=== PATIENT | male | born 1990 | race Caucasian/White ===

== ENCOUNTER 2021-04-12 13:52 | Inpatient (IN) ==
[2021-04-12] MEDS ORDERED: ONDANSETRON INJ 2 MG/ML 2 ML VIAL IV STA (14:20)
[2021-04-12] MEDS ORDERED: NovoLIN-R INSULIN PER UNIT CHARGE IV STA (14:20)
[2021-04-12] MEDS ORDERED: SODIUM CHLORIDE 0.9% 1000ML 1,000 ML IV ONE ×2 (14:20→15:03)
--- NOTE | 2021-04-12 14:27 | Emergency Department Note ---
History of Present Illness General Chief complaint: Hyperglycemia Stated complaint: DIABETIC Time Seen by Provider: 04/12/21 14:10 Source: patient and RN notes reviewed Mode of arrival: EMS Limitations: no limitations History of Present Illness This patient is a new onset type I diabetic 2 months ago comes in after feeling ill for several weeks. He has lost about 60 pounds in these 2 months. He was discharged from [place] less than a week ago with similar type symptoms. Apparently have had a hard time adjusting his medication he is on insulin and also oral meds. He is not on any blood thinners. He has been having a lot of vomiting. Denies blood or dark vomit although the paramedics were concerned he could have coffee grounds. He some intermittent chest pain that lasts seconds has been going on for weeks. His blood sugar was high when checked by paramedics. He has had no cough or shortness of breath or fever. He is not had the Covid vaccine but was Covid tested negative during his hospitalization. No focal numbness or weakness. Home Medications Medication Instructions Recorded Confirmed Type escitalopram oxalate [Lexapro] 5 mg PO DAILY 04/12/21 04/12/21 History insulin aspart U-100 [Novolog 0 unit SUBCUT UD 04/12/21 04/12/21 History Flexpen U-100 Insulin] naproxen 500 mg PO BIDM PRN 04/12/21 04/12/21 History omeprazole 20 mg PO QAM 04/12/21 04/12/21 History ondansetron [Zofran ODT] 4 mg PO Q6H PRN 04/12/21 04/12/21 History pantoprazole 40 mg PO BID 04/12/21 04/12/21 History sucralfate [Carafate] 1 g PO ACHS 04/12/21 04/12/21 History Allergies Allergy/AdvReac Type Severity Reaction Status Date / Time No Known Allergies Allergy Unverified 04/12/21 15:11 Past Med/Surg History Medical History (Updated 04/12/21 @ 20:03 by Mikey Samson MD) Depression GERD (gastroesophageal reflux disease) Tobacco use disorder Type 1 diabetes Surgical History H/O inguinal hernia repair Family History (Updated 04/12/21 @ 16:39 by Myah Adkins PA-C) Other Diabetes Social History (Updated 04/12/21 @ 16:40 by Myah Adkins PA-C) Smoking Status: Never smoker Hx Alcohol Use: No Hx Substance Use: No Preferred Language: Norwegian Communication Ability: Effective [employer] Inspector Required: No Beliefs That Will Affect Care: None Current Living Situation: Family Feels Safe at Home: Yes Safety Concerns: Feels Safe At This Time Assistive Devices: None Immunizations: Past medical historydiabetes. Denies any other medical problems Social history-History of tobacco and marijuana use Review of Systems A total of 10 systems reviewed and were otherwise negative Physical Exam Vital Signs Vital Signs - 24 hr 04/12/21 14:00 04/12/21 14:49 Temperature 36.5 C Temperature Source Oral Pulse Rate 141 H Respiratory Rate 22 Respiratory Effort / Characteristics Non-Labored Respiratory Depth Normal Blood Pressure 124/85 Blood Pressure Mean 98 Blood Pressure Position Right Lateral Pulse Oximetry 100 Oxygen Delivery Method Room Air Room Air Sepsis Recent Fever Within 48 Hours No Sepsis New/Unexplained Change in Mental Status No Sepsis Action Taken by Nursing No Action Required General: Well developed well nourished slender young male who appears uncomfortable but in no acute distress, breathing comfortably on room air. Normal speech HEENT: Normal cephalic atraumatic. Pupils are equal round and reactive to lig ht. Extraocular movements are intact. Oropharynx is pink with moist mucous membranes. No swelling of the mouth lips or tongue. Neck: Supple with a midline trachea. No meningeal signs or stiffness, no JVD or bruits. No Stridor. Chest: Clear to auscultation bilaterally. No wheezes or rhonchi. No increased work of breathing. Heart: Tachycardic with sinus tachycardia seen on the monitor but regular rate and rhythm without murmurs or gallops. Abdomen: Soft nontender, nondistended without rebound guarding or rigidity. Extremities: No cyanosis clubbing or edema. No calf tenderness or assymetry Spine/Back. Non tender to palpation. No CVA tenderness Skin: Good turgor without rashes. Neurologic exam: Cranial nerves two through 12 are intact. Motor and sensation are intact and symmetrical throughout. Course Administered Medications Insulin Human Regular 250 (units/ Sodium Chloride) 250 mls @ 6.8 mls/hr IV .Q24H [facility]; Protocol Stop: 05/12/21 15:44 Last Titration: 04/12/21 19:51 Dose: 0 units/hr, 0 mls/hr Documented by: [id number] Cosigned by: [id number] Titration: 04/12/21 18:42 Dose: 6.8 units/hr, 6.8 mls/hr Documented by: [id number] Cosigned by: [id number] Titration: 04/12/21 17:45 Dose: 6.8 units/hr, 6.8 mls/hr Documented by: [id number] Cosigned by: [id number] Titration: 04/12/21 16:51 Dose: 6.8 units/hr, 6.8 mls/hr Documented by: [id number] Cosigned by: [id number] Admin: 04/12/21 16:13 Dose: 5.7 units/hr, 5.7 mls/hr Documented by: [id number] Cosigned by: [id number] Potassium Chloride/Sodium Chloride (1/2 Nss + 20meq Kcl 1000ml) 20 meq in 1,000 mls @ 250 mls/hr IV .Q4H [facility] Stop: 05/12/21 17:29 Last Admin: 04/12/21 17:33 Dose: 250 mls/hr Documented by: [id number] Insulin Aspart (Insulin Aspart 100 Units/Ml 3 Ml Pen) 0 units SC ACHS [facility] Stop: 05/12/21 16:34 Last Admin: 04/12/21 17:22 Dose: Not Given Documented by: [id number] Cosigned by: [id number] Miscellaneous (Pending 1/2nss+20meq Kcl Ivf) 1 ea N/A Q2H [facility] Stop: 05/12/21 16:34 Last Admin: 04/12/21 18:20 Dose: Not Given Documented by: [id number] Admin: 04/12/21 17:21 Dose: Not Given Documented by: [id number] Miscellaneous (Pending D5 1/2ns+20meq Kcl Ivf) 1 ea N/A Q2H [facility] Stop: 05/12/21 16:34 Last Admin: 04/12/21 18:20 Dose: Not Given Documented by: [id number] Admin: 04/12/21 17:23 Dose: Not Given Documented by: [id number] Nicotine (Nicotine 21 Mg/24 Hr Tdsy) 21 mg TD QAM [facility] Stop: 05/12/21 16:34 Last Admin: 04/12/21 17:24 Dose: Not Given Documented by: [id number] Discontinued Medications Sodium Chloride (Nss 1000ml) 1,000 mls @ 999 mls/hr IV .Q1H1M ONE Stop: 04/12/21 15:20 Last Infusion: 04/12/21 15:45 Dose: 0 mls/hr Documented by: [id number] Admin: 04/12/21 14:44 Dose: 999 mls/hr Documented by: [id number] Sodium Chloride (Nss 1000ml) 1,000 mls @ 999 mls/hr IV .Q1H1M ONE Stop: 04/12/21 16:03 Last Infusion: 04/12/21 16:17 Dose: 0 mls/hr Documented by: [id number] Admin: 04/12/21 15:08 Dose: 999 mls/hr Documented by: [id number] Sodium Chloride (Nss 1000ml) 1,000 mls @ 200 mls/hr IV .Q5H [facility] Stop: 05/12/21 15:59 Last Admin: 04/12/21 16:58 Dose: Not Given Documented by: [id number] Thiamine HCl 100 mg/ Syringe 10 mls @ 2 mls/min IV NOW STA Stop: 04/12/21 16:20 Last Admin: 04/12/21 17:03 Dose: 2 mls/min Documented by: [id number] Folic Acid 1 mg/ Syringe 10 mls @ 5 mls/min IV NOW STA Stop: 04/12/21 16:17 Last Admin: 04/12/21 17:03 Dose: 5 mls/min Documented by: [id number] Insulin Aspart (Insulin Aspart 100 Units/Ml 3 Ml Pen) 0 units SC ACHS [facility] Stop: 05/12/21 16:29 Last Admin: 04/12/21 16:58 Dose: Not Given Documented by: [id number] Insulin Human Regular (Novolin-R Insulin Per Unit Charge) 10 units IV NOW STA Stop: 04/12/21 14:21 Last Admin: 04/12/21 14:44 Dose: 10 units Documented by: [id number] Cosigned by: [id number] Miscellaneous (Stat Iv Infusion Titration Per Protocol) 1 ea N/A NOW STA Stop: 04/12/21 15:46 Last Admin: 04/12/21 16:48 Dose: Not Given Documented by: [id number] Miscellaneous (Dka Goal Range 150-250 Mg/Dl) 1 ea N/A ONE ONE Stop: 04/12/21 16:36 Last Admin: 04/12/21 16:55 Dose: 1 ea Documented by: [id number] Miscellaneous Information (Nursing To Pharmacy Communication) 1 ea N/A TODAY [facility] Stop: 05/12/21 17:14 Last Admin: 04/12/21 17:24 Dose: 1 ea Documented by: [id number] Ondansetron HCl (Ondansetron Inj 2 Mg/Ml 2 Ml Vial) 4 mg IV NOW STA Stop: 04/12/21 14:21 Last Admin: 04/12/21 14:44 Dose: 4 mg Documented by: [id number] Critical Care Time Critical Care Time: Yes Total Critical Care Time: 32 Due to the patient's DKA with tachycardia and dehydration and electrolyte and metabolic abnormalities and need for multiple IV medications as well as IV fluid boluses and frequent reassessment and evaluation, I have personally spent greater than 32 minutes of critical care time in the direct management of this patient. This includes bedside care, interpretation of diagnostic studies, and testing, discussion with consultants, patient, and family members, and other required patient management activities. This 32 minutes is in excess of all separately billable procedures. Medical Decision Making Differential Diagnosis DKA, dehydration, GI bleed, acute coronary syndrome, arrhythmia, electrolyte or metabolic abnormality, infection, sepsis, pulmonary disease Medical Records Attestation: I reviewed the patient's medical records. Home Medications Current Medication List: was personally reviewed by me Laboratory Data Attestation: I reviewed the patient's lab results. Result diagrams: 04/12/21 14:17 04/12/21 16:51 Lab Results 04/12/21 04/12/21 04/12/21 Range/Units 14:17 14:17 14:17 WBC 25.35 H (4.8-10.8) K/uL RBC 5.50 (4.7-6.1) M/uL Hgb 18.1 H (14.0-18.0) g/dL POC Hgb (14.0-18.0) g/dl Hct 48.6 (42-52) % POC Hct (42-52) % MCV 88.4 (80-100) fL MCH 32.9 (25-34) pg MCHC 37.2 H (32-36) g/dL RDW Std Deviation 38.8 (36.4-46.3) fL RDW Coeff of Bennett 12.3 (11.5-14.5) % Plt Count 487 H (130-400) K/uL MPV 8.9 (7.4-10.4) fL Immature Gran % (Auto) 0.5 % Neut % (Auto) 85.3 % Lymph % (Auto) 13.5 % Schuyler % (Auto) 0.7 % Eos % (Auto) 0.0 % Baso % (Auto) 0.0 % Neut # (Auto) 21.62 H (1.4-6.5) K/uL Lymph # (Auto) 3.41 H (1.2-3.4) K/uL Schuyler # (Auto) 0.18 (0.11-0.59) K/uL Eos # (Auto) 0.00 (0-0.5) K/uL Baso # (Auto) 0.01 (0-0.2) K/uL Immature Gran # (Auto) 0.13 H (0.00-0.02) K/uL RBC Morphology Unremarkable PT Cancelled INR Cancelled APTT Cancelled PTT Ratio Cancelled VBG pH (7.36-7.41) VBG pCO2 (38-50) mmHg VBG pO2 mmHg VBG HCO3 mmol/L VBG O2 Saturation % VBG Base Excess mEq/L Barometric Pressure mm/Hg POC Sodium (135-144) mmol/L Sodium 127 L (136-145) mmol/L POC Potassium (3.3-5.0) mmol/L Potassium (3.5-5.1) mmol/L POC Chloride (101-112) mmol/L Chloride 86 L (98-107) mmol/L Carbon Dioxide 8 L* (21-32) mmol/L POC Total CO2 (24-31) mmol/L Anion Gap 33.0 H (3-11) POC Anion Gap (16-25) mmol/L POC BUN (7-18) mg/dl BUN 32 H (7-18) mg/dl Creatinine 1.72 H (0.6-1.4) mg/dl POC Creatinine (0.6-1.3) mg/dl Est Cr Clr Drug Dosing 51.8 ml/min Est GFR ( Amer) 61.3 ml/min Est GFR (Non-Af Amer) 52.9 ml/min BUN/Creatinine Ratio 18.7 (10-20) Glucose 716 H* (70-99) mg/dl POC Glucose (other) (70-99) mg/dl Calcium 9.3 (8.5-10.1) mg/dl POC Ioniz Calcium Franca (1.12-1.32) mmol/l Phosphorus (2.5-4.9) mg/dl Magnesium (1.8-2.4) mg/dl Total Bilirubin 0.7 (0.2-1) mg/dl AST (15-37) U/L ALT 21 (12-78) U/L Alkaline Phosphatase 126 H (45-117) U/L Troponin I < 0.015 (0-0.045) ng/ml Total Protein 8.1 (6.4-8.2) gm/dl Albumin 4.2 (3.4-5.0) gm/dl Globulin 3.9 (2.5-4.0) gm/dl Albumin/Globulin Ratio 1.1 (0.9-2) Lipase 70 L (73-393) U/L Beta-Hydroxybutyric Acd (0.2-2.81) mg/dl Blood Type Antibody Screen 04/12/21 04/12/21 04/12/21 Range/Units 14:30 14:40 14:40 WBC (4.8-10.8) K/uL RBC (4.7-6.1) M/uL Hgb (14.0-18.0) g/dL POC Hgb 17.3 (14.0-18.0) g/dl Hct (42-52) % POC Hct 51 (42-52) % MCV (80-100) fL MCH (25-34) pg MCHC (32-36) g/dL RDW Std Deviation (36.4-46.3) fL RDW Coeff of Bennett (11.5-14.5) % Plt Count (130-400) K/uL MPV (7.4-10.4) fL Immature Gran % (Auto) % Neut % (Auto) % Lymph % (Auto) % Schuyler % (Auto) % Eos % (Auto) % Baso % (Auto) % Neut # (Auto) (1.4-6.5) K/uL Lymph # (Auto) (1.2-3.4) K/uL Schuyler # (Auto) (0.11-0.59) K/uL Eos # (Auto) (0-0.5) K/uL Baso # (Auto) (0-0.2) K/uL Immature Gran # (Auto) (0.00-0.02) K/uL RBC Morphology PT INR APTT PTT Ratio VBG pH 7.15 L (7.36-7.41) VBG pCO2 24 L (38-50) mmHg VBG pO2 41 mmHg VBG HCO3 8 mmol/L VBG O2 Saturation 74.4 % VBG Base Excess -18.6 mEq/L Barometric Pressure 731.4 mm/Hg POC Sodium 126 L (135-144) mmol/L Sodium (136-145) mmol/L POC Potassium 5.7 H (3.3-5.0) mmol/L Potassium (3.5-5.1) mmol/L POC Chloride 94 L (101-112) mmol/L Chloride (98-107) mmol/L Carbon Dioxide (21-32) mmol/L POC Total CO2 8 L* (24-31) mmol/L Anion Gap (3-11) POC Anion Gap 31.0 H (16-25) mmol/L POC BUN 48 H (7-18) mg/dl BUN (7-18) mg/dl Creatinine (0.6-1.4) mg/dl POC Creatinine 1.2 (0.6-1.3) mg/dl Est Cr Clr Drug Dosing ml/min Est GFR ( Amer) ml/min Est GFR (Non-Af Amer) ml/min BUN/Creatinine Ratio (10-20) Glucose (70-99) mg/dl POC Glucose (other) 678 H* (70-99) mg/dl Calcium (8.5-10.1) mg/dl POC Ioniz Calcium Franca 1.11 L (1.12-1.32) mmol/l Phosphorus (2.5-4.9) mg/dl Magnesium (1.8-2.4) mg/dl Total Bilirubin (0.2-1) mg/dl AST (15-37) U/L ALT (12-78) U/L Alkaline Phosphatase (45-117) U/L Troponin I (0-0.045) ng/ml Total Protein (6.4-8.2) gm/dl Albumin (3.4-5.0) gm/dl Globulin (2.5-4.0) gm/dl Albumin/Globulin Ratio (0.9-2) Lipase (73-393) U/L Beta-Hydroxybutyric Acd (0.2-2.81) mg/dl Blood Type O Positive Antibody Screen NEGATIVE 04/12/21 04/12/21 Range/Units 14:40 14:40 WBC (4.8-10.8) K/uL RBC (4.7-6.1) M/uL Hgb (14.0-18.0) g/dL POC Hgb (14.0-18.0) g/dl Hct (42-52) % POC Hct (42-52) % MCV (80-100) fL MCH (25-34) pg MCHC (32-36) g/dL RDW Std Deviation (36.4-46.3) fL RDW Coeff of Bennett (11.5-14.5) % Plt Count (130-400) K/uL MPV (7.4-10.4) fL Immature Gran % (Auto) % Neut % (Auto) % Lymph % (Auto) % Schuyler % (Auto) % Eos % (Auto) % Baso % (Auto) % Neut # (Auto) (1.4-6.5) K/uL Lymph # (Auto) (1.2-3.4) K/uL Schuyler # (Auto) (0.11-0.59) K/uL Eos # (Auto) (0-0.5) K/uL Baso # (Auto) (0-0.2) K/uL Immature Gran # (Auto) (0.00-0.02) K/uL RBC Morphology PT 10.2 INR 1.0 APTT 28.5 PTT Ratio 1.1 VBG pH (7.36-7.41) VBG pCO2 (38-50) mmHg VBG pO2 mmHg VBG HCO3 mmol/L VBG O2 Saturation % VBG Base Excess mEq/L Barometric Pressure mm/Hg POC Sodium (135-144) mmol/L Sodium (136-145) mmol/L POC Potassium (3.3-5.0) mmol/L Potassium 3.0 L (3.5-5.1) mmol/L POC Chloride (101-112) mmol/L Chloride (98-107) mmol/L Carbon Dioxide (21-32) mmol/L POC Total CO2 (24-31) mmol/L Anion Gap (3-11) POC Anion Gap (16-25) mmol/L POC BUN (7-18) mg/dl BUN (7-18) mg/dl Creatinine (0.6-1.4) mg/dl POC Creatinine (0.6-1.3) mg/dl Est Cr Clr Drug Dosing ml/min Est GFR ( Amer) ml/min Est GFR (Non-Af Amer) ml/min BUN/Creatinine Ratio (10-20) Glucose (70-99) mg/dl POC Glucose (other) (70-99) mg/dl Calcium (8.5-10.1) mg/dl POC Ioniz Calcium Franca (1.12-1.32) mmol/l Phosphorus 2.8 (2.5-4.9) mg/dl Magnesium 1.9 (1.8-2.4) mg/dl Total Bilirubin (0.2-1) mg/dl AST 3 L (15-37) U/L ALT (12-78) U/L Alkaline Phosphatase (45-117) U/L Troponin I (0-0.045) ng/ml Total Protein (6.4-8.2) gm/dl Albumin (3.4-5.0) gm/dl Globulin (2.5-4.0) gm/dl Albumin/Globulin Ratio (0.9-2) Lipase (73-393) U/L Beta-Hydroxybutyric Acd 106.83 H (0.2-2.81) mg/dl Blood Type Antibody Screen Imaging Data Attestation: I personally reviewed and interpreted this imaging study as follows: My Impression: Chest x-rayno acute infiltrate, failure, pneumothorax seen Radiologist's Impression: Chest X-Ray 04/12/21 14:17 XR chest 1V portable CLINICAL HISTORY: Chest Pain COMPARISON STUDY: No previous studies for comparison. FINDINGS: Lung volumes are normal. Lungs are clear. There is no pneumothorax or pleural effusion. Cardiac size is normal. Mediastinal contours are normal. There is no evidence for pulmonary edema. Left hilar prominence is likely due to normal vessels. IMPRESSION: No acute cardiopulmonary findings. ACT 112: Negative or not required by law. Electronically signed by: Watson Davis M.D. 04/12/2021 3:08 PM ECG Data Attestation: I personally reviewed and interpreted this ECG as follows: Indication: + chest pain and + weakness Rate (beats per minute): 142 Rhythm: + sinus tachycardia and + other (Poor baseline.) ECG Intervals/blocks: + Normal QRS, + Short MO and + Normal QT ECG ST segments: + Nonspecific ST abnormalities ECG Findings: no PACs and no PVCs Comparison ECG Date: no prior available MDM Narrative This patient has relatively new onset type 1 diabetes it sounds like there has been a hard time adjusting his medications he has been ill and losing weight. He was hospital is in [place]. He comes here instead. IV access was established and hydrated with 1 L IV normal saline bolus. On route his blood sugar was high, so given 10 units of regular insulin IV as well. Multiple blood testing was obtained as well as chest x-ray and EKG. I also did get old records from [place]. Because there was concern for his acute illness I did d o i-STAT labs. His blood sugar was in the high 600s and his CO2 was low confirming DKA. He did also receive additional IV fluid bolus 1 L as well as an hourly rate. We also started him on IV insulin as per our DKA protocol. Chest x-ray was clear and he has no hypoxemia. EKG shoulds sinus tachycardic but no definite ischemia. His blood work is consistent with DKA his potassium is mildly elevated and his sodium is mildly low as well. His kidney functions are elevated I do think he is dry. His white count is elevated but I think is likely more stress reaction. he said no fever here or by history and no definite focal infection. It sounds the like he has had a hard time taking his medic ations and adjusting to that as he is a relatively new onset diabetic and I think that is likely the nidus for this. He is not anemic. I do think he needs to be admitted for further hydration treatment of his blood sugar and reevaluation. His blood sugar is trending downward with the insulin treatment. I did consult the [facility] hospitalist to see him in the ER for these measures. Continuous cardiac monitoring: Order was placed in EMR for continuous cardiac monitoring given the patient's chief complaint. Upon my interpretation, he noted to be in sinus tachycardia with a rate of 140. Impression & Plan DKA (diabetic ketoacidoses), Dehydration, Acute kidney injury, Elevated WBC count, COVID-19 ruled out by laboratory testing Discharge Plan Visit Data Chief Complaint: Hyperglycemia Stated Complaint: DIABETIC ED Provider: Mikey Samson Discharge Problem: DKA (diabetic ketoacidoses), Dehydration, Acute kidney injury, Elevated WBC count, COVID-19 ruled out by laboratory testing Patient Disposition: Admitted As Inpatient Discharge Instructions Interventions: ED Discharge Assessment Last Done: 04/12/21 16:19 Discharge Problem: DKA (diabetic ketoacidoses) Qualifiers: Diabetes mellitus type: type 1 Diabetes mellitus complication detail: without coma Qualified Code(s): E10.10 - Type 1 diabetes mellitus with ketoacidosis without coma Elevated WBC count Qualifiers: Leukocytosis type: unspecified Qualified Code(s): D72.829 - Elevated white blood cell count, unspecified
[2021-04-12 14:44] LABS: iSTAT Creatinine 1.2 mg/dl (0.6-1.3); iSTAT Hemoglobin 17.3 g/dl (14.0-18.0); iSTAT Ionized Calcium 1.11 mmol/l (1.12-1.32); iSTAT Potassium 5.7 mmol/L (3.3-5.0)
[2021-04-12 14:47] LABS: Hematocrit (blood only) 48.6 % (42-52); Hemoglobin 18.1 g/dL (14.0-18.0); Mean Corpuscular Hemoglobin 32.9 pg (25-34); Mean Corpuscular Hgb Conc 37.2 g/dL (32-36); Mean Corpuscular Volume 88.4 fL (80-100); Mean Platelet Volume 8.9 fL (7.4-10.4); Platelet Count 487 K/uL (130-400); RDW Coefficient of Variation 12.3 % (11.5-14.5); RDW Standard Deviation 38.8 fL (36.4-46.3); White Blood Count 25.35 K/uL (4.8-10.8)
[2021-04-12 14:48] LABS: Basophils # (auto) 0.01 K/uL (0-0.2); Immature Granulocytes # (auto) 0.13 K/uL (0.00-0.02); Immature Granulocytes % (auto) 0.5 %; Lymphocytes # (auto) 3.41 K/uL (1.2-3.4); Lymphocytes % (auto) 13.5 %; Monocytes # (auto) 0.18 K/uL (0.11-0.59); Monocytes % (auto) 0.7 %; Neutrophils # (auto) 21.62 K/uL (1.4-6.5); Neutrophils % (auto) 85.3 %; RBC Morphology Unremarkable
[2021-04-12 14:55] LABS: Base Excess VBG -18.6 mEq/L; Oxygen Saturation VBG 74.4 %; pH VBG 7.15 (7.36-7.41)
--- NOTE | 2021-04-12 15:09 | XRay Report ---
XR chest 1V portable CLINICAL HISTORY: Chest Pain COMPARISON STUDY: No previous studies for comparison. FINDINGS: Lung volumes are normal. Lungs are clear. There is no pneumothorax or pleural effusion. Car diac size is normal. Mediastinal contours are normal. There is no evidence for pulmonary edema. Left hilar prominence is likely due to normal vessels. IMPRESSION: No acute cardiopulmonary findings. ACT 112: Negative or not required by law. Electronically signed by: Watson Davis M.D. 04/12/2021 3:08 PM
[2021-04-12 15:12] LABS: Partial Thromboplastin Ratio 1.1; Partial Thromboplastin Time 28.5 Seconds (21.0-31.0); Prothrombin Time 10.2 Seconds (9.0-12.0)
[2021-04-12 15:33] LABS: Alanine Aminotransferase 21 U/L (12-78); Albumin Globulin Ratio 1.1 (0.9-2); Albumin Level 4.2 gm/dl (3.4-5.0); Alkaline Phosphatase 126 U/L (45-117); BUN Creatinine Ratio 18.7 (10-20); Bilirubin,Total 0.7 mg/dl (0.2-1); Blood Urea Nitrogen 32 mg/dl (7-18); Calcium 9.3 mg/dl (8.5-10.1); Carbon Dioxide 8 mmol/L (21-32); Chloride 86 mmol/L (98-107); Creatinine Clr Calc Pharmacy 51.8 ml/min; Est GFR (African American) 61.3 ml/min; Est GFR (Non-African American) 52.9 ml/min; Globulin 3.9 gm/dl (2.5-4.0); Glucose 716 mg/dl (70-99); Lipase 70 U/L (73-393); Sodium 127 mmol/L (136-145); Total Protein 8.1 gm/dl (6.4-8.2); Troponin I < 0.015 ng/ml (0-0.045)
--- NOTE | 2021-04-12 15:33 | Electrocardiogram Report ---
Test Reason : Blood Pressure : / mmHG Vent. Rate : 142 BPM Atrial Rate : 142 BPM P-R Int : 100 ms QRS Dur : 086 ms QT Int : 286 ms P-R-T Axes : 070 087 -34 degrees QTc Int : 439 ms Sinus tachycardia Diffuse Nonspecific ST abnormality Abnormal ECG No previous ECGs available Confirmed by Carlos Chacon ([id number]) on 04/12/2021 3:33:05 PM Referred By: ER Confirmed By:Carlos Chacon
[2021-04-12] MEDS ORDERED: DEXTROSE 50% 50 ML SYRINGE IV PRN (15:45)
[2021-04-12] MEDS ORDERED: STAT IV Infusion **Titration per Protocol STA (15:45)
[2021-04-12] MEDS ORDERED: CARBOHYDRATES FOR HYPOGLYCEMIA PO PRN (15:45)
[2021-04-12] MEDS ORDERED: GLUCOSE 10 TABS/TUBE PO PRN (15:45)
[2021-04-12] MEDS ORDERED: GLUCOSE 40% GEL 15 GM TUBE PO PRN (15:45)
[2021-04-12] MEDS ORDERED: ED DKA INSULIN DRIP ONE (15:45)
[2021-04-12] MEDS ORDERED: INSULIN REGULAR 250 UNITS in SODIUM CHLORIDE 0.9% 247.5 ML IV SCH ×2 (15:45→16:35)
[2021-04-12] MEDS ORDERED: GLUCAGON FOR INJ 1 MG VIAL SQ PRN (15:45)
--- NOTE | 2021-04-12 15:49 | History & Physical Report ---
Date of Service April 12, 2021 Assessment & Plan (1) DKA (diabetic ketoacidoses): This is a 30yo M with PMH of DM I, depression, tobacco use disorder and other medical problems listed below who presents with nausea and vomiting x 2 weeks and was found to be in DKA. Recently admitted to [facility] 04/02-04/04 for treatment of DKA in setting of insulin noncompliance Non-compliant at home since discharge home from [facility] with insulin pump last week, unable to provide details on regimen Initial BSG 716, VBG pH 7.15, HCO3 8, anion gap 33, B hydroxybutyric acid 106 Started on IV fluids, insulin drip Glycemic pharmacy consult, childbirth educator consulted BMP Q4H until anion gap resolves Keeping NPO for now (2) Depression: Continue SSRI (3) GERD (gastroesophageal reflux disease): Giving PPI as IV for now. Continue Carafate when able to tolerate (4) Tobacco use disorder: Nicotine patch ordered (5) Marijuana use: (6) Methamphetamine use: Tox screen pending DVT Ppx: malik olivera Code status: FULL PCP: Ainsley Jin PA-C Dispo: Admitted to PCU. Discharge planning ordered for possible services Patient seen in collaboration with Dr. Mcgarry. Please see addendum. History of Present Illness Chief Complaint: nausea, vomiting, hyperglycemia Primary Care Provider: NO PCP This is a 30yo M with PMH of DM I, depression, tobacco use disorder and other medical problems listed below who presents with nausea and vomiting x 2 weeks. Recently admitted to [facility] 04/02-04/04 for treatment of DKA after not using insulin for one week. Has met with childbirth educator and was discharged home with insulin pump. States he has not been using pump because it is painful. Last used last evening. Endorses lightheadedness, nausea, vomiting but hematemesis, abdominal pain and heartburn. Denies having a bowel movement since he was in hospital last week. No fever, chills, visual changes or diarrhea. Smoking marijuana daily as well as 1 pack of cigarettes daily. Also endorses using meth and alcohol but did not specify when or how much. Lives with cousin. A&O to person and place but not to situation. Allergies Allergy/AdvReac Type Severity Reaction Status Date / Time No Known Allergies Allergy Unverified 04/12/21 15:11 Home Medications Medication Instructions Recorded Confirmed Type escitalopram oxalate [Lexapro] 5 mg PO DAILY 04/12/21 04/12/21 History insulin aspart U-100 [Novolog 0 unit SUBCUT UD 04/12/21 04/12/21 History Flexpen U-100 Insulin] naproxen 500 mg PO BIDM PRN 04/12/21 04/12/21 History omeprazole 20 mg PO QAM 04/12/21 04/12/21 History ondansetron [Zofran ODT] 4 mg PO Q6H PRN 04/12/21 04/12/21 History pantoprazole 40 mg PO BID 04/12/21 04/12/21 History sucralfate [Carafate] 1 g PO ACHS 04/12/21 04/12/21 History Past Med/Surg History Medical History (Updated 04/12/21 @ 16:39 by Myah Adkins PA-C) Depression GERD (gastroesophageal reflux disease) Tobacco use disorder Type 1 diabetes Surgical History H/O inguinal hernia repair Family History (Updated 04/12/21 @ 16:39 by Myah Adkins PA-C) Other Diabetes Social History (Updated 04/12/21 @ 16:40 by Myah Adkins PA-C) Smoking Status: Never smoker Hx Alcohol Use: No Hx Substance Use: No Preferred Language: [place] Communication Ability: Effective Hotel Service Supervisor Required: No Beliefs That Will Affect Care: None Current Living Situation: Family Feels Safe at Home: Yes Safety Concerns: Feels Safe At This Time Assistive Devices: None Review of Systems Review of Systems: Unobtainable due to cognitive status Physical Exam Physical Exam: General Appearance: vitals as above, lying in bed, acutely ill, thin Head: normocephalic, atraumatic Eyes: normal inspection, PERRL, conjunctivae normal, anicteric sclerae ENT: external ear and nose normal, oropharynx with poor dentition, dry mucous membranes Neck: normal visual inspection, trachea midline, no thyromegaly Respiratory: normal respiratory effort, lungs clear to auscultation, no wheeze, rales, rhonchi. No accessory muscle use Cardiovascular: tachycardic rate, regular rhythm, no murmur, normal peripheral pulses, no BLE edema. Vessels: no JVD Chest: normal inspection of chest Abdomen/GI: normal bowel sounds, soft, nontender, no hepatosplenomegaly Extremities/Musculoskeletal: no cyanosis or clubbing, extremities motor strength 5/5 Neurologic: PERRL, EOMI, accommodation nl, no face palsy, no dysarthria, CN's II-XI intact bilaterally and moves all extremities Psychiatric: A+Ox3, euthymic affect Skin: no rashes, normal color, warm/dry Results & Data Results & Data ([facility]) Vital Signs (Past 12 Hours) Vital Signs Temp Pulse Resp BP Pulse Ox 04/12/21 14:00 36.5 C 141 H 22 124/85 100 Laboratory Results Short CBC 04/12/21 Range/Units 14:17 WBC 25.35 H (4.8-10.8) K/uL Hgb 18.1 H (14.0-18.0) g/dL Hct 48.6 (42-52) % Plt Count 487 H (130-400) K/uL BMP 04/12/21 04/12/21 14:17 14:40 Sodium 127 L Potassium 3.0 L Chloride 86 L Carbon Dioxide 8 L* BUN 32 H Creatinine 1.72 H Glucose 716 H* Calcium 9.3 Cardiac Enzymes 04/12/21 Range/Units 14:17 Troponin I < 0.015 (0-0.045) ng/ml Liver Function 04/12/21 04/12/21 Range/Units 14:17 14:40 Total Bilirubin 0.7 (0.2-1) mg/dl AST 3 L (15-37) U/L ALT 21 (12-78) U/L Alkaline Phosphatase 126 H (45-117) U/L Albumin 4.2 (3.4-5.0) gm/dl Diagnostic Findings Chest X-Ray 04/12/21 14:17 XR chest 1V portable CLINICAL HISTORY: Chest Pain COMPARISON STUDY: No previous studies for comparison. FINDINGS: Lung volumes are normal. Lungs are clear. There is no pneumothorax or pleural effusion. Cardiac size is normal. Mediastinal contours are normal. There is no evidence for pulmonary edema. Left hilar prominence is likely due to normal vessels. IMPRESSION: No acute cardiopulmonary findings. ACT 112: Negative or not required by law. Electronically signed by: Watson Davis M.D. 04/12/2021 3:08 PM ECG Rhythm: sinus tachycardia Code Status & VTE Plan VTE Prophylaxis Plan VTE Prophylaxis will be ordered: Yes Supervising Physician Co-Signing Physician Notes Patient is a 30-year-old male with history of type 1 diabetes mellitus, depression, tobacco use disorder and other medical problems presents with history of nausea, vomiting since 2 weeks duration. Patient is a poor historian secondary to DKA. He admits to being on insulin pump previously but has been not been using it secondary to pain with pump use. He also states having some dizziness, heartburn associated with abdominal discomfort. Please review HPI for complete details of presentation. Patient was recently discharged from [facility] after being treated for DKA. Blood work consistent with anion gap metabolic acidosis secondary to DKA. Hyponatremia secondary to DKA, dehydration could be contributing as well. Also noted FABI, leukocytosis. Chest x-ray within normal limits. Toxicology screen pending. Urinalysis pending. On exam patient is thin, frail, ill-appearing, normocephalic atraumatic, poor oral dentition, EOMI, lungs-normal breath sounds, clear to auscultation, S1-S2, tachycardia, no murmur, no pedal edema, abdomen soft, generalized tenderness, no guarding or rigidity, moves all extremities, alert, awake, confused. Patient is admitted for management of DKA, FABI. Leukocytosis likely secondary to DKA. Currently no obvious source of infection noted. Blood cultures obtained. Will check urinalysis. Also check toxicology screen. Started on IV insulin. Continue IV fluids, electrolyte replacement as per DKA protocol. We will keep him n.p.o. for now. Monitor mental status. Consulted consumer educator. Check KUB, start bowel regiment to prevent constipation. Agree with starting thiamine, folic acid given possible alcohol abuse. I personally reviewed the record. Patient is interviewed and examined at bedside. Patient's care is coordinated with Myah Adkins PA-C. Please refer to the documentation above for details of patient's presentation and for discussion of other issues.
[2021-04-12] MEDS ORDERED: SODIUM CHLORIDE 0.9% 1000ML 1,000 ML IV SCH (16:00)
[2021-04-12] MEDS ORDERED: THIAMINE HCL 100 MG in SYRINGE 9 ML IV STA (16:16)
[2021-04-12] MEDS ORDERED: FOLIC ACID 1 MG in SYRINGE 9.8 ML IV STA (16:16)
[2021-04-12 16:18] LABS: Magnesium 1.9 mg/dl (1.8-2.4); Phosphorus 2.8 mg/dl (2.5-4.9)
[2021-04-12] MEDS ORDERED: INSULIN ASPART 100 UNITS/ML 3 ML PEN SC SCH (16:30)
[2021-04-12 16:31] LABS: Beta-Hydroxybutyrate 106.83 mg/dl (0.2-2.81)
[2021-04-12] MEDS ORDERED: ACETAMINOPHEN 325 MG TAB PO PRN (16:35)
[2021-04-12] MEDS ORDERED: POLYETHYLENE (MIRALAX) 17 GM PACK PO PRN (16:35)
[2021-04-12] MEDS ORDERED: DKA GOAL RANGE 150-250 mg/dl ONE (16:35)
[2021-04-12] MEDS ORDERED: ONDANSETRON INJ 2 MG/ML 2 ML VIAL IV PRN (16:35)
[2021-04-12] MEDS ORDERED: PHARMACY GLYCEMIC MGMT CONSULT SCH (16:47)
[2021-04-12] MEDS ORDERED: NORMOSOL-R 1,000 ML IV SCH (17:00)
[2021-04-12] MEDS ORDERED: FAMOTIDINE 20 MG in SYRINGE 3 ML IV SCH (17:15)
[2021-04-12] MEDS ORDERED: Nursing to Pharmacy Communication SCH ×2 (17:15→22:00)
[2021-04-12] MEDS: PENDING 1/2NSS+20mEq KCL IVF SCH ×2 (17:21→18:20)
[2021-04-12] MEDS: INSULIN ASPART 100 UNITS/ML 3 ML PEN SC SCH ×2 (17:22→22:16)
[2021-04-12] MEDS: PENDING D5 1/2NS+20mEq KCL IVF SCH ×2 (17:23→18:20)
[2021-04-12] MEDS: NICOTINE 21 MG/24 HR TDSY TD SCH (17:24)
[2021-04-12] MEDS: SODIUM CHLOR 0.45% + 20MEQ KCL 20 MEQ/1,000 ML BAG IV SCH (17:33)
[2021-04-12 17:36] LABS: BUN Creatinine Ratio 20.6 (10-20); Calcium 8.6 mg/dl (8.5-10.1); Creatinine Clr Calc Pharmacy 64.1 ml/min; Est GFR (African American) 79.4 ml/min; Est GFR (Non-African American) 68.5 ml/min; Magnesium 2.1 mg/dl (1.8-2.4); Potassium 3.1 mmol/L (3.5-5.1)
--- NOTE | 2021-04-12 17:59 | XRay Report ---
KUB HISTORY: Generalized abdominal pain. Constipation. COMPARISON: None. FINDINGS: The bowel gas pattern is unremarkable. There are no dilated loops of small bowel to suggest an obstruction. No renal calculi. No ureteral calculi. No pneumoperitoneum or pneumatosis. Small to moderate amount of well-formed stool seen within the colon. IMPRESSION: 1. No evidence for bowel obstruction. 2. Small to moderate amount of well-formed stool within the colon. ACT 112: Negative or not required by law. Electronically signed by: Anshul Stewart M.D. 04/12/2021 5:58 PM
[2021-04-12 18:54] LABS: Beta-Hydroxybutyrate 98.88 mg/dl (0.2-2.81)
[2021-04-12 20:52] LABS: BUN Creatinine Ratio 22.5 (10-20); Calcium 8.7 mg/dl (8.5-10.1); Creatinine Clr Calc Pharmacy 73.7 ml/min; Est GFR (African American) 93.9 ml/min; Magnesium 1.8 mg/dl (1.8-2.4); Potassium 3.3 mmol/L (3.5-5.1)
[2021-04-12 21:56] LABS: Amphetamines+Metham, Urine Neg (Neg); Barbiturates, Urine Neg (Neg); Benzodiazepine, Urine Neg (Neg); Cocaine, Urine Neg (Neg); MDMA (Ecstacy), Urine Neg (Neg); Methadone, Urine Neg (Neg); Opiate, Urine Neg (Neg); Phencyclidine, Urine Neg (Neg)
[2021-04-12 22:00] LABS: Appearance Urine Clear (Clear); Bacteria Urine Automated Negative (Negative); Bilirubin Urine Negative (Negative); Blood Urine Trace (Negative); Color Urine Yellow; Glucose Urine UA 3+ (Negative); Ketones Urine 4+ (Negative); Leukocyte Esterase Urine Negative (Negative); Nitrite Urine Negative (Negative); Protein Urine 1+ (Negative); RBC Urine Automated 0-4 /hpf (0-4); Specific Gravity Urine 1.028 (1.000-1.030); Urobilinogen Urine Negative (Negative)
[2021-04-12] MEDS ORDERED: D5W AND 1/2NSS + 20MEQ KCL 20 MEQ/1,000 ML BAG IV SCH (22:00)
[2021-04-12] MEDS ORDERED: POTASSIUM CHLORIDE CRTAB 20 MEQ TABCR PO STA (22:14)
[2021-04-12] MEDS ORDERED: POTASSIUM CHLORIDE 20 MEQ in LACTATED RINGER'S 1,000 ML IV ONE (22:30)
[2021-04-12] MEDS ORDERED: MAGNESIUM SULFATE / D5W 1 GM/100 ML BAG IV ONE (22:30)
[2021-04-12] MEDS: SUCRALFATE 1 GM TAB PO SCH (22:32)
[2021-04-12] MEDS: DOCUSATE SODIUM 100 MG CAP PO SCH (22:32)
[2021-04-12] MEDS: PANTOprazole 40 MG in SYRINGE 0 ML IV SCH (22:32)
[2021-04-13] MEDS ORDERED: POTASSIUM CHLORIDE 40 MEQ in D5W AND LACTATED RINGERS 1,000 ML IV SCH (00:30)
[2021-04-13 01:01] LABS: BUN Creatinine Ratio 24.8 (10-20); Calcium 8.3 mg/dl (8.5-10.1); Creatinine Clr Calc Pharmacy 85.7 ml/min; Est GFR (African American) 112.7 ml/min; Est GFR (Non-African American) 97.3 ml/min; Magnesium 2.1 mg/dl (1.8-2.4); Potassium 3.8 mmol/L (3.5-5.1)
[2021-04-13 01:10] LABS: Phosphorus 0.9 mg/dl (2.5-4.9)
[2021-04-13] MEDS ORDERED: POTASSIUM PHOS 3 MMOL/1 ML INFUSION IV STA (01:20)
[2021-04-13] MEDS: PENDING 1/2NSS+20mEq KCL IVF SCH (01:30)
[2021-04-13] MEDS: PENDING D5 1/2NS+20mEq KCL IVF SCH (01:31)
[2021-04-13] MEDS: SODIUM CHLOR 0.45% + 20MEQ KCL 20 MEQ/1,000 ML BAG IV SCH (01:31)
[2021-04-13] MEDS ORDERED: POTASSIUM PHOSPHATE 30 MMOL in SODIUM CHLORIDE 0.9% 500 ML IV ONE (01:45)
[2021-04-13] MEDS ORDERED: POTASSIUM CHLORIDE 40 MEQ in D5W AND LACTATED RINGERS 1,000 ML IV ONE (01:45)
[2021-04-13 07:06] LABS: BUN Creatinine Ratio 29.5 (10-20); Calcium 8.5 mg/dl (8.5-10.1); Est GFR (African American) 140.9 ml/min; Est GFR (Non-African American) 121.6 ml/min; Potassium 3.6 mmol/L (3.5-5.1)
[2021-04-13 07:22] LABS: Hematocrit (blood only) 33.7 % (42-52); Hemoglobin 12.9 g/dL (14.0-18.0); Mean Corpuscular Hemoglobin 32.3 pg (25-34); Mean Corpuscular Hgb Conc 38.3 g/dL (32-36); Mean Corpuscular Volume 84.3 fL (80-100); Mean Platelet Volume 8.5 fL (7.4-10.4); Platelet Count 254 K/uL (130-400); RDW Standard Deviation 36.8 fL (36.4-46.3); White Blood Count 13.76 K/uL (4.8-10.8)
[2021-04-13] MEDS ORDERED: Nursing to Pharmacy Communication ONE (07:45)
[2021-04-13] MEDS: SUCRALFATE 1 GM TAB PO SCH ×4 (07:53→20:44)
[2021-04-13 07:57] LABS: Estimated Average Glucose 232 mg/dl; Hemoglobin A1C 9.7 % (4.5-5.6)
[2021-04-13] MEDS ORDERED: INSULIN GLARGINE SOLOSTAR 100 UNITS/ML 3 ML PEN SC SCH (08:00)
--- NOTE | 2021-04-13 08:24 | Electrocardiogram Report ---
Test Reason : Blood Pressure : / mmHG Vent. Rate : 113 BPM Atrial Rate : 113 BPM P-R Int : 112 ms QRS Dur : 080 ms QT Int : 298 ms P-R-T Axes : 065 082 000 degrees QTc Int : 408 ms Sinus tachycardia Diffuse Nonspecific T wave abnormality Abnormal ECG When compared with ECG of 12-APR-2021 14:00, ST no longer depressed in Inferior leads ST no longer depressed in Anterolateral leads Confirmed by Carlos Chacon ([id number]) on 04/13/2021 8:24:33 AM Referred By: REFERRED SELF Confirmed By:Carlos Chacon
--- NOTE | 2021-04-13 08:28 | Pharmacy Report ---
Pharmacy Glycemic Short Note 2 - Date of Service April 13, 2021 - Glycemic Short BSG Results (Last 24 hours): 04/12/21 04/12/21 04/12/21 14:17 14:30 15:59 Glucose 716 H* POC Glucose 486 H* POC Glucose (other) 678 H* 04/12/21 04/12/21 04/12/21 16:40 16:51 17:43 Glucose 442 H* POC Glucose 447 H* 360 H* POC Glucose (other) 04/12/21 04/12/21 04/12/21 18:40 19:47 20:24 Glucose 247 H POC Glucose 326 H* 240 H POC Glucose (other) 04/12/21 04/12/21 04/12/21 20:51 21:46 22:45 Glucose POC Glucose 272 H 230 H 209 H POC Glucose (other) 04/12/21 04/13/21 04/13/21 23:45 00:21 00:48 Glucose 170 H POC Glucose 201 H 150 H POC Glucose (other) 04/13/21 04/13/21 04/13/21 01:44 02:45 03:44 Glucose POC Glucose 180 H 205 H 166 H POC Glucose (other) 04/13/21 04/13/21 04/13/21 04:46 05:44 06:00 Glucose 146 H POC Glucose 153 H 141 H POC Glucose (other) 04/13/21 04/13/21 06:46 07:46 Glucose POC Glucose 147 H 134 H POC Glucose (other) OUTPATIENT ANTIDIABETIC REGIMEN: * Omnipod insulin pump (NovoLog insulin) * Patient doesn't know settings * A1c = 9.7% on 04/12/21 ASSESSMENT: * 30yo T1DM male with suboptimal degree of outpatient control secondary to non- compliance/adherence. * Pt with recent admission at outside facility for DKA secondary to insulin non-compliance. * Pt admitted 04/12/21 with SEVERE DKA and initiated on DKA protocol on admission with IVF + insulin infusion. * Average IV insulin infusion rate this AM (after BSG stabilization) is ~ 1.8 units/hr * Would ideally like to stress outpatient pump settings and convert to SQ basal bolus for transition from IV to SQ- however patient does not know his settings. Last SQ insulin Rx (02/07/21) was for Lantus 10 units daily + NovoLog 3 units SQ TIDM. Will use this information; as well as IV isnulin infusion data, plus weight based insulin dosing guidelines for determining dosing to transition off of insulin infusion. * BSGs in goal range this morning. Labs WNL. Pt meets criteria for transition to SQ basal bolus insulin regimen. * Criteria: 1. Serum glucose below 200 mg/dL (DKA) or 250 to 300 mg/dL ([facility]) 2. Serum anion gap <12 meq/L 3. Serum bicarbonate =15 meq/L 4. Venous pH >7.30 * Pt ordered a clear liquid diet only; this should NOT affect basal needs for a type 1 diabetic. Pt will just receive reduced CHO coverage for reduced PO/CHO intake * Current IVF: D5LR + 40kcl@100ml/hr --> this will dc today at 1200. If Pt does not tolerate PO will need to resume fluids for CHO source to prevent ketosis PLAN FOR INPATIENT GLYCEMIC CONTROL: * Hold outpatient insulin pump- will transition back to pump at time of DC * Basal insulin * Lantus 14 units (0.25 units/kg) SQ x 1 dose; further dosing TBD based on BSG trends * Transition off of IV insulin infusion per protocol; infusion should wean off as Lantus kicks in * Nursing: may d/c IV insulin infusion when BOTH of the following criteria are met at AFTER Lantus given. * BSG below 180mg/dl x 2 checks 1 hr apart * Rate 1 unit/hr or BELOW * Bolus insulin * NovoLog per scale ACHS or Q6hrs while NPO * Goal Range: Low 110 mg/dL - High 140 mg/dL * Correction Factor: 40 mg/dL/unit * Nutritional / Prandial insulin per carb ratio of 1 unit per 15 grams CHO consumed PLAN FOR DISCHARGE: * A1c = 9.7% on 04/12/21 * Goal A1c = below 7% based on age/co-morbidities. * Unsure of pump settings but the issue with glycemic control appears to be compliance rather than pump settings. Pt may benefit from DM educator consult.
[2021-04-13] MEDS: INSULIN ASPART 100 UNITS/ML 3 ML PEN SC SCH ×4 (09:00→20:45)
[2021-04-13] MEDS: THIAMINE HCL 100 MG TAB PO SCH (09:24)
[2021-04-13] MEDS: ESCITALOPRAM OXALATE 10 MG TAB PO SCH (09:24)
[2021-04-13] MEDS: FOLIC ACID 1 MG TAB PO SCH (09:24)
[2021-04-13] MEDS: DOCUSATE SODIUM 100 MG CAP PO SCH ×2 (09:24→20:44)
[2021-04-13] MEDS: NICOTINE 21 MG/24 HR TDSY TD SCH (09:25)
[2021-04-13] MEDS: PANTOprazole 40 MG in SYRINGE 0 ML IV SCH (10:51)
[2021-04-13] MEDS: DC IV INSULIN INFUSION 1 EA DEVI SCH ×3 (13:57→16:10)
--- NOTE | 2021-04-13 17:45 | Hospitalist Progress Note ---
Date of Service April 13, 2021 Assessment & Plan (1) DKA (diabetic ketoacidoses): Patient is a 30 yr male with H/O DM I, depression, tobacco use disorder and other medical problems listed below who presents with nausea and vomiting x 2 weeks and was found to be in DKA. Diabetic ketoacidosis Uncontrolled type 1 diabetes mellitus Metabolic acidosis secondary to above HbA1c 9.7 Medication Noncompliance Previously on insulin pump IV insulin transition to subcutaneous Received aggressive IV fluids visual educator consulted Appreciate glycemic pharmacy Tolerating diet Monitor BGs Electrolyte abnormalities Secondary to above Monitor closely Leukocytosis No obvious source of infection KUB:No evidence for bowel obstruction. Small to moderate amount of well-formed stool within the colon. CXR:No acute cardiopulmonary findings. UA not suggestive of UTI Afebrile No indication for antibiotics currently Acute metabolic encephalopathy-POA Confusion resolved Monitor Constipation Continue bowel regimen Encouraged to ambulate (2) Depression: Continue SSRI (3) GERD (gastroesophageal reflux disease): Continue PPI, Carafate (4) Tobacco use disorder: Counselled to quit Refuses nicotine patch (5) Marijuana use: (6) Methamphetamine use: Tox screen Negative DVT Px: SCDs Code status: FULL CODE Admission and Anticipated Discharge Date Admission Date: April 12, 2021 Subjective Patient is seen and examined at bedside States feeling weak and tired Confusion resolved Denies chest pain, shortness of breath, dizziness, nausea, abdominal pain Tolerating diet Admits to missing his insulin prior to admission Review of Systems Review of Systems: All systems reviewed & are unremarkable except as noted in HPI & below Physical Exam Physical Exam: Physical Exam: Vitals signs as noted above General Appearance:Thin, Frail, no apparent distress, Chronic ill appearing Head: normocephalic, Atraumatic, +Poor oral dentition Eyes: normal inspection, EOMI Neck: supple, Trachea midline Respiratory/Chest: Normal breath sounds, CTA, No accessory muscle use Cardiovascular: S1, S2, No murmur, +Tachycardia Abdomen/GI:Soft, Non tender, Bowel sounds present Extremities/Musculoskeletal:normal inspection, no edema Neurologic/Psych:AAOX3, grossly no focal neurological deficits Skin: normal color, warm Results & Data Results & Data ([facility]) Vital Signs (Past 12 Hours) Vital Signs Temp Pulse Pulse Resp BP Pulse Ox 04/13/21 16:18 37.0 C 120 H 18 137/84 99 04/13/21 16:10 105 H 06/04/21 12:13 36.7 C 112 H 16 125/74 97 04/13/21 10:38 120 H 04/13/21 07:11 37.0 C 118 H 18 126/85 97 Laboratory Results Short CBC 04/13/21 Range/Units 06:00 WBC 13.76 H D (4.8-10.8) K/uL Hgb 12.9 L D (14.0-18.0) g/dL Hct 33.7 L (42-52) % Plt Count 254 (130-400) K/uL BMP 04/12/21 04/12/21 04/13/21 16:51 20:24 00:21 Sodium 134 L D 135 L 135 L Potassium 3.1 L 3.3 L 3.8 D Chloride 98 104 106 Carbon Dioxide 11 L 15 L 21 BUN 29 H 27 H 26 H Creatinine 1.39 D 1.21 1.04 Glucose 442 H* 247 H 170 H Calcium 8.6 8.7 8.3 L 04/13/21 06:00 Sodium 140 Potassium 3.6 Chloride 111 H Carbon Dioxide 21 BUN 24 H Creatinine 0.80 Glucose 146 H Calcium 8.5 Urine 04/12/21 Range/Units 14:25 Urine Color Yellow Urine Appearance Clear (Clear) Urine pH 5.0 (4.5-7.5) Ur Specific Farrell 1.028 (1.000-1.030) Urine Protein 1+ H (Negative) Urine Glucose (UA) 3+ H (Negative) (1) DKA (diabetic ketoacidoses) Diabetes mellitus complication detail: without coma Diabetes mellitus type: type 1 Qualified Code(s): E10.10 - Type 1 diabetes mellitus with ketoacidosis without coma
[2021-04-13] MEDS: PANTOprazole 40 MG TAB PO SCH (20:44)
[2021-04-14] MEDS: INSULIN ASPART 100 UNITS/ML 3 ML PEN SC SCH ×6 (00:09→20:50)
[2021-04-14] MEDS ORDERED: MELATONIN 3 MG TAB PO PRN (00:16)
[2021-04-14 06:32] LABS: Hemoglobin 13.2 g/dL (14.0-18.0); Mean Corpuscular Hemoglobin 32.6 pg (25-34); Mean Corpuscular Hgb Conc 37.7 g/dL (32-36); Mean Corpuscular Volume 86.4 fL (80-100); Mean Platelet Volume 8.4 fL (7.4-10.4); Platelet Count 186 K/uL (130-400); Red Blood Count 4.05 M/uL (4.7-6.1); White Blood Count 8.61 K/uL (4.8-10.8)
[2021-04-14 07:27] LABS: BUN Creatinine Ratio 12.7 (10-20); Blood Urea Nitrogen 7 mg/dl (7-18); Calcium 8.5 mg/dl (8.5-10.1); Carbon Dioxide 27 mmol/L (21-32); Chloride 101 mmol/L (98-107); Creatinine Clr Calc Pharmacy 139.5 ml/min; Est GFR (African American) > 150.0 ml/min; Est GFR (Non-African American) 137.8 ml/min; Glucose 254 mg/dl (70-99); Potassium 2.8 mmol/L (3.5-5.1); Sodium 136 mmol/L (136-145)
[2021-04-14] MEDS ORDERED: INSULIN GLARGINE SOLOSTAR 100 UNITS/ML 3 ML PEN SC SCH (08:00)
[2021-04-14] MEDS: SUCRALFATE 1 GM TAB PO SCH ×4 (08:10→20:49)
[2021-04-14] MEDS: FOLIC ACID 1 MG TAB PO SCH (08:11)
[2021-04-14] MEDS: PANTOprazole 40 MG TAB PO SCH ×2 (08:11→20:48)
[2021-04-14] MEDS: ESCITALOPRAM OXALATE 10 MG TAB PO SCH (08:11)
[2021-04-14] MEDS: THIAMINE HCL 100 MG TAB PO SCH (08:12)
[2021-04-14] MEDS: DOCUSATE SODIUM 100 MG CAP PO SCH ×2 (08:13→20:50)
[2021-04-14] MEDS ORDERED: POTASSIUM CHLORIDE CRTAB 20 MEQ TABCR PO ONE ×2 (09:09→11:11)
[2021-04-14] MEDS ORDERED: POTASSIUM CHLORIDE / WTR 10 MEQ/100 ML PLCT IV ONE (09:30)
[2021-04-14] MEDS ORDERED: POTASSIUM CHLORIDE 40 MEQ in SODIUM CHLORIDE 0.9% 1000ML 1,000 ML IV ONE (09:30)
--- NOTE | 2021-04-14 12:10 | Pharmacy Report ---
Pharmacy Glycemic Short Note 2 - Date of Service April 14, 2021 - Glycemic Short BSG Results (Last 24 hours): 04/13/21 04/13/21 04/13/21 11:44 12:47 13:46 Glucose POC Glucose 214 H 203 H 150 H 04/13/21 04/13/21 04/13/21 16:52 18:45 20:11 Glucose POC Glucose 138 H 225 H 291 H 04/14/21 04/14/21 04/14/21 00:03 04:00 06:08 Glucose 254 H POC Glucose 215 H 226 H 04/14/21 04/14/21 07:35 11:44 Glucose POC Glucose 249 H 219 H OUTPATIENT ANTIDIABETIC REGIMEN: * Omnipod insulin pump (NovoLog insulin) * Patient doesn't know settings * A1c = 9.7% on 04/12/21 ASSESSMENT: 04/14 * Blood sugars above goal since insulin drip discontinued yesterday, 219- 291mg/dl, using 14 units basal and CF/CR * Increase basal and tighten CF/CR 04/13 * 30yo T1DM male with suboptimal degree of outpatient control secondary to non- compliance/adherence. * Pt with recent admission at outside facility for DKA secondary to insulin non-compliance. * Pt admitted 04/12/21 with SEVERE DKA and initiated on DKA protocol on admission with IVF + insulin infusion. * Average IV insulin infusion rate this AM (after BSG stabilization) is ~ 1.8 units/hr * Would ideally like to stress outpatient pump settings and convert to SQ basal bolus for transition from IV to SQ- however patient does not know his settings. Last SQ insulin Rx (02/07/21) was for Lantus 10 units daily + NovoLog 3 units SQ TIDM. Will use this information; as well as IV isnulin infusion data, plus weight based insulin dosing guidelines for determining dosing to transition off of insulin infusion. * BSGs in goal range this morning. Labs WNL. Pt meets criteria for transition to SQ basal bolus insulin regimen. * Criteria: 1. Serum glucose below 200 mg/dL (DKA) or 250 to 300 mg/dL ([facility]) 2. Serum anion gap <12 meq/L 3. Serum bicarbonate =15 meq/L 4. Venous pH >7.30 * Pt ordered a clear liquid diet only; this should NOT affect basal needs for a type 1 diabetic. Pt will just receive reduced CHO coverage for reduced PO/CHO intake * Current IVF: D5LR + 40kcl@100ml/hr --> this will dc today at 1200. If Pt does not tolerate PO will need to resume fluids for CHO source to prevent ketosis PLAN FOR INPATIENT GLYCEMIC CONTROL: * Hold outpatient insulin pump- will transition back to pump at time of DC * Basal insulin - increase * Lantus 20 units SQ daily * Bolus insulin -tighten CF/CR * NovoLog per scale ACHS or Q6hrs while NPO * Goal Range: Low 110 mg/dL - High 140 mg/dL * Correction Factor: 30 mg/dL/unit * Nutritional / Prandial insulin per carb ratio of 1 unit per 10 grams CHO consumed PLAN FOR DISCHARGE: * A1c = 9.7% on 04/12/21 * Goal A1c = below 7% based on age/co-morbidities. * Unsure of pump settings but the issue with glycemic control appears to be c ompliance rather than pump settings. Pt may benefit from DM educator consult.
--- NOTE | 2021-04-14 17:24 | Hospitalist Progress Note ---
Date of Service April 14, 2021 Assessment & Plan (1) DKA (diabetic ketoacidoses): Patient is a 30 yr male with H/O DM I, depression, tobacco use disorder and other medical problems listed below who presents with nausea and vomiting x 2 weeks and was found to be in DKA. Diabetic ketoacidosis Uncontrolled type 1 diabetes mellitus Metabolic acidosis secondary to above HbA1c 9.7 Medication Noncompliance Previously on insulin pump IV insulin transition to subcutaneous Received aggressive IV fluids ict educator consulted Appreciate glycemic pharmacy Tolerating diet Monitor BGs DKA resolved Needs follow up with Endocrinology as outpatient Electrolyte abnormalities Hypokalemia Hypophosphatemia Replace and monitor electrolytes as needed Leukocytosis No obvious source of infection KUB:No evidence for bowel obstruction. Small to moderate amount of well-formed stool within the colon. CXR:No acute cardiopulmonary findings. UA not suggestive of UTI Afebrile No indication for antibiotics currently Resolved Acute metabolic encephalopathy-POA Confusion resolved Monitor Constipation Continue bowel regimen Encouraged to ambulate (2) Depression: Continue SSRI (3) GERD (gastroesophageal reflux disease): Continue PPI, Carafate (4) Tobacco use disorder: Counselled to quit Refuses nicotine patch (5) Marijuana use: (6) Methamphetamine use: Tox screen Negative DVT Px: SCDs Code status: FULL CODE Admission and Anticipated Discharge Date Admission Date: April 12, 2021 Subjective Patient is seen and examined at bedside States feeling well Negative for discharge Refusing medications as per RN Offers no complaints Denies chest pain, shortness of breath, dizziness, nausea, abdominal pain Review of Systems Review of Systems: All systems reviewed & are unremarkable except as noted in HPI & below Physical Exam Physical Exam: Physical Exam: Vitals signs as noted above General Appearance:Thin, Frail, no apparent distress, Chronic ill appearing Head: normocephalic, Atraumatic, +Poor oral dentition Eyes: normal inspection, EOMI Neck: supple, Trachea midline Respiratory/Chest: Normal breath sounds, CTA, No accessory muscle use Cardiovascular: S1, S2, No murmur Abdomen/GI:Soft, Non tender, Bowel sounds present Extremities/Musculoskeletal:normal inspection, no edema Neurologic/Psych:AAOX3, grossly no focal neurological deficits Skin: normal color, warm Results & Data Results & Data ([facility]) Vital Signs (Past 12 Hours) Vital Signs Temp Pulse Pulse Resp BP Pulse Ox 04/14/21 15:12 37.0 C 100 H 16 126/88 99 04/14/21 11:10 36.9 C 112 H 16 119/84 98 04/14/21 07:25 90 04/14/21 07:11 36.7 C 99 H 16 118/77 96 Laboratory Results Short CBC 04/14/21 Range/Units 06:08 WBC 8.61 (4.8-10.8) K/uL Hgb 13.2 L (14.0-18.0) g/dL Hct 35.0 L (42-52) % Plt Count 186 (130-400) K/uL BMP 04/14/21 06:08 Sodium 136 Potassium 2.8 L D Chloride 101 Carbon Dioxide 27 BUN 7 D Creatinine 0.59 L Glucose 254 H Calcium 8.5 (1) DKA (diabetic ketoacidoses) Diabetes mellitus complication detail: without coma Diabetes mellitus type: type 1 Qualified Code(s): E10.10 - Type 1 diabetes mellitus with ketoacidosis without coma
[2021-04-15] MEDS: INSULIN ASPART 100 UNITS/ML 3 ML PEN SC SCH ×6 (00:19→20:57)
[2021-04-15] MEDS: SUCRALFATE 1 GM TAB PO SCH ×4 (08:17→21:04)
[2021-04-15] MEDS: DOCUSATE SODIUM 100 MG CAP PO SCH ×2 (08:18→21:01)
[2021-04-15] MEDS: ESCITALOPRAM OXALATE 10 MG TAB PO SCH (08:19)
[2021-04-15] MEDS: PANTOprazole 40 MG TAB PO SCH ×2 (08:19→21:04)
[2021-04-15] MEDS: FOLIC ACID 1 MG TAB PO SCH (08:19)
[2021-04-15] MEDS: THIAMINE HCL 100 MG TAB PO SCH (08:19)
[2021-04-15] MEDS: INSULIN GLARGINE SOLOSTAR 100 UNITS/ML 3 ML PEN SC SCH (08:23)
[2021-04-15 09:17] LABS: Hematocrit (blood only) 35.8 % (42-52); Hemoglobin 13.3 g/dL (14.0-18.0); Mean Corpuscular Hemoglobin 32.4 pg (25-34); Mean Corpuscular Hgb Conc 37.2 g/dL (32-36); Mean Corpuscular Volume 87.3 fL (80-100); Mean Platelet Volume 8.5 fL (7.4-10.4); Platelet Count 181 K/uL (130-400); RDW Standard Deviation 38.4 fL (36.4-46.3); White Blood Count 5.39 K/uL (4.8-10.8)
[2021-04-15 09:36] LABS: BUN Creatinine Ratio 23.7 (10-20); Blood Urea Nitrogen 11 mg/dl (7-18); Calcium 8.7 mg/dl (8.5-10.1); Carbon Dioxide 31 mmol/L (21-32); Chloride 97 mmol/L (98-107); Creatinine Clr Calc Pharmacy 176.2 ml/min; Est GFR (African American) > 150.0 ml/min; Est GFR (Non-African American) > 150.0 ml/min; Glucose 291 mg/dl (70-99); Magnesium 1.8 mg/dl (1.8-2.4); Potassium 2.8 mmol/L (3.5-5.1); Sodium 136 mmol/L (136-145)
[2021-04-15 09:39] LABS: Phosphorus 3.6 mg/dl (2.5-4.9)
[2021-04-15] MEDS ORDERED: POTASSIUM CHLORIDE 40 MEQ in SODIUM CHLORIDE 0.9% 500 ML IV ONE (10:30)
[2021-04-15] MEDS ORDERED: POTASSIUM CHLORIDE 40 MEQ in SODIUM CHLORIDE 0.9% 1000ML 500 ML IV ONE (10:30)
[2021-04-15] MEDS: POTASSIUM CHLORIDE CRTAB 20 MEQ TABCR PO ONE ×2 (10:51→15:00)
--- NOTE | 2021-04-15 11:54 | Pharmacy Report ---
Pharmacy Glycemic Short Note 2 - Date of Service April 15, 2021 - Glycemic Short BSG Results (Last 24 hours): 04/14/21 04/14/21 04/14/21 11:44 16:46 20:07 Glucose POC Glucose 219 H 243 H 309 H* 04/15/21 04/15/21 04/15/21 00:08 04:12 08:00 Glucose POC Glucose 266 H 245 H 234 H 04/15/21 04/15/21 09:03 11:13 Glucose 291 H POC Glucose 198 H OUTPATIENT ANTIDIABETIC REGIMEN: * Omnipod insulin pump (NovoLog insulin) * Patient doesn't know settings * A1c = 9.7% on 04/12/21 ASSESSMENT: 04/15 * Blood sugars remain elevated at all times, despite increase in basal and tighten CF/CR yesterday, will continue to increase/tighten * Pt rejects education attempts. Pt does report he has supplies with him regarding insulin pump for discharge, resistant to overnight monitoring of blood sugar, refusing many medications but reluctantly cooperative with insulin administration. 04/14 * Blood sugars above goal since insulin drip discontinued yesterday, 219- 291mg/dl, using 14 units basal and CF/CR * Increase basal and tighten CF/CR 04/13 * 30yo T1DM male with suboptimal degree of outpatient control secondary to non- compliance/adherence. * Pt with recent admission at outside facility for DKA secondary to insulin non-compliance. * Pt admitted 04/12/21 with SEVERE DKA and initiated on DKA protocol on admission with IVF + insulin infusion. * Average IV insulin infusion rate this AM (after BSG stabilization) is ~ 1.8 units/hr * Would ideally like to stress outpatient pump settings and convert to SQ basal bolus for transition from IV to SQ- however patient does not know his settings. Last SQ insulin Rx (02/07/21) was for Lantus 10 units daily + NovoLog 3 units SQ TIDM. Will use this information; as well as IV isnulin infusion data, plus weight based insulin dosing guidelines for determining dosing to transition off of insulin infusion. * BSGs in goal range this morning. Labs WNL. Pt meets criteria for transition to SQ basal bolus insulin regimen. * Criteria: 1. Serum glucose below 200 mg/dL (DKA) or 250 to 300 mg/dL (HHS) 2. Serum anion gap <12 meq/L 3. Serum bicarbonate =15 meq/L 4. Venous pH >7.30 * Pt ordered a clear liquid diet only; this should NOT affect basal needs for a type 1 diabetic. Pt will just receive reduced CHO coverage for reduced PO/CHO intake * Current IVF: D5LR + 40kcl@100ml/hr --> this will dc today at 1200. If Pt does not tolerate PO will need to resume fluids for CHO source to prevent ketosis PLAN FOR INPATIENT GLYCEMIC CONTROL: * Hold outpatient insulin pump- will transition back to pump at time of DC * Basal insulin - increase * Lantus 35 units SQ daily * Bolus insulin -tighten CF/CR * NovoLog per scale ACHS or Q6hrs while NPO * Goal Range: Low 110 mg/dL - High 140 mg/dL * Correction Factor: 20 mg/dL/unit * Nutritional / Prandial insulin per carb ratio of 1 unit per 7 grams CHO consumed PLAN FOR DISCHARGE: * A1c = 9.7% on 04/12/21 * Goal A1c = below 7% based on age/co-morbidities. * Unsure of pump settings but the issue with glycemic control appears to be compliance rather than pump settings. Pt may benefit from DM educator consult.
--- NOTE | 2021-04-15 15:24 | Hospitalist Progress Note ---
Date of Service April 15, 2021 Assessment & Plan (1) DKA (diabetic ketoacidoses): Patient is a 30 yr male with H/O DM I, depression, tobacco use disorder and other medical problems listed below who presents with nausea and vomiting x 2 weeks and was found to be in DKA. Diabetic ketoacidosis Uncontrolled type 1 diabetes mellitus Metabolic acidosis secondary to above HbA1c 9.7 Medication Noncompliance Previously on insulin pump IV insulin transition to subcutaneous Received aggressive IV fluids agricultural extension educator consulted Appreciate glycemic pharmacy Tolerating diet Monitor BGs DKA resolved Needs follow up with Endocrinology as outpatient Continue current management Electrolyte abnormalities Hypokalemia Hypophosphatemia Replace and monitor electrolytes as needed Patient has been refusion potassium supplements Leukocytosis No obvious source of infection KUB:No evidence for bowel obstruction. Small to moderate amount of well-formed stool within the colon. CXR:No acute cardiopulmonary findings. UA not suggestive of UTI Afebrile No indication for antibiotics currently Resolved Acute metabolic encephalopathy-POA Confusion resolved Monitor Constipation Continue bowel regimen Encouraged to ambulate (2) Depression: Continue SSRI (3) GERD (gastroesophageal reflux disease): Continue PPI, Carafate (4) Tobacco use disorder: Counselled to quit Refuses nicotine patch (5) Marijuana use: (6) Methamphetamine use: Tox screen Negative DVT Px: SCDs Code status: FULL CODE Admission and Anticipated Discharge Date Admission Date: April 12, 2021 Subjective Patient is seen and examined at bedside States having generalized soreness Refuses Potassium replacement on many occasions Denies chest pain, shortness of breath, dizziness, nausea, abdominal pain Offers no other complaints Review of Systems Review of Systems: All systems reviewed & are unremarkable except as noted in HPI & below Physical Exam Physical Exam: Physical Exam: Vitals signs as noted above General Appearance:Thin, Frail, no apparent distress, Chronic ill appearing Head: normocephalic, Atraumatic, +Poor oral dentition Eyes: normal inspection, EOMI Neck: supple, Trachea midline Respiratory/Chest: Normal breath sounds, CTA, No accessory muscle use Cardiovascular: S1, S2, No murmur Abdomen/GI:Soft, Non tender, Bowel sounds present Extremities/Musculoskeletal:normal inspection, no edema Neurologic/Psych:AAOX3, grossly no focal neurological deficits Skin: normal color, warm Results & Data Results & Data ([facility]) Vital Signs (Past 12 Hours) Vital Signs Temp Pulse Resp BP Pulse Ox 04/15/21 11:14 36.7 C 105 H 16 129/89 99 04/15/21 07:34 36.8 C 95 H 16 127/88 97 04/15/21 03:26 37.1 C 101 H 17 130/90 97 Laboratory Results Short CBC 04/15/21 Range/Units 09:03 WBC 5.39 (4.8-10.8) K/uL Hgb 13.3 L (14.0-18.0) g/dL Hct 35.8 L (42-52) % Plt Count 181 (130-400) K/uL BMP 04/15/21 09:03 Sodium 136 Potassium 2.8 L Chloride 97 L Carbon Dioxide 31 BUN 11 D Creatinine 0.46 L Glucose 291 H Calcium 8.7 (1) DKA (diabetic ketoacidoses) Diabetes mellitus complication detail: without coma Diabetes mellitus type: type 1 Qualified Code(s): E10.10 - Type 1 diabetes mellitus with ketoacidosis without coma
[2021-04-15] MEDS ORDERED: POTASSIUM CHLORIDE 20 MEQ/15 ML UDC PO ONE (15:45)
[2021-04-15] MEDS: PREGABALIN 25 MG CAP PO SCH ×2 (16:20→21:01)
[2021-04-15 16:47] LABS: BUN Creatinine Ratio 23.4 (10-20); Blood Urea Nitrogen 13 mg/dl (7-18); Calcium 8.8 mg/dl (8.5-10.1); Carbon Dioxide 33 mmol/L (21-32); Chloride 100 mmol/L (98-107); Creatinine Clr Calc Pharmacy 142.2 ml/min; Est GFR (African American) > 150.0 ml/min; Est GFR (Non-African American) 139.7 ml/min; Glucose 203 mg/dl (70-99); Sodium 139 mmol/L (136-145)
[2021-04-15 16:48] LABS: Potassium 3.4 mmol/L (3.5-5.1)
[2021-04-15] MEDS ORDERED: POTASSIUM CHLORIDE CRTAB 20 MEQ TABCR PO ONE (17:00)
[2021-04-16] MEDS: PANTOprazole 40 MG TAB PO SCH (07:56)
[2021-04-16] MEDS: INSULIN ASPART 100 UNITS/ML 3 ML PEN SC SCH ×3 (08:03→14:11)
[2021-04-16] MEDS: SUCRALFATE 1 GM TAB PO SCH ×2 (08:05→13:23)
[2021-04-16] MEDS: INSULIN GLARGINE SOLOSTAR 100 UNITS/ML 3 ML PEN SC SCH (08:06)
[2021-04-16] MEDS ORDERED: INSULIN GLARGINE SOLOSTAR 100 UNITS/ML 3 ML PEN SC SCH (09:00)
[2021-04-16] MEDS ORDERED: POTASSIUM CHLORIDE CRTAB 20 MEQ TABCR PO ONE (09:40)
[2021-04-16 11:19] LABS: BUN Creatinine Ratio 21.7 (10-20); Blood Urea Nitrogen 12 mg/dl (7-18); Calcium 9.1 mg/dl (8.5-10.1); Carbon Dioxide 33 mmol/L (21-32); Chloride 98 mmol/L (98-107); Creatinine Clr Calc Pharmacy 142.2 ml/min; Est GFR (African American) > 150.0 ml/min; Est GFR (Non-African American) 139.7 ml/min; Glucose 227 mg/dl (70-99); Magnesium 2.1 mg/dl (1.8-2.4); Potassium 3.3 mmol/L (3.5-5.1); Sodium 136 mmol/L (136-145)
[2021-04-16 11:26] LABS: Phosphorus 4.3 mg/dl (2.5-4.9)
[2021-04-16] MEDS: PREGABALIN 25 MG CAP PO SCH ×2 (11:51→14:12)
[2021-04-16] MEDS: THIAMINE HCL 100 MG TAB PO SCH (11:51)
[2021-04-16] MEDS: FOLIC ACID 1 MG TAB PO SCH (11:51)
[2021-04-16] MEDS: ESCITALOPRAM OXALATE 10 MG TAB PO SCH (11:51)
[2021-04-16] MEDS: DOCUSATE SODIUM 100 MG CAP PO SCH (11:51)
[2021-04-16] MEDS ORDERED: POTASSIUM CHLORIDE 20 MEQ/15 ML UDC PO ONE (12:15)
--- NOTE | 2021-04-16 12:39 | Hospitalist Progress Note ---
Date of Service April 16, 2021 Assessment & Plan (1) DKA (diabetic ketoacidoses): Patient is a 30 yr male with H/O DM I, depression, tobacco use disorder and other medical problems listed below who presents with nausea and vomiting x 2 weeks and was found to be in DKA. Diabetic ketoacidosis Uncontrolled type 1 diabetes mellitus Metabolic acidosis secondary to above HbA1c 9.7 Medication Noncompliance Previously on insulin pump Continue Insulin therapy Received aggressive IV fluids car seat coverer consulted Appreciate glycemic pharmacy Monitor BGs DKA resolved Needs follow up with Endocrinology as outpatient Patient plans not use Insulin Pump upon discharge Electrolyte abnormalities Hypokalemia Hypophosphatemia Replace and monitor electrolytes as needed Patient has been refusing potassium supplements on and off Leukocytosis No obvious source of infection KUB:No evidence for bowel obstruction. Small to moderate amount of well-formed stool within the colon. CXR:No acute cardiopulmonary findings. UA not suggestive of UTI Afebrile No indication for antibiotics currently Resolved Acute metabolic encephalopathy-POA Confusion resolved Monitor Constipation Continue bowel regimen Encouraged to ambulate (2) Depression: Continue SSRI (3) GERD (gastroesophageal reflux disease): Continue PPI, Carafate (4) Tobacco use disorder: Counselled to quit Refuses nicotine patch (5) Marijuana use: (6) Methamphetamine use: Tox screen Negative DVT Px: SCDs Code status: FULL CODE Admission and Anticipated Discharge Date Admission Date: April 12, 2021 Subjective Patient is seen and examined at bedside No new complaints Eager to get discharged States having some back pain which her attributes to the bed Denies chest pain, shortness of breath, dizziness, nausea, abdominal pain Offers no other complaints Review of Systems Review of Systems: All systems reviewed & are unremarkable except as noted in HPI & below Physical Exam Physical Exam: Physical Exam: Vitals signs as noted above General Appearance:Thin, Frail, no apparent distress, Chronic ill appearing Head: normocephalic, Atraumatic, +Poor oral dentition Eyes: normal inspection, EOMI Neck: supple, Trachea midline Respiratory/Chest: Normal breath sounds, CTA, No accessory muscle use Cardiovascular: S1, S2, No murmur Abdomen/GI:Soft, Non tender, Bowel sounds present Extremities/Musculoskeletal:normal inspection, no edema Neurologic/Psych:AAOX3, grossly no focal neurological deficits Skin: normal color, warm Results & Data Results & Data ([facility]) Vital Signs (Past 12 Hours) Vital Signs Temp Pulse Resp BP BP Pulse Ox 04/16/21 12:02 36.7 C 99 H 97 04/16/21 08:22 36.9 C 95 H 19 137/88 97 04/16/21 03:44 36.9 C 80 18 137/91 97 Laboratory Results [facility] 04/15/21 04/16/21 16:10 10:48 Sodium 139 136 Potassium 3.4 L D 3.3 L Chloride 100 98 Carbon Dioxide 33 H 33 H BUN 13 12 Creatinine 0.57 L 0.57 L Glucose 203 H 227 H Calcium 8.8 9.1 (1) DKA (diabetic ketoacidoses) Diabetes mellitus complication detail: without coma Diabetes mellitus type: type 1 Qualified Code(s): E10.10 - Type 1 diabetes mellitus with ketoacidosis without coma
--- NOTE | 2021-04-16 13:12 | Pharmacy Report ---
Pharmacy Glycemic Short Note 2 - Date of Service April 16, 2021 - Glycemic Short BSG Results (Last 24 hours): 04/15/21 04/15/21 04/15/21 16:10 16:36 20:14 Glucose 203 H POC Glucose 251 H 163 H 04/16/21 04/16/21 04/16/21 07:48 10:48 11:19 Glucose 227 H POC Glucose 231 H 205 H OUTPATIENT ANTIDIABETIC REGIMEN: * Omnipod insulin pump (NovoLog insulin) * Patient doesn't know settings * A1c = 9.7% on 04/12/21 ASSESSMENT: 04/16/21: * Patient rec'd 87 units of insulin yesterday, with BSGs still uncontrolled (234, 291, 198, 251, 163, 231 past 24 hours). * Pharmacy was under the impression that patient would be resuming insulin pump on discharge, but this is not the case. Patient reports pain/discomfort associated with pump and prefers to use SQ Lantus/Novolog as an outpatient. * Patient has reported that he was using Lantus 15 units daily, with Novolog for correction, prior to admission. This is not consistent with what he has required during admission. Increased insulin resistance d/t DKA is likely contributing to increase in insulin requirements, though it is difficult to say to what degree. 04/15 * Blood sugars remain elevated at all times, despite increase in basal and tighten CF/CR yesterday, will continue to increase/tighten * Pt rejects education attempts. Pt does report he has supplies with him regarding insulin pump for discharge, resistant to overnight monitoring of blood sugar, refusing many medications but reluctantly cooperative with insulin administration. 04/14 * Blood sugars above goal since insulin drip discontinued yesterday, 219- 291mg/dl, using 14 units basal and CF/CR * Increase basal and tighten CF/CR 04/13 * 30yo T1DM male with suboptimal degree of outpatient control secondary to non- compliance/adherence. * Pt with recent admission at outside facility for DKA secondary to insulin non-compliance. * Pt admitted 04/12/21 with SEVERE DKA and initiated on DKA protocol on admission with IVF + insulin infusion. * Average IV insulin infusion rate this AM (after BSG stabilization) is ~ 1.8 units/hr * Would ideally like to stress outpatient pump settings and convert to SQ basal bolus for transition from IV to SQ- however patient does not know his settings. Last SQ insulin Rx (02/07/21) was for Lantus 10 units daily + NovoLog 3 units SQ TIDM. Will use this information; as well as IV isnulin infusion data, plus weight based insulin dosing guidelines for determining dosing to transition off of insulin infusion. * BSGs in goal range this morning. Labs WNL. Pt meets criteria for transition to SQ basal bolus insulin regimen. * Criteria: 1. Serum glucose below 200 mg/dL (DKA) or 250 to 300 mg/dL (HHS) 2. Serum anion gap <12 meq/L 3. Serum bicarbonate =15 meq/L 4. Venous pH >7.30 * Pt ordered a clear liquid diet only; this should NOT affect basal needs for a type 1 diabetic. Pt will just receive reduced CHO coverage for reduced PO/CHO intake * Current IVF: D5LR + 40kcl@100ml/hr --> this will dc today at 1200. If Pt does not tolerate PO will need to resume fluids for CHO source to prevent ketosis PLAN FOR INPATIENT GLYCEMIC CONTROL: * Hold outpatient insulin pump * Basal insulin - increase * Lantus 40 units SQ daily * Bolus insulin -tighten CF/CR * NovoLog per scale ACHS or Q6hrs while NPO * Goal Range: Low 110 mg/dL - High 140 mg/dL * Correction Factor: 20 mg/dL/unit * Nutritional / Prandial insulin per carb ratio of 1 unit per 6 grams CHO consumed PLAN FOR DISCHARGE: * A1c = 9.7% on 04/12/21 * Goal A1c = below 7% based on age/co-morbidities. * Consider increasing previous Lantus dose d/t increased requirements during admission. Lantus 20-25 units daily? This will require close f/u with outpt providers and adjustment as insulin sensitivity improves. Pt should work with outpt providers to get his regimen adjusted until his A1c can be optimized. * Continue correctional insulin with Novolog. Pt was reportedly using a correction factor of 50mg/dL/unit previously. Could tighten this to 40mg/dL/unit if needed to gain better control? * Patient also reports the ability to count carbs. Consider starting with a carb ratio of 1 unit/ 10gm CHO to begin with. * Patient will require close f/u after discharge. His outpt use is significantl y different from what he has been requiring as an inpatient, so recommend making conservative changes on discharge, with some "fine-tuning" as an outpatient.
--- NOTE | 2021-04-16 13:47 | Discharge Summary ---
Date of Service April 16, 2021 Admission HPI Per Admitting Provider This is a 30yo M with PMH of DM I, depression, tobacco use disorder and other medical problems listed below who presents with nausea and vomiting x 2 weeks. Recently admitted to [facility] 04/02-04/04 for treatment of DKA after not using insulin for one week. Has met with passenger car conductor and was discharged home with insulin pump. States he has not been using pump because it is painful. Last used last evening. Endorses lightheadedness, nausea, vomiting but hematemesis, abdominal pain and heartburn. Denies having a bowel movement since he was in hospital last week. No fever, chills, visual changes or diarrhea. Smoking john holly daily as well as 1 pack of cigarettes daily. Also endorses using meth and alcohol but did not specify when or how much. Lives with cousin. A&O to person and place but not to situation. Admission Exam Per Admitting Provider Physical Exam Physical Exam: General Appearance: vitals as above, lying in bed, acutely ill, thin Head: normocephalic, atraumatic Eyes: normal inspection, PERRL, conjunctivae normal, anicteric sclerae ENT: external ear and nose normal, oropharynx with poor dentition, dry mucous membranes Neck: normal visual inspection, trachea midline, no thyromegaly Respiratory: normal respiratory effort, lungs clear to auscultation, no wheeze, rales, rhonchi. No accessory muscle use Cardiovascular: tachycardic rate, regular rhythm, no murmur, normal peripheral pulses, no BLE edema. Vessels: no JVD Chest: normal inspection of chest Abdomen/GI: normal bowel sounds, soft, nontender, no hepatosplenomegaly Extremities/Musculoskeletal: no cyanosis or clubbing, extremities motor strength 5/5 Neurologic: PERRL, EOMI, accommodation nl, no face palsy, no dysarthria, CN's II-XI intact bilaterally and moves all extremities Psychiatric: A+Ox3, euthymic affect Skin: no rashes, normal color, warm/dry Principal Diagnosis Diabetic ketoacidosis Uncontrolled type 1 diabetes mellitus Hypokalemia Discharge Data Allergies Allergy/AdvReac Type Severity Reaction Status Date / Time No Known Allergies Allergy Unverified 04/12/21 15:11 Consultations 04/12/21 15:58 ED Decision to Admit Stat Procedures Performed KUB:No evidence for bowel obstruction. Small to moderate amount of well-formed stool within the colon. CXR:No acute cardiopulmonary findings. Diabetes Follow up Diabetes Follow-up Needed for HgbA1c >9% Hospital Course (1) DKA (diabetic ketoacidoses): Patient is a 30 yr male with H/O DM I, depression, tobacco use disorder and other medical problems listed below who presents with nausea and vomiting x 2 weeks and was found to be in DKA. Diabetic ketoacidosis Uncontrolled type 1 diabetes mellitus Metabolic acidosis secondary to above HbA1c 9.7 Medication Noncompliance Previously on insulin pump Continue Insulin therapy Received aggressive IV fluids tile finisher consulted Appreciate glycemic pharmacy Monitor BGs DKA resolved Needs follow up with Endocrinology as outpatient Patient plans not use Insulin Pump upon discharge Electrolyte abnormalities Hypokalemia Hypophosphatemia Replace and monitor electrolytes as needed Patient has been refusing potassium supplements on and off Leukocytosis No obvious source of infection KUB:No evidence for bowel obstruction. Small to moderate amount of well-formed stool within the colon. CXR:No acute cardiopulmonary findings. UA not suggestive of UTI Afebrile No indication for antibiotics currently Resolved Acute metabolic encephalopathy-POA Confusion resolved Monitor Constipation Continue bowel regimen Encouraged to ambulate (2) Depression: Continue SSRI (3) GERD (gastroesophageal reflux disease): Continue PPI, Carafate (4) Tobacco use disorder: Counselled to quit Refuses nicotine patch (5) Marijuana use: (6) Methamphetamine use: Tox screen Negative DVT Px: SCDs Code status: FULL CODE Total Time Total Time Spent Total Time Spent (In Minutes): 41 minutes Total Time Includes: Examination of the Patient, Discharge Planning, Medication Reconciliation, Communication With Other Providers and Other Discharge Plan Discharge Items Patient Disposition: Home - Self-Care Reason For Visit: DKA Discharge Diagnosis: Diabetic ketoacidosis Uncontrolled type 1 diabetes mellitus Hypokalemia Activity: Per Instructions section Exercise/Sports: Wait until after follow-up appointment Non-emergency contact: Primary Care Provider and Specialist Call non-emergency contact if: you have any medication questions, your symptoms worsen, your pain is not controlled, your pain is concerning for you and you have a fever Follow-up/Referrals: Ainsley Jin PA-C [Outside Practitioners] - (Date & Time 04/18/2021 3:00 PM Provider Ainsley Jin PA-C [facility] ) Diet: Carb Count or DM1 Addtl Attending Provider Instructions: Follow-up with your primary care physician Ainsley Jin PA-C on 04/18/2021 3:00 PM Follow-up with your lithographic proofer in 1 week for management of insulin therapy for diabetes mellitus. Increase your Lantus dose from 15 units to 23 units daily for better control of your blood glucose levels For Novolog change: Correction Factor: 40 mg/dL/unit (Previously on Correction factor: 50 mg/dL/unit) Monitor your blood glucose levels regularly as advised. Discussed with your physician for further adjustment of insulin therapy as advised. Seek immediate medical attention if your symptoms reoccur or worsen Please take all medications as instructed on discharge list below. Please call if you have any questions or problems. You can reach a [facility] hospitalist on duty at [facility] 24 hours a day by calling [phone] Pending Studies at Discharge: No Stand-Alone Forms: My [facility] [employer], Smoking Cessation Medications and DC Order Prescriptions: New potassium chloride 20 mEq tablet extended release 20 meq PO DAILY Qty: 14 RF: 0 insulin aspart U-100 [Novolog Flexpen U-100 Insulin] 100 unit/mL (3 mL) insulin pen 1 unit subcut UD Qty: 15 RF: 0 Continued sucralfate [Carafate] 1 gram Tablet 1 g PO ACHS RF: 0 pantoprazole 40 mg Tablet,Delayed Release (Dr/Ec) 40 mg PO BID RF: 0 ondansetron 4 mg Tablet,Disintegrating 4 mg PO Q6H PRN (Reason: Nausea And Vomiting) RF: 0 insulin aspart U-100 [Novolog Flexpen U-100 Insulin] 100 unit/mL (3 mL) Insulin Pen 0 unit SUBCUT UD RF: 0 escitalopram oxalate [Lexapro] 5 mg Tablet 5 mg PO DAILY RF: 0 Changed Lantus Solostar U-100 Insulin 100 unit/mL (3 mL) insulin pen 23 unit SUBCUT DAILY Qty: 3 RF: 0 Discontinued omeprazole 20 mg Capsule,Delayed Release(Dr/Ec) 20 mg PO QAM RF: 0 naproxen 500 mg Tablet 500 mg PO BIDM PRN (Reason: Pain) RF: 0 Discharge Orders: Discharge Order (Routine); Ordered 04/16/21 Ordered By: Bertram Mcgarry Admission Data Admit Date/Time: 04/12/21 15:49 Attending Provider: Bertram Mcgarry Admit Provider: Bertram Mcgarry Primary Care Provider: PCP,NO Other Providers: Bertram Mcgarry Other Interventions: Discharge Summary Assessment (RN) Last Done: 04/16/21 13:59
== END 2021-04-16 14:35 | disposition home or self-care (01) | DRG 637 ==
LOC: ED 13:52 → 2S 15:49 → 2W 04-14 02:56

== ENCOUNTER 2022-07-29 07:39 | Inpatient (IN) ==
[2022-07-29] MEDS ORDERED: SODIUM CHLORIDE 0.9% 1000ML 1,000 ML IV ONE (07:54)
--- NOTE | 2022-07-29 07:55 | Emergency Department Note ---
Impression & Plan DKA (diabetic ketoacidosis), Hematemesis, Acute dehydration ED Provider Note Name: JUJU RICARDO Age: 32 Sex: M Arrives Via: Walk-In Informant: Patient ED Provider: Balbir Fraire MD Chief Complaint: Weakness Impression: As per impressions above Medical Decision Makin-year-old gentleman with history of type 1 diabetes, GERD, depression who arrives for evaluation of worsening weakness, fatigue, vomiting. He is having bloody emesis and bloody stools. On examination patient is cachectic, dehydrated and quite malnourished appearing. On arrival he was given 1 L normal saline with vast improvement in his heart rate. Blood sugar is about 400 with some acidosis by bicarb. Initial pH is okay at this time. He is in early DKA and discussion with pharmacist clinical feel that starting insulin drip is reasonable. He was given Protonix for presumed upper GI bleed likely secondary to recurrent vomiting. Patient's initial hemoglobin is okay. Otherwise labs are right. I do not feel this is consistent with infectious etiology. He has a soft nontender abdomen I think perforation unlikely at this time as well. Discussed at length with hospitalist will evaluate him further. Prior Medical Record and Triage/Nursing Notes reviewed by Me Additional history obtained from chart Differentials:Infection, dehydration, metabolic abnormality, hypo/hyperglycemia, electrolyte disturbance, anemia, hypoxia, cardiac sources, intracerebral event, toxicologic, neurologic, as well as other pathologies. Vital Signs: reviewed and remarkable for tachy Interventions: 1 NSS L IV, insulin drip, Protonix 80 mg IV Labs:Reviewed and remarkable for hyperglycemia, low bicarb EKG:In DKA, sinus tachycardia at 105 bpm and a QTC of 425. There is no ectopy nor ischemia. When compared to an EKG from April 13, 2021 there is no clear evidence of changes. Consults:Sonja Tubbs hospitalist Plan: Disposition:Hospitalization. Condition: Good History of Present Illness:32-year-old gentleman arrives for evaluation of hyperglycemia. Patient notes several weeks of worsening high blood sugars. Associate with nausea, vomiting and black/bloody emesis. He was hospitalized in [place] 1 week ago for DKA. After few days he was discharged. He notes for the last 4 days worsening body aches, tachycardia, weakness, increasing urinary frequency, fatigue and lack of appetite. Admits he did not take his Lantus in the last 24 hours and has not checked his blood sugar as his monitor is out of date. No medications prior to arrival. Any exertion makes worse rest makes better. He notes feeling severely short of breath and weak. No falls, trauma, injuries. Note that he had some blood in his emesis 3 nights ago but has not vomited since then. This morning he had a large black bloody bowel movement. ROS: See above HPI for pertinent positives & negatives. A total of 10 systems reviewed and were otherwise negative. Past Medical History:GERD, type 1 diabetes, depression Past Surgical History:See Below Family History:See Below Social History:smoker Home Medications:See Below Allergies:bees Vitals:Blood Pressure: 107/72, Pulse 146, RR 16, T 37.1C, O2 99% on RA Physical Exam: GENERAL: Patient is unwell/ill appearing and in moderate distress. Dehydrated appearing, dry EYES: No scleral icterus, unremarkable pupils. ENT: Mucous membranes dry, no nasal congestion. NECK: No masses appreciated, nomeningismus, trachea is midline. RESPIRATORY: moderate dyspnea/tachypnea. Clear to auscultation and equal bilaterally. No wheeze, no rhonchi. CARDIOVASCULAR: Tachy.No murmurs, rubs, gallops appreciated. GASTROINTESTINAL: Abdomen soft, non-tender, no peritonitis.Bowel sounds positive.No masses appreciated. BACK: No midline tenderness, no CVA tenderness EXTREMITIES: Normal motion all extremities, no cyanosis, no edema. NEUROLOGIC: Alert and oriented, no acute motor or sensory deficits, no focal weakness, cranial nerves grossly intact. SKIN: No rash, no jaundice, no diaphoresis. PSYCH: Appropriate GCS: 15 ED Course: Times/Reassessments: Proved with initial liter of fluid breathing much more comfortably. Agreeable to hospitalization for further management Critical Care: I have personally spent 35 minutes of critical care time in the direct management of this patient. Acute DKA with GI Bleed. This was a life/limb threatening event. This 35 minutes is in excess of all separately billable procedures. Balbir Fraire MD Past Med/Surg History Medical History (Updated 07/29/22 @ 14:38 by Balbir Fraire MD) Depression Diabetes type 1, uncontrolled DKA (diabetic ketoacidosis) GERD (gastroesophageal reflux disease) Tobacco use disorder Vomiting Surgical History H/O inguinal hernia repair Family History Grandfather (Maternal) Diabetes Social History Smoking Status: Never smoker Tobacco Type: Cigarettes packs per day: 0.5; Hx Alcohol Use: No Hx Substance Use: No Preferred Language: Frisian Communication Ability: Effective Ultrasound Technol Required: No Beliefs That Will Affect Care: None Current Living Situation: Family Feels Safe at Home: Yes Assistive Devices: Cane (only uses it on occasion) Allergies Allergies Allergy/AdvReac Type Severity Reaction Status Date / Time bee venom protein (honey bee) Allergy Severe Difficulty Verified 05/31/22 12:58 Breathing Home Meds Home Medications Medication Instructions Recorded Confirmed blood-glucose meter,continuous 12/21/21 05/31/22 (Dexcom G6 Sack Sorter misc) blood-glucose sensor (Dexcom G6 12/21/21 05/31/22 Sensor device) blood-glucose transmitter (Dexcom 12/21/21 05/31/22 G6 Transmitter device) Previous Rx's Medication Instructions Recorded acetone (urine) test (Ketostix #25 ea 01/17/22 strips) glucagon 3 mg/actuation nasal 3 mg intranasal ONCE #2 ea 01/17/22 spray (Baqsimi) insulin lispro 100 unit/mL See Rx Instructions subcut TID #45 04/25/22 subcutaneous pen (Humalog KwikPen mL (U-100) Insulin) insulin glargine 100 unit/mL (3 24 unit (0.24 mL) subcut DAILY #2 07/03/22 mL) subcutaneous pen (Lantus Boxes Solostar U-100 Insulin) pen needle, diabetic 32 gauge x #400 ea 07/03/22" (BD Akiko 2nd Gen Pen Needle) Results & Data (ED) Vital Signs Vital Signs - 24 hr 07/29/22 07:43 07/29/22 08:04 07/29/22 08:30 Temperature 37.1 C Temperature Source Oral Pulse Rate 146 H 90 Pulse Rate from SpO2 Sensor 92 H Pulse Rhythm Regular Pulse Strength Normal Respiratory Rate 16 13 Respiratory Effort / Characteristics Non-Labored Spontaneous Respiratory Depth Normal Respiratory Pattern Regular Blood Pressure 107/72 119/90 117/91 Blood Pressure Mean 83 99 99 Blood Pressure Position Sitting Pulse Oximetry 99 99 Oxygen Delivery Method Room Air Room Air Sepsis Recent Fever Within 48 Hours No Sepsis New/Unexplained Change in Mental Status No Sepsis Action Taken by Nursing No Action Required 07/29/22 09:00 07/29/22 09:30 Temperature Temperature Source Pulse Rate 94 H 90 Pulse Rate from SpO2 Sensor 95 H 92 H Pulse Rhythm Pulse Strength Respiratory Rate 17 12 Respiratory Effort / Characteristics Respiratory Depth Respiratory Pattern Blood Pressure 113/85 Blood Pressure Mean 94 Blood Pressure Position Pulse Oximetry 98 99 Oxygen Delivery Method Room Air Room Air Sepsis Recent Fever Within 48 Hours Sepsis New/Unexplained Change in Mental Status Sepsis Action Taken by Nursing Laboratory Data Result diagrams: 07/29/22 08:03 07/29/22 12:32 Lab Results 07/29/22 07/29/22 07/29/22 Range/Units 07:59 08:02 08:03 WBC 5.40 (4.8-10.8) K/ul RBC 4.81 (4.63-6.08) M/uL Hgb 15.6 (14.0-18.0) g/dl Hct 42.7 (40.1-51.0) % MCV 88.8 (80.0-100.0) fL MCH 32.4 (25.0-34.0) pg MCHC 36.5 H (32.0-36.0) g/dL RDW Std Deviation 38.0 (36.4-46.3) fL RDW Coeff of Bennett 11.9 (11.5-14.5) % Plt Count 352 (130-400) K/uL MPV 8.7 L (9.4-12.4) fL Immature Gran % (Auto) 0.2 % Neut % (Auto) 54.0 % Lymph % (Auto) 28.1 % Gentry % (Auto) 15.7 % Eos % (Auto) 1.3 % Baso % (Auto) 0.7 % Neut # (Auto) 2.91 (1.4-6.5) K/uL Lymph # (Auto) 1.52 (1.2-3.4) K/uL Gentry # (Auto) 0.85 H (0.24-0.82) K/uL Eos # (Auto) 0.07 (0-0.50) K/uL Baso # (Auto) 0.04 (0-0.2) K/uL Immature Gran # (Auto) 0.01 (0.00-0.02) K/uL VBG pH (7.36-7.41) VBG pCO2 (38-50) mmHg VBG pO2 mmHg VBG HCO3 mmol/L VBG O2 Saturation % VBG Base Excess mEq/L Sodium (136-145) mmol/L Potassium (3.5-5.1) mmol/L Chloride (98-107) mmol/L Carbon Dioxide (21-32) mmol/L Anion Gap (3-11) BUN (6-23) mg/dl Creatinine (0.6-1.4) mg/dl Est Cr Clr Drug Dosing ml/min Est GFR ( Amer) ml/min Est GFR (Non-Af Amer) ml/min BUN/Creatinine Ratio (10-20) Glucose (70-99(Fasting)) mg/dl POC Glucose 394 H* (70-99) mg/dl Estimat Average Glucose mg/dl Hemoglobin A1c (4.5-5.6) % Calcium (8.5-10.1) mg/dl Magnesium (1.7-2.4) mg/dl Total Bilirubin (0.2-1.0) mg/dl Direct Bilirubin (0-0.2) mg/dl AST (13-39) U/L ALT (7-52) U/L Alkaline Phosphatase (34-104) U/L Troponin I High Sens (0-20) pg/ml Total Protein (6.0-8.3) gm/dl Albumin (3.4-5.0) gm/dl Lipase (11-82) U/L SARS-CoV-2, RNA, NAAT NEGATIVE (NEGATIVE) 07/29/22 07/29/22 07/29/22 Range/Units 08:03 08:03 08:03 WBC (4.8-10.8) K/ul RBC (4.63-6.08) M/uL Hgb (14.0-18.0) g/dl Hct (40.1-51.0) % MCV (80.0-100.0) fL MCH (25.0-34.0) pg MCHC (32.0-36.0) g/dL RDW Std Deviation (36.4-46.3) fL RDW Coeff of Bennett (11.5-14.5) % Plt Count (130-400) K/uL MPV (9.4-12.4) fL Immature Gran % (Auto) % Neut % (Auto) % Lymph % (Auto) % Gentry % (Auto) % Eos % (Auto) % Baso % (Auto) % Neut # (Auto) (1.4-6.5) K/uL Lymph # (Auto) (1.2-3.4) K/uL Gentry # (Auto) (0.24-0.82) K/uL Eos # (Auto) (0-0.50) K/uL Baso # (Auto) (0-0.2) K/uL Immature Gran # (Auto) (0.00-0.02) K/uL VBG pH 7.37 (7.36-7.41) VBG pCO2 25 L (38-50) mmHg VBG pO2 33 mmHg VBG HCO3 15 mmol/L VBG O2 Saturation 65.5 % VBG Base Excess -9.0 mEq/L Sodium 129 L (136-145) mmol/L Potassium 3.4 L (3.5-5.1) mmol/L Chloride 90 L (98-107) mmol/L Carbon Dioxide 16 L (21-32) mmol/L Anion Gap 23 H (3-11) BUN 12 (6-23) mg/dl Creatinine 0.94 (0.6-1.4) mg/dl Est Cr Clr Drug Dosing 69.7 ml/min Est GFR ( Amer) 125.6 ml/min Est GFR (Non-Af Amer) 108.4 ml/min BUN/Creatinine Ratio 12.8 (10-20) Glucose 396 H* (70-99(Fasting)) mg/dl POC Glucose (70-99) mg/dl Estimat Average Glucose 292 mg/dl Hemoglobin A1c 11.8 H (4.5-5.6) % Calcium 9.2 (8.5-10.1) mg/dl Magnesium 1.9 (1.7-2.4) mg/dl Total Bilirubin 0.7 (0.2-1.0) mg/dl Direct Bilirubin 0.1 (0-0.2) mg/dl AST 9 L (13-39) U/L ALT 10 (7-52) U/L Alkaline Phosphatase 100 (34-104) U/L Troponin I High Sens < 2.3 (0-20) pg/ml Total Protein 6.9 (6.0-8.3) gm/dl Albumin 4.4 (3.4-5.0) gm/dl Lipase 15 (11-82) U/L SARS-CoV-2, RNA, NAAT (NEGATIVE) Administered Medications Insulin Human Regular 250 (units/ Sodium Chloride) 250 mls @ 3.5 mls/hr IV .Q24H RENETTA; Protocol Stop: 07/29/22 16:30 Last Titration: 07/29/22 14:33 Dose: 4.2 units/hr, 4.2 mls/hr Documented By: PW Co-signed By: SUB Titration: 07/29/22 14:00 Dose: 3.5 units/hr, 3.5 mls/hr Documented By: PW Co-signed By: SUB Titration: 07/29/22 12:45 Dose: 0 units/hr, 0 mls/hr Documented By: PW Co-signed By: WS Titration: 07/29/22 10:56 Dose: 4.3 units/hr, 4.3 mls/hr Documented By: NH Co-signed By: AP Admin: 07/29/22 09:52 Dose: 4.3 units/hr, 4.3 mls/hr Documented By: NH Co-signed By: TW Potassium Chloride/Sodium Chloride (1/2 Nss + 20meq Kcl 1000ml) 20 meq in 1,000 mls @ 125 mls/hr IV .Q8H RENETTA Stop: 08/28/22 09:29 Last Admin: 07/29/22 10:57 Dose: 125 mls/hr Documented By: NH Insulin Aspart (Insulin Aspart Per Unit) 0 units SC ACHS RENETTA Stop: 08/28/22 11:29 Last Admin: 07/29/22 13:54 Dose: Not Given Documented By: PW Lidocaine (Lidocaine 5% 1 Patch) 1 patch TD QAM RENETTA Stop: 08/28/22 11:52 Last Admin: 07/29/22 13:54 Dose: 1 patch Documented By: PW Discontinued Medications Sodium Chloride (Nss 1000ml) 1,000 mls @ 999 mls/hr IV .Q1H1M ONE Stop: 07/29/22 08:54 Last Infusion: 07/29/22 09:32 Dose: 0 mls/hr Documented By: Admin: 07/29/22 08:22 Dose: 999 mls/hr Documented By: THANH Pantoprazole Sodium 80 mg/ (Dextrose) 100 mls @ 400 mls/hr IV ONE STA Stop: 07/29/22 09:29 Last Infusion: 07/29/22 13:04 Dose: 0 mls/hr Documented By: Admin: 07/29/22 09:53 Dose: 400 mls/hr Documented By: THANH Magnesium Sulfate/Dextrose (Magnesium Sulfate / D5w) 1 gm in 100 mls @ 50 mls/hr IV ONE ONE Stop: 07/29/22 12:03 Last Admin: 07/29/22 12:17 Dose: 50 mls/hr Documented By: PRISCILLA Bellamy (Dka Goal Range 150-250 Mg/Dl) 1 each N/A ONE ONE Stop: 07/29/22 09:17 Last Admin: 07/29/22 09:53 Dose: 1 each Documented By: THANH Bellamy (Stat Iv Infusion Titration Per Protocol) 1 each N/A NOW STA Stop: 07/29/22 09:17 Last Admin: 07/29/22 09:53 Dose: 1 each Documented By: THANH Potassium Chloride (Potassium Chloride Crtab 20 Meq Tabcr) 20 meq PO NOW STA Stop: 07/29/22 11:54 Last Admin: 07/29/22 13:52 Dose: 20 meq Documented By: PRISCILLA Potassium Chloride (Potassium Chloride Crtab 20 Meq Tabcr) 40 meq PO NOW STA Stop: 07/29/22 13:40 Last Admin: 07/29/22 13:53 Dose: 40 meq Documented By: PRISCILLA Discharge Plan Visit Data Chief Complaint: Hyperglycemia Stated Complaint: DKA ED Provider: Balbir Fraire Discharge Problem: DKA (diabetic ketoacidosis), Hematemesis, Acute dehydration Patient Disposition: Admitted As Inpatient Discharge Instructions Interventions: ED Discharge Assessment Last Done: 07/29/22 11:09 : DKA (diabetic ketoacidosis) Qualifiers: Diabetes mellitus type: type 1 Diabetes mellitus complication detail: without coma Qualified Code(s): E10.10 - Type 1 diabetes mellitus with ketoacidosis without coma Hematemesis Qualifiers: Nausea presence: with nausea Qualified Code(s): K92.0 - Hematemesis
[2022-07-29 08:22] LABS: HCO3 VBG 15 mmol/L; Oxygen Saturation VBG 65.5 %; PCO2 VBG 25 mmHg (38-50); PO2 VBG 33 mmHg; pH VBG 7.37 (7.36-7.41)
[2022-07-29 08:38] LABS: Alanine Aminotransferase 10 U/L (7-52); Albumin Level 4.4 gm/dl (3.4-5.0); Alkaline Phosphatase 100 U/L (34-104); Anion Gap 23 (3-11); Aspartate Aminotransferase 9 U/L (13-39); BUN Creatinine Ratio 12.8 (10-20); Bilirubin Direct 0.1 mg/dl (0-0.2); Bilirubin,Total 0.7 mg/dl (0.2-1.0); Blood Urea Nitrogen 12 mg/dl (6-23); Calcium 9.2 mg/dl (8.5-10.1); Carbon Dioxide 16 mmol/L (21-32); Chloride 90 mmol/L (98-107); Creatinine Clr Calc Pharmacy 69.7 ml/min; Est GFR (African American) 125.6 ml/min; Est GFR (Non-African American) 108.4 ml/min; Glucose 396 mg/dl (70-99(Fasting)); Lipase 15 U/L (11-82); Magnesium 1.9 mg/dl (1.7-2.4); Potassium 3.4 mmol/L (3.5-5.1); Sodium 129 mmol/L (136-145); Total Protein 6.9 gm/dl (6.0-8.3)
[2022-07-29 09:01] LABS: Troponin I High Sensitivity < 2.3 pg/ml (0-20)
[2022-07-29] MEDS ORDERED: PANTOprazole 80 MG in DEXTROSE 5% 100 ML IV STA (09:15)
[2022-07-29] MEDS ORDERED: STAT IV Infusion **Titration per Protocol STA (09:16)
[2022-07-29] MEDS ORDERED: PHARMACY GLYCEMIC MGMT CONSULT PRN (09:16)
[2022-07-29] MEDS ORDERED: DKA GOAL RANGE 150-250 mg/dl ONE (09:16)
[2022-07-29 09:19] LABS: Basophils # (auto) 0.04 K/uL (0-0.2); Basophils % (auto) 0.7 %; Eosinophils # (auto) 0.07 K/uL (0-0.50); Eosinophils % (auto) 1.3 %; Hematocrit (blood only) 42.7 % (40.1-51.0); Hemoglobin 15.6 g/dl (14.0-18.0); Immature Granulocytes # (auto) 0.01 K/uL (0.00-0.02); Immature Granulocytes % (auto) 0.2 %; Lymphocytes # (auto) 1.52 K/uL (1.2-3.4); Lymphocytes % (auto) 28.1 %; Mean Corpuscular Hemoglobin 32.4 pg (25.0-34.0); Mean Corpuscular Hgb Conc 36.5 g/dL (32.0-36.0); Mean Corpuscular Volume 88.8 fL (80.0-100.0); Mean Platelet Volume 8.7 fL (9.4-12.4); Monocytes # (auto) 0.85 K/uL (0.24-0.82); Monocytes % (auto) 15.7 %; Neutrophils # (auto) 2.91 K/uL (1.4-6.5); Platelet Count 352 K/uL (130-400); RDW Coefficient of Variation 11.9 % (11.5-14.5); Red Blood Count 4.81 M/uL (4.63-6.08)
[2022-07-29] MEDS ORDERED: INSULIN REGULAR 250 UNITS in SODIUM CHLORIDE 0.9% 247.5 ML IV SCH (09:30)
--- NOTE | 2022-07-29 09:44 | History & Physical Report ---
Date of Service July 29, 2022 Assessment & Plan (1) Diabetes type 1, uncontrolled: (2) DKA (diabetic ketoacidosis): (3) Depression: (4) Vomiting: Plan Be is a 32 y/o with H/O DM I (uncontrolled), depression, tobacco use disorder and GERD who presents with nausea and vomiting x 2 weeks and was found to be hyperglycemic with glucose of 396. He was started on an Insulin gtt. Significant emotional needs for this patient with little social and emotional support with a lack of coping mechanisms. Insulin gtt, E-lyte replacement, Behavioral Health Liason consult. Diabetes Type 1, uncontrolled/DKA due to non compliance to insulin Metabolic acidosis secondary to above; HCO3 on VBG 15 Peripheral Neuropathy secondary to above: was taking Lyrica, but stopped. glucose 396 in ED; AG 23, CO2 16 Non-compliant with medications (Dexcom monitor and insulin pump) Reports being on 'vacation' from his pump since May; uses Novolog and Lantus pens, but reports not being compliant Glycemic Pharmacy involved; Insulin gtt started, no bolus. Serial BMP, MG+, Phos Q4 Troponin negative When stable; Endocrinology as outpatient; Usually sees Dr. Montgomery Depression: Pt was on SSRI, no longer taking it-He states he weaned himself off his medications. Pt with significant situation depression and long standing chronic depression with lack of support system and resources. Pt currently living with his father who is being evicted. Pt has stated that he has, at times, wishes that he would go to sleep and not wake up. He feels he does not have a full grasp of his chronic diabetes illness States he went to counseling in the past but didn't find a Provider he connected with. Pls review immigration case workerworks manager notes; Yamila Fink has been working with him in the past for social and emotional needs. Pt states he does not have SI; but has thought that he would be 'ok with not waking up'. Will get Psych on board as well with their behavioral health liason. Electrolyte abnormalities: HypoK+: 3.4; replace and recheck Q4 with BMP HypoMg+ 1.9; replaced with 1G; will trend GERD: EGD 11/2021 @ [facility] Pt reports black and blood stools and vomiting; Protonix 80 mg IV given in ED Consult GI; may have some ulceration/tears Hgb stable 15.6 Severe Protein Caloric Malnourishment: BNI 17.3. Unknown amount of weight loss over past few months; unable to eat due to Nausea/vomiting Says he usually can keep Ensure down Receptive to Manager Utilization referral/consult Seborrheic dermatitis: Thick patches on forehead, left shoulder and back Does not follow with Derm States the IV fluids significantly improves it. Tobacco use: Counselled to quit; has not smoked past few days due to feeling ill Declines nicotine patch Marijuana/THC use: tox screen pending Reports using pure THC in wax form; last used last evening to help with sleep and neuropathic symptoms Claims to have medical marijuana card. Disposition: PCP: Ainsley Jin PA-C Code: Full VTE Prophylaxis: Lovenox Admission and Anticipated Discharge Date Admission Date: Patient was seen and examined independently at bedside. Chart reviewed. Case discussed with Tianna BANDA and agree with the documentation above. In summary, this is a 32 year old male with T1DM diagnosed about 1.5 years back, with recent admission to [facility] last week for DKA, presented to the ED again with DKA due to non compliance with his insulin. He stopped taking his lantus about 2 days ago. Runs usually high at home. Has dexcom and used insulin pump in the past with good control but currently on insulin pump holiday. Follows with endocrinology. Labs reviewed. Vitals reviewed. AAOx4, MMM, chest clear, heart sounds normal, mild tachycardia, abdomen benign, no LE edema, multiple skin rash in forehead, ear, scalp upper back etc. BG 396, AG23, CO2 16, K 3.4. WBC normal. Trop negative. No evidence of infection. Agree with admission to PCU on insulin drip, q4hr labs, consult outside barrel lathe operator and CM, consult pharmacy for glycemic management. Electrolytes repleted. Switch to basal bolus insulin once AG closed on 2 consecutive labs. Denies recent drug abuse but uses medical marijuana regularly. Smokes but declines nicoderm patch. Rest as per the note above. History of Present Illness Chief Complaint: increased blood sugars, weakness Primary Care Provider: Ainsley Jin PA-C Wesley Perez is a 32 year old male that presented to [place] today with increased blood sugars, N/V, black/tarry stools, increased weakness and fatigue, decreased appetite, tachycardia and shortness of breath. He has a history of type 1 DM, recent hospitalization for DKA in [facility] last week for similar presentation. His blood sugar on admission was 396; started on an Insulin infusion without bolus and also given a L of IV fluids. Pt also has metabolic acidosis. Pt reporting hematemesis; EGD performed at [facility] in November. Protonix given here. He is an active smoker and smoking cessation was again emphasized. Pt reports using his dexcom and insulin pump as prescribed. Additional PMH includes depression and GERD. Patient will be admitted to hospitalist service for further evaluation and monitoring/management. Please see A/P for further details. Allergies Allergy/AdvReac Type Severity Reaction Status Date / Time bee venom protein (honey bee) Allergy Severe Difficulty Verified 05/31/22 12:58 Breathing Home Medications Medication Instructions Recorded Confirmed Type blood-glucose meter,continuous 12/21/21 05/31/22 History (Dexcom G6 Therapy Technician misc) blood-glucose sensor (Dexcom G6 12/21/21 05/31/22 History Sensor device) blood-glucose transmitter (Dexcom 12/21/21 05/31/22 History G6 Transmitter device) acetone (urine) test (Ketostix #25 ea 01/17/22 Rx strips) glucagon 3 mg/actuation nasal 3 mg intranasal ONCE #2 ea 01/17/22 Rx spray (Baqsimi) insulin lispro 100 unit/mL See Rx Instructions subcut TID #45 04/25/22 Rx subcutaneous pen (Humalog KwikPen mL (U-100) Insulin) insulin glargine 100 unit/mL (3 24 unit (0.24 mL) subcut DAILY #2 07/03/22 07/03/22 Rx mL) subcutaneous pen (Lantus Boxes Solostar U-100 Insulin) pen needle, diabetic 32 gauge x #400 ea 07/03/22 07/03/22 Rx 5/32" (BD Akiko 2nd Gen Pen Needle) Past Med/Surg History Medical History (Updated 07/29/22 @ 09:42 by VERONIKA Morgan) Depression Diabetes type 1, uncontrolled DKA (diabetic ketoacidosis) GERD (gastroesophageal reflux disease) Tobacco use disorder Vomiting Surgical History H/O inguinal hernia repair Family History Grandfather (Maternal) Diabetes Social History Smoking Status: Never smoker Tobacco Type: Cigarettes packs per day: 0.5; Hx Alcohol Use: No Hx Substance Use: No Preferred Language: Welsh Communication Ability: Effective Rubber Flap Cutter Required: No Beliefs That Will Affect Care: None Current Living Situation: Family Feels Safe at Home: Yes Assistive Devices: Cane (only uses it on occasion) Review of Systems Review of Systems: Neuro: (-) Falls, trauma, slurred speech HEENT: (-) ANGUIANO, dizziness, dysphagia, visual or auditory changes CV: (-) CP, palpitations, swelling Resp: (-) SOB GI: (-) appetite changes, N/V/D, bowel changes : (-) urinary changes Skin: (-) rashes Psych: (-) anxiety, depression Physical Exam Physical Exam: Neuro: AAOx4, PERRLA, no aphagia, memory changes, CNII-XII grossly intact HEENT: head normocephalic, dry mucus membranes; cachexia CV: S1/S2, (-) M/G/R, (-) edema, cap refill < 3 seconds Resp: Lungs CTA in all morrison. On RA GI: Abdomen S/NT/ND, Ax4 bowel sounds, (-) CVA tenderness Musculoskeletal: 5/5 B/L UE strength, 5/5 B/L LE strength. No gait disturbance Skin: (+) sebborehic rashs on forehead, shoulder and arms, (-) erythema. Psych: flat mood Results & Data Results & Data ([facility]) Vital Signs (Past 12 Hours) Vital Signs Temp Pulse Resp BP Pulse Ox O2 Del Method 07/29/22 07:43 37.1 C 146 H 16 107/72 99 Room Air Laboratory Results Short CBC 07/29/22 Range/Units 08:03 WBC 5.40 (4.8-10.8) K/ul Hgb 15.6 (14.0-18.0) g/dl Hct 42.7 (40.1-51.0) % Plt Count 352 (130-400) K/uL BMP 07/29/22 08:03 Sodium 129 L Potassium 3.4 L Chloride 90 L Carbon Dioxide 16 L BUN 12 Creatinine 0.94 Glucose 396 H* Calcium 9.2 Liver Function 07/29/22 Range/Units 08:03 Total Bilirubin 0.7 (0.2-1.0) mg/dl Direct Bilirubin 0.1 (0-0.2) mg/dl AST 9 L (13-39) U/L ALT 10 (7-52) U/L Alkaline Phosphatase 100 (34-104) U/L Albumin 4.4 (3.4-5.0) gm/dl ECG Additional Comments: ST on monitor STEVEN 98 ms QRS 82 QTc 425 Code Status & VTE Plan Code Status Full Code in the event of cardiac or respiratory arrest VTE Prophylaxis Plan VTE Prophylaxis will be ordered: Yes
[2022-07-29] MEDS ORDERED: MAGNESIUM SULFATE / D5W 1 GM/100 ML BAG IV ONE (10:04)
[2022-07-29] MEDS: SODIUM CHLOR 0.45% + 20MEQ KCL 20 MEQ/1,000 ML BAG IV SCH ×2 (10:57→18:42)
[2022-07-29] MEDS ORDERED: MAGNESIUM HYDROXIDE SUSP 30 ML UDC PO PRN (11:53)
[2022-07-29] MEDS ORDERED: POLYETHYLENE (MIRALAX) 17 GM PACK PO PRN (11:53)
[2022-07-29] MEDS ORDERED: ONDANSETRON INJ 2 MG/ML 2 ML VIAL IV PRN (11:53)
[2022-07-29] MEDS ORDERED: POTASSIUM CHLORIDE CRTAB 20 MEQ TABCR PO STA ×2 (11:53→13:39)
[2022-07-29] MEDS ORDERED: ACETAMINOPHEN 325 MG TAB PO PRN (11:53)
[2022-07-29] MEDS ORDERED: ALUMINUM/MAGNESIUM SUSP 30 ML UDC PO PRN (11:53)
[2022-07-29 13:06] LABS: Estimated Average Glucose 292 mg/dl; Hemoglobin A1C 11.8 % (4.5-5.6)
--- NOTE | 2022-07-29 13:31 | Electrocardiogram Report ---
Test Reason : Blood Pressure : / mmHG Vent. Rate : 105 BPM Atrial Rate : 105 BPM P-R Int : 098 ms QRS Dur : 082 ms QT Int : 322 ms P-R-T Axes : 073 094 065 degrees QTc Int : 425 ms Poor data quality, interpretation may be adversely affected Sinus tachycardia with short TN Possible Left atrial enlargement Rightward axis Borderline ECG When compared with ECG of 13-APR-2021 05:44, Nonspecific T wave abnormality no longer evident in Inferior leads Nonspecific T wave abnormality no longer evident in Anterolateral leads Confirmed by Luciano Hewitt ([id number]) on 07/29/2022 1:31:17 PM Referred By: REFERRED SELF Confirmed By:Luciano Hewitt
[2022-07-29 13:34] LABS: BUN Creatinine Ratio 15.7 (10-20); Calcium 8.4 mg/dl (8.5-10.1); Creatinine Clr Calc Pharmacy 93.6 ml/min; Est GFR (African American) 146.8 ml/min; Est GFR (Non-African American) 126.6 ml/min; Magnesium 1.7 mg/dl (1.7-2.4); Phosphorus 1.9 mg/dl (2.5-4.9); Potassium 2.9 mmol/L (3.5-5.1)
[2022-07-29] MEDS: LIDOCAINE 5% 1 PATCH TD SCH (13:54)
[2022-07-29] MEDS: INSULIN ASPART PER UNIT SC SCH ×4 (13:54→23:50)
[2022-07-29 14:21] LABS: Estimated Average Glucose 289 mg/dl; Hemoglobin A1C 11.7 % (4.5-5.6)
[2022-07-29] MEDS ORDERED: LANTUS PER UNIT CHARGE SQ ONE (14:30)
--- NOTE | 2022-07-29 14:37 | Pharmacy Report ---
Pharmacy Glycemic Short Note 2 - Date of Service July 29, 2022 - Glycemic Short BSG Results (Last 24 hours): 07/29/22 07/29/22 07/29/22 07:59 08:03 10:53 Glucose 396 H* POC Glucose 394 H* 258 H 07/29/22 07/29/22 07/29/22 12:14 12:32 13:13 Glucose 155 H POC Glucose 168 H 128 H 07/29/22 07/29/22 13:34 14:27 Glucose POC Glucose 156 H 243 H OUTPATIENT ANTIDIABETIC REGIMEN: * Lantus 24 units daily when taking "pump holiday" * Humalog w/ meals when taking "pump holiday" * Tandem Insulin pump: basal 1.1 units/hr x 24 hrs; CF 29, CR 8 * A1c = 11.7% 07/29/22 ASSESSMENT: * Type 1 diabetic admitted for NV x 2 weeks, found to have AG acidosis, DKA. Of note, pt reportedly on "pump holiday". He was recently admitted for DKA. * Initial labs; AG 23, bicarb 16, vpH 7.37 * Fluid resuscitation and IV insulin drip initiated per protocol * AG and bicarb have normalized on last set of labs. Reviewed with Provider. Patient did tolerate lunch today. Will transition to basal/bolus SQ at this time * Will base initial insulin doses upon outpt regimen, basal insulin dose will be increased ~10% due to recent DKA. Will add overnight checks to confirm we are meeting glycemic targets. PLAN FOR INPATIENT GLYCEMIC CONTROL: * Basal insulin * Lantus 26 units SQ x 1 STAT. Reassess needs tomorrow AM. * DC IV insulin drip ~2 hrs after 1st dose Lantus given * Bolus insulin * NovoLog per scale ACHS and at 0000, 0400 tonight. * Goal Range: Low 110 mg/dL - High 140 mg/dL (use goal 110-160mg/dL overnight) * Correction Factor: 25 mg/dL/unit (use 30mg/dL/unit overnight) * Nutritional / Prandial insulin per carb ratio of 1 unit per 8 grams CHO consumed
[2022-07-29] MEDS ORDERED: [UNRECOGNIZED DRUG - REMARK] ONE (16:30)
[2022-07-29 17:02] LABS: BUN Creatinine Ratio 13.9 (10-20); Calcium 8.5 mg/dl (8.5-10.1); Creatinine Clr Calc Pharmacy 82.8 ml/min; Est GFR (African American) 139.7 ml/min; Est GFR (Non-African American) 120.5 ml/min; Phosphorus 2.4 mg/dl (2.5-4.9); Potassium 3.2 mmol/L (3.5-5.1)
[2022-07-29] MEDS: POT PHOSPHATE MONOBASIC W/ SOD TAB PO SCH ×2 (17:20→21:53)
[2022-07-29 17:25] LABS: Appearance Urine Clear (Clear); Bacteria Urine Automated Negative (Negative); Bilirubin Urine Negative (Negative); Blood Urine Negative (Negative); Color Urine Yellow; Glucose Urine UA 3+ (Negative); Ketones Urine 4+ (Negative); Leukocyte Esterase Urine Negative (Negative); Nitrite Urine Negative (Negative); Protein Urine 1+ (Negative); RBC Urine Automated 0-4 /hpf (0-4); Specific Gravity Urine 1.029 (1.000-1.030); Urobilinogen Urine Negative (Negative)
[2022-07-29 17:44] LABS: Amphetamines+Metham, Urine Neg (Neg); Barbiturates, Urine Neg (Neg); Benzodiazepine, Urine Neg (Neg); Cocaine, Urine Neg (Neg); MDMA (Ecstacy), Urine Neg (Neg); Methadone, Urine Neg (Neg); Opiate, Urine Neg (Neg); Phencyclidine, Urine Neg (Neg)
[2022-07-29] MEDS ORDERED: POTASSIUM CHLORIDE CRTAB 20 MEQ TABCR PO SCH (18:45)
[2022-07-29] MEDS ORDERED: POTASSIUM CHLORIDE CRTAB 20 MEQ TABCR PO ONE (18:45)
[2022-07-29] MEDS: PENDING D5 1/2NS+20mEq KCL IVF SCH ×2 (21:15→21:16)
[2022-07-29] MEDS: PENDING D5 1/2NS+40mEq KCL IVF SCH ×2 (21:15→21:16)
[2022-07-30] MEDS: SODIUM CHLOR 0.45% + 20MEQ KCL 20 MEQ/1,000 ML BAG IV SCH (02:43)
[2022-07-30] MEDS: INSULIN ASPART PER UNIT SC SCH ×2 (03:55→09:41)
[2022-07-30 07:15] LABS: Hematocrit (blood only) 35.2 % (40.1-51.0); Hemoglobin 12.8 g/dl (14.0-18.0); Mean Corpuscular Hemoglobin 32.2 pg (25.0-34.0); Mean Corpuscular Hgb Conc 36.4 g/dL (32.0-36.0); Mean Corpuscular Volume 88.7 fL (80.0-100.0); Platelet Count 255 K/uL (130-400); RDW Coefficient of Variation 11.9 % (11.5-14.5); RDW Standard Deviation 38.3 fL (36.4-46.3); Red Blood Count 3.97 M/uL (4.63-6.08); White Blood Count 4.28 K/ul (4.8-10.8)
[2022-07-30 07:57] LABS: Anion Gap 6 (3-11); Blood Urea Nitrogen 13 mg/dl (6-23); Calcium 8.8 mg/dl (8.5-10.1); Carbon Dioxide 25 mmol/L (21-32); Chloride 103 mmol/L (98-107); Creatinine Clr Calc Pharmacy 110.8 ml/min; Est GFR (African American) > 150.0 ml/min; Est GFR (Non-African American) 135.9 ml/min; Glucose 118 mg/dl (70-99(Fasting)); Magnesium 1.9 mg/dl (1.7-2.4); Phosphorus 2.8 mg/dl (2.5-4.9); Potassium 4.3 mmol/L (3.5-5.1); Sodium 134 mmol/L (136-145)
[2022-07-30] MEDS ORDERED: ENOXAPARIN INJ 30 MG/0.3 ML SYR SQ SCH (09:00)
[2022-07-30] MEDS: LIDOCAINE 5% 1 PATCH TD SCH (09:11)
[2022-07-30] MEDS: POT PHOSPHATE MONOBASIC W/ SOD TAB PO SCH (09:41)
--- NOTE | 2022-07-30 12:10 | Communication Note ---
Date of Service: July 30, 2022 Informed by the nursing staff that patient was very agitated and wanted to leave the hospital. He was seen at bedside. He was sitting at the end of the bed. He did not allow any examination. He wanted to take out the IVs and and go home with his dad. He was recommended to stay in the hospital for further monitoring and treatment. He was alert, oriented x3. He understood the risks of foregoing monitoring and further treatment. He was informed that the risks of foregoing treatment which includes severe dehydration which can lead to multiorgan failure and . He denied any suicidal ideation. He was offered to obtain prescription for insulin which he denied. He said he had enough supply of the insulin and did not need any more prescriptions.
--- NOTE | 2022-07-30 16:28 | Discharge Summary ---
Date of Service July 30, 2022 Admission HPI Per Admitting Provider Wesley Perez is a 32 year old male that presented to [place] today with increased blood sugars, N/V, black/tarry stools, increased weakness and fatigue, decreased appetite, tachycardia and shortness of breath. He has a history of type 1 DM, recent hospitalization for DKA in [facility] last week for similar presentation. His blood sugar on admission was 396; started on an Insulin infusion without bolus and also given a L of IV fluids. Pt also has metabolic acidosis. Pt reporting hematemesis; EGD performed at [facility] in November. Protonix given here. He is an active smoker and smoking cessation was again emphasized. Pt reports using his dexcom and insulin pump as prescribed. Additional PMH includes depression and GERD. Patient will be admitted to hospitalist service for further evaluation and monitoring/management. Please see A/P for further details. Admission Exam Per Admitting Provider Neuro: AAOx4, PERRLA, no aphagia, memory changes, CNII-XII grossly intact HEENT: head normocephalic, dry mucus membranes; cachexia CV: S1/S2, (-) M/G/R, (-) edema, cap refill < 3 seconds Resp: Lungs CTA in all morrison. On RA GI: Abdomen S/NT/ND, Ax4 bowel sounds, (-) CVA tenderness Musculoskeletal: 5/5 B/L UE strength, 5/5 B/L LE strength. No gait disturbance Skin: (+) sebborehic rashs on forehead, shoulder and arms, (-) erythema. Psych: flat mood Principal Diagnosis Diabetes ketoacidosis Discharge Exam Did not allow for physical examination on discharge. Discharge Data Allergies Allergy/AdvReac Type Severity Reaction Status Date / Time bee venom protein (honey bee) Allergy Severe Difficulty Verified 05/31/22 12:58 Breathing Consultations 07/29/22 09:39 ED Decision to Admit Stat 07/29/22 11:53 Consult Behavioral Health Liaison Routine Hospital Course (1) DKA (diabetic ketoacidosis): Plan Patient is a 32-year-old male with past medical history of type 1 diabetes, depression, tobacco use disorder presented to the ED with nausea and vomiting for 2 weeks. He was found to be hypoglycemic with mild DKA. He was started on IV insulin therapy and was admitted to telemetry for further care. His glucose was 396 with anion gap of 23 and CO2 of 16. His DKA resolved and patient was transitioned to long-acting insulin. On 07/30, patient was agitated and wanted to leave the hospital AGAINST MEDICAL ADVICE. He was recommended to stay in the hospital for further monitoring and treatment. He was explained regarding the risks of leaving the hospital which can lead to severe dehydration, severe hyperglycemia which could lead to multiorgan failure and . He was alert, oriented x3, understood the risks involved and decided to leave the hospital AGAINST MEDICAL ADVICE. He was asked if he needed any prescription for insulin; he denied and said that he has enough of his left at home. He was also instructed to follow-up with his PCP. Total Time Total Time Spent Total Time Spent (In Minutes): 15 Total Time Includes: Examination of the Patient, Discharge Planning, Medication Reconciliation, Communication With Other Providers and Other Discharge Plan Discharge Items Patient Disposition: Against Medical Advice Reason For Visit: HYPERGLYCEMIA Activity: Resume your previous activity Non-emergency contact: Primary Care Provider Follow-up/Referrals: Ainsley Jin PA-C [Primary Care Provider] - Pending Studies at Discharge: No Stand-Alone Forms: [employer] Smoking Cessation Medications and DC Order Prescriptions: Continued Baqsimi 3 mg/actuation spray,non-aerosol 3 mg intranasal ONCE Qty: 2 5RF (DME) Ketostix Strip See Rx Instructions miscellaneous .MEDSUPPLY Qty: 25 11RF Rx Instructions: Check when blood sguars are high insulin lispro [Humalog KwikPen Insulin] 100 unit/mL insulin pen See Rx Instructions subcut TID Qty: 45 5RF Rx Instructions: subcut three times a day; inject prior to each meal TDD 110 units (DME) Dexcom G6 Sensor Device See Rx Instructions .Route Rx Instructions: change every 10 days (DME) Dexcom G6 [employer] Misc See Rx Instructions .Route Rx Instructions: As directed (DME) Dexcom G6 Transmitter Device See Rx Instructions .Route Rx Instructions: change every 90 days (DME) pen needle, diabetic [BD Akiko 2nd Gen Pen Needle] 32 gauge x 5/32" needle See Rx Instructions miscellaneous .MEDSUPPLY Qty: 400 3RF Rx Instructions: inject up to 4x a day insulin glargine [Lantus Solostar U-100 Insulin] 100 unit/mL (3 mL) insulin pen 24 unit subcut DAILY Qty: 2 3RF insulin glargine [Basaglar KwikPen U-100 Insulin] 100 unit/mL (3 mL) insulin pen 0RF Discharge Orders: Left Against Medical Advice (Routine); Ordered 07/30/22 Ordered By: Alvaro Richards Admission Data Admit Date/Time: 07/29/22 09:56 Attending Provider: Alvaro Richards Admit Provider: John Cade Primary Care Provider: Ainsley Jin Other Providers: John Cade
[2022-08-01 09:05] LABS: Marijuana Quant, GCMS Urine 617 ng/mL (<5)
--- NOTE | 2022-08-07 12:39 | Coding Query ---
To promote full compliance with coding requirements relating to patient care, provider participation is requested in all cases of test desk trouble locator uncertainty. Please assist us with the question(s) below: Coding Question(s): The diagnosis below was documented in the H&P, then subsequently fell off all further documentation. Please indicate if it is still a possible diagnosis or ruled out. Physician's Response(s): SEVERE PROTEIN CALORIC MALNOURISHMENT ( X ) Diagnosed and POA ( ) Diagnosed and not POA ( ) Ruled out ( ) Other (please specify) MTDD
== END 2022-07-30 09:29 | disposition left against medical advice (07) | DRG 637 ==
LOC: ED 07:39 → 2E 09:56 → SUATTDRO 09:56 → 2E 11:09 → 2S 23:12

== ENCOUNTER 2023-01-24 18:21 | Inpatient (IN) ==
[2023-01-24] MEDS ORDERED: SODIUM CHLORIDE 0.9% 1000ML 2,000 ML IV ONE (18:49)
[2023-01-24] MEDS ORDERED: PROMETHAZINE 25 MG/51 ML BAG IV STA (18:50)
--- NOTE | 2023-01-24 18:53 | Emergency Department Note ---
Impression & Plan DKA (diabetic ketoacidosis), Metabolic acidosis ED Provider Note NAME: JUJU RICARDO AGE: 32 SEX: M : 1990 ARRIVES VIA: Ambulance INFORMANT: Patient ED PROVIDER(S): Jase Tafoya DO CHIEF COMPLAINT: DKA HPI: Patient is a 32-year-old male with type I diabetic, marijuana abuse, tobacco abuse who presents to the ER for elevated blood sugars. He notes he has not had his insulin for over a week. He just got out of the hospital 2 days ago as he was admitted for DKA and notes his sugars have been elevated. He has been vomiting since this morning. He did notice some blood in the vomit. Denies any headache or change in vision. Admits to anterior abdominal wall pain which is worse with pushing on it as well as movement of the arms. Does have some right upper shoulder/back pain which is also worse with pushing. Has been unable to keep anything down. Has been taking his blood sugars per he reported today. Denies any dysuria, urgency, or frequency. No cough or congestion. No other exacerbating remitting factors. PAST MEDICAL HISTORY:See Below PAST SURGICAL HISTORY:See Below FAMILY HISTORY:See Below SOCIAL HISTORY:See Below HOME MEDICATIONS:See Below ALLERGIES:See Below VITALS:See Below PHYSICAL EXAMINATION: GENERAL: Sitting up in bed, alert, mild distress EYE EXAM: normal conjunctiva. PERRL and EOM's grossly intact. OROPHARYNX: no exudate, no erythema, lips, buccal mucosa, and tongue normal and mucous membranes are dry LUNGS: Clear to auscultation. Normal chest wall mechanics HEART: Tachycardic, S1 normal and S2 normal ABDOMEN: abdomen soft, non-tender, normo-active bowel sounds, no masses, no rebound or guarding. UPPER EXTREMITIES: upper extremities are grossly normal. LOWER EXTREMITIES: No pitting edema. NEURO EXAM: Normal sensorium, cranial nerves II-XII grossly intact, normal speech, no gross weakness of arms, no gross weakness of legs. MEDICAL DECISION MAKING: Patient is a 32-year-old male type I diabetic poorly controlled who left [place] [facility] AMA within the past 48 hours who presents ER for nausea vomiting. IV was established blood was obtained. Labs show leukocytosis 16,000. No significant anemia. VBG with a pH of 7.18. CO2 significant low at 11 with a gap of 21. LFTs bilirubin was unremarkable. Troponin was slightly elevated 28 but does have reproducible pain I favor this most likely stress/demand. Lipase was normal. UA with a large amount of ketones. No signs of infection. COVID was negative. Patient was given 3 L of IV fluids while in the ER and blood sugars were at about 200. Case was discussed with the hospitalist for further evaluation management and treatment. CT abdomen pelvis did show significant inflammation of the stomach. Triage Nursing notes reviewed. Limited review of prior medical records performed Vital Signs: reviewed and remarkable for Tachy and HTN Differential diagnosis: Differential diagnoses includes but is not limited to gastritis, peptic ulcer disease, GERD, gallbladder disease, pancreatitis, small bowel obstruction, appendicitis, diverticulitis, hernia, urinary tract infection, torsion, 32, perforation, trauma, infectious. ER treatment provided: See below Diagnostics interpreted by me include EKG and cardiac monitoring as listed below: -Cardiac Monitoring: An order was placed for continuous cardiac monitoring. The monitor shows a rate of 121 with sinus rhythm. -ECG: Sinus tachycardia rate of 133 Right axis No PVCs QTc 428 -Laboratory studies:Interpreted by me as stated above in MDM and shown below. Imaging studies: Xrays: As interpreted by me: Portable AP upright 1 view chest shows no pneumonia CTs show: CT abdomen pelvis shows gastritis Consultation(s): Discussed with hospitalist for further evaluation management an d treatment Dr. Matthew Procedures:none Critical Care: I have personally spent 32 minutes of critical care time in the direct management of this patient. This includes bedside care, interpretation of diagnostic studies, and testing, discussion with consultants, patient, and family members, and other required patient management activities. This 32 minutes is in excess of all separately billable procedures. Past Med/Surg History Medical History (Updated 01/24/23 @ 22:06 by Jase Tafoya DO) Depression Diabetes type 1, uncontrolled DKA (diabetic ketoacidosis) GERD (gastroesophageal reflux disease) Hematemesis Tobacco use disorder Vomiting Surgical History H/O inguinal hernia repair Family History Grandfather (Maternal) Diabetes Social History Smoking Status: Current every day smoker Tobacco Type: Cigarettes packs per day: 0.5; Hx Alcohol Use: No Hx Substance Use: Yes Non-Prescribed Medications: Marijuana and Methamphetamines Preferred Language: [place] Communication Ability: Effective Director Group Sales Required: No Beliefs That Will Affect Care: None Current Living Situation: Parent Feels Safe at Home: Yes Assistive Devices: Cane (only uses it on occasion) Allergies Allergies Allergy/AdvReac Type Severity Reaction Status Date / Time bee venom protein (honey bee) Allergy Severe Difficulty Verified 01/24/23 20:12 Breathing Home Meds Home Medications Medication Instructions Recorded Confirmed blood-glucose meter,continuous 12/21/21 09/02/22 (Dexcom G6 [employer]) blood-glucose sensor (Dexcom G6 12/21/21 09/02/22 Sensor device) blood-glucose transmitter (Dexcom 12/21/21 05/31/22 G6 Transmitter device) Previous Rx's Medication Instructions Recorded insulin lispro 100 unit/mL See Rx Instructions subcut TID #45 04/25/22 subcutaneous pen (Humalog KwikPen mL (U-100) Insulin) pen needle, diabetic 32 gauge x #450 ea 08/07/2232" (BD Akiko 2nd Gen Pen Needle) acetone (urine) test (Ketostix #25 ea 08/12/22 strips) insulin aspart U-100 100 unit/mL See Rx Instructions subcut 11/19/22 subcutaneous solution (Novolog .COMPLEX #30 mL U-100 Insulin aspart) Results & Data (ED) Vital Signs Vital Signs - 24 hr 01/24/23 18:35 01/24/23 18:37 01/24/23 18:37 Temperature 36.6 C 36.6 C Temperature Source Oral Oral Pulse Rate 123 H 130 H Pulse Rate [Apical] 130 H Respiratory Rate 22 22 Respiratory Effort / Characteristics Non-Labored Spontaneous Respiratory Depth Normal Respiratory Pattern Regular Blood Pressure 141/95 H Blood Pressure [Right Arm] 141/95 H Blood Pressure Mean 110 Blood Pressure Mean [Right Arm] 110 Blood Pressure Position Lying Pulse Oximetry 100 100 Oxygen Delivery Method Room Air Sepsis Recent Fever Within 48 Hours No Sepsis New/Unexplained Change in Mental Status No Sepsis Action Taken by Nursing Physician Notified 01/24/23 19:24 01/24/23 19:15 01/24/23 19:52 Temperature Temperature Source Pulse Rate 130 H 138 H Pulse Rate [Apical] Respiratory Rate 24 26 H Respiratory Effort / Characteristics Respiratory Depth Respiratory Pattern Blood Pressure 143/97 H 137/87 Blood Pressure [Right Arm] Blood Pressure Mean 112 103 Blood Pressure Mean [Right Arm] Blood Pressure Position Pulse Oximetry 99 99 99 Oxygen Delivery Method Room Air Sepsis Recent Fever Within 48 Hours Sepsis New/Unexplained Change in Mental Status Sepsis Action Taken by Nursing 01/24/23 20:00 01/24/23 21:00 Temperature Temperature Source Pulse Rate 142 H 139 H Pulse Rate [Apical] Respiratory Rate 28 H 26 H Respiratory Effort / Characteristics Respiratory Depth Respiratory Pattern Blood Pressure 123/96 119/83 Blood Pressure [Right Arm] Blood Pressure Mean 105 95 Blood Pressure Mean [Right Arm] Blood Pressure Position Pulse Oximetry 99 100 Oxygen Delivery Method Sepsis Recent Fever Within 48 Hours Sepsis New/Unexplained Change in Mental Status Sepsis Action Taken by Nursing Laboratory Data 01/24/23 18:35 01/24/23 18:35 Lab Results 01/24/23 01/24/23 01/24/23 Range/Units 18:29 18:35 18:35 WBC 16.47 H (4.8-10.8) K/ul RBC 5.37 (4.70-6.10) M/uL Hgb 16.7 (14.0-18.0) g/dl POC Hgb (14.0-18.0) g/dl Hct 46.4 (42.0-52.0) % POC Hct (42-52) % MCV 86.4 (80.0-100.0) fL MCH 31.1 (25.0-34.0) pg MCHC 36.0 (32.0-36.0) g/dL RDW Std Deviation 40.6 (36.4-46.3) fL RDW Coeff of Bennett 12.9 (11.5-14.5) % Plt Count 278 (130-400) K/uL MPV 10.2 (9.4-12.4) fL Immature Gran % (Auto) 0.4 % Neut % (Auto) 83.9 % Lymph % (Auto) 5.9 % Crosby % (Auto) 9.6 % Eos % (Auto) 0.0 % Baso % (Auto) 0.2 % Neut # (Auto) 13.81 H (1.40-6.50) K/uL Lymph # (Auto) 0.97 L (1.2-3.4) K/uL Crosby # (Auto) 1.58 H (0.11-0.59) K/uL Eos # (Auto) 0.00 (0-0.50) K/uL Baso # (Auto) 0.04 (0-0.2) K/uL Immature Gran # (Auto) 0.07 (0.01-0.20) K/uL VBG pH (7.36-7.41) VBG pCO2 (38-50) mmHg VBG pO2 mmHg VBG HCO3 mmol/L VBG O2 Saturation % VBG Base Excess mEq/L POC Sodium (135-144) mmol/L Sodium 137 (136-145) mmol/L POC Potassium (3.3-5.0) mmol/L Potassium 3.8 (3.5-5.1) mmol/L POC Chloride (101-112) mmol/L Chloride 105 (98-107) mmol/L Carbon Dioxide 11 L (21-32) mmol/L POC Total CO2 (24-31) mmol/L Anion Gap 21 H (3-11) POC Anion Gap (16-25) mmol/L POC BUN (7-18) mg/dl BUN 10 (6-23) mg/dl Creatinine 0.94 (0.6-1.4) mg/dl POC Creatinine (0.6-1.3) mg/dl Est Cr Clr Drug Dosing Not Reportable Est GFR ( Amer) 125.6 ml/min Est GFR (Non-Af Amer) 108.4 ml/min BUN/Creatinine Ratio 10.6 (10-20) Glucose 251 H (70-99(Fasting)) mg/dl POC Glucose 200 H (70-99) mg/dl POC Glucose (other) (70-99) mg/dl Calcium 9.2 (8.5-10.1) mg/dl POC Ioniz Calcium Franca (1.12-1.32) mmol/l Total Bilirubin 0.8 (0.2-1.0) mg/dl AST 13 (13-39) U/L ALT 12 (7-52) U/L Alkaline Phosphatase 123 H (34-104) U/L Troponin I High Sens 28.6 H (0-20) pg/ml Total Protein 8.0 (6.0-8.3) gm/dl Albumin 4.4 (3.4-5.0) gm/dl Globulin 3.6 (2.5-4.0) gm/dl Albumin/Globulin Ratio 1.2 (0.9-2) Lipase 6 L (11-82) U/L Urine Color Urine Appearance (Clear) Urine pH (4.5-7.5) Ur Specific Longs (1.000-1.030) Urine Protein (Negative) Urine Glucose (UA) (Negative) Urine Ketones (Negative) Urine Blood (Negative) Urine Nitrite (Negative) Urine Bilirubin (Negative) Urine Urobilinogen (Negative) Ur Leukocyte Esterase (Negative) Urine WBC (Auto) (0-5) /hpf Urine RBC (Auto) (0-4) /hpf U Hyaline Cast (Auto) (0-5) /lpf U Epithel Cells (Auto) (0-5) /lpf Urine Bacteria (Auto) (Negative) SARS-CoV-2, RNA, NAAT (NEGATIVE) 01/24/23 01/24/23 01/24/23 Range/Units 18:52 18:56 19:20 WBC (4.8-10.8) K/ul RBC (4.70-6.10) M/uL Hgb (14.0-18.0) g/dl POC Hgb 15.3 (14.0-18.0) g/dl Hct (42.0-52.0) % POC Hct 45 (42-52) % MCV (80.0-100.0) fL MCH (25.0-34.0) pg MCHC (32.0-36.0) g/dL RDW Std Deviation (36.4-46.3) fL RDW Coeff of Bennett (11.5-14.5) % Plt Count (130-400) K/uL MPV (9.4-12.4) fL Immature Gran % (Auto) % Neut % (Auto) % Lymph % (Auto) % Crosby % (Auto) % Eos % (Auto) % Baso % (Auto) % Neut # (Auto) (1.40-6.50) K/uL Lymph # (Auto) (1.2-3.4) K/uL Crosby # (Auto) (0.11-0.59) K/uL Eos # (Auto) (0-0.50) K/uL Baso # (Auto) (0-0.2) K/uL Immature Gran # (Auto) (0.01-0.20) K/uL VBG pH 7.18 L (7.36-7.41) VBG pCO2 26 L (38-50) mmHg VBG pO2 41 mmHg VBG HCO3 10 mmol/L VBG O2 Saturation 72.9 % VBG Base Excess -17.1 mEq/L POC Sodium 138 (135-144) mmol/L Sodium (136-145) mmol/L POC Potassium 3.6 (3.3-5.0) mmol/L Potassium (3.5-5.1) mmol/L POC Chloride 108 (101-112) mmol/L Chloride (98-107) mmol/L Carbon Dioxide (21-32) mmol/L POC Total CO2 12 L (24-31) mmol/L Anion Gap (3-11) POC Anion Gap 22.0 (16-25) mmol/L POC BUN 9 (7-18) mg/dl BUN (6-23) mg/dl Creatinine (0.6-1.4) mg/dl POC Creatinine 0.6 (0.6-1.3) mg/dl Est Cr Clr Drug Dosing Est GFR ( Amer) ml/min Est GFR (Non-Af Amer) ml/min BUN/Creatinine Ratio (10-20) Glucose (70-99(Fasting)) mg/dl POC Glucose (70-99) mg/dl POC Glucose (other) 251 H (70-99) mg/dl Calcium (8.5-10.1) mg/dl POC Ioniz Calcium Franca 1.16 (1.12-1.32) mmol/l Total Bilirubin (0.2-1.0) mg/dl AST (13-39) U/L ALT (7-52) U/L Alkaline Phosphatase (34-104) U/L Troponin I High Sens (0-20) pg/ml Total Protein (6.0-8.3) gm/dl Albumin (3.4-5.0) gm/dl Globulin (2.5-4.0) gm/dl Albumin/Globulin Ratio (0.9-2) Lipase (11-82) U/L Urine Color Yellow Urine Appearance Clear (Clear) Urine pH 5.5 (4.5-7.5) Ur Specific Longs 1.031 H (1.000-1.030) Urine Protein 2+ H (Negative) Urine Glucose (UA) 3+ H (Negative) Urine Ketones 4+ H (Negative) Urine Blood 2+ H (Negative) Urine Nitrite Negative (Negative) Urine Bilirubin Negative (Negative) Urine Urobilinogen Negative (Negative) Ur Leukocyte Esterase Negative (Negative) Urine WBC (Auto) 1-5 (0-5) /hpf Urine RBC (Auto) 0-4 (0-4) /hpf U Hyaline Cast (Auto) 5-10 H (0-5) /lpf U Epithel Cells (Auto) 10-20 H (0-5) /lpf Urine Bacteria (Auto) Negative (Negative) SARS-CoV-2, RNA, NAAT (NEGATIVE) 01/24/23 Range/Units 19:20 WBC (4.8-10.8) K/ul RBC (4.70-6.10) M/uL Hgb (14.0-18.0) g/dl POC Hgb (14.0-18.0) g/dl Hct (42.0-52.0) % POC Hct (42-52) % MCV (80.0-100.0) fL MCH (25.0-34.0) pg MCHC (32.0-36.0) g/dL RDW Std Deviation (36.4-46.3) fL RDW Coeff of Bennett (11.5-14.5) % Plt Count (130-400) K/uL MPV (9.4-12.4) fL Immature Gran % (Auto) % Neut % (Auto) % Lymph % (Auto) % Crosby % (Auto) % Eos % (Auto) % Baso % (Auto) % Neut # (Auto) (1.40-6.50) K/uL Lymph # (Auto) (1.2-3.4) K/uL Crosby # (Auto) (0.11-0.59) K/uL Eos # (Auto) (0-0.50) K/uL Baso # (Auto) (0-0.2) K/uL Immature Gran # (Auto) (0.01-0.20) K/uL VBG pH (7.36-7.41) VBG pCO2 (38-50) mmHg VBG pO2 mmHg VBG HCO3 mmol/L VBG O2 Saturation % VBG Base Excess mEq/L POC Sodium (135-144) mmol/L Sodium (136-145) mmol/L POC Potassium (3.3-5.0) mmol/L Potassium (3.5-5.1) mmol/L POC Chloride (101-112) mmol/L Chloride (98-107) mmol/L Carbon Dioxide (21-32) mmol/L POC Total CO2 (24-31) mmol/L Anion Gap (3-11) POC Anion Gap (16-25) mmol/L POC BUN (7-18) mg/dl BUN (6-23) mg/dl Creatinine (0.6-1.4) mg/dl POC Creatinine (0.6-1.3) mg/dl Est Cr Clr Drug Dosing Est GFR ( Amer) ml/min Est GFR (Non-Af Amer) ml/min BUN/Creatinine Ratio (10-20) Glucose (70-99(Fasting)) mg/dl POC Glucose (70-99) mg/dl POC Glucose (other) (70-99) mg/dl Calcium (8.5-10.1) mg/dl POC Ioniz Calcium Franca (1.12-1.32) mmol/l Total Bilirubin (0.2-1.0) mg/dl AST (13-39) U/L ALT (7-52) U/L Alkaline Phosphatase (34-104) U/L Troponin I High Sens (0-20) pg/ml Total Protein (6.0-8.3) gm/dl Albumin (3.4-5.0) gm/dl Globulin (2.5-4.0) gm/dl Albumin/Globulin Ratio (0.9-2) Lipase (11-82) U/L Urine Color Urine Appearance (Clear) Urine pH (4.5-7.5) Ur Specific Longs (1.000-1.030) Urine Protein (Negative) Urine Glucose (UA) (Negative) Urine Ketones (Negative) Urine Blood (Negative) Urine Nitrite (Negative) Urine Bilirubin (Negative) Urine Urobilinogen (Negative) Ur Leukocyte Esterase (Negative) Urine WBC (Auto) (0-5) /hpf Urine RBC (Auto) (0-4) /hpf U Hyaline Cast (Auto) (0-5) /lpf U Epithel Cells (Auto) (0-5) /lpf Urine Bacteria (Auto) (Negative) SARS-CoV-2, RNA, NAAT NEGATIVE (NEGATIVE) Administered Medications Discontinued Medications Sodium Chloride (Nss 1000ml) 2,000 mls @ 999 mls/hr IV .Q2H1M ONE Stop: 01/24/23 20:49 Last Infusion: 01/24/23 20:47 Dose: 0 mls/hr Documented By: Admin: 01/24/23 19:29 Dose: 999 mls/hr Documented By: WINIFRED Promethazine HCl (Phenergan) 25 mg in 51 mls @ 204 mls/hr IV NOW STA Stop: 01/24/23 19:04 Last Infusion: 01/24/23 19:44 Dose: 0 mls/hr Documented By: Admin: 01/24/23 19:29 Dose: 204 mls/hr Documented By: WINIFRED Parenteral Electrolytes (Normosol-R) 1,000 mls @ 999 mls/hr IV .Q1H1M ONE Stop: 01/24/23 20:20 Last Admin: 01/24/23 20:47 Dose: 999 mls/hr Documented By: WINIFRED Ioversol (Optiray 350 100ml) 86 ml IV ONCE ONE Stop: 01/24/23 19:43 Last Admin: 01/24/23 19:45 Dose: 86 ml Documented By: JASMEET Ketorolac Tromethamine (Ketorolac Tromethamine 15 Mg/Ml Vial) 15 mg IV NOW ONE Stop: 01/24/23 18:55 Last Admin: 01/24/23 19:29 Dose: 15 mg Documented By: WINIFRED Metoclopramide HCl (Metoclopramide Hcl Inj 5 Mg/Ml 2 Ml Vial) 10 mg IV NOW STA Stop: 01/24/23 19:32 Last Admin: 01/24/23 20:18 Dose: 10 mg Documented By: WINIFRED Imaging Data Radiologist's Impression: Abdomen/Pelvis CT 01/24/23 18:[address] WITH IV CONTRAST CT DOSE: 281.46 mGy.cm HISTORY: diffuse abd pain TECHNIQUE: Multiaxial CT images of the abdomen and pelvis were performed following the use of intravenous contrast. A dose lowering technique was utilized adhering to the principles of ALARA. COMPARISON STUDY: None. FINDINGS: The lung bases are clear. No pneumoperitoneum. No pneumatosis. No acute fractures identified. There is severe circumferential thickening of the distal esophagus with periesophageal fat stranding. This favors a nonspecific esophagitis. Follow-up endoscopy should be performed to exclude the less likely possibility of an underlying esophageal lesion. No extraluminal gas to suggest a perforation. Hepatic steatosis. The spleen, gallbladder, pancreas, adrenal glands, and kidneys are unremarkable. No hydronephrosis. The main portal vein is patent. Normal caliber abdominal aorta. No retroperitoneal or pelvic lymphadenopathy. Mild bladder wall thickening which could be due to underdisten tion. No evidence for a bowel obstruction. Normal appendix. IMPRESSION: 1. Severe circumferential thickening of the distal esophagus with periesophageal fat stranding. This favors a nonspecific esophagitis. Follow-up endoscopy should be performed to exclude the less likely possibility of an underlying esophageal lesion. 2. Hepatic steatosis. 3. Normal appendix. 4. Lateral wall thickening. This may be due to underdistention. Recommend correlation with urinalysis. ACT 112: Negative or not required by law. Electronically signed by: Anshul Stewart M.D. 01/24/2023 8:33 PM Chest X-Ray 01/24/23 18:49 XR chest 1V portable HISTORY: Vomiting. Atypical chest pain. COMPARISON: Chest 04/12/2021. FINDINGS: The lungs are clear. Cardiac silhouette is normal in size. No pleural effusions. No pneumothorax. IMPRESSION: No acute process. ACT 112: Negative or not required by law. Electronically signed by: Anshul Stewart M.D. 01/24/2023 8:04 PM Discharge Plan Visit Data Chief Complaint: Hyperglycemia ED Provider: Jase Tafoya Discharge Problem: DKA (diabetic ketoacidosis), Metabolic acidosis Forms Stand Alone Forms: My PushPage Prescriptions Prescriptions: No Action insulin lispro [Humalog KwikPen Insulin] 100 unit/mL insulin pen See Rx Instructions subcut TID Qty: 45 5RF Rx Instructions: CARB COUNT + CORRECTION FACTOR PER PT ---ubcut three times a day; inject prior to each meal TDD 110 units (DME) Ketostix Strip See Rx Instructions miscellaneous .MEDSUPPLY Qty: 25 11RF Rx Instructions: Check when blood sguars are high insulin aspart U-100 [Novolog U-100 Insulin aspart] 100 unit/mL solution See Rx Instructions subcut .COMPLEX Qty: 30 5RF Rx Instructions: DIRECTED, CARB COUNT + CORRECTION FACTOR PER PT. (DME) Dexcom G6 Sensor Device See Rx Instructions .Route Rx Instructions: change every 10 days (DME) Dexcom G6 [employer] Misc See Rx Instructions .Route Rx Instructions: As directed (DME) Dexcom G6 Transmitter Device See Rx Instructions .Route Rx Instructions: change every 90 days (DME) pen needle, diabetic [BD Akiko 2nd Gen Pen Needle] 32 gauge x 5/32" needle See Rx Instructions miscellaneous .MEDSUPPLY Qty: 450 3RF Rx Instructions: inject up to 5x a day Referrals Referrals: Ainsley Jin PA-C [Outside Practitioners] -
[2023-01-24] MEDS ORDERED: KETOROLAC TROMETHAMINE 15 MG/ML VIAL IV ONE (18:54)
[2023-01-24 19:05] LABS: Basophils # (auto) 0.04 K/uL (0-0.2); Basophils % (auto) 0.2 %; Hematocrit (blood only) 46.4 % (42.0-52.0); Hemoglobin 16.7 g/dl (14.0-18.0); Immature Granulocytes # (auto) 0.07 K/uL (0.01-0.20); Immature Granulocytes % (auto) 0.4 %; Lymphocytes # (auto) 0.97 K/uL (1.2-3.4); Lymphocytes % (auto) 5.9 %; Mean Corpuscular Hemoglobin 31.1 pg (25.0-34.0); Mean Corpuscular Volume 86.4 fL (80.0-100.0); Mean Platelet Volume 10.2 fL (9.4-12.4); Monocytes # (auto) 1.58 K/uL (0.11-0.59); Monocytes % (auto) 9.6 %; Neutrophils # (auto) 13.81 K/uL (1.40-6.50); Neutrophils % (auto) 83.9 %; Platelet Count 278 K/uL (130-400); RDW Coefficient of Variation 12.9 % (11.5-14.5); RDW Standard Deviation 40.6 fL (36.4-46.3); Red Blood Count 5.37 M/uL (4.70-6.10); White Blood Count 16.47 K/ul (4.8-10.8)
[2023-01-24 19:09] LABS: iSTAT Creatinine 0.6 mg/dl (0.6-1.3); iSTAT Hemoglobin 15.3 g/dl (14.0-18.0); iSTAT Ionized Calcium 1.16 mmol/l (1.12-1.32); iSTAT Potassium 3.6 mmol/L (3.3-5.0)
[2023-01-24] MEDS ORDERED: NORMOSOL-R 1,000 ML IV ONE (19:20)
[2023-01-24 19:23] LABS: Base Excess VBG -17.1 mEq/L; HCO3 VBG 10 mmol/L; Oxygen Saturation VBG 72.9 %; PCO2 VBG 26 mmHg (38-50); PO2 VBG 41 mmHg; pH VBG 7.18 (7.36-7.41)
[2023-01-24 19:24] LABS: Alanine Aminotransferase 12 U/L (7-52); Albumin Globulin Ratio 1.2 (0.9-2); Albumin Level 4.4 gm/dl (3.4-5.0); Alkaline Phosphatase 123 U/L (34-104); Anion Gap 21 (3-11); Aspartate Aminotransferase 13 U/L (13-39); BUN Creatinine Ratio 10.6 (10-20); Bilirubin,Total 0.8 mg/dl (0.2-1.0); Blood Urea Nitrogen 10 mg/dl (6-23); Calcium 9.2 mg/dl (8.5-10.1); Carbon Dioxide 11 mmol/L (21-32); Chloride 105 mmol/L (98-107); Est GFR (African American) 125.6 ml/min; Est GFR (Non-African American) 108.4 ml/min; Globulin 3.6 gm/dl (2.5-4.0); Glucose 251 mg/dl (70-99(Fasting)); Lipase 6 U/L (11-82); Potassium 3.8 mmol/L (3.5-5.1); Sodium 137 mmol/L (136-145)
[2023-01-24 19:30] LABS: Troponin I High Sensitivity 28.6 pg/ml (0-20)
[2023-01-24] MEDS ORDERED: METOCLOPRAMIDE HCL INJ 5 MG/ML 2 ML VIAL IV STA (19:31)
[2023-01-24 19:39] LABS: Appearance Urine Clear (Clear); Bacteria Urine Automated Negative (Negative); Bilirubin Urine Negative (Negative); Blood Urine 2+ (Negative); Color Urine Yellow; Glucose Urine UA 3+ (Negative); Ketones Urine 4+ (Negative); Leukocyte Esterase Urine Negative (Negative); Nitrite Urine Negative (Negative); Protein Urine 2+ (Negative); RBC Urine Automated 0-4 /hpf (0-4); Specific Gravity Urine 1.031 (1.000-1.030); Urobilinogen Urine Negative (Negative); pH Urine 5.5 (4.5-7.5)
[2023-01-24] MEDS ORDERED: OPTIRAY 350 100ml IV ONE (19:42)
--- NOTE | 2023-01-24 20:05 | XRay Report ---
XR chest 1V portable HISTORY: Vomiting. Atypical chest pain. COMPARISON: Chest 04/12/2021. FINDINGS: The lungs are clear. Cardiac silhouette is normal in size. No pleural effusions. No pneumot horax. IMPRESSION: No acute process. ACT 112: Negative or not required by law. Electronically signed by: Anshul Stewart M.D. 01/24/2023 8:04 PM
--- NOTE | 2023-01-24 20:35 | CT Scan Report ---
ABDOMEN AND PELVIS CT WITH IV CONTRAST CT DOSE: 281.46 mGy.cm HISTORY: diffuse abd pain TECHNIQUE: Multiaxial CT images of the abdomen and pelvis were performed following the use of intrave nous contrast. A dose lowering technique was utilized adhering to the principles of ALARA. COMPARISON STUDY: None. FINDINGS: The lung bases are clear. No pneumoperitoneum. No pneumatosis. No acute fractures identifie d. There is severe circumferential thickening of the distal esophagus with periesophageal fat strandi ng. This favors a nonspecific esophagitis. Follow-up endoscopy should be performed to exclude the les s likely possibility of an underlying esophageal lesion. No extraluminal gas to suggest a perforation . Hepatic steatosis. The spleen, gallbladder, pancreas, adrenal glands, and kidneys are unremarkable. No hydronephrosis. The main portal vein is patent. Normal caliber abdominal aorta. No retroperitonea l or pelvic lymphadenopathy. Mild bladder wall thickening which could be due to underdistention. No e vidence for a bowel obstruction. Normal appendix. IMPRESSION: 1. Severe circumferential thickening of the distal esophagus with periesophageal fat stranding. This favors a nonspecific esophagitis. Follow-up endoscopy should be performed to exclude the less likely possibility of an underlying esophageal lesion. 2. Hepatic steatosis. 3. Normal appendix. 4. Lateral wall thickening. This may be due to underdistention. Recommend correlation with urinalysis . ACT 112: Negative or not required by law. Electronically signed by: Anshul Stewart M.D. 01/24/2023 8:33 PM
--- NOTE | 2023-01-24 22:19 | History and Physical Report ---
DATE OF ADMISSION: 01/24/2023. CHIEF COMPLAINT: DKA. HISTORY OF PRESENT ILLNESS: A 32-year-old male with a past medical history of significant type 1 diabetes, history of mild persistent asthma, history of GERD, history of FABI, history of psoriasis, history of tobacco abuse, he smokes 1 pack a day, depression, food insecurity. The patient was recently in the [facility] with DKA. He presented to [facility] with nausea, vomiting for 2-3 days, chills, and ill appearing. He was started on insulin drip with volume resuscitation and electrolyte replacement per DKA protocol. The patient seemed to have some improvement. The patient stayed there for 1 day and signed out AMA yesterday. He comes back here feeling still a lot of nausea and vomiting and says there is some blood in the vomitus. He is having chest pain and pain is more while taking deep breath. Has some back pain. Not feeling good. Has cough, bringing some whitish yellow phlegm. Denies any fevers. He feels short of breath. Has some blurred visions, has sore throat, no earache, no runny nose. Did not move his bowels yet. Says he is making urine. He was tachycardic in the ER, blood pressure is okay. Leukocytosis was 16, anion gap 21, CO2 of 11, blood sugars are 251. CT of abdomen and pelvis is showing possible esophagitis. ALLERGIES: BEE VENOM. PAST MEDICAL HISTORY: As mentioned above. PAST SURGICAL HISTORY: EGDs, laparoscopic inguinal hernia repair. MEDICATIONS: The patient states he is on NovoLog and also insulin pump, which he is currently not on. FAMILY HISTORY: Significant for maternal grandfather with diabetes. SOCIAL HISTORY: Smokes 1 pack a day. No alcohol. Drug use, marijuana as per the Epic. REVIEW OF SYSTEMS: As per HPI. Rest of the review of systems is negative. PHYSICAL EXAMINATION: GENERAL: The patient is thin and frail, not in acute distress. VITAL SIGNS: Temperature 36.6, pulse 139, blood pressure 119/83, oxygen 100% on room air. HEENT: Pupils equal, round, and reactive to light. Oral mucosa, poor dentition, dry. NECK: No JVD, no neck masses. CARDIOVASCULAR: S1 and S2 heard. Tachycardia. No murmurs. RESPIRATORY SYSTEM: Normal AP diameter. No accessory muscle use. No wheezing, no crackles. ABDOMEN: Soft, bowel sounds present. Mild tenderness. No guarding, no rigidity. CENTRAL NERVOUS SYSTEM: Cranial nerves II-XII are grossly intact, nonfocal. EXTREMITIES: No edema, no erythema. LABORATORY DATA: WBC 16, hemoglobin 16.7, hematocrit 46.4, platelets 278. Venous blood gas, pH of 7.18, pCO2 of 26. Sodium 137, potassium 3.8, chloride 105, CO2 of 11, BUN 10, creatinine 0.9, serum glucose 251, calcium 9.2, total bilirubin 0.8, AST 13, ALT 12, alkaline phosphatase 123. Troponin I high sensitivity 28.6. Lipase 6. Urinalysis, +2 protein, +3 glucose, +4 ketones, +2 blood. Urine bacteria negative. SARS-CoV-2 rapid test negative. IMAGING DATA: Chest x-ray, no acute process. CT abdomen and pelvis with IV contrast, severe circumferential thickening of the distal esophagus with paraesophageal fat stranding. This favors a nonspecific esophagitis. Followup endoscopy should be performed to exclude less likely possibility of an underlying esophageal lesion. Hepatic steatosis. Bladder wall thickening, this may be due to under distention. Recommend correlation with urinalysis. EKG: Sinus tachycardia with short AR at a rate of 133, possible left atrial enlargement, no significant change was found. ASSESSMENT AND PLAN: This is a 32-year-old male who presents with diabetic ketoacidosis. 1. Diabetic ketoacidosis: The patient was in the [facility] for 24 hours and signed out AMA yesterday. He was admitted there for diabetic ketoacidosis, nausea, vomiting. Still the patient is in diabetic ketoacidosis. As his glucose is not very high, it is 251, we are just directly starting with D5 half normal saline with 20 of KCl at 200 mL per hour and insulin drip protocol. Labs as per protocol. Glycemic pharmacy consulted. Diabetic education consulted. Closely monitor the labs as per protocol. N.p.o. for now. 2. Leukocytosis: Has cough. Will get blood cultures. The patient has tobacco abuse. Empirically started on Rocephin and doxycycline for possible bronchitis. Will follow the response. 3. Blood in the vomitus and also possible esophagitis on CAT scan: Starting on Protonix drip. Will follow the labs and GI consult in a.m. 4. History of asthma, history of tobacco abuse: Currently not on any inhalers. Will place on Xopenex p.r.n. 5. Deep venous thrombosis prophylaxis: Sequential compression devices for now. Addendum. Changed fluids to d51/2ns with 40kcl as potassium dropped to 3.2 in am labs. will hold insulin drip until two k riders given(until.potassium atleast > 3.3) Replacing phosphorus with potassium phosphate. Close monitoring of labs. DISPOSITION: Closely monitor in tele floor. Level 1 full code. Expect to discharge home and follow with family doctor. Job ID: [id number] [facility] HOSPITALRosalie
[2023-01-24] MEDS ORDERED: PANTOPRAZOLE BOLUS/DRIP 1 EACH IV STA (22:29)
[2023-01-24] MEDS ORDERED: STAT IV Infusion **Titration per Protocol STA (22:29)
[2023-01-24] MEDS ORDERED: INSULIN ASPART PER UNIT CHARGE SC SCH (22:29)
[2023-01-24] MEDS ORDERED: DKA GOAL RANGE 150-250 mg/dl ONE (22:29)
[2023-01-24] MEDS ORDERED: NITROGLYCERIN SL 0.4 MG/TAB TAB SL PRN (22:29)
[2023-01-24] MEDS ORDERED: PHARMACY GLYCEMIC MGMT CONSULT PRN (22:29)
[2023-01-24] MEDS ORDERED: ACETAMINOPHEN 325 MG TAB PO PRN (22:29)
[2023-01-24] MEDS ORDERED: PENDING 1/2NSS+20mEq KCL IVF SCH (22:29)
[2023-01-24] MEDS ORDERED: LEVALBUTEROL TARTRATE 15 GM HFA.AER.AD INH PRN (22:29)
[2023-01-24] MEDS ORDERED: PROMETHAZINE HCL 12.5 MG in SODIUM CHLORIDE 0.9% 50 ML IV PRN (22:29)
[2023-01-24] MEDS ORDERED: Patient's HEIGHT &/or WEIGHT Needed STA (22:41)
[2023-01-24] MEDS ORDERED: PANTOprazole 80 MG in DEXTROSE 5% 100 ML IV ONE (22:45)
[2023-01-24] MEDS: PANTOprazole 40 MG in DEXTROSE 5% 100 ML IV SCH ×2 (22:57→23:44)
[2023-01-24] MEDS ORDERED: INSULIN REGULAR 250 UNITS in SODIUM CHLORIDE 0.9% 247.5 ML IV SCH (23:00)
[2023-01-24] MEDS: DOXYCYCLINE HYCLATE 100 MG in DEXTROSE 5% 100 ML IV SCH (23:02)
[2023-01-24] MEDS ORDERED: MoRPHine SULFATE 4 MG/ML 1 ML CARP\\VIAL IV PRN (23:25)
[2023-01-24] MEDS: ONDANSETRON INJ 2 MG/ML 2 ML VIAL IV PRN (23:41)
[2023-01-24] MEDS: D5W AND 1/2NSS + 20MEQ KCL 20 MEQ/1,000 ML BAG IV SCH (23:46)
[2023-01-24] MEDS: cefTRIAXone SODIUM 1,000 MG in DEXTROSE 5% AD-VAN 50 ML IV SCH (23:46)
[2023-01-24 23:58] LABS: BUN Creatinine Ratio 8.9 (10-20); Calcium 7.5 mg/dl (8.5-10.1); Creatinine Clr Calc Pharmacy 105.1 ml/min; Est GFR (African American) 132.4 ml/min; Est GFR (Non-African American) 114.2 ml/min; Magnesium 1.9 mg/dl (1.7-2.4); Phosphorus 1.5 mg/dl (2.5-4.9); Potassium 3.9 mmol/L (3.5-5.1)
[2023-01-25] MEDS ORDERED: METOCLOPRAMIDE HCL INJ 5 MG/ML 2 ML VIAL IV ONE (04:19)
[2023-01-25] MEDS: PANTOprazole 40 MG in DEXTROSE 5% 100 ML IV SCH ×4 (04:34→19:37)
[2023-01-25] MEDS: D5W AND 1/2NSS + 20MEQ KCL 20 MEQ/1,000 ML BAG IV SCH (04:39)
[2023-01-25 04:53] LABS: Base Excess VBG -10.3 mEq/L; HCO3 VBG 15 mmol/L; Oxygen Saturation VBG 95.7 %; PCO2 VBG 30 mmHg (38-50); PO2 VBG 63 mmHg
[2023-01-25 05:14] LABS: Anion Gap 8 (3-11); BUN Creatinine Ratio 8.8 (10-20); Blood Urea Nitrogen 7 mg/dl (6-23); Calcium 7.9 mg/dl (8.5-10.1); Carbon Dioxide 15 mmol/L (21-32); Chloride 115 mmol/L (98-107); Creatinine Clr Calc Pharmacy 118.2 ml/min; Est GFR (African American) 138.9 ml/min; Est GFR (Non-African American) 119.9 ml/min; Glucose 190 mg/dl (70-99(Fasting)); Potassium 3.2 mmol/L (3.5-5.1); Sodium 138 mmol/L (136-145)
[2023-01-25] MEDS ORDERED: POTASSIUM CHLORIDE CRTAB 20 MEQ TABCR PO STA (05:33)
[2023-01-25 05:44] LABS: Magnesium 1.9 mg/dl (1.7-2.4); Phosphorus < 1.0 mg/dl (2.5-4.9)
[2023-01-25] MEDS ORDERED: POTASSIUM PHOS 3 MMOL/1 ML INFUSION IV STA ×3 (05:46→19:46)
[2023-01-25] MEDS: POTASSIUM CHLORIDE / WTR 10 MEQ/100 ML PLCT IV SCH ×2 (06:05→06:56)
[2023-01-25] MEDS: INSULIN ASPART PER UNIT CHARGE SC SCH ×3 (06:25→16:42)
[2023-01-25] MEDS: POTASSIUM CHLORIDE 40 MEQ in D5W AND 1/2NSS 1,000 ML IV SCH ×4 (06:27→19:37)
[2023-01-25] MEDS: ONDANSETRON INJ 2 MG/ML 2 ML VIAL IV PRN ×3 (06:55→16:34)
--- NOTE | 2023-01-25 07:34 | Electrocardiogram Report ---
Test Reason : Blood Pressure : / mmHG Vent. Rate : 133 BPM Atrial Rate : 133 BPM P-R Int : 098 ms QRS Dur : 082 ms QT Int : 288 ms P-R-T Axes : 075 096 044 degrees QTc Int : 428 ms Sinus tachycardia Possible Left atrial enlargement Rightward axis Borderline ECG When compared with ECG of 29-JUL-2022 08:00, No significant change was found Confirmed by Zeus Goss ([id number]) on 01/25/2023 7:34:04 AM Referred By: REFERRED SELF Confirmed By:Herson Goss
[2023-01-25 07:47] LABS: Basophils # (auto) 0.02 K/uL (0-0.2); Basophils % (auto) 0.2 %; Eosinophils # (auto) 0.02 K/uL (0-0.50); Eosinophils % (auto) 0.2 %; Hemoglobin 13.2 g/dl (14.0-18.0); Immature Granulocytes # (auto) 0.05 K/uL (0.01-0.20); Immature Granulocytes % (auto) 0.4 %; Lymphocytes # (auto) 1.07 K/uL (1.2-3.4); Lymphocytes % (auto) 9.4 %; Mean Corpuscular Hemoglobin 31.1 pg (25.0-34.0); Mean Corpuscular Hgb Conc 35.7 g/dL (32.0-36.0); Mean Corpuscular Volume 87.3 fL (80.0-100.0); Monocytes # (auto) 1.17 K/uL (0.11-0.59); Monocytes % (auto) 10.3 %; Neutrophils # (auto) 9.02 K/uL (1.40-6.50); Neutrophils % (auto) 79.5 %; Platelet Count 249 K/uL (130-400); RDW Coefficient of Variation 12.8 % (11.5-14.5); RDW Standard Deviation 40.6 fL (36.4-46.3); Red Blood Count 4.24 M/uL (4.70-6.10); White Blood Count 11.35 K/ul (4.8-10.8)
[2023-01-25 07:59] LABS: Base Excess VBG -12.9 mEq/L; HCO3 VBG 12 mmol/L; PCO2 VBG 26 mmHg (38-50); PO2 VBG 70 mmHg; pH VBG 7.28 (7.36-7.41)
[2023-01-25 07:59] LABS: BUN Creatinine Ratio 8.2 (10-20); Calcium 7.6 mg/dl (8.5-10.1); Creatinine Clr Calc Pharmacy 129.8 ml/min; Est GFR (African American) 144.3 ml/min; Est GFR (Non-African American) 124.5 ml/min; Potassium 3.8 mmol/L (3.5-5.1)
[2023-01-25] MEDS ORDERED: POTASSIUM PHOSPHATE 30 MMOL in SODIUM CHLORIDE 0.9% 500 ML IV ONE (08:00)
--- NOTE | 2023-01-25 08:11 | Hospitalist Progress Note ---
Date of Service January 25, 2023 Assessment & Plan (1) DKA (diabetic ketoacidosis): Plan: This is a 32-year-old male who presents with diabetic ketoacidosis. 1. Diabetic ketoacidosis: The patient was in the [facility] for 24 hours and signed out AMA yesterday. He was admitted there for diabetic ketoacidosis, nausea, vomiting. Still the patient is in diabetic ketoacidosis. As his glucose is not very high, it is 251, we are just directly starting with D5 half normal saline with KCl at 200 mL and insulin drip protocol. Labs as per protocol. Glycemic pharmacy consulted. Diabetic education consulted. Closely monitor the labs as per protocol. N.p.o. for now. Patient receiving IV fluids, electrolyte replacement, insulin drip to be restarted as potassium is now within normal level 2. Leukocytosis: Has cough. blood cultures ordered The patient w/+tobacco abuse. Empirically started on Rocephin and doxycycline for possible bronchitis. Will follow the response. WBC down to 11K now 3. Blood in the vomitus and also possible esophagitis on CAT scan: Started on Protonix drip. will continue. Will follow the labs and GI consult 4. History of asthma, history of tobacco abuse: Currently not on any inhalers.placed on Xopenex p.r.n. DVT prophylaxis: SCDs for now. DISPOSITION: tele floor Code: full code. Admission and Anticipated Discharge Date Admission Date: January 24, 2023 Subjective Pt seen in follow up of DKA, poss. esophagitis Laying in bed, feeling weak, reports abdominal discomfort, chest discomfort Breathing on room air comfortably, saturating 97% Receiving IV fluids, electrolyte replacement, insulin to be restarted Patient also reports some chills Says he was out of insulin, however now he has insulin at home. Patient was at [facility], but left AMA. GI consulted Review of Systems Review of Systems: All systems reviewed & are unremarkable except as noted in Subjective Physical Exam Physical Exam: GENERAL:thin and frail young M, not in acute distress. HEENT: NC/AT. Pupils equal, round, and reactive to light. poor dentition NECK: No JVD, no neck masses. CARDIOVASCULAR: S1 and S2 heard.+ Tachycardia. No murmurs. RESPIRATORY: Normal AP diameter. No accessory muscle use. No wheezing, no crackles. ABDOMEN: Soft, bowel sounds present. Mild tenderness. No guarding, no rigidity. NEURO:Awake alert oriented, able to answer simple questions appropriately. Speech fluent, moves extremities EXTREMITIES: No edema, no erythema. Results & Data Results & Data Vital Signs (Past 12 Hours) Vital Signs Temp Pulse Pulse Resp BP BP Pulse Ox 01/25/23 07:25 36.8 C 127 H 18 134/87 97 01/25/23 04:33 36.7 C 127 H 20 135/83 96 01/24/23 22:55 130 H 01/24/23 22:29 01/24/23 22:29 36.6 C 133 H 20 148/91 H 99 01/24/23 22:29 01/24/23 22:29 36.6 C 133 H 20 148/91 H 99 01/24/23 22:00 134 H 22 135/81 99 01/24/23 21:30 37.4 C 138 H 22 134/78 99 01/24/23 21:00 139 H 26 H 119/83 100 Pulse Ox O2 Del Method O2 Del Method 01/25/23 07:25 Room Air 01/25/23 04:33 Room Air 01/24/23 22:55 01/24/23 22:29 Room Air 01/24/23 22:29 Room Air 01/24/23 22:29 99 Room Air 01/24/23 22:29 Room Air 01/24/23 22:00 01/24/23 21:30 01/24/23 21:00 Laboratory Results 01/25/23 01/25/23 01/25/23 Range/Units 08:14 07:53 07:53 WBC (4.8-10.8) K/ul RBC (4.70-6.10) M/uL Hgb (14.0-18.0) g/dl POC Hgb (14.0-18.0) g/dl Hct (42.0-52.0) % POC Hct (42-52) % MCV (80.0-100.0) fL MCH (25.0-34.0) pg MCHC (32.0-36.0) g/dL RDW Std Deviation (36.4-46.3) fL RDW Coeff of Bennett (11.5-14.5) % Plt Count (130-400) K/uL MPV (9.4-12.4) fL Immature Gran % (Auto) % Neut % (Auto) % Lymph % (Auto) % [place] % (Auto) % Eos % (Auto) % Baso % (Auto) % Neut # (Auto) (1.40-6.50) K/uL Lymph # (Auto) (1.2-3.4) K/uL [place] # (Auto) (0.11-0.59) K/uL Eos # (Auto) (0-0.50) K/uL Baso # (Auto) (0-0.2) K/uL Immature Gran # (Auto) (0.01-0.20) K/uL ABG pH (7.35-7.45) VBG pH 7.28 L (7.36-7.41) VBG pCO2 26 L (38-50) mmHg VBG pO2 70 mmHg VBG HCO3 12 mmol/L VBG O2 Saturation 97.0 % VBG Base Excess -12.9 mEq/L POC Sodium (135-144) mmol/L Sodium (136-145) mmol/L POC Potassium (3.3-5.0) mmol/L Potassium (3.5-5.1) mmol/L POC Chloride (101-112) mmol/L Chloride (98-107) mmol/L Carbon Dioxide (21-32) mmol/L POC Total CO2 (24-31) mmol/L Anion Gap (3-11) POC Anion Gap (16-25) mmol/L POC BUN (7-18) mg/dl BUN (6-23) mg/dl Creatinine (0.6-1.4) mg/dl POC Creatinine (0.6-1.3) mg/dl Est Cr Clr Drug Dosing Est GFR ( Amer) ml/min Est GFR (Non-Af Amer) ml/min BUN/Creatinine Ratio (10-20) Glucose (70-99(Fasting)) mg/dl POC Glucose 216 H (70-99) mg/dl POC Glucose (other) (70-99) mg/dl Calcium (8.5-10.1) mg/dl POC Ioniz Calcium Franca (1.12-1.32) mmol/l Phosphorus (2.5-4.9) mg/dl Magnesium (1.7-2.4) mg/dl Total Bilirubin (0.2-1.0) mg/dl AST (13-39) U/L ALT (7-52) U/L Alkaline Phosphatase (34-104) U/L Troponin I High Sens Pending (0-20) pg/ml Total Protein (6.0-8.3) gm/dl Albumin (3.4-5.0) gm/dl Globulin (2.5-4.0) gm/dl Albumin/Globulin Ratio (0.9-2) Lipase (11-82) U/L Urine Color Urine Appearance (Clear) Urine pH (4.5-7.5) Ur Specific [place] (1.000-1.030) Urine Protein (Negative) Urine Glucose (UA) (Negative) Urine Ketones (Negative) Urine Blood (Negative) Urine Nitrite (Negative) Urine Bilirubin (Negative) Urine Urobilinogen (Negative) Ur Leukocyte Esterase (Negative) Urine WBC (Auto) (0-5) /hpf Urine RBC (Auto) (0-4) /hpf U Hyaline Cast (Auto) (0-5) /lpf U Epithel Cells (Auto) (0-5) /lpf Urine Bacteria (Auto) (Negative) SARS-CoV-2, RNA, NAAT (NEGATIVE) 01/25/23 01/25/23 01/25/23 Range/Units 06:35 06:35 06:04 WBC 11.35 H (4.8-10.8) K/ul RBC 4.24 L (4.70-6.10) M/uL Hgb 13.2 L D (14.0-18.0) g/dl POC Hgb (14.0-18.0) g/dl Hct 37.0 L (42.0-52.0) % POC Hct (42-52) % MCV 87.3 (80.0-100.0) fL MCH 31.1 (25.0-34.0) pg MCHC 35.7 (32.0-36.0) g/dL RDW Std Deviation 40.6 (36.4-46.3) fL RDW Coeff of Bennett 12.8 (11.5-14.5) % Plt Count 249 (130-400) K/uL MPV 10.0 (9.4-12.4) fL Immature Gran % (Auto) 0.4 % Neut % (Auto) 79.5 % Lymph % (Auto) 9.4 % [place] % (Auto) 10.3 % Eos % (Auto) 0.2 % Baso % (Auto) 0.2 % Neut # (Auto) 9.02 H (1.40-6.50) K/uL Lymph # (Auto) 1.07 L (1.2-3.4) K/uL [place] # (Auto) 1.17 H (0.11-0.59) K/uL Eos # (Auto) 0.02 (0-0.50) K/uL Baso # (Auto) 0.02 (0-0.2) K/uL Immature Gran # (Auto) 0.05 (0.01-0.20) K/uL ABG pH (7.35-7.45) VBG pH (7.36-7.41) VBG pCO2 (38-50) mmHg VBG pO2 mmHg VBG HCO3 mmol/L VBG O2 Saturation % VBG Base Excess mEq/L POC Sodium (135-144) mmol/L Sodium 135 L (136-145) mmol/L POC Potassium (3.3-5.0) mmol/L Potassium 3.8 (3.5-5.1) mmol/L POC Chloride (101-112) mmol/L Chloride 111 H (98-107) mmol/L Carbon Dioxide 15 L (21-32) mmol/L POC Total CO2 (24-31) mmol/L Anion Gap 9 (3-11) POC Anion Gap (16-25) mmol/L POC BUN (7-18) mg/dl BUN 6 (6-23) mg/dl Creatinine 0.73 (0.6-1.4) mg/dl POC Creatinine (0.6-1.3) mg/dl Est Cr Clr Drug Dosing 129.8 Est GFR ( Amer) 144.3 ml/min Est GFR (Non-Af Amer) 124.5 ml/min BUN/Creatinine Ratio 8.2 L (10-20) Glucose 213 H (70-99(Fasting)) mg/dl POC Glucose 190 H (70-99) mg/dl POC Glucose (other) (70-99) mg/dl Calcium 7.6 L (8.5-10.1) mg/dl POC Ioniz Calcium Franca (1.12-1.32) mmol/l Phosphorus 1.0 L* (2.5-4.9) mg/dl Magnesium 1.9 (1.7-2.4) mg/dl Total Bilirubin (0.2-1.0) mg/dl AST (13-39) U/L ALT (7-52) U/L Alkaline Phosphatase (34-104) U/L Troponin I High Sens (0-20) pg/ml Total Protein (6.0-8.3) gm/dl Albumin (3.4-5.0) gm/dl Globulin (2.5-4.0) gm/dl Albumin/Globulin Ratio (0.9-2) Lipase (11-82) U/L Urine Color Urine Appearance (Clear) Urine pH (4.5-7.5) Ur Specific [place] (1.000-1.030) Urine Protein (Negative) Urine Glucose (UA) (Negative) Urine Ketones (Negative) Urine Blood (Negative) Urine Nitrite (Negative) Urine Bilirubin (Negative) Urine Urobilinogen (Negative) Ur Leukocyte Esterase (Negative) Urine WBC (Auto) (0-5) /hpf Urine RBC (Auto) (0-4) /hpf U Hyaline Cast (Auto) (0-5) /lpf U Epithel Cells (Auto) (0-5) /lpf Urine Bacteria (Auto) (Negative) SARS-CoV-2, RNA, NAAT (NEGATIVE) 01/25/23 01/25/23 01/25/23 Range/Units 05:07 04:20 04:20 WBC (4.8-10.8) K/ul RBC (4.70-6.10) M/uL Hgb (14.0-18.0) g/dl POC Hgb (14.0-18.0) g/dl Hct (42.0-52.0) % POC Hct (42-52) % MCV (80.0-100.0) fL MCH (25.0-34.0) pg MCHC (32.0-36.0) g/dL RDW Std Deviation (36.4-46.3) fL RDW Coeff of Bennett (11.5-14.5) % Plt Count (130-400) K/uL MPV (9.4-12.4) fL Immature Gran % (Auto) % Neut % (Auto) % Lymph % (Auto) % [place] % (Auto) % Eos % (Auto) % Baso % (Auto) % Neut # (Auto) (1.40-6.50) K/uL Lymph # (Auto) (1.2-3.4) K/uL [place] # (Auto) (0.11-0.59) K/uL Eos # (Auto) (0-0.50) K/uL Baso # (Auto) (0-0.2) K/uL Immature Gran # (Auto) (0.01-0.20) K/uL ABG pH (7.35-7.45) VBG pH 7.30 L (7.36-7.41) VBG pCO2 30 L (38-50) mmHg VBG pO2 63 mmHg VBG HCO3 15 mmol/L VBG O2 Saturation 95.7 % VBG Base Excess -10.3 mEq/L POC Sodium (135-144) mmol/L Sodium (136-145) mmol/L POC Potassium (3.3-5.0) mmol/L Potassium (3.5-5.1) mmol/L POC Chloride (101-112) mmol/L Chloride (98-107) mmol/L Carbon Dioxide (21-32) mmol/L POC Total CO2 (24-31) mmol/L Anion Gap (3-11) POC Anion Gap (16-25) mmol/L POC BUN (7-18) mg/dl BUN (6-23) mg/dl Creatinine (0.6-1.4) mg/dl POC Creatinine (0.6-1.3) mg/dl Est Cr Clr Drug Dosing Est GFR ( Amer) ml/min Est GFR (Non-Af Amer) ml/min BUN/Creatinine Ratio (10-20) Glucose (70-99(Fasting)) mg/dl POC Glucose 172 H (70-99) mg/dl POC Glucose (other) (70-99) mg/dl Calcium (8.5-10.1) mg/dl POC Ioniz Calcium Franca (1.12-1.32) mmol/l Phosphorus (2.5-4.9) mg/dl Magnesium (1.7-2.4) mg/dl Total Bilirubin (0.2-1.0) mg/dl AST (13-39) U/L ALT (7-52) U/L Alkaline Phosphatase (34-104) U/L Troponin I High Sens 36.4 H (0-20) pg/ml Total Protein (6.0-8.3) gm/dl Albumin (3.4-5.0) gm/dl Globulin (2.5-4.0) gm/dl Albumin/Globulin Ratio (0.9-2) Lipase (11-82) U/L Urine Color Urine Appearance (Clear) Urine pH (4.5-7.5) Ur Specific [place] (1.000-1.030) Urine Protein (Negative) Urine Glucose (UA) (Negative) Urine Ketones (Negative) Urine Blood (Negative) Urine Nitrite (Negative) Urine Bilirubin (Negative) Urine Urobilinogen (Negative) Ur Leukocyte Esterase (Negative) Urine WBC (Auto) (0-5) /hpf Urine RBC (Auto) (0-4) /hpf U Hyaline Cast (Auto) (0-5) /lpf U Epithel Cells (Auto) (0-5) /lpf Urine Bacteria (Auto) (Negative) SARS-CoV-2, RNA, NAAT (NEGATIVE) 01/25/23 01/25/23 01/25/23 Range/Units 04:20 03:55 02:59 WBC (4.8-10.8) K/ul RBC (4.70-6.10) M/uL Hgb (14.0-18.0) g/dl POC Hgb (14.0-18.0) g/dl Hct (42.0-52.0) % POC Hct (42-52) % MCV (80.0-100.0) fL MCH (25.0-34.0) pg MCHC (32.0-36.0) g/dL RDW Std Deviation (36.4-46.3) fL RDW Coeff of Bennett (11.5-14.5) % Plt Count (130-400) K/uL MPV (9.4-12.4) fL Immature Gran % (Auto) % Neut % (Auto) % Lymph % (Auto) % [place] % (Auto) % Eos % (Auto) % Baso % (Auto) % Neut # (Auto) (1.40-6.50) K/uL Lymph # (Auto) (1.2-3.4) K/uL [place] # (Auto) (0.11-0.59) K/uL Eos # (Auto) (0-0.50) K/uL Baso # (Auto) (0-0.2) K/uL Immature Gran # (Auto) (0.01-0.20) K/uL ABG pH (7.35-7.45) VBG pH (7.36-7.41) VBG pCO2 (38-50) mmHg VBG pO2 mmHg VBG HCO3 mmol/L VBG O2 Saturation % VBG Base Excess mEq/L POC Sodium (135-144) mmol/L Sodium 138 (136-145) mmol/L POC Potassium (3.3-5.0) mmol/L Potassium 3.2 L (3.5-5.1) mmol/L POC Chloride (101-112) mmol/L Chloride 115 H (98-107) mmol/L Carbon Dioxide 15 L (21-32) mmol/L POC Total CO2 (24-31) mmol/L Anion Gap 8 (3-11) POC Anion Gap (16-25) mmol/L POC BUN (7-18) mg/dl BUN 7 (6-23) mg/dl Creatinine 0.80 (0.6-1.4) mg/dl POC Creatinine (0.6-1.3) mg/dl Est Cr Clr Drug Dosing 118.2 Est GFR ( Amer) 138.9 ml/min Est GFR (Non-Af Amer) 119.9 ml/min BUN/Creatinine Ratio 8.8 L (10-20) Glucose 190 H (70-99(Fasting)) mg/dl POC Glucose 169 H 197 H (70-99) mg/dl POC Glucose (other) (70-99) mg/dl Calcium 7.9 L (8.5-10.1) mg/dl POC Ioniz Calcium Franca (1.12-1.32) mmol/l Phosphorus < 1.0 L* (2.5-4.9) mg/dl Magnesium 1.9 (1.7-2.4) mg/dl Total Bilirubin (0.2-1.0) mg/dl AST (13-39) U/L ALT (7-52) U/L Alkaline Phosphatase (34-104) U/L Troponin I High Sens (0-20) pg/ml Total Protein (6.0-8.3) gm/dl Albumin (3.4-5.0) gm/dl Globulin (2.5-4.0) gm/dl Albumin/Globulin Ratio (0.9-2) Lipase (11-82) U/L Urine Color Urine Appearance (Clear) Urine pH (4.5-7.5) Ur Specific [place] (1.000-1.030) Urine Protein (Negative) Urine Glucose (UA) (Negative) Urine Ketones (Negative) Urine Blood (Negative) Urine Nitrite (Negative) Urine Bilirubin (Negative) Urine Urobilinogen (Negative) Ur Leukocyte Esterase (Negative) Urine WBC (Auto) (0-5) /hpf Urine RBC (Auto) (0-4) /hpf U Hyaline Cast (Auto) (0-5) /lpf U Epithel Cells (Auto) (0-5) /lpf Urine Bacteria (Auto) (Negative) SARS-CoV-2, RNA, NAAT (NEGATIVE) 01/25/23 01/25/23 01/25/23 Range/Units 02:13 01:02 00:50 WBC (4.8-10.8) K/ul RBC (4.70-6.10) M/uL Hgb (14.0-18.0) g/dl POC Hgb (14.0-18.0) g/dl Hct (42.0-52.0) % POC Hct (42-52) % MCV (80.0-100.0) fL MCH (25.0-34.0) pg MCHC (32.0-36.0) g/dL RDW Std Deviation (36.4-46.3) fL RDW Coeff of Bennett (11.5-14.5) % Plt Count (130-400) K/uL MPV (9.4-12.4) fL Immature Gran % (Auto) % Neut % (Auto) % Lymph % (Auto) % [place] % (Auto) % Eos % (Auto) % Baso % (Auto) % Neut # (Auto) (1.40-6.50) K/uL Lymph # (Auto) (1.2-3.4) K/uL [place] # (Auto) (0.11-0.59) K/uL Eos # (Auto) (0-0.50) K/uL Baso # (Auto) (0-0.2) K/uL Immature Gran # (Auto) (0.01-0.20) K/uL ABG pH 7.23 L (7.35-7.45) VBG pH (7.36-7.41) VBG pCO2 (38-50) mmHg VBG pO2 mmHg VBG HCO3 mmol/L VBG O2 Saturation % VBG Base Excess mEq/L POC Sodium (135-144) mmol/L Sodium (136-145) mmol/L POC Potassium (3.3-5.0) mmol/L Potassium (3.5-5.1) mmol/L POC Chloride (101-112) mmol/L Chloride (98-107) mmol/L Carbon Dioxide (21-32) mmol/L POC Total CO2 (24-31) mmol/L Anion Gap (3-11) POC Anion Gap (16-25) mmol/L POC BUN (7-18) mg/dl BUN (6-23) mg/dl Creatinine (0.6-1.4) mg/dl POC Creatinine (0.6-1.3) mg/dl Est Cr Clr Drug Dosing Est GFR ( Amer) ml/min Est GFR (Non-Af Amer) ml/min BUN/Creatinine Ratio (10-20) Glucose (70-99(Fasting)) mg/dl POC Glucose 259 H 241 H (70-99) mg/dl POC Glucose (other) (70-99) mg/dl Calcium (8.5-10.1) mg/dl POC Ioniz Calcium Franca (1.12-1.32) mmol/l Phosphorus (2.5-4.9) mg/dl Magnesium (1.7-2.4) mg/dl Total Bilirubin (0.2-1.0) mg/dl AST (13-39) U/L ALT (7-52) U/L Alkaline Phosphatase (34-104) U/L Troponin I High Sens (0-20) pg/ml Total Protein (6.0-8.3) gm/dl Albumin (3.4-5.0) gm/dl Globulin (2.5-4.0) gm/dl Albumin/Globulin Ratio (0.9-2) Lipase (11-82) U/L Urine Color Urine Appearance (Clear) Urine pH (4.5-7.5) Ur Specific [place] (1.000-1.030) Urine Protein (Negative) Urine Glucose (UA) (Negative) Urine Ketones (Negative) Urine Blood (Negative) Urine Nitrite (Negative) Urine Bilirubin (Negative) Urine Urobilinogen (Negative) Ur Leukocyte Esterase (Negative) Urine WBC (Auto) (0-5) /hpf Urine RBC (Auto) (0-4) /hpf U Hyaline Cast (Auto) (0-5) /lpf U Epithel Cells (Auto) (0-5) /lpf Urine Bacteria (Auto) (Negative) SARS-CoV-2, RNA, NAAT (NEGATIVE) 01/25/23 01/24/23 01/24/23 Range/Units 00:04 22:50 22:37 WBC (4.8-10.8) K/ul RBC (4.70-6.10) M/uL Hgb (14.0-18.0) g/dl POC Hgb (14.0-18.0) g/dl Hct (42.0-52.0) % POC Hct (42-52) % MCV (80.0-100.0) fL MCH (25.0-34.0) pg MCHC (32.0-36.0) g/dL RDW Std Deviation (36.4-46.3) fL RDW Coeff of Bennett (11.5-14.5) % Plt Count (130-400) K/uL MPV (9.4-12.4) fL Immature Gran % (Auto) % Neut % (Auto) % Lymph % (Auto) % [place] % (Auto) % Eos % (Auto) % Baso % (Auto) % Neut # (Auto) (1.40-6.50) K/uL Lymph # (Auto) (1.2-3.4) K/uL [place] # (Auto) (0.11-0.59) K/uL Eos # (Auto) (0-0.50) K/uL Baso # (Auto) (0-0.2) K/uL Immature Gran # (Auto) (0.01-0.20) K/uL ABG pH (7.35-7.45) VBG pH (7.36-7.41) VBG pCO2 (38-50) mmHg VBG pO2 mmHg VBG HCO3 mmol/L VBG O2 Saturation % VBG Base Excess mEq/L POC Sodium (135-144) mmol/L Sodium 137 (136-145) mmol/L POC Potassium (3.3-5.0) mmol/L Potassium 3.9 (3.5-5.1) mmol/L POC Chloride (101-112) mmol/L Chloride 109 H (98-107) mmol/L Carbon Dioxide 7 L* (21-32) mmol/L POC Total CO2 (24-31) mmol/L Anion Gap 21 H (3-11) POC Anion Gap (16-25) mmol/L POC BUN (7-18) mg/dl BUN 8 (6-23) mg/dl Creatinine 0.90 (0.6-1.4) mg/dl POC Creatinine (0.6-1.3) mg/dl Est Cr Clr Drug Dosing 105.1 Est GFR ( Amer) 132.4 ml/min Est GFR (Non-Af Amer) 114.2 ml/min BUN/Creatinine Ratio 8.9 L (10-20) Glucose 247 H (70-99(Fasting)) mg/dl POC Glucose 256 H 223 H (70-99) mg/dl POC Glucose (other) (70-99) mg/dl Calcium 7.5 L (8.5-10.1) mg/dl POC Ioniz Calcium Franca (1.12-1.32) mmol/l Phosphorus 1.5 L* (2.5-4.9) mg/dl Magnesium 1.9 (1.7-2.4) mg/dl Total Bilirubin (0.2-1.0) mg/dl AST (13-39) U/L ALT (7-52) U/L Alkaline Phosphatase (34-104) U/L Troponin I High Sens (0-20) pg/ml Total Protein (6.0-8.3) gm/dl Albumin (3.4-5.0) gm/dl Globulin (2.5-4.0) gm/dl Albumin/Globulin Ratio (0.9-2) Lipase (11-82) U/L Urine Color Urine Appearance (Clear) Urine pH (4.5-7.5) Ur Specific [place] (1.000-1.030) Urine Protein (Negative) Urine Glucose (UA) (Negative) Urine Ketones (Negative) Urine Blood (Negative) Urine Nitrite (Negative) Urine Bilirubin (Negative) Urine Urobilinogen (Negative) Ur Leukocyte Esterase (Negative) Urine WBC (Auto) (0-5) /hpf Urine RBC (Auto) (0-4) /hpf U Hyaline Cast (Auto) (0-5) /lpf U Epithel Cells (Auto) (0-5) /lpf Urine Bacteria (Auto) (Negative) SARS-CoV-2, RNA, NAAT (NEGATIVE) 01/24/23 01/24/23 01/24/23 Range/Units 19:20 19:20 18:56 WBC (4.8-10.8) K/ul RBC (4.70-6.10) M/uL Hgb (14.0-18.0) g/dl POC Hgb 15.3 (14.0-18.0) g/dl Hct (42.0-52.0) % POC Hct 45 (42-52) % MCV (80.0-100.0) fL MCH (25.0-34.0) pg MCHC (32.0-36.0) g/dL RDW Std Deviation (36.4-46.3) fL RDW Coeff of Bennett (11.5-14.5) % Plt Count (130-400) K/uL MPV (9.4-12.4) fL Immature Gran % (Auto) % Neut % (Auto) % Lymph % (Auto) % [place] % (Auto) % Eos % (Auto) % Baso % (Auto) % Neut # (Auto) (1.40-6.50) K/uL Lymph # (Auto) (1.2-3.4) K/uL [place] # (Auto) (0.11-0.59) K/uL Eos # (Auto) (0-0.50) K/uL Baso # (Auto) (0-0.2) K/uL Immature Gran # (Auto) (0.01-0.20) K/uL ABG pH (7.35-7.45) VBG pH (7.36-7.41) VBG pCO2 (38-50) mmHg VBG pO2 mmHg VBG HCO3 mmol/L VBG O2 Saturation % VBG Base Excess mEq/L POC Sodium 138 (135-144) mmol/L Sodium (136-145) mmol/L POC Potassium 3.6 (3.3-5.0) mmol/L Potassium (3.5-5.1) mmol/L POC Chloride 108 (101-112) mmol/L Chloride (98-107) mmol/L Carbon Dioxide (21-32) mmol/L POC Total CO2 12 L (24-31) mmol/L Anion Gap (3-11) POC Anion Gap 22.0 (16-25) mmol/L POC BUN 9 (7-18) mg/dl BUN (6-23) mg/dl Creatinine (0.6-1.4) mg/dl POC Creatinine 0.6 (0.6-1.3) mg/dl Est Cr Clr Drug Dosing Est GFR ( Amer) ml/min Est GFR (Non-Af Amer) ml/min BUN/Creatinine Ratio (10-20) Glucose (70-99(Fasting)) mg/dl POC Glucose (70-99) mg/dl POC Glucose (other) 251 H (70-99) mg/dl Calcium (8.5-10.1) mg/dl POC Ioniz Calcium Franca 1.16 (1.12-1.32) mmol/l Phosphorus (2.5-4.9) mg/dl Magnesium (1.7-2.4) mg/dl Total Bilirubin (0.2-1.0) mg/dl AST (13-39) U/L ALT (7-52) U/L Alkaline Phosphatase (34-104) U/L Troponin I High Sens (0-20) pg/ml Total Protein (6.0-8.3) gm/dl Albumin (3.4-5.0) gm/dl Globulin (2.5-4.0) gm/dl Albumin/Globulin Ratio (0.9-2) Lipase (11-82) U/L Urine Color Yellow Urine Appearance Clear (Clear) Urine pH 5.5 (4.5-7.5) Ur Specific [place] 1.031 H (1.000-1.030) Urine Protein 2+ H (Negative) Urine Glucose (UA) 3+ H (Negative) Urine Ketones 4+ H (Negative) Urine Blood 2+ H (Negative) Urine Nitrite Negative (Negative) Urine Bilirubin Negative (Negative) Urine Urobilinogen Negative (Negative) Ur Leukocyte Esterase Negative (Negative) Urine WBC (Auto) 1-5 (0-5) /hpf Urine RBC (Auto) 0-4 (0-4) /hpf U Hyaline Cast (Auto) 5-10 H (0-5) /lpf U Epithel Cells (Auto) 10-20 H (0-5) /lpf Urine Bacteria (Auto) Negative (Negative) SARS-CoV-2, RNA, NAAT NEGATIVE (NEGATIVE) 01/24/23 01/24/23 01/24/23 Range/Units 18:52 18:35 18:35 WBC 16.47 H (4.8-10.8) K/ul RBC 5.37 (4.70-6.10) M/uL Hgb 16.7 (14.0-18.0) g/dl POC Hgb (14.0-18.0) g/dl Hct 46.4 (42.0-52.0) % POC Hct (42-52) % MCV 86.4 (80.0-100.0) fL MCH 31.1 (25.0-34.0) pg MCHC 36.0 (32.0-36.0) g/dL RDW Std Deviation 40.6 (36.4-46.3) fL RDW Coeff of Bennett 12.9 (11.5-14.5) % Plt Count 278 (130-400) K/uL MPV 10.2 (9.4-12.4) fL Immature Gran % (Auto) 0.4 % Neut % (Auto) 83.9 % Lymph % (Auto) 5.9 % [place] % (Auto) 9.6 % Eos % (Auto) 0.0 % Baso % (Auto) 0.2 % Neut # (Auto) 13.81 H (1.40-6.50) K/uL Lymph # (Auto) 0.97 L (1.2-3.4) K/uL [place] # (Auto) 1.58 H (0.11-0.59) K/uL Eos # (Auto) 0.00 (0-0.50) K/uL Baso # (Auto) 0.04 (0-0.2) K/uL Immature Gran # (Auto) 0.07 (0.01-0.20) K/uL ABG pH (7.35-7.45) VBG pH 7.18 L (7.36-7.41) VBG pCO2 26 L (38-50) mmHg VBG pO2 41 mmHg VBG HCO3 10 mmol/L VBG O2 Saturation 72.9 % VBG Base Excess -17.1 mEq/L POC Sodium (135-144) mmol/L Sodium 137 (136-145) mmol/L POC Potassium (3.3-5.0) mmol/L Potassium 3.8 (3.5-5.1) mmol/L POC Chloride (101-112) mmol/L Chloride 105 (98-107) mmol/L Carbon Dioxide 11 L (21-32) mmol/L POC Total CO2 (24-31) mmol/L Anion Gap 21 H (3-11) POC Anion Gap (16-25) mmol/L POC BUN (7-18) mg/dl BUN 10 (6-23) mg/dl Creatinine 0.94 (0.6-1.4) mg/dl POC Creatinine (0.6-1.3) mg/dl Est Cr Clr Drug Dosing Not Reportable Est GFR ( Amer) 125.6 ml/min Est GFR (Non-Af Amer) 108.4 ml/min BUN/Creatinine Ratio 10.6 (10-20) Glucose 251 H (70-99(Fasting)) mg/dl POC Glucose (70-99) mg/dl POC Glucose (other) (70-99) mg/dl Calcium 9.2 (8.5-10.1) mg/dl POC Ioniz Calcium Franca (1.12-1.32) mmol/l Phosphorus (2.5-4.9) mg/dl Magnesium (1.7-2.4) mg/dl Total Bilirubin 0.8 (0.2-1.0) mg/dl AST 13 (13-39) U/L ALT 12 (7-52) U/L Alkaline Phosphatase 123 H (34-104) U/L Troponin I High Sens 28.6 H (0-20) pg/ml Total Protein 8.0 (6.0-8.3) gm/dl Albumin 4.4 (3.4-5.0) gm/dl Globulin 3.6 (2.5-4.0) gm/dl Albumin/Globulin Ratio 1.2 (0.9-2) Lipase 6 L (11-82) U/L Urine Color Urine Appearance (Clear) Urine pH (4.5-7.5) Ur Specific [place] (1.000-1.030) Urine Protein (Negative) Urine Glucose (UA) (Negative) Urine Ketones (Negative) Urine Blood (Negative) Urine Nitrite (Negative) Urine Bilirubin (Negative) Urine Urobilinogen (Negative) Ur Leukocyte Esterase (Negative) Urine WBC (Auto) (0-5) /hpf Urine RBC (Auto) (0-4) /hpf U Hyaline Cast (Auto) (0-5) /lpf U Epithel Cells (Auto) (0-5) /lpf Urine Bacteria (Auto) (Negative) SARS-CoV-2, RNA, NAAT (NEGATIVE) 01/24/23 Range/Units 18:29 WBC (4.8-10.8) K/ul RBC (4.70-6.10) M/uL Hgb (14.0-18.0) g/dl POC Hgb (14.0-18.0) g/dl Hct (42.0-52.0) % POC Hct (42-52) % MCV (80.0-100.0) fL MCH (25.0-34.0) pg MCHC (32.0-36.0) g/dL RDW Std Deviation (36.4-46.3) fL RDW Coeff of [place] (11.5-14.5) % Plt Count (130-400) K/uL MPV (9.4-12.4) fL Immature Gran % (Auto) % Neut % (Auto) % Lymph % (Auto) % [place] % (Auto) % Eos % (Auto) % Baso % (Auto) % Neut # (Auto) (1.40-6.50) K/uL Lymph # (Auto) (1.2-3.4) K/uL [place] # (Auto) (0.11-0.59) K/uL Eos # (Auto) (0-0.50) K/uL Baso # (Auto) (0-0.2) K/uL Immature Gran # (Auto) (0.01-0.20) K/uL ABG pH (7.35-7.45) VBG pH (7.36-7.41) VBG pCO2 (38-50) mmHg VBG pO2 mmHg VBG HCO3 mmol/L VBG O2 Saturation % VBG Base Excess mEq/L POC Sodium (135-144) mmol/L Sodium (136-145) mmol/L POC Potassium (3.3-5.0) mmol/L Potassium (3.5-5.1) mmol/L POC Chloride (101-112) mmol/L Chloride (98-107) mmol/L Carbon Dioxide (21-32) mmol/L POC Total CO2 (24-31) mmol/L Anion Gap (3-11) POC Anion Gap (16-25) mmol/L POC BUN (7-18) mg/dl BUN (6-23) mg/dl Creatinine (0.6-1.4) mg/dl POC Creatinine (0.6-1.3) mg/dl Est Cr Clr Drug Dosing Est GFR ( Amer) ml/min Est GFR (Non-Af Amer) ml/min BUN/Creatinine Ratio (10-20) Glucose (70-99(Fasting)) mg/dl POC Glucose 200 H (70-99) mg/dl POC Glucose (other) (70-99) mg/dl Calcium (8.5-10.1) mg/dl POC Ioniz Calcium Franca (1.12-1.32) mmol/l Phosphorus (2.5-4.9) mg/dl Magnesium (1.7-2.4) mg/dl Total Bilirubin (0.2-1.0) mg/dl AST (13-39) U/L ALT (7-52) U/L Alkaline Phosphatase (34-104) U/L Troponin I High Sens (0-20) pg/ml Total Protein (6.0-8.3) gm/dl Albumin (3.4-5.0) gm/dl Globulin (2.5-4.0) gm/dl Albumin/Globulin Ratio (0.9-2) Lipase (11-82) U/L Urine Color Urine Appearance (Clear) Urine pH (4.5-7.5) Ur Specific [place] (1.000-1.030) Urine Protein (Negative) Urine Glucose (UA) (Negative) Urine Ketones (Negative) Urine Blood (Negative) Urine Nitrite (Negative) Urine Bilirubin (Negative) Urine Urobilinogen (Negative) Ur Leukocyte Esterase (Negative) Urine WBC (Auto) (0-5) /hpf Urine RBC (Auto) (0-4) /hpf U Hyaline Cast (Auto) (0-5) /lpf U Epithel Cells (Auto) (0-5) /lpf Urine Bacteria (Auto) (Negative) SARS-CoV-2, RNA, NAAT (NEGATIVE) Medications Administered Current Inpatient Medications Acetaminophen (Acetaminophen 325 Mg Tab) 650 mg PO Q4H PRN PRN Reason: Pain or Fever Stop: 02/23/23 22:28 Insulin Human Regular 250 (units/ Sodium Chloride) 250 mls @ 0 mls/hr IV .Q0M [facility]; Protocol Stop: 02/23/23 22:59 Last Titration: 01/25/23 06:13 Dose: 0 units/hr, 0 mls/hr Promethazine HCl 12.5 mg/ (Sodium Chloride) 50.5 mls @ 202 mls/hr IV Q6H PRN PRN Reason: Nausea And Vomiting Stop: 02/23/23 22:28 Last Infusion: 01/24/23 23:09 Dose: Infused Pantoprazole Sodium 40 mg/ (Dextrose) 100 mls @ 20 mls/hr IV Q5H [facility] Stop: 02/23/23 22:59 Last Admin: 01/25/23 04:34 Dose: 8 mg/hr, 20 mls/hr Ceftriaxone Sodium 1,000 mg/ (Dextrose) 50 mls @ 100 mls/hr IV Q24H [facility]; Protocol Stop: 02/01/23 00:00 Last Infusion: 01/25/23 00:16 Dose: Infused Doxycycline Hyclate 100 mg/ (Dextrose) 110 mls @ 50 mls/hr IV Q12H [facility] Stop: 01/31/23 22:59 Last Infusion: 01/25/23 01:10 Dose: Infused Potassium Chloride 40 meq/ (Dextrose/Sodium Chloride) 1,020 mls @ 200 mls/hr IV .Q5H6M [facility] Stop: 02/24/23 05:59 Last Admin: 01/25/23 06:27 Dose: 200 mls/hr Potassium Phosphate 30 mmol/ (Sodium Chloride) 510 mls @ 100 mls/hr IV ONE ONE Stop: 01/25/23 13:05 Insulin Aspart (Insulin Aspart Per Unit) 0 units SC Q6 [facility] Stop: 02/24/23 05:59 Last Admin: 01/25/23 06:25 Dose: Not Given Levalbuterol HCl (Levalbuterol Tartrate 15 Gm Hfa.Aer.Ad) 2 puffs INH QID PRN PRN Reason: Shortness Of Breath Or Wheezin Stop: 02/23/23 22:28 Miscellaneous Information (Pharmacy Glycemic Mgmt Consult) 1 each N/A UD PRN PRN Reason: Consult Stop: 02/23/23 22:28 Morphine Sulfate (Morphine Sulfate 4 Mg/Ml 1 Ml Carp\Vial) 3 mg IV Q4H PRN PRN Reason: Pain Stop: 02/07/23 23:24 Last Admin: 01/24/23 23:41 Dose: 3 mg Nitroglycerin (Nitroglycerin Sl 0.4 Mg/Tab Tab) 0.4 mg SL UD PRN PRN Reason: Chest Pain Stop: 02/23/23 22:28 Ondansetron HCl (Ondansetron Inj 2 Mg/Ml 2 Ml Vial) 4 mg IV Q6H PRN PRN Reason: Nausea And Vomiting Stop: 02/23/23 23:10 Last Admin: 01/25/23 06:55 Dose: 4 mg
[2023-01-25 08:14] LABS: Magnesium 1.9 mg/dl (1.7-2.4)
[2023-01-25] MEDS ORDERED: SODIUM PHOSPHATE 3 MMOL/1 ML INFUSION IV STA (08:17)
[2023-01-25] MEDS: DOXYCYCLINE HYCLATE 100 MG in DEXTROSE 5% 100 ML IV SCH (09:41)
[2023-01-25 10:30] LABS: Base Excess VBG -10.2 mEq/L; HCO3 VBG 14 mmol/L; PCO2 VBG 28 mmHg (38-50); PO2 VBG 53 mmHg; pH VBG 7.32 (7.36-7.41)
[2023-01-25 10:48] LABS: Anion Gap 11 (3-11); Calcium 8.1 mg/dl (8.5-10.1); Carbon Dioxide 14 mmol/L (21-32); Chloride 109 mmol/L (98-107); Magnesium 1.8 mg/dl (1.7-2.4); Potassium 3.5 mmol/L (3.5-5.1); Sodium 134 mmol/L (136-145)
[2023-01-25 10:54] LABS: BUN Creatinine Ratio 6.8 (10-20); Blood Urea Nitrogen 5 mg/dl (6-23); Est GFR (African American) 143.5 ml/min; Est GFR (Non-African American) 123.8 ml/min; Glucose 186 mg/dl (70-99(Fasting))
[2023-01-25 10:58] LABS: Phosphorus < 1.0 mg/dl (2.5-4.9)
[2023-01-25] MEDS ORDERED: SODIUM PHOSPHATE 15 MMOL in SODIUM CHLORIDE 0.9% 250 ML IV ONE (14:00)
[2023-01-25 14:49] LABS: Anion Gap 13 (3-11); BUN Creatinine Ratio 6.1 (10-20); Blood Urea Nitrogen 4 mg/dl (6-23); Calcium 7.6 mg/dl (8.5-10.1); Carbon Dioxide 13 mmol/L (21-32); Chloride 107 mmol/L (98-107); Creatinine Clr Calc Pharmacy 143.5 ml/min; Est GFR (African American) > 150.0 ml/min; Est GFR (Non-African American) 129.7 ml/min; Glucose 228 mg/dl (70-99(Fasting)); Magnesium 1.7 mg/dl (1.7-2.4); Phosphorus 1.7 mg/dl (2.5-4.9); Potassium 3.7 mmol/L (3.5-5.1); Sodium 133 mmol/L (136-145)
--- NOTE | 2023-01-25 15:00 | Gastrointestinal Consultation ---
Date of Consultation January 25, 2023 Assessment & Plan (1) Hematemesis: (2) Abnormal CT scan: Plan hematemesis with abnormal ct scan showing possible esophageal lesion or esophagitis recs: --continue protonix drip --plan for EGD on saturday 01/27 if stable from cardiac standpoint and DKA standpoint --NPO post midnight friday night Thank you for allowing me to participate inthe care of this patient. History of Present Illness Attending Physician: Eddie Narayan MD History of Present Illness 32-year-old male with a past medical history of DM1, GERD, FABI, psoriasis here with DKA, n/v. GI consulted for hematemesis, imaging showing esophagitis vs. other etiology in esophagus less likely a lesion. Hgb noted to be 13.2 this morning, BUN low at 4. currently on ppi drip. He has been having chest pains as well and troponin is elevated. CBC and CMP reviewed. 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) blood-glucose sensor (Dexcom G6 12/21/21 09/02/22 History Sensor device) blood-glucose transmitter (Dexcom 12/21/21 05/31/22 History G6 Transmitter device) insulin lispro 100 unit/mL See Rx Instructions subcut TID #45 04/25/22 01/24/23 Rx subcutaneous pen (Humalog KwikPen mL (U-100) Insulin) pen needle, diabetic 32 gauge x #450 ea 08/07/22 09/02/22 Rx 5/32" (BD Akiko 2nd Gen Pen Needle) acetone (urine) test (Ketostix #25 ea 08/12/22 09/02/22 Rx strips) insulin aspart U-100 100 unit/mL See Rx Instructions subcut 11/19/22 01/24/23 Rx subcutaneous solution (Novolog .COMPLEX #30 mL U-100 Insulin aspart) Patient History Medical History (Updated 01/25/23 @ 15:03 by Grey Elaine MD) Depression Diabetes type 1, uncontrolled DKA (diabetic ketoacidosis) GERD (gastroesophageal reflux disease) Hematemesis Tobacco use disorder Vomiting Surgical History H/O inguinal hernia repair Family History Grandfather (Maternal) Diabetes Social History Smoking Status: Current every day smoker Tobacco Type: Cigarettes packs per day: 0.5; Hx Alcohol Use: No Hx Substance Use: Yes Non-Prescribed Medications: Marijuana and Methamphetamines Preferred Language: Barbadian Communication Ability: Effective Milk Pickup Driver Required: No Beliefs That Will Affect Care: None Current Living Situation: Parent Feels Safe at Home: Yes Assistive Devices: None Review of Systems Constitutional: no fever, no chills and no weight loss Eyes: as per Subjective / HPI Ear, Nose, Mouth, Throat: as per Subjective / HPI Respiratory: no dyspnea and no dyspnea on exertion Cardiovascular: no chest pain and no palpitations Gastrointestinal: as per Subjective / HPI Musculoskeletal: no joint pain and no swelling Integumentary: no rash and no lesions Neurologic: no numbness and no paresthesia Psychiatric: no depression and no anxiety Endocrine: no fatigue Hematologic / Lymphatic: no easy bleeding and no easy bruising Physical Exam Constitutional: WD/WN, vitals as above Eyes: EOM intact bilaterally Neck: normal visual inspection Respiratory: normal respiratory effort, lungs clear to auscultation Cardiovascular: RRR, no murmur, no edema Gastrointestinal (Abdomen): Inspection/Auscultation: abdomen normal to inspection; abdomen not distended Percussion/Palpation: abdomen soft; abdomen nontender and no hepatosplenomegaly Musculoskeletal: Extremities: no cyanosis Gait: normal gait Skin: no rashes, warm and dry Neurologic: moves all extremities Psychiatric: A+Ox3, euthymic affect Results & Data Vital Signs (Past 12 Hours) Vital Signs Temp Pulse Pulse Resp BP Pulse Ox O2 Del Method 01/25/23 12:04 36.9 C 119 H 18 146/88 H 97 Room Air 01/25/23 09:00 126 H 01/25/23 09:00 Room Air 01/25/23 07:25 36.8 C 127 H 18 134/87 97 Room Air 01/25/23 04:33 36.7 C 127 H 20 135/83 96 Room Air PG Care Time/CCT Total # of Minutes Spent Total Time Spent with Patient: Total time spent is greater than 50% in coordination of care (as documented) at patient's floor/unit and/or counseling patient: Coding Level of Care Code 85154 IN/OBS CONSULT LVL 4,60M Diagnoses Hematemesis K92.0 Nausea presence: with nausea Abnormal CT scan R93.89 (1) Hematemesis Nausea presence: with nausea Qualified Code(s): K92.0 - Hematemesis
--- NOTE | 2023-01-25 15:21 | Pharmacy Report ---
Pharmacy Glycemic Short Note 2 - Date of Service January 25, 2023 - Glycemic Short BSG Results (Last 24 hours): 01/24/23 01/24/23 01/24/23 18:29 18:35 18:56 Glucose 251 H POC Glucose 200 H POC Glucose (other) 251 H 01/24/23 01/24/23 01/25/23 22:37 22:50 00:04 Glucose 247 H POC Glucose 223 H 256 H POC Glucose (other) 01/25/23 01/25/23 01/25/23 01:02 02:13 02:59 Glucose POC Glucose 241 H 259 H 197 H POC Glucose (other) 01/25/23 01/25/23 01/25/23 03:55 04:20 05:07 Glucose 190 H POC Glucose 169 H 172 H POC Glucose (other) 01/25/23 01/25/23 01/25/23 06:04 06:35 08:14 Glucose 213 H POC Glucose 190 H 216 H POC Glucose (other) 01/25/23 01/25/23 01/25/23 09:01 10:15 10:16 Glucose 186 H POC Glucose 214 H 160 H POC Glucose (other) 01/25/23 01/25/23 01/25/23 11:05 12:01 12:59 Glucose POC Glucose 133 H 93 130 H POC Glucose (other) 01/25/23 14:18 Glucose 228 H POC Glucose POC Glucose (other) OUTPATIENT ANTIDIABETIC REGIMEN: * Novolog pump Total daily dose around 110 units ASSESSMENT: * 32 y/o M with history of Type 1 diabetes was admitted for DKA last night. He was recently in [facility] for DKA and signed out AMA after 24 hrs. He continues to have nausea/vomiting and dehydrated. * IV fluids started last night with D51/2NS + 40 meq KCL at 200 ml/hr. Insulin drip started per DKA protocol. * He continues to be NPO. KCL and Phos replaced this morning. Insulin drip was temporarily held early this morning due to K level being low. Patient received KCL riders which improved K. While Kphos was being replaced, the IV fluids with 40 meq KCL was held since unable to run the two together and patient was getting Protonix IV via another line. * IV fluids resumed, Kphos completed. Insulin drip resumed again this afternoon since BSGs were trending up again. * Labs have improved but not within normal limits. Will continue Insulin drip tonight while patient continues on IV fluids. * Will re-assess labs tomorrow and plan for transition to SQ insulin. PLAN FOR INPATIENT GLYCEMIC CONTROL: * Insulin drip ongoing * Basal insulin * None today * Bolus insulin: Assess tomorrow once insulin drip can be discontinued
[2023-01-25] MEDS ORDERED: MAGNESIUM SULFATE / D5W 1 GM/100 ML BAG IV ONE (16:15)
[2023-01-25 19:45] LABS: Anion Gap 10 (3-11); Blood Urea Nitrogen 3 mg/dl (6-23); Calcium 7.8 mg/dl (8.5-10.1); Carbon Dioxide 16 mmol/L (21-32); Chloride 107 mmol/L (98-107); Creatinine Clr Calc Pharmacy 157.9 ml/min; Est GFR (African American) > 150.0 ml/min; Est GFR (Non-African American) 134.9 ml/min; Glucose 187 mg/dl (70-99(Fasting)); Magnesium 2.1 mg/dl (1.7-2.4); Phosphorus 1.1 mg/dl (2.5-4.9); Potassium 3.4 mmol/L (3.5-5.1); Sodium 133 mmol/L (136-145)
[2023-01-25] MEDS ORDERED: POTASSIUM PHOSPHATE 30 MMOL in DEXTROSE 5% 500 ML IV ONE (20:00)
[2023-01-26] MEDS: DOXYCYCLINE HYCLATE 100 MG in DEXTROSE 5% 100 ML IV SCH ×2 (00:01→10:35)
[2023-01-26] MEDS: PANTOprazole 40 MG in DEXTROSE 5% 100 ML IV SCH ×4 (00:02→15:42)
[2023-01-26] MEDS: INSULIN ASPART PER UNIT CHARGE SC SCH ×3 (00:36→13:10)
[2023-01-26] MEDS: POTASSIUM CHLORIDE 40 MEQ in D5W AND 1/2NSS 1,000 ML IV SCH ×4 (00:37→15:42)
[2023-01-26] MEDS: cefTRIAXone SODIUM 1,000 MG in DEXTROSE 5% AD-VAN 50 ML IV SCH (00:40)
[2023-01-26] MEDS: ONDANSETRON INJ 2 MG/ML 2 ML VIAL IV PRN (02:02)
[2023-01-26 04:06] LABS: Basophils # (auto) 0.02 K/uL (0-0.2); Basophils % (auto) 0.3 %; Eosinophils # (auto) 0.13 K/uL (0-0.50); Eosinophils % (auto) 1.7 %; Hematocrit (blood only) 38.9 % (42.0-52.0); Hemoglobin 14.1 g/dl (14.0-18.0); Immature Granulocytes # (auto) 0.02 K/uL (0.01-0.20); Immature Granulocytes % (auto) 0.3 %; Lymphocytes # (auto) 1.28 K/uL (1.2-3.4); Lymphocytes % (auto) 16.5 %; Mean Corpuscular Hemoglobin 31.1 pg (25.0-34.0); Mean Corpuscular Hgb Conc 36.2 g/dL (32.0-36.0); Mean Corpuscular Volume 85.7 fL (80.0-100.0); Monocytes # (auto) 0.76 K/uL (0.11-0.59); Monocytes % (auto) 9.8 %; Neutrophils # (auto) 5.53 K/uL (1.40-6.50); Neutrophils % (auto) 71.4 %; Platelet Count 256 K/uL (130-400); RDW Coefficient of Variation 12.4 % (11.5-14.5); Red Blood Count 4.54 M/uL (4.70-6.10); White Blood Count 7.74 K/ul (4.8-10.8)
[2023-01-26 04:43] LABS: Anion Gap 10 (3-11); BUN Creatinine Ratio 5.1 (10-20); Blood Urea Nitrogen 3 mg/dl (6-23); Calcium 7.8 mg/dl (8.5-10.1); Carbon Dioxide 18 mmol/L (21-32); Chloride 107 mmol/L (98-107); Creatinine Clr Calc Pharmacy 160.5 ml/min; Est GFR (African American) > 150.0 ml/min; Est GFR (Non-African American) 135.9 ml/min; Glucose 177 mg/dl (70-99(Fasting)); Magnesium 1.9 mg/dl (1.7-2.4); Sodium 135 mmol/L (136-145)
--- NOTE | 2023-01-26 07:16 | Hospitalist Progress Note ---
Date of Service January 26, 2023 Assessment & Plan (1) DKA (diabetic ketoacidosis): Plan: This is a 32-year-old male who presents with diabetic ketoacidosis. 1. Diabetic ketoacidosis: The patient was in the [facility] for 24 hours and signed out AMA. He was admitted there for diabetic ketoacidosis, nausea, vomiting. Still the patient is in diabetic ketoacidosis. As his glucose not very high on admission, 251, started with D5 half normal saline with KCl at 200 mL and insulin drip protocol. Labs as per protocol. Glycemic pharmacy consulted. Diabetic education consulted. Closely monitor the labs as per protocol. N.p.o. for now. 01/25 - Patient receiving IV fluids, electrolyte replacement, insulin drip to be restarted as potassium is now within normal level 01/26 - Pt is dong much better. IV insulin to be switched to subq. Pt wants to use his pump - discussed and coordinated w/ pharmacy Plan to start PO diet 2. Leukocytosis: Has cough. blood cultures ordered The patient w/+tobacco abuse. Empirically started on Rocephin and doxycycline for possible bronchitis. Will follow the response. WBC now normalized at 7.7 K 3. Blood in the vomitus and also possible esophagitis on CAT scan: Started on Protonix drip. will continue. Will follow the labs and GI consulted possible endoscopy tmrw. 4. History of asthma, history of tobacco abuse: Currently not on any inhalers.placed on Xopenex p.r.n. DVT prophylaxis: SCDs for now. DISPOSITION: tele floor Code: full code. Admission and Anticipated Discharge Date Admission Date: January 24, 2023 Subjective Pt seen in follow up of DKA, poss. esophagitis Laying in bed, reports feeling much better today. Denies any more abdominal discomfort, or chest discomfort Says he vomited overnight though. Currently breathing on room air comfortably, saturating 96% Patient was at [facility], but left AMA. GI consulted, possible EGD tmrw. Review of Systems Review of Systems: All systems reviewed & are unremarkable except as noted in Subjective Physical Exam Physical Exam: GENERAL:thin and frail young M, not in acute distress. HEENT: NC/AT. Pupils equal, round, and reactive to light. poor dentition NECK: No JVD, no neck masses. CARDIOVASCULAR: S1 and S2 heard.+ mild Tachycardia (improved). No murmurs. RESPIRATORY: Normal AP diameter. No accessory muscle use. No wheezing, no crackles. ABDOMEN: Soft, bowel sounds present. Mild tenderness. No guarding, no rigidity. NEURO:Awake alert oriented, able to answer simple questions appropriately. Speech fluent, moves extremities EXTREMITIES: No edema, no erythema. Results & Data Results & Data Vital Signs (Past 12 Hours) Vital Signs Temp Pulse Pulse Resp BP Pulse Ox Pulse Ox 01/25/23 22:12 107 H 01/26/23 03:24 36.7 C 119 H 20 137/88 99 01/25/23 22:29 97 01/25/23 22:57 36.9 C 113 H 22 148/98 H 97 01/25/23 19:49 01/25/23 19:28 36.8 C 105 H 20 133/93 97 O2 Del Method O2 Del Method 01/25/23 22:12 01/26/23 03:24 Room Air 01/25/23 22:29 Room Air 01/25/23 22:57 Room Air 01/25/23 19:49 Room Air 01/25/23 19:28 Room Air Laboratory Results 01/26/23 01/26/23 01/26/23 Range/Units 10:37 07:28 04:18 WBC (4.8-10.8) K/ul RBC (4.70-6.10) M/uL Hgb (14.0-18.0) g/dl Hct (42.0-52.0) % MCV (80.0-100.0) fL MCH (25.0-34.0) pg MCHC (32.0-36.0) g/dL RDW Std Deviation (36.4-46.3) fL RDW Coeff of Bennett (11.5-14.5) % Plt Count (130-400) K/uL MPV (9.4-12.4) fL Immature Gran % (Auto) % Neut % (Auto) % Lymph % (Auto) % Motley % (Auto) % Eos % (Auto) % Baso % (Auto) % Neut # (Auto) (1.40-6.50) K/uL Lymph # (Auto) (1.2-3.4) K/uL Motley # (Auto) (0.11-0.59) K/uL Eos # (Auto) (0-0.50) K/uL Baso # (Auto) (0-0.2) K/uL Immature Gran # (Auto) (0.01-0.20) K/uL Sodium (136-145) mmol/L Potassium (3.5-5.1) mmol/L Chloride (98-107) mmol/L Carbon Dioxide (21-32) mmol/L Anion Gap (3-11) BUN (6-23) mg/dl Creatinine (0.6-1.4) mg/dl Est Cr Clr Drug Dosing ml/min Est GFR ( Amer) ml/min Est GFR (Non-Af Amer) ml/min BUN/Creatinine Ratio (10-20) Glucose (70-99(Fasting)) mg/dl POC Glucose 117 H 161 H 184 H (70-99) mg/dl Calcium (8.5-10.1) mg/dl Phosphorus (2.5-4.9) mg/dl Magnesium (1.7-2.4) mg/dl 01/26/23 01/26/23 01/26/23 Range/Units 01:54 01:54 01:52 WBC 7.74 (4.8-10.8) K/ul RBC 4.54 L (4.70-6.10) M/uL Hgb 14.1 (14.0-18.0) g/dl Hct 38.9 L (42.0-52.0) % MCV 85.7 (80.0-100.0) fL MCH 31.1 (25.0-34.0) pg MCHC 36.2 H (32.0-36.0) g/dL RDW Std Deviation 39.0 (36.4-46.3) fL RDW Coeff of Bennett 12.4 (11.5-14.5) % Plt Count 256 (130-400) K/uL MPV 10.0 (9.4-12.4) fL Immature Gran % (Auto) 0.3 % Neut % (Auto) 71.4 % Lymph % (Auto) 16.5 % Motley % (Auto) 9.8 % Eos % (Auto) 1.7 % Baso % (Auto) 0.3 % Neut # (Auto) 5.53 (1.40-6.50) K/uL Lymph # (Auto) 1.28 (1.2-3.4) K/uL Motley # (Auto) 0.76 H (0.11-0.59) K/uL Eos # (Auto) 0.13 (0-0.50) K/uL Baso # (Auto) 0.02 (0-0.2) K/uL Immature Gran # (Auto) 0.02 (0.01-0.20) K/uL Sodium 135 L (136-145) mmol/L Potassium 4.0 (3.5-5.1) mmol/L Chloride 107 (98-107) mmol/L Carbon Dioxide 18 L (21-32) mmol/L Anion Gap 10 (3-11) BUN 3 L (6-23) mg/dl Creatinine 0.59 L (0.6-1.4) mg/dl Est Cr Clr Drug Dosing 160.5 ml/min Est GFR ( Amer) > 150.0 ml/min Est GFR (Non-Af Amer) 135.9 ml/min BUN/Creatinine Ratio 5.1 L (10-20) Glucose 177 H (70-99(Fasting)) mg/dl POC Glucose 175 H (70-99) mg/dl Calcium 7.8 L (8.5-10.1) mg/dl Phosphorus 2.0 L (2.5-4.9) mg/dl Magnesium 1.9 (1.7-2.4) mg/dl 01/26/23 01/26/23 01/26/23 Range/Units 01:41 01:41 01:00 WBC (4.8-10.8) K/ul RBC (4.70-6.10) M/uL Hgb (14.0-18.0) g/dl Hct (42.0-52.0) % MCV (80.0-100.0) fL MCH (25.0-34.0) pg MCHC (32.0-36.0) g/dL RDW Std Deviation (36.4-46.3) fL RDW Coeff of Bennett (11.5-14.5) % Plt Count (130-400) K/uL MPV (9.4-12.4) fL Immature Gran % (Auto) % Neut % (Auto) % Lymph % (Auto) % Motley % (Auto) % Eos % (Auto) % Baso % (Auto) % Neut # (Auto) (1.40-6.50) K/uL Lymph # (Auto) (1.2-3.4) K/uL Motley # (Auto) (0.11-0.59) K/uL Eos # (Auto) (0-0.50) K/uL Baso # (Auto) (0-0.2) K/uL Immature Gran # (Auto) (0.01-0.20) K/uL Sodium Cancelled (136-145) mmol/L Potassium Cancelled 3.6 (3.5-5.1) mmol/L Chloride Cancelled (98-107) mmol/L Carbon Dioxide Cancelled (21-32) mmol/L Anion Gap Cancelled (3-11) BUN Cancelled (6-23) mg/dl Creatinine Cancelled (0.6-1.4) mg/dl Est Cr Clr Drug Dosing Cancelled ml/min Est GFR ( Amer) Cancelled ml/min Est GFR (Non-Af Amer) Cancelled ml/min BUN/Creatinine Ratio Cancelled (10-20) Glucose Cancelled (70-99(Fasting)) mg/dl POC Glucose 122 H (70-99) mg/dl Calcium Cancelled (8.5-10.1) mg/dl Phosphorus Cancelled (2.5-4.9) mg/dl Magnesium Cancelled (1.7-2.4) mg/dl 01/25/23 01/25/23 01/25/23 Range/Units 23:59 22:59 20:57 WBC (4.8-10.8) K/ul RBC (4.70-6.10) M/uL Hgb (14.0-18.0) g/dl Hct (42.0-52.0) % MCV (80.0-100.0) fL MCH (25.0-34.0) pg MCHC (32.0-36.0) g/dL RDW Std Deviation (36.4-46.3) fL RDW Coeff of Bennett (11.5-14.5) % Plt Count (130-400) K/uL MPV (9.4-12.4) fL Immature Gran % (Auto) % Neut % (Auto) % Lymph % (Auto) % Motley % (Auto) % Eos % (Auto) % Baso % (Auto) % Neut # (Auto) (1.40-6.50) K/uL Lymph # (Auto) (1.2-3.4) K/uL Motley # (Auto) (0.11-0.59) K/uL Eos # (Auto) (0-0.50) K/uL Baso # (Auto) (0-0.2) K/uL Immature Gran # (Auto) (0.01-0.20) K/uL Sodium (136-145) mmol/L Potassium (3.5-5.1) mmol/L Chloride (98-107) mmol/L Carbon Dioxide (21-32) mmol/L Anion Gap (3-11) BUN (6-23) mg/dl Creatinine (0.6-1.4) mg/dl Est Cr Clr Drug Dosing ml/min Est GFR ( Amer) ml/min Est GFR (Non-Af Amer) ml/min BUN/Creatinine Ratio (10-20) Glucose (70-99(Fasting)) mg/dl POC Glucose 137 H 124 H 152 H (70-99) mg/dl Calcium (8.5-10.1) mg/dl Phosphorus (2.5-4.9) mg/dl Magnesium (1.7-2.4) mg/dl 01/25/23 01/25/23 01/25/23 Range/Units 20:02 19:12 19:05 WBC (4.8-10.8) K/ul RBC (4.70-6.10) M/uL Hgb (14.0-18.0) g/dl Hct (42.0-52.0) % MCV (80.0-100.0) fL MCH (25.0-34.0) pg MCHC (32.0-36.0) g/dL RDW Std Deviation (36.4-46.3) fL RDW Coeff of Bennett (11.5-14.5) % Plt Count (130-400) K/uL MPV (9.4-12.4) fL Immature Gran % (Auto) % Neut % (Auto) % Lymph % (Auto) % Motley % (Auto) % Eos % (Auto) % Baso % (Auto) % Neut # (Auto) (1.40-6.50) K/uL Lymph # (Auto) (1.2-3.4) K/uL Motley # (Auto) (0.11-0.59) K/uL Eos # (Auto) (0-0.50) K/uL Baso # (Auto) (0-0.2) K/uL Immature Gran # (Auto) (0.01-0.20) K/uL Sodium 133 L (136-145) mmol/L Potassium 3.4 L (3.5-5.1) mmol/L Chloride 107 (98-107) mmol/L Carbon Dioxide 16 L (21-32) mmol/L Anion Gap 10 (3-11) BUN 3 L (6-23) mg/dl Creatinine 0.60 (0.6-1.4) mg/dl Est Cr Clr Drug Dosing 157.9 ml/min Est GFR ( Amer) > 150.0 ml/min Est GFR (Non-Af Amer) 134.9 ml/min BUN/Creatinine Ratio 5.0 L (10-20) Glucose 187 H (70-99(Fasting)) mg/dl POC Glucose 150 H 151 H (70-99) mg/dl Calcium 7.8 L (8.5-10.1) mg/dl Phosphorus 1.1 L* (2.5-4.9) mg/dl Magnesium 2.1 (1.7-2.4) mg/dl 01/25/23 01/25/23 01/25/23 Range/Units 18:10 17:02 16:21 WBC (4.8-10.8) K/ul RBC (4.70-6.10) M/uL Hgb (14.0-18.0) g/dl Hct (42.0-52.0) % MCV (80.0-100.0) fL MCH (25.0-34.0) pg MCHC (32.0-36.0) g/dL RDW Std Deviation (36.4-46.3) fL RDW Coeff of Bennett (11.5-14.5) % Plt Count (130-400) K/uL MPV (9.4-12.4) fL Immature Gran % (Auto) % Neut % (Auto) % Lymph % (Auto) % Motley % (Auto) % Eos % (Auto) % Baso % (Auto) % Neut # (Auto) (1.40-6.50) K/uL Lymph # (Auto) (1.2-3.4) K/uL Motley # (Auto) (0.11-0.59) K/uL Eos # (Auto) (0-0.50) K/uL Baso # (Auto) (0-0.2) K/uL Immature Gran # (Auto) (0.01-0.20) K/uL Sodium (136-145) mmol/L Potassium (3.5-5.1) mmol/L Chloride (98-107) mmol/L Carbon Dioxide (21-32) mmol/L Anion Gap (3-11) BUN (6-23) mg/dl Creatinine (0.6-1.4) mg/dl Est Cr Clr Drug Dosing ml/min Est GFR ( Amer) ml/min Est GFR (Non-Af Amer) ml/min BUN/Creatinine Ratio (10-20) Glucose (70-99(Fasting)) mg/dl POC Glucose 169 H 201 H 245 H (70-99) mg/dl Calcium (8.5-10.1) mg/dl Phosphorus (2.5-4.9) mg/dl Magnesium (1.7-2.4) mg/dl 01/25/23 01/25/23 01/25/23 Range/Units 14:18 12:59 12:01 WBC (4.8-10.8) K/ul RBC (4.70-6.10) M/uL Hgb (14.0-18.0) g/dl Hct (42.0-52.0) % MCV (80.0-100.0) fL MCH (25.0-34.0) pg MCHC (32.0-36.0) g/dL RDW Std Deviation (36.4-46.3) fL RDW Coeff of Bennett (11.5-14.5) % Plt Count (130-400) K/uL MPV (9.4-12.4) fL Immature Gran % (Auto) % Neut % (Auto) % Lymph % (Auto) % Motley % (Auto) % Eos % (Auto) % Baso % (Auto) % Neut # (Auto) (1.40-6.50) K/uL Lymph # (Auto) (1.2-3.4) K/uL Motley # (Auto) (0.11-0.59) K/uL Eos # (Auto) (0-0.50) K/uL Baso # (Auto) (0-0.2) K/uL Immature Gran # (Auto) (0.01-0.20) K/uL Sodium 133 L (136-145) mmol/L Potassium 3.7 (3.5-5.1) mmol/L Chloride 107 (98-107) mmol/L Carbon Dioxide 13 L (21-32) mmol/L Anion Gap 13 H (3-11) BUN 4 L (6-23) mg/dl Creatinine 0.66 (0.6-1.4) mg/dl Est Cr Clr Drug Dosing 143.5 ml/min Est GFR ( Amer) > 150.0 ml/min Est GFR (Non-Af Amer) 129.7 ml/min BUN/Creatinine Ratio 6.1 L (10-20) Glucose 228 H (70-99(Fasting)) mg/dl POC Glucose 130 H 93 (70-99) mg/dl Calcium 7.6 L (8.5-10.1) mg/dl Phosphorus 1.7 L (2.5-4.9) mg/dl Magnesium 1.7 (1.7-2.4) mg/dl Medications Administered Current Inpatient Medications Acetaminophen (Acetaminophen 325 Mg Tab) 650 mg PO Q4H PRN PRN Reason: Pain or Fever Stop: 02/23/23 22:28 Insulin Human Regular 250 (units/ Sodium Chloride) 250 mls @ 3.6 mls/hr IV .Q24H [facility]; Protocol Stop: 02/23/23 22:59 Last Titration: 01/26/23 04:20 Dose: 3.6 units/hr, 3.6 mls/hr Promethazine HCl 12.5 mg/ (Sodium Chloride) 50.5 mls @ 202 mls/hr IV Q6H PRN PRN Reason: Nausea And Vomiting Stop: 02/23/23 22:28 Last Infusion: 01/24/23 23:09 Dose: Infused Pantoprazole Sodium 40 mg/ (Dextrose) 100 mls @ 20 mls/hr IV Q5H [facility] Stop: 02/23/23 22:59 Last Admin: 01/26/23 06:14 Dose: 8 mg/hr, 20 mls/hr Ceftriaxone Sodium 1,000 mg/ (Dextrose) 50 mls @ 100 mls/hr IV Q24H [facility]; Protocol Stop: 02/01/23 00:00 Last Infusion: 01/26/23 01:11 Dose: Infused Doxycycline Hyclate 100 mg/ (Dextrose) 110 mls @ 50 mls/hr IV Q12H [facility] Stop: 01/31/23 22:59 Last Infusion: 01/26/23 02:26 Dose: Infused Potassium Chloride 40 meq/ (Dextrose/Sodium Chloride) 1,020 mls @ 200 mls/hr IV .Q5H6M [facility] Stop: 02/24/23 05:59 Last Admin: 01/26/23 06:14 Dose: 200 mls/hr Insulin Aspart (Insulin Aspart Per Unit) 0 units SC Q6 [facility] Stop: 02/24/23 05:59 Last Admin: 01/26/23 06:19 Dose: Not Given Levalbuterol HCl (Levalbuterol Tartrate 15 Gm Hfa.Aer.Ad) 2 puffs INH QID PRN PRN Reason: Shortness Of Breath Or Wheezin Stop: 02/23/23 22:28 Miscellaneous Information (Pharmacy Glycemic Mgmt Consult) 1 each N/A UD PRN PRN Reason: Consult Stop: 02/23/23 22:28 Morphine Sulfate (Morphine Sulfate 4 Mg/Ml 1 Ml Carp\Vial) 3 mg IV Q4H PRN PRN Reason: Pain Stop: 02/07/23 23:24 Last Admin: 01/24/23 23:41 Dose: 3 mg Nitroglycerin (Nitroglycerin Sl 0.4 Mg/Tab Tab) 0.4 mg SL UD PRN PRN Reason: Chest Pain Stop: 02/23/23 22:28 Ondansetron HCl (Ondansetron Inj 2 Mg/Ml 2 Ml Vial) 4 mg IV Q6H PRN PRN Reason: Nausea And Vomiting Stop: 02/23/23 23:10 Last Admin: 01/26/23 02:02 Dose: 4 mg
[2023-01-26] MEDS ORDERED: LANTUS PER UNIT CHARGE SQ SCH (09:00)
[2023-01-26] MEDS ORDERED: POTASSIUM PHOS 3 MMOL/1 ML INFUSION IV STA (10:59)
[2023-01-26] MEDS ORDERED: POTASSIUM PHOSPHATE 9 MMOL in SODIUM CHLORIDE 0.9% 250 ML IV ONE (11:30)
[2023-01-26] MEDS ORDERED: GLUCAGON FOR INJ 1 MG VIAL IM PRN (11:45)
[2023-01-26] MEDS ORDERED: GLUCOSE 10 TAB/TUBE PO PRN (11:45)
[2023-01-26] MEDS ORDERED: DEXTROSE 50% 50 ML SYRINGE IV PRN (11:45)
[2023-01-26] MEDS ORDERED: INSULIN ASPART 100 UNITS/ML VIAL SC PRN (11:45)
[2023-01-26] MEDS ORDERED: CARBOHYDRATES FOR HYPOGLYCEMIA PO PRN (11:45)
[2023-01-26] MEDS ORDERED: GLUCOSE 40% GEL 15 GM TUBE PO PRN (11:45)
[2023-01-26] MEDS: INSULIN, Rapid-Acting PUMP SCH ×2 (13:10→15:42)
--- NOTE | 2023-01-26 14:43 | Pharmacy Report ---
Pharmacy Glycemic Sign Off Nt - Date of Service January 26, 2023 - Assessment & Plan ASSESSMENT: * Pharmacy was consulted by Dr Ram on 01/24/23 for glycemic control and to write orders per [facility] inpatient glycemic control protocol. * Major changes made by pharmacy to antidiabetic regimen include: * Insulin drip was initiated yesterday * Patient refused basal insulin per nurse and requested to be started on his home insulin pump this afternoon. * Per nurse, patient is competent in handling his pump on his home. * Insulin drip discontinued today and patient placed on his home pump; settings determined by patient. PLAN FOR INPATIENT GLYCEMIC CONTROL: No changes needed to current order * Pharmacy is signing off of glycemic consult and will no longer be making adjustments to inpatient regimen. Please feel free to re-consult if needed. Thank you.
[2023-01-26] MEDS ORDERED: PANTOprazole 40 MG in SYRINGE 0 ML IV SCH (17:50)
--- NOTE | 2023-01-26 18:20 | Discharge Summary ---
Date of Service January 26, 2023 Admission HPI Per Admitting Provider A 32-year-old male with a past medical history of significant type 1 diabetes, history of mild persistent asthma, history of GERD, history of FABI, history of psoriasis, history of tobacco abuse, he smokes 1 pack a day, depression, food insecurity. The patient was recently in the [facility] with DKA. He presented to [facility] with nausea, vomiting for 2-3 days, chills, and ill appearing. He was started on insulin drip with volume resuscitation and electrolyte replacement per DKA protocol. The patient seemed to have some improvement. The patient stayed there for 1 day and signed out AMA yesterday. He comes back here feeling still a lot of nausea and vomiting and says there is some blood in the vomitus. He is having chest pain and pain is more while taking deep breath. Has some back pain. Not feeling good. Has cough, bringing some whitish yellow phlegm. Denies any fevers. He feels short of breath. Has some blurred visions, has sore throat, no earache, no runny nose. Did not move his bowels yet. Says he is making urine. He was tachycardic in the ER, blood pressure is okay. Leukocytosis was 16, anion gap 21, CO2 of 11, blood sugars are 251. CT of abdomen and pelvis is showing possible esophagitis. Admission Exam Per Admitting Provider GENERAL: The patient is thin and frail, not in acute distress. VITAL SIGNS: Temperature 36.6, pulse 139, blood pressure 119/83, oxygen 100% on room air. HEENT: Pupils equal, round, and reactive to light. Oral mucosa, poor dentition, dry. NECK: No JVD, no neck masses. CARDIOVASCULAR: S1 and S2 heard. Tachycardia. No murmurs. RESPIRATORY SYSTEM: Normal AP diameter. No accessory muscle use. No wheezing, no crackles. ABDOMEN: Soft, bowel sounds present. Mild tenderness. No guarding, no rigidity. CENTRAL NERVOUS SYSTEM: Cranial nerves II-XII are grossly intact, nonfocal. EXTREMITIES: No edema, no erythema. Principal Diagnosis DKA esophagitis Discharge Exam GENERAL:thin and frail young M, not in acute distress. HEENT: NC/AT. Pupils equal, round, and reactive to light. poor dentition NECK: No JVD, no neck masses. CARDIOVASCULAR: S1 and S2 heard.+ mild Tachycardia (improved). No murmurs. RESPIRATORY: Normal AP diameter. No accessory muscle use. No wheezing, no crackles. ABDOMEN: Soft, bowel sounds present. Mild tenderness. No guarding, no rigidity. NEURO:Awake alert oriented, able to answer simple questions appropriately. Speech fluent, moves extremities EXTREMITIES: No edema, no erythema. Discharge Data Allergies Allergy/AdvReac Type Severity Reaction Status Date / Time bee venom protein (honey bee) Allergy Severe Difficulty Verified 01/24/23 20:12 Breathing Consultations 01/24/23 19:28 ED Decision to Admit Stat 01/25/23 08:00 Consult Gastroenterology Routine Ordered Studies 01/24/23 18:49 CT Abd and Pelvis [CT abd pelvis IV con only] Stat FINDINGS: The lung bases are clear. No pneumoperitoneum. No pneumatosis. No acute fractures identified. There is severe circumferential thickening of the distal esophagus with periesophageal fat stranding. This favors a nonspecific esophagitis. Follow-up endoscopy should be performed to exclude the less likely possibility of an underlying esophageal lesion. No extraluminal gas to suggest a perforation. Hepatic steatosis. The spleen, gallbladder, pancreas, adrenal glands, and kidneys are unremarkable. No hydronephrosis. The main portal vein is patent. Normal caliber abdominal aorta. No retroperitoneal or pelvic lymphadenopathy. Mild bladder wall thickening which could be due to underdistention. No evidence for a bowel obstruction. Normal appendix. IMPRESSION: 1. Severe circumferential thickening of the distal esophagus with periesophageal fat stranding. This favors a nonspecific esophagitis. Follow-up endoscopy should be performed to exclude the less likely possibility of an underlying esophageal lesion. 2. Hepatic steatosis. 3. Normal appendix. 4. Lateral wall thickening. This may be due to underdistention. Recommend correlation with urinalysis. Hospital Course (1) DKA (diabetic ketoacidosis): This is a 32-year-old male who presents with diabetic ketoacidosis. 1. Diabetic ketoacidosis: The patient was in the [facility] for 24 hours and signed out AMA. He was admitted there for diabetic ketoacidosis, nausea, vomiting. Still the patient is in diabetic ketoacidosis. As his glucose not very high on admission, 251, started with D5 half normal saline with KCl at 200 mL and insulin drip protocol. Labs as per protocol. Glycemic pharmacy consulted. Diabetic education consulted. Closely monitor the labs as per protocol. N.p.o. for now. 01/25 - Patient receiving IV fluids, electrolyte replacement, insulin drip to be restarted as potassium is now within normal level 01/26 - Pt is dong much better. IV insulin to be switched to subq. Pt wants to use his pump - discussed and coordinated w/ pharmacy Plan to start PO diet Per RN, pt vomited after trying food, Refused PPI, and IVF Left AMA in the evening of 01/26. 2. Leukocytosis: Has cough. blood cultures ordered The patient w/+tobacco abuse. Empirically started on Rocephin and doxycycline for possible bronchitis. Will follow the response. WBC now normalized at 7.7 K 3. Blood in the vomitus and also possible esophagitis on CAT scan: Started on Protonix drip. will continue. Will follow the labs and GI consulted Plan for possible endoscopy tmrw., however pt left AMA pt would benefit from PPI and outpt endoscopy 4. History of asthma, history of tobacco abuse: Currently not on any inhalers.placed on Xopenex p.r.n. Total Time Total Time Spent Total Time Spent (In Minutes): 0 Discharge Plan Discharge Items Patient Disposition: Against Medical Advice Reason For Visit: DKA Activity: As commented below Activity Comment: Pt left AMA Non-emergency contact: Primary Care Provider Follow-up/Referrals: PCP,NO [Primary Care Provider] - Pending Studies at Discharge: Yes Stand-Alone Forms: My Validic, Smoking Cessation Medications and DC Order Prescriptions: No Action insulin lispro [Humalog KwikPen Insulin] 100 unit/mL insulin pen See Rx Instructions subcut TID Qty: 45 5RF Rx Instructions: CARB COUNT + CORRECTION FACTOR PER PT ---ubcut three times a day; inject prior to each meal TDD 110 units (DME) Ketostix Strip See Rx Instructions miscellaneous .MEDSUPPLY Qty: 25 11RF Rx Instructions: Check when blood sguars are high insulin aspart U-100 [Novolog U-100 Insulin aspart] 100 unit/mL solution See Rx Instructions subcut .COMPLEX Qty: 30 5RF Rx Instructions: DIRECTED, CARB COUNT + CORRECTION FACTOR PER PT. (DME) Dexcom G6 Sensor Device See Rx Instructions .Route Rx Instructions: change every 10 days (DME) Dexcom G6 Visual Designer Misc See Rx Instructions .Route Rx Instructions: As directed (DME) Dexcom G6 Transmitter Device See Rx Instructions .Route Rx Instructions: change every 90 days (DME) pen needle, diabetic [BD Akiko 2nd Gen Pen Needle] 32 gauge x 5/32" needle See Rx Instructions miscellaneous .MEDSUPPLY Qty: 450 3RF Rx Instructions: inject up to 5x a day Admission Data Admit Date/Time: 01/24/23 20:40 Attending Provider: Eddie Narayan Admit Provider: Gage Ram Primary Care Provider: PCP,NO Other Providers: Gage Ram ; Addison Larose ; Moose Srinivasan ; Nohemi Bacon ; Amna Self ; Mini Nash ; Gisell Ge ; Grey Elaine ; John Ratliff ; Ryan Delgado ; Eric Albright ; Alberto Ocasio ; Socorro Klein ; Deborah Carrington ; Laury Ely ; Hannah Hairston ; Leonarda Rogers ; Dutch Germain ; Rolando Zamarripa ; Amairani Cruz ; Alan Wolff Jr
== END 2023-01-26 18:27 | disposition left against medical advice (07) | DRG 637 ==
LOC: ED 18:21 → 2S 20:40

== ENCOUNTER 2024-04-06 14:37 | Inpatient (IN) ==
[2024-04-06 15:33] LABS: Basophils # (auto) 0.05 K/uL (0.00-0.20); Basophils % (auto) 0.8 %; Eosinophils # (auto) 0.21 K/uL (0.00-0.50); Eosinophils % (auto) 3.3 %; Hematocrit (blood only) 44.5 % (42.0-52.0); Hemoglobin 15.8 g/dl (14.0-18.0); Immature Granulocytes # (auto) 0.02 K/uL (0.01-0.20); Immature Granulocytes % (auto) 0.3 %; Lymphocytes # (auto) 1.52 K/uL (1.20-3.40); Lymphocytes % (auto) 24.1 %; Mean Corpuscular Hemoglobin 30.7 pg (25.0-34.0); Mean Corpuscular Hgb Conc 35.5 g/dL (32.0-36.0); Mean Corpuscular Volume 86.6 fL (80.0-100.0); Mean Platelet Volume 9.1 fL (9.4-12.4); Monocytes # (auto) 0.47 K/uL (0.11-0.59); Monocytes % (auto) 7.4 %; Neutrophils # (auto) 4.05 K/uL (1.40-6.50); Neutrophils % (auto) 64.1 %; Platelet Count 297 K/uL (130-400); RDW Coefficient of Variation 11.9 % (11.5-14.5); RDW Standard Deviation 37.8 fL (36.4-46.3); Red Blood Count 5.14 M/uL (4.70-6.10); White Blood Count 6.32 K/ul (4.8-10.8)
--- NOTE | 2024-04-06 15:33 | Emergency Department Note ---
Impression & Plan DKA (diabetic ketoacidosis), Hyperglycemia, Metabolic acidosis ED Provider Note NAME: JUJU RICARDO AGE: 33 SEX: M : 1990 ARRIVES VIA: Ambulance INFORMANT: Patient ED PROVIDER(S): Jase Tafoya DO CHIEF COMPLAINT: Nausea, vomiting and hyperglycemia HPI: Patient is a 33-year-old male type I diabetic with a history of DKA and marijuana abuse who notes that he ran out of his insurance and has been judiciously using his remaining insulin. He ran out last . On Friday sugars have been high and he started with vomiting, abdominal pain and persistent nausea. He did throw up some blood on Friday. He is continue to vomit today but no blood. Denies any headache or change in vision. No chest pain or shortness of breath. No dysuria, urgency or frequency. No other exacerbating or remitting factors. He does note that he just got his insurance back earlier today prior to his appointment. He does have all of the medications he would need prescribed. ADDITIONAL HISTORY OBTAINED: From diabetic clinic/endocrinology who sent him over for DKA with vomiting and dehydration Chronic Medical/Social Conditions Affecting Care: Per HPI PAST MEDICAL HISTORY:See Below PAST SURGICAL HISTORY:See Below FAMILY HISTORY:See Below SOCIAL HISTORY:See Below HOME MEDICATIONS:See Below ALLERGIES:See Below VITALS:See Below PHYSICAL EXAMINATION: GENERAL: Sitting up in bed, alert, well appearing, well nourished, no distress, non-toxic EYE EXAM: normal conjunctiva. OROPHARYNX: Dry mucous membranes NECK: supple, no nuchal rigidity, no adenopathy, non-tender LUNGS: Clear to auscultation. Normal chest wall mechanics HEART: no murmurs, S1 normal and S2 normal ABDOMEN: abdomen soft, non-tender, normo-active bowel sounds, no masses, no rebound or guarding. BACK: Back is symmetrical on inspection and there is no deformity, no midline tenderness, no CVA tenderness. SKIN: no rashes and no bruising UPPER EXTREMITIES: upper extremities are grossly normal. LOWER EXTREMITIES: No pitting edema. NEURO EXAM: Normal sensorium, cranial nerves II-XII grossly intact, normal speech, no gross weakness of arms, no gross weakness of legs. MEDICAL DECISION MAKING: Patient is a 33-year-old male who presents the ER for elevated blood sugars associate with nausea vomiting. IV was established blood work was obtained. Labs show no significant leukocytosis or anemia. BMP with a sodium of 127 and a CO2 of 14 with a gap. Glucose was significantly elevated. LFTs bilirubin was unremarkable. Lipase was normal. VBG with a pH 7.24 and bicarb of 14. Patient was placed on insulin drip and given a bolus. He was given 2 L of IV fluids. Updated bedside. Discussed with the hospitalist admitted for further workup of his DKA. Consults/Care Managements Discussions: Per MDM Triage Nursing notes reviewed. Limited review of prior medical records performed Vital Signs: reviewed and remarkable for no significant abnormalities Differential diagnosis: Differential diagnoses includes but is not limited to gastritis, peptic ulcer disease, GERD, gallbladder disease, pancreatitis, small bowel obstruction, appendicitis, diverticulitis, hernia, urinary tract infection, torsion, perforation, trauma, infectious. ER treatment provided: See below Diagnostics interpreted by me include EKG and cardiac monitoring as listed below: -Cardiac Monitoring: An order was placed for continuous cardiac monitoring. The monitor shows a rate of 101 with sinus rhythm. -ECG: Sinus rhythm rate of 97 Normal axis No PVCs QTc 426 -Laboratory studies:Interpreted by me as stated above in MDM and shown below. Imaging studies: Xrays: As interpreted by me: Portable AP upright 1 view of the chest shows no focal infiltrate CTs show: none Procedures:none Critical Care: I have personally spent 35 minutes of critical care time in the direct management of this patient. This includes bedside care, interpretation of diagnostic studies, and testing, discussion with consultants, patient, and family members, and other required patient management activities. This 35 minutes is in excess of all separately billable procedures. Past Med/Surg History Problem List (Updated 04/06/24 @ 21:02 by Jase Tafoya DO) Metabolic acidosis (Acute) Hyperglycemia (Acute) DKA (diabetic ketoacidosis) (Acute) Poorly controlled type 1 diabetes mellitus Encounter for monitoring of methotrexate therapy Blepharitis Psoriasis Atopic dermatitis Seborrheic dermatitis Abnormal CT scan Hematemesis DKA (diabetic ketoacidosis) (Acute) Metabolic acidosis (Acute) Dysesthesia Diabetic peripheral neuropathy associated with type 1 diabetes mellitus Diabetes type 1, uncontrolled Marijuana use Tobacco use disorder GERD (gastroesophageal reflux disease) Depression Medical History (Updated 04/06/24 @ 21:02 by Jase Tafoya DO) Vomiting DKA (diabetic ketoacidosis) Surgical History (Updated 02/18/23 @ 15:23 by GALINA Luz) History of oral surgery History of esophagogastroduodenoscopy (EGD) [id number]? H/O inguinal hernia repair Family History (Updated 02/18/23 @ 15:29 by GALINA Luz) Grandfather (Maternal) Diabetes Alzheimer disease Grandfather (Paternal) Alzheimer disease Grandmother (Maternal) Alzheimer disease Dementia Grandfather (Maternal) Heart disease Myocardial infarction Stroke Denies family history of Ovarian cancer Prostate cancer Bipolar disorder Depression Kidney disease Breast cancer Lung cancer COPD (chronic obstructive pulmonary disease) Colorectal cancer Hypertension Colonic polyp Asthma Social History (Updated 02/18/23 @ 15:33 by GALINA Luz) Smoking Status: Current some day smoker Tobacco Type: Cigarettes Age Started Using Tobacco: 16; packs per day: 0.5; Cigarettes Per Day: 1-2 cigarette per day; Second Hand Exposure: Yes; Do You Dip or Chew Tobacco: No; Hx Alcohol Use: Yes Alcohol type: beer and hard liquor Alcohol Intake Frequency: Monthly or Less Hx Substance Use: Yes Prescribed Medications: Marijuana Preferred Language: Persian Communication Ability: Effective Visual Impairment: No Limitations Hearing Ability: Normal Auto Service Instructor Required: No Beliefs That Will Affect Care: None marital status: Single Current Living Situation: Parent and Family current occupational status: employed 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 How many Children do You have: 1 Feels Safe at Home: Yes Childhood Exposure to Second-Hand Smoke: Yes Dental Care, Regularly: No Seatbelt Use: sometimes Sunscreen Use: No Assistive Devices: None Allergies Allergies Allergy/AdvReac Type Severity Reaction Status Date / Time bee venom protein (honey bee) Allergy Severe Difficulty Verified 08/21/23 15:03 Breathing Home Meds Home Medications Medication Instructions Recorded Confirmed Zofran 1 tab PO UD PRN n/v 04/06/24 04/06/24 ibuprofen 200 mg tablet 200 mg PO UD PRN Pain 04/06/24 04/06/24 insulin degludec 100 unit/mL (3 26 unit subcut DAILY PRN pump 04/06/24 04/06/24 mL) subcutaneous pen (Tresiba failure FlexTouch U-100 insulin) Previous Rx's Medication Instructions Recorded blood sugar diagnostic (LighteraTouch #200 ea 02/10/23 Ultra Test strips) lancets 33 gauge (OneTouch Delica #200 ea 02/10/23 Plus Lancet) blood sugar diagnostic (OneTouch #100 ea 02/18/23 Ultra Test strips) blood-glucose meter (OneTouch #1 ea 02/18/23 Ultra2 Meter) blood-glucose meter,continuous #1 ea 02/18/23 (Dexcom G7 Coremaking Machine Operator) blood-glucose sensor (Dexcom G7 #10 ea 02/18/23 Sensor device) lancets 33 gauge (OneTouch Delica #100 ea 02/18/23 Lancets) insulin syringes (disposable) 1 mL #100 ea 08/19/23 insulin aspart U-100 100 unit/mL See Rx Instructions .Route DAILY 03/22/24 subcutaneous solution (Novolog #90 mL U-100 Insulin aspart) pen needle, diabetic 32 gauge x #450 ea 03/22/24" (BD Akiko 2nd Gen Pen Needle) Results & Data (ED) Vital Signs Vital Signs - 24 hr 04/06/24 14:48 04/06/24 14:48 04/06/24 14:56 Temperature 37.2 C Temperature Source Oral Pulse Rate 101 H 102 H Pulse Rate [Apical] 102 H Pulse Rate from SpO2 Sensor 101 H Respiratory Rate 24 16 17 Respiratory Effort / Characteristics Non-Labored Spontaneous Non-Labored Spontaneous Respiratory Depth Normal Normal Blood Pressure 124/89 Blood Pressure Mean 100 Pulse Oximetry 99 99 99 Oxygen Delivery Method Room Air Room Air Sepsis Recent Fever Within 48 Hours No Sepsis New/Unexplained Change in Mental Status No Sepsis Action Taken by Nursing No Action Required 04/06/24 15:00 04/06/24 15:13 04/06/24 15:30 Temperature Temperature Source Pulse Rate 105 H 102 H 102 H Pulse Rate [Apical] Pulse Rate from SpO2 Sensor 106 H 103 H Respiratory Rate 20 16 Respiratory Effort / Characteristics Respiratory Depth Blood Pressure Blood Pressure Mean Pulse Oximetry 99 99 Oxygen Delivery Method Sepsis Recent Fever Within 48 Hours Sepsis New/Unexplained Change in Mental Status Sepsis Action Taken by Nursing 04/06/24 16:00 04/06/24 16:30 Temperature Temperature Source Pulse Rate 101 H 102 H Pulse Rate [Apical] Pulse Rate from SpO2 Sensor Respiratory Rate 21 Respiratory Effort / Characteristics Respiratory Depth Blood Pressure Blood Pressure Mean Pulse Oximetry Oxygen Delivery Method Sepsis Recent Fever Within 48 Hours Sepsis New/Unexplained Change in Mental Status Sepsis Action Taken by Nursing Laboratory Data 04/06/24 14:55 04/06/24 19:56 Lab Results 04/06/24 04/06/24 04/06/24 Range/Units 14:55 15:43 15:50 WBC 6.32 (4.8-10.8) K/ul RBC 5.14 (4.70-6.10) M/uL Hgb 15.8 (14.0-18.0) g/dl POC Hgb 13.9 L (14.0-18.0) g/dl Hct 44.5 (42.0-52.0) % POC Hct 41 L (42-52) % MCV 86.6 (80.0-100.0) fL MCH 30.7 (25.0-34.0) pg MCHC 35.5 (32.0-36.0) g/dL RDW Std Deviation 37.8 (36.4-46.3) fL RDW Coeff of Bennett 11.9 (11.5-14.5) % Plt Count 297 (130-400) K/uL MPV 9.1 L (9.4-12.4) fL Immature Gran % (Auto) 0.3 % Neut % (Auto) 64.1 % Lymph % (Auto) 24.1 % Butler % (Auto) 7.4 % Eos % (Auto) 3.3 % Baso % (Auto) 0.8 % Neut # (Auto) 4.05 (1.40-6.50) K/uL Lymph # (Auto) 1.52 (1.20-3.40) K/uL Butler # (Auto) 0.47 (0.11-0.59) K/uL Eos # (Auto) 0.21 (0.00-0.50) K/uL Baso # (Auto) 0.05 (0.00-0.20) K/uL Immature Gran # (Auto) 0.02 (0.01-0.20) K/uL VBG pH 7.21 L (7.36-7.41) VBG pCO2 35 L (38-50) mmHg VBG pO2 35 mmHg VBG HCO3 14 mmol/L VBG O2 Saturation 65.4 % VBG Base Excess -12.9 mEq/L POC Sodium 131 L (135-144) mmol/L Sodium 127 L (136-145) mmol/L POC Potassium 4.2 (3.3-5.0) mmol/L Potassium 4.7 (3.5-5.1) mmol/L POC Chloride 100 L (101-112) mmol/L Chloride 96 L (98-107) mmol/L Carbon Dioxide 16 L (21-32) mmol/L POC Total CO2 14 L (24-31) mmol/L Anion Gap 15 H (3-11) POC Anion Gap 22.0 (16-25) mmol/L POC BUN 10 (7-18) mg/dl BUN 11 (6-23) mg/dl Creatinine 0.86 (0.6-1.4) mg/dl POC Creatinine 0.4 L (0.6-1.3) mg/dl Est Cr Clr Drug Dosing 87.3 ml/min Est GFR ( Amer) 133.9 ml/min Est GFR (Non-Af Amer) 115.6 ml/min BUN/Creatinine Ratio 12.8 (10-20) Glucose 384 H* (70-99(Fasting)) mg/dl POC Glucose (70-99) mg/dl POC Glucose (other) 348 H (70-99) mg/dl Calcium 8.9 (8.6-10.3) mg/dl POC Ioniz Calcium Franca 1.21 (1.12-1.32) mmol/l Phosphorus 2.2 L (2.5-4.9) mg/dl Magnesium 1.9 (1.7-2.4) mg/dl Total Bilirubin 0.6 (0.2-1.0) mg/dl AST 17 (13-39) U/L ALT 23 (7-52) U/L Alkaline Phosphatase 140 H (34-104) U/L Total Protein 7.7 (6.0-8.3) gm/dl Albumin 4.7 (3.4-5.0) gm/dl Globulin 3.0 (2.5-4.0) gm/dl Albumin/Globulin Ratio 1.6 (0.9-2) Lipase 15 (11-82) U/L 04/06/24 Range/Units 16:28 WBC (4.8-10.8) K/ul RBC (4.70-6.10) M/uL Hgb (14.0-18.0) g/dl POC Hgb (14.0-18.0) g/dl Hct (42.0-52.0) % POC Hct (42-52) % MCV (80.0-100.0) fL MCH (25.0-34.0) pg MCHC (32.0-36.0) g/dL RDW Std Deviation (36.4-46.3) fL RDW Coeff of Bennett (11.5-14.5) % Plt Count (130-400) K/uL MPV (9.4-12.4) fL Immature Gran % (Auto) % Neut % (Auto) % Lymph % (Auto) % Butler % (Auto) % Eos % (Auto) % Baso % (Auto) % Neut # (Auto) (1.40-6.50) K/uL Lymph # (Auto) (1.20-3.40) K/uL Butler # (Auto) (0.11-0.59) K/uL Eos # (Auto) (0.00-0.50) K/uL Baso # (Auto) (0.00-0.20) K/uL Immature Gran # (Auto) (0.01-0.20) K/uL VBG pH (7.36-7.41) VBG pCO2 (38-50) mmHg VBG pO2 mmHg VBG HCO3 mmol/L VBG O2 Saturation % VBG Base Excess mEq/L POC Sodium (135-144) mmol/L Sodium (136-145) mmol/L POC Potassium (3.3-5.0) mmol/L Potassium (3.5-5.1) mmol/L POC Chloride (101-112) mmol/L Chloride (98-107) mmol/L Carbon Dioxide (21-32) mmol/L POC Total CO2 (24-31) mmol/L Anion Gap (3-11) POC Anion Gap (16-25) mmol/L POC BUN (7-18) mg/dl BUN (6-23) mg/dl Creatinine (0.6-1.4) mg/dl POC Creatinine (0.6-1.3) mg/dl Est Cr Clr Drug Dosing ml/min Est GFR ( Amer) ml/min Est GFR (Non-Af Amer) ml/min BUN/Creatinine Ratio (10-20) Glucose (70-99(Fasting)) mg/dl POC Glucose 294 H (70-99) mg/dl POC Glucose (other) (70-99) mg/dl Calcium (8.6-10.3) mg/dl POC Ioniz Calcium Franca (1.12-1.32) mmol/l Phosphorus (2.5-4.9) mg/dl Magnesium (1.7-2.4) mg/dl Total Bilirubin (0.2-1.0) mg/dl AST (13-39) U/L ALT (7-52) U/L Alkaline Phosphatase (34-104) U/L Total Protein (6.0-8.3) gm/dl Albumin (3.4-5.0) gm/dl Globulin (2.5-4.0) gm/dl Albumin/Globulin Ratio (0.9-2) Lipase (11-82) U/L Administered Medications Insulin Human Regular 250 (units/ Sodium Chloride) 250 mls @ 2.5 mls/hr IV .Q24H RENETTA; Protocol Stop: 05/06/24 15:59 Last Titration: 04/06/24 20:22 Dose: 2.5 units/hr, 2.5 mls/hr Documented By: CR Co-signed By: LSG Titration: 04/06/24 19:31 Dose: 2.5 units/hr, 2.5 mls/hr Documented By: CR Co-signed By: DTT Titration: 04/06/24 19:16 Dose: 4 units/hr, 4 mls/hr Documented By: DANNA Co-signed By: BT Admin: 04/06/24 16:29 Dose: 5 units/hr, 5 mls/hr Documented By: SLIM Co-signed By: AM Potassium Chloride/Dextrose/Sod Cl (D5w And 1/2nss + 20meq Kcl) 20 meq in 1,000 mls @ 200 mls/hr IV .Q5H RENETTA Stop: 05/06/24 17:59 Last Admin: 04/06/24 19:18 Dose: 200 mls/hr Documented By: CR Insulin Aspart (Insulin Aspart Per Unit Charge) 0 units SC ACHS RENETTA Stop: 05/06/24 16:29 Last Admin: 04/06/24 19:47 Dose: Not Given Documented By: CR Discontinued Medications Parenteral Electrolytes (Plasma-Lyte A Ph 7.4) 2,000 mls @ 999 mls/hr IV .Q2H1M ONE Stop: 04/06/24 17:14 Last Infusion: 04/06/24 19:41 Dose: Infused Documented By: Admin: 04/06/24 15:53 Dose: 999 mls/hr Documented By: SLIM Potassium Chloride (K Rusty / Wtr) 10 meq in 100 mls @ 100 mls/hr IV Q1H RENETTA Stop: 04/06/24 17:59 Last Infusion: 04/06/24 19:41 Dose: Infused Documented By: Admin: 04/06/24 18:00 Dose: 100 mls/hr Documented By: Infusion: 04/06/24 17:31 Dose: Infused Documented By: Admin: 04/06/24 16:31 Dose: 100 mls/hr Documented By: SLIM Famotidine (Pepcid 20mg Iv Push) 20 mg in 5 mls @ 2.5 mls/min IV NOW STA Stop: 04/06/24 17:02 Last Admin: 04/06/24 17:24 Dose: 2.5 mls/min Documented By: SLIM Discharge Plan Visit Data Chief Complaint: Hyperglycemia Stated Complaint: ILLNESS, VOMITING ED Provider: Jase Tafoya Discharge Problem: DKA (diabetic ketoacidosis), Hyperglycemia, Metabolic acidosis Patient Disposition: Admitted As Inpatient Discharge Instructions Interventions: ED Discharge Assessment Last Done: 04/06/24 18:14 Discharge Problem: DKA (diabetic ketoacidosis) Qualifiers: Diabetes mellitus type: type 1 Diabetes mellitus complication detail: without coma Qualified Code(s): E10.10 - Type 1 diabetes mellitus with ketoacidosis without coma
[2024-04-06] MEDS ORDERED: GLUCOSE 10 TAB/TUBE PO PRN (15:52)
[2024-04-06] MEDS ORDERED: DKA GOAL RANGE 150-250 mg/dl ONE (15:52)
[2024-04-06] MEDS ORDERED: DEXTROSE 50% 50 ML SYRINGE IV PRN (15:52)
[2024-04-06] MEDS ORDERED: GLUCAGON FOR INJ 1 MG VIAL SQ PRN (15:52)
[2024-04-06] MEDS ORDERED: STAT IV Infusion **Titration per Protocol STA (15:52)
[2024-04-06] MEDS ORDERED: GLUCOSE 40% GEL 15 GM TUBE PO PRN (15:52)
[2024-04-06] MEDS ORDERED: CARBOHYDRATES FOR HYPOGLYCEMIA PO PRN (15:52)
[2024-04-06] MEDS: PLASMA-LYTE A 2,000 ML IV ONE (15:53)
[2024-04-06 15:55] LABS: Albumin Globulin Ratio 1.6 (0.9-2); Albumin Level 4.7 gm/dl (3.4-5.0); BUN Creatinine Ratio 12.8 (10-20); Bilirubin,Total 0.6 mg/dl (0.2-1.0); Calcium 8.9 mg/dl (8.6-10.3); Creatinine Clr Calc Pharmacy 87.3 ml/min; Est GFR (African American) 133.9 ml/min; Est GFR (Non-African American) 115.6 ml/min; Potassium 4.7 mmol/L (3.5-5.1); Total Protein 7.7 gm/dl (6.0-8.3)
[2024-04-06 15:57] LABS: Base Excess VBG -12.9 mEq/L; HCO3 VBG 14 mmol/L; Oxygen Saturation VBG 65.4 %; PCO2 VBG 35 mmHg (38-50); PO2 VBG 35 mmHg; pH VBG 7.21 (7.36-7.41)
[2024-04-06 15:59] LABS: iSTAT Creatinine 0.4 mg/dl (0.6-1.3); iSTAT Hemoglobin 13.9 g/dl (14.0-18.0); iSTAT Ionized Calcium 1.21 mmol/l (1.12-1.32); iSTAT Potassium 4.2 mmol/L (3.3-5.0)
[2024-04-06 16:07] LABS: Magnesium 1.9 mg/dl (1.7-2.4)
[2024-04-06 16:13] LABS: Phosphorus 2.2 mg/dl (2.5-4.9)
[2024-04-06] MEDS: INSULIN REGULAR 250 UNITS in SODIUM CHLORIDE 0.9% 247.5 ML IV SCH (16:29)
[2024-04-06] MEDS: POTASSIUM CHLORIDE / WTR 10 MEQ/100 ML PLCT IV SCH (16:31)
[2024-04-06] MEDS ORDERED: PHARMACY GLYCEMIC MGMT CONSULT PRN (16:44)
[2024-04-06] MEDS ORDERED: PENDING D5 1/2NS+20mEq KCL IVF SCH (16:45)
--- NOTE | 2024-04-06 16:45 | History & Physical Report ---
Date of Service April 06, 2024 Assessment & Plan (1) DKA (diabetic ketoacidosis): Plan: -Admit to the PCU on tele and pulse oximetry -Currently stable and non-toxic appearing -Was sent to the [facility] ED from the Endocrinology clinic due to concerns for DKA as he ran out of insulin earlier this week -Patient ran out of insulin due to insurance issues that are now resovled -BSG of 384 on arrival, AG of 15, bicarb of 16, VBG pH of 7.21, pCO2 of 35, pO2 of 35 -Currently receiving 2L Plasmalyte ordered in the ED -Started on an insulin drip with DKA protocol ordered >Potassium of 4.7 prior to insulin drip being started -Continue DKA protocol -Will start maintenance 1/NSS with 20 meq KCL w/wo dextrose depending on glucose -Will follow q4h VBG, BMP, phos, mag -Will obtain CXR and follow UA when obtained to rule out infection but cause is likely running out of insulin -Pharmacy glycemic consult placed -OOB for DVT PPX -NPO with sips/chips until nausea resolves -PRN zofran for nausea/vomiting, BID famotidine for reflux symptoms -AM CBC, BMP, mag, Phos (2) GERD (gastroesophageal reflux disease): Plan: -BID famotidine ordered (3) Tobacco use disorder: Plan: -Continue to stress cessation -Will order prn nicotine gum Plan The patient was discussed with Dr Bales at the time of the admission History of Present Illness Chief Complaint: Hyperglycemia, concern for DKA in Endocrinology office Primary Care Provider: NO PCP Wesley is a 33-year-old male with a past medical history significant for type 1 diabetes, mild persistent asthma,GERD, psoriasis, tobacco abuse, and depression who presented to the [facility] ED from the [facility] Endocrinology office via EMS on 04/06/24 due to hyperglycemia and concerns for DKA. Per the Endocrinology note, the patient had been experiencing insurance issues and had been trying to ration his insulin over the past year. He reportedly ran completely out of insulin approximately 3 days ago. On arrival to the ED the patient was noted to be tachycardic with HR in the 110's but was otherwise stable. Labs were significant for VBG 7.21, pCO2 of 35, pO2 of 35, glucose of 384, AG of 15 with bicarb of 16, corrected sodium of 132. Prior to admission the patient was ordered 2L of Plasmalyte to be given as a bolus and started on an insulin drip with DKA protocol. At the time of the exam the patient was sitting in bed in no acute distress. He confirms the above history, states that his insurance just re-started today. Ran out of insulin approximately 3 days ago, has been having nausea, vomiting, and generalized abdominal pain since. States that he had some blood in his vomit on 04/03, denies any hematemesis today. Denies recent fever, chills, chest pain, cough, hemoptysis, dysuria, hematuria, melena, diarrhea, LE swelling, and recent trauma. He is smoking approximately 1-2 cigarettes daily but is motivated to completely stop. Please refer to Dr. Bales's attestation for any changes to the treatment plan Allergies Allergy/AdvReac Type Severity Reaction Status Date / Time bee venom protein (honey bee) Allergy Severe Difficulty Verified 08/21/23 15:03 Breathing Home Medications Medication Instructions Recorded Confirmed Type blood sugar diagnostic (OneTouch #200 ea 02/10/23 08/21/23 Rx Ultra Test strips) lancets 33 gauge (OneTouch Delica #200 ea 02/10/23 08/21/23 Rx Plus Lancet) blood sugar diagnostic (OneTouch #100 ea 02/18/23 08/21/23 Rx Ultra Test strips) blood-glucose meter (OneTouch #1 ea 02/18/23 08/21/23 Rx Ultra2 Meter) blood-glucose meter,continuous #1 ea 02/18/23 08/21/23 Rx (Dexcom G7 Banquet Chef) lancets 33 gauge (OneTouch Delica #100 ea 02/18/23 08/21/23 Rx Lancets) insulin syringes (disposable) 1 mL #100 ea 08/19/23 08/21/23 Rx pen needle, diabetic 32 gauge x #450 ea 03/22/24 Rx " (BD Akiko 2nd Gen Pen Needle) Zofran 1 tab PO UD PRN n/v 04/06/24 04/06/24 History ibuprofen 200 mg tablet 200 mg PO UD PRN Pain 04/06/24 04/06/24 History acetone (urine) test (Ketostix #25 ea 04/07/24 04/07/24 Rx strips) blood-glucose sensor (Dexcom G7 #9 ea 04/07/24 04/07/24 Rx Sensor device) insulin aspart U-100 100 unit/mL See Rx Instructions subcut 04/07/24 04/07/24 Rx (3 mL) subcutaneous pen (Novolog USEASDIRECTD #15 mL FlexPen U-100 Insulin aspart) insulin aspart U-100 100 unit/mL See Rx Instructions .Route DAILY 04/07/24 04/07/24 Rx subcutaneous solution (Novolog #30 mL U-100 Insulin aspart) insulin degludec 100 unit/mL (3 26 unit (0.26 mL) subcut DAILY PRN 04/07/24 04/07/24 Rx mL) subcutaneous pen (Tresiba pump failure #15 mL FlexTouch U-100 insulin) Past Med/Surg History Problem List (Updated 04/06/24 @ 21:02 by Jase Tafoya DO) Metabolic acidosis (Acute) Hyperglycemia (Acute) DKA (diabetic ketoacidosis) (Acute) Poorly controlled type 1 diabetes mellitus Encounter for monitoring of methotrexate therapy Blepharitis Psoriasis Atopic dermatitis Seborrheic dermatitis Abnormal CT scan Hematemesis DKA (diabetic ketoacidosis) (Acute) Metabolic acidosis (Acute) Dysesthesia Diabetic peripheral neuropathy associated with type 1 diabetes mellitus Diabetes type 1, uncontrolled Marijuana use Tobacco use disorder GERD (gastroesophageal reflux disease) Depression Medical History (Updated 04/06/24 @ 21:02 by Jase Tafoya DO) Vomiting DKA (diabetic ketoacidosis) Surgical History (Updated 02/18/23 @ 15:23 by GALINA Luz) History of oral surgery History of esophagogastroduodenoscopy (EGD) [id number]? H/O inguinal hernia repair Family History (Updated 02/18/23 @ 15:29 by GALINA Luz) Grandfather (Maternal) Diabetes Alzheimer disease Grandfather (Paternal) Alzheimer disease Grandmother (Maternal) Alzheimer disease Dementia Grandfather (Maternal) Heart disease Myocardial infarction Stroke Denies family history of Ovarian cancer Prostate cancer Bipolar disorder Depression Kidney disease Breast cancer Lung cancer COPD (chronic obstructive pulmonary disease) Colorectal cancer Hypertension Colonic polyp Asthma Social History (Updated 02/18/23 @ 15:33 by GALINA Luz) Smoking Status: Current some day smoker Tobacco Type: Cigarettes Age Started Using Tobacco: 16; packs per day: 0.5; Cigarettes Per Day: 1-2 cigarette per day; Second Hand Exposure: Yes; Do You Dip or Chew Tobacco: No; Hx Alcohol Use: Yes Alcohol type: beer and hard liquor Alcohol Intake Frequency: Monthly or Less Hx Substance Use: Yes Prescribed Medications: Marijuana Preferred Language: Mohawk Communication Ability: Effective Visual Impairment: No Limitations Hearing Ability: Normal Coal Chute Worker Required: No Beliefs That Will Affect Care: None marital status: Single Current Living Situation: Parent and Family current occupational status: employed 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 How many Children do You have: 1 Feels Safe at Home: Yes Childhood Exposure to Second-Hand Smoke: Yes Dental Care, Regularly: No Seatbelt Use: sometimes Sunscreen Use: No Assistive Devices: None Physical Exam Physical Exam: Physical Exam: General: In no acute distress, stated age, non-toxic appearing HEENT: Normocephalic, atraumatic, no scleral icterus, pupils around round, symmetrical, and reactive to light, dry mucus membranes, trachea midline, no thyromegaly Chest/Pulm: No respiratory distress, symmetrical chest expansion, clear breath sounds throughout Cardiac: RRR, no murmurs noted Abdomen: Negative for ascites and bruising, normoactive bowel sounds, soft, non-tender to palpation throughout Musculoskeletal: Symmetrical and without signs of acute trauma, upper and lower extremities with full ROM, no atrophy, spasticity, or flaccidity Extremities: Radial, dorsalis pedis, and posterior tibial pulses are intact and symmetrical, no edema noted in the BL LE's Skin: Warm, dry, no rashes , lesions, or scars noted Neuro: Alert and oriented to person, place, month, year, and president, no focal defects, no tremors noted Psych: No acute distress, calm and cooperative during the exam Results & Data Results & Data Vital Signs (Past 12 Hours) Vital Signs Temp Pulse Pulse Resp BP Pulse Ox O2 Del Method 04/06/24 15:13 102 H 04/06/24 14:48 102 H 16 99 Room Air 04/06/24 14:48 37.2 C 101 H 24 124/89 99 Room Air Laboratory Results Abnormal lab results 04/06/24 04/06/24 04/06/24 Range/Units 14:55 15:43 15:50 POC Hgb 13.9 L (14.0-18.0) g/dl POC Hct 41 L (42-52) % MPV 9.1 L (9.4-12.4) fL VBG pH 7.21 L (7.36-7.41) VBG pCO2 35 L (38-50) mmHg POC Sodium 131 L (135-144) mmol/L Sodium 127 L (136-145) mmol/L POC Chloride 100 L (101-112) mmol/L Chloride 96 L (98-107) mmol/L Carbon Dioxide 16 L (21-32) mmol/L POC Total CO2 14 L (24-31) mmol/L Anion Gap 15 H (3-11) POC Creatinine 0.4 L (0.6-1.3) mg/dl Glucose 384 H* (70-99(Fasting)) mg/dl POC Glucose (70-99) mg/dl POC Glucose (other) 348 H (70-99) mg/dl Phosphorus 2.2 L (2.5-4.9) mg/dl Alkaline Phosphatase 140 H (34-104) U/L 04/06/24 Range/Units 16:28 POC Hgb (14.0-18.0) g/dl POC Hct (42-52) % MPV (9.4-12.4) fL VBG pH (7.36-7.41) VBG pCO2 (38-50) mmHg POC Sodium (135-144) mmol/L Sodium (136-145) mmol/L POC Chloride (101-112) mmol/L Chloride (98-107) mmol/L Carbon Dioxide (21-32) mmol/L POC Total CO2 (24-31) mmol/L Anion Gap (3-11) POC Creatinine (0.6-1.3) mg/dl Glucose (70-99(Fasting)) mg/dl POC Glucose 294 H (70-99) mg/dl POC Glucose (other) (70-99) mg/dl Phosphorus (2.5-4.9) mg/dl Alkaline Phosphatase (34-104) U/L ECG Additional Comments: Normal sinus rhythm Normal ECG When compared with ECG of 24-JAN-2023 18:26, No significant change was found Code Status & VTE Plan Code Status Full code VTE Prophylaxis Plan VTE Prophylaxis will be ordered: Yes Supervising Physician Co-Signing Physician Notes I personally saw and examined the patient. I verified all blackman points and agree with Celso Maya PA-C with the following exceptions and/or additions: 33 year old male presents to the ER with DKA after running out of insulin. O/E HS RRR, no murmurs, Chest CTAB, Abdo SNT A/P DKA - insulin IV drip, IV fluids per DKA protocol @ 200ml/hr, q4h labs, switch to SQ insulin once gap closed PG Care Time/CCT Total # of Minutes Spent Total Time Spent with Patient: Total time spent is greater than 50% in coordination of care (as documented) at patient's floor/unit and/or counseling patient: [place] [address] INT INP/OBS CARE 3/75MIN Patient Type New Medical Decision Making High Complexity Diagnoses DKA (diabetic ketoacidosis) E11.10 GERD (gastroesophageal reflux disease) K21.9 Tobacco use disorder F17.200
[2024-04-06] MEDS ORDERED: SODIUM CHLOR 0.45% + 20MEQ KCL 20 MEQ/1,000 ML BAG IV SCH (17:00)
[2024-04-06] MEDS ORDERED: ONDANSETRON INJ 2 MG/ML 2 ML VIAL IV PRN (17:05)
[2024-04-06] MEDS: FAMOTIDINE 20MG IV PUSH 20 MG/5 ML SYR IV STA (17:24)
--- NOTE | 2024-04-06 18:31 | XRay Report ---
XR chest 1V portable CLINICAL HISTORY: DKA, please monitor for infection TECHNIQUE: Single frontal radiograph of the chest was obtained. Comparison: Comparison is made to chest radiograph 01/24/2023 FINDINGS: No lines and tubes are seen. The cardiomediastinal silhouette is normal. The lungs are clear. No evid ence of pleural effusion or pneumothorax. IMPRESSION: No acute abnormalities and in particular no radiographic evidence of pneumonia. ACT 112: Negative or not required by law. Electronically signed by: Joe Smith M.D. 04/06/2024 6:30 PM
[2024-04-06] MEDS: D5W AND 1/2NSS + 20MEQ KCL 20 MEQ/1,000 ML BAG IV SCH (19:18)
[2024-04-06] MEDS: INSULIN ASPART PER UNIT CHARGE SC SCH (19:47)
[2024-04-06 20:30] LABS: Anion Gap 13 (3-11); BUN Creatinine Ratio 15.8 (10-20); Blood Urea Nitrogen 9 mg/dl (6-23); Calcium 7.1 mg/dl (8.6-10.3); Carbon Dioxide 14 mmol/L (21-32); Chloride 103 mmol/L (98-107); Creatinine Clr Calc Pharmacy 131.7 ml/min; Est GFR (African American) > 150.0 ml/min; Est GFR (Non-African American) 136.8 ml/min; Glucose 207 mg/dl (70-99(Fasting)); Sodium 130 mmol/L (136-145)
[2024-04-06 20:35] LABS: Magnesium 1.7 mg/dl (1.7-2.4); Phosphorus 1.4 mg/dl (2.5-4.9)
[2024-04-06] MEDS ORDERED: SODIUM PHOSPHATE 3 MMOL/1 ML INFUSION IV STA (20:41)
[2024-04-06] MEDS: FAMOTIDINE 20MG IV PUSH 20 MG/5 ML SYR IV SCH (22:04)
[2024-04-06] MEDS: SODIUM PHOSPHATE 30 MMOL in SODIUM CHLORIDE 0.9% 500 ML IV ONE (22:04)
[2024-04-07 01:06] LABS: Anion Gap 7 (3-11); BUN Creatinine Ratio 12.3 (10-20); Blood Urea Nitrogen 8 mg/dl (6-23); Calcium 7.1 mg/dl (8.6-10.3); Carbon Dioxide 19 mmol/L (21-32); Chloride 107 mmol/L (98-107); Creatinine Clr Calc Pharmacy 115.5 ml/min; Est GFR (African American) > 150.0 ml/min; Est GFR (Non-African American) 129.6 ml/min; Glucose 167 mg/dl (70-99(Fasting)); Magnesium 1.7 mg/dl (1.7-2.4); Phosphorus 2.2 mg/dl (2.5-4.9); Potassium 3.4 mmol/L (3.5-5.1); Sodium 133 mmol/L (136-145)
[2024-04-07] MEDS: LANTUS PER UNIT CHARGE SC ONE (04:13)
[2024-04-07] MEDS: INSULIN ASPART PER UNIT CHARGE SC SCH (04:14)
[2024-04-07] MEDS: SODIUM CHLOR 0.45% + 20MEQ KCL 20 MEQ/1,000 ML BAG IV SCH (04:17)
[2024-04-07 06:07] LABS: Anion Gap 8 (3-11); BUN Creatinine Ratio 13.6 (10-20); Blood Urea Nitrogen 8 mg/dl (6-23); Calcium 6.6 mg/dl (8.6-10.3); Carbon Dioxide 18 mmol/L (21-32); Chloride 108 mmol/L (98-107); Creatinine Clr Calc Pharmacy 163.7 ml/min; Est GFR (African American) > 150.0 ml/min; Est GFR (Non-African American) 134.9 ml/min; Glucose 119 mg/dl (70-99(Fasting)); Magnesium 1.6 mg/dl (1.7-2.4); Phosphorus 2.3 mg/dl (2.5-4.9); Potassium 3.2 mmol/L (3.5-5.1); Sodium 134 mmol/L (136-145)
[2024-04-07 07:13] LABS: Estimated Average Glucose 349 mg/dl; Hemoglobin A1C 13.8 % (4.5-5.6)
[2024-04-07] MEDS: MAGNESIUM SULFATE / D5W 1 GM/100 ML BAG IV SCH (08:26)
[2024-04-07] MEDS: POTASSIUM CHLORIDE CRTAB 20 MEQ TABCR PO STA (08:26)
--- NOTE | 2024-04-07 10:12 | Discharge Summary ---
Date of Service April 07, 2024 Admission HPI Per Admitting Provider Wesley is a 33-year-old male with a past medical history significant for type 1 diabetes, mild persistent asthma,GERD, psoriasis, tobacco abuse, and depression who presented to the [facility] ED from the [facility] Endocrinology office via EMS on 04/06/24 due to hyperglycemia and concerns for DKA. Per the Endocrinology note, the patient had been experiencing insurance issues and had been trying to ration his insulin over the past year. He reportedly ran completely out of insulin approximately 3 days ago. On arrival to the ED the patient was noted to be tachycardic with HR in the 110's but was otherwise stable. Labs were sign ificant for VBG 7.21, pCO2 of 35, pO2 of 35, glucose of 384, AG of 15 with bicarb of 16, corrected sodium of 132. Prior to admission the patient was ordered 2L of Plasmalyte to be given as a bolus and started on an insulin drip with DKA protocol. At the time of the exam the patient was sitting in bed in no acute distress. He confirms the above history, states that his insurance just re-started today. Ran out of insulin approximately 3 days ago, has been having nausea, vomiting, and generalized abdominal pain since. States that he had some blood in his vomit on 04/03, denies any hematemesis today. Denies recent fever, chills, chest pain, cough, hemoptysis, dysuria, hematuria, melena, diarrhea, LE swelling, and recent trauma. He is smoking approximately 1-2 cigarettes daily but is motivated to completely stop. Please refer to Dr. Bales's attestation for any changes to the treatment plan Principal Diagnosis DKA due to insulin noncompliance Discharge Exam General-alert and oriented x3, no fever, no chills HEENT-head atraumatic and normocephalic, pupils equal and reactive to light, extraocular muscles intact Neck-no lymphadenopathy or thyromegaly, trachea midline Chest-clear to auscultation. No rales, wheezing or rhonchi Cardiac-regular rate and rhythm, normal S1 and S2 Abdomen-normal bowel sounds, no hepatosplenomegaly Extremities-no cyanosis, clubbing, or edema Neuro-cranial nerves II through XII intact, motor and sensory function within normal limits, strength symmetrical, no focal deficits Psych-normal affect, normal mood Discharge Data Allergies Allergy/AdvReac Type Severity Reaction Status Date / Time bee venom protein (honey bee) Allergy Severe Difficulty Verified 08/21/23 15:03 Breathing Consultations 04/06/24 16:11 ED Decision to Admit Stat Hospital Course (1) DKA (diabetic ketoacidosis): Resolved. He received a dose of long-acting basal insulin earlier this morning. He is off the insulin drip. He states he now has insurance and can get his insulin (2) GERD (gastroesophageal reflux disease): Stable. Treated while hospitalized with famotidine (3) Tobacco use disorder: Smoking cessation recommended Plan Home today, April 07 Total Time Total Time Spent Total Time Spent (In Minutes): 45 minutes Discharge Plan Discharge Items Patient Disposition: Home - Self-Care Reason For Visit: DKA Discharge Diagnosis: Diabetic ketoacidosis due to insulin noncompliance Activity: Resume your previous activity Non-emergency contact: Primary Care Provider Call non-emergency contact if: your symptoms worsen Follow-up/Referrals: PCP,NO [Primary Care Provider] - Diet: Carb Count or DM1 Addtl Attending Provider Instructions: All medications remain the same Pending Studies at Discharge: No Stand-Alone Forms: [facility] [employer]Official[employer], Smoking Cessation Medications and DC Order Prescriptions: Continued (DME) pen needle, diabetic [BD Akiko 2nd Gen Pen Needle] 32 gauge x 5/32" needle See Rx Instructions miscellaneous .MEDSUPPLY Qty: 450 0RF Rx Instructions: inject up to 5x a day (DME) OneTouch Ultra Test Strip See Rx Instructions .Route Qty: 200 3RF Rx Instructions: Test twice a day (DME) lancets [OneTouch Delica Plus Lancet] 33 gauge misc See Rx Instructions .Route Qty: 200 3RF Rx Instructions: test twice a day (DME) Dexcom G7 Turbine Engine Assembler Misc See Rx Instructions .Route Qty: 1 1RF Rx Instructions: As directed (DME) blood-glucose meter [OneTouch Ultra2 Meter] Misc See Rx Instructions .Route Qty: 1 0RF Rx Instructions: As directed (DME) OneTouch Ultra Test Strip See Rx Instructions .ROUTE .MEDSUPPLY Qty: 100 4RF Rx Instructions: As directed Dx E11.9 Test BID (DME) lancets [OneTouch Delica Lancets] 33 gauge misc See Rx Instructions .Route Qty: 100 0RF Rx Instructions: As directed Dx E11.9 Test BID (DME) insulin syringes (disposable) 1 mL syringe See Rx Instructions .Route Qty: 100 2RF Rx Instructions: As directed insulin degludec [Tresiba FlexTouch U-100] 100 unit/mL (3 mL) insulin pen 26 unit subcut DAILY PRN (Reason: pump failure) Qty: 15 3RF Rx Instructions: IN CASE OF PUMP FAILURE insulin aspart U-100 [Novolog U-100 Insulin aspart] 100 unit/mL solution See Rx Instructions .ROUTE DAILY Qty: 30 5RF Rx Instructions: W/PUMP 15-22 u SQ w meals based on carbohydrate intake 8 gm/unit Max 70u/24 hr insulin aspart U-100 [Novolog FlexPen U-100 Insulin] 100 unit/mL (3 mL) insulin pen See Rx Instructions subcut USEASDIRECTD Qty: 15 3RF Rx Instructions: MDD 70 units subcutaneously, inject for meals 1u:8g carb ratio (IN CASE OF PUMP FAILURE) (DME) Dexcom G7 Sensor Device See Rx Instructions .Route Qty: 9 3RF Rx Instructions: Change every 10 days to monitor glucose levels (90 day rx) ibuprofen 200 mg Tablet 200 mg PO UD PRN (Reason: Pain) Zofran 1 tab PO UD PRN (Reason: n/v) Rx Instructions: unknown dose No Action (DME) Ketostix Strip See Rx Instructions miscellaneous .MEDSUPPLY Qty: 25 3RF Rx Instructions: Use as needed to monitor for ketonuria Discharge Orders: Discharge Order (Routine); Ordered 04/07/24 Ordered By: Shamir Soto Admission Data Admit Date/Time: 04/06/24 16:44 Attending Provider: Shamir Soto Admit Provider: Neeraj Bales Primary Care Provider: PCP,NO Other Providers: Neeraj Bales Coding Level of Care Code 01268 INP/OBS DISCH >30 MIN Diagnoses DKA (diabetic ketoacidosis) E11.10 GERD (gastroesophageal reflux disease) K21.9 Tobacco use disorder F17.200
--- NOTE | 2024-04-07 11:32 | Electrocardiogram Report ---
Test Reason : Blood Pressure : / mmHG Vent. Rate : 097 BPM Atrial Rate : 097 BPM P-R Int : 122 ms QRS Dur : 084 ms QT Int : 336 ms P-R-T Axes : 068 085 058 degrees QTc Int : 426 ms Normal sinus rhythm Normal ECG When compared with ECG of 24-JAN-2023 18:26, No significant change was found Confirmed by Carlos Chacon ([id number]) on 04/07/2024 11:32:31 AM Referred By: REFERRED SELF Confirmed By:Carlos Chacon
== END 2024-04-07 11:50 | disposition home or self-care (01) | DRG 639 ==
LOC: ED 14:37 → SUATTDRO 16:44 → 2S 16:44

== ENCOUNTER 2024-05-13 18:17 | Inpatient (IN) ==
--- NOTE | 2024-05-13 18:26 | Emergency Department Note ---
Impression & Plan DKA (diabetic ketoacidosis) ADMIT ED Provider Note HPI: History obtained from patient. The patient is a 33-year-old male with history of insulin-dependent diabetes, medically noncompliant, presents the emergency department with a chief complaint of fatigue as well as nausea and vomiting. On arrival here to the ED via EMS the patient appears to be in mild distress secondary to nausea and he does exhibit tachypnea. Patient is alert on arrival, he is able to answer my questions appropriately, he does not have any focal deficits. He states he has not been taking his insulin. Per EMS his blood sugar was greater than 600 in the field. On arrival here to the ED the patient's blood pressure is 122/90, heart rate is elevated in the 130s, he is saturating well on room air on arrival. ROS: - Per HPI Differential Diagnosis: Diabetic ketoacidosis, sepsis, pneumonia, small bowel obstruction, viral gastroenteritis, acute appendicitis, acute cholecystitis, amongst other potential pathologies. *Outpatient medications and allergy history reviewed. 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 Lab work shows a leukocytosis of 30.79, hemoglobin is normal, platelet count is normal, CMP shows multiple critical findings including serum bicarbonate level of 4, potassium is within normal limits, blood sugar is elevated at 516, anion gap is elevated at 27, venous blood gas shows pH less than 7.0. Lipase is mildly elevated at 251. Patient was started on IV fluids here in the ED and when his lab work resulted he was also started on IV insulin and a bicarbonate drip. Patient was given 2 A of bicarb prior to the drip being initiated. Patient was also given IV Zofran for nausea and dry heaving. Patient is afebrile, chest x-ray does not suggest pneumonia per my interpretation. Procalcitonin is low, will defer antibiotics at this time as I suspect his leukocytosis is likely reactive in nature from DKA secondary to medical noncompliance. Patient states he has not been taking his insulin for several months secondary to insurance issues. I discussed all the above findings with the patient and his Aunt who later arrived at the bedside. On my reassessment the patient remains tachycardic but is otherwise with stable blood pressure and he remains alert. He is in agreement for admission at this time. Case was discussed with the on-call admitting hospitalist, Dr. Adkins, and the patient was placed for admission in stable condition for further care and management of DKA. Consultants/Discussions held with other healthcare providers: -Hospitalist, Dr. Adkins Disposition discussion held by myself with: -Patient and patient's aunt at the bedside * CRITICAL CARE TIME: ( 38 ) minutes -Stabilization of patient with DKA requiring initiation of insulin drip, time spent at the bedside, interpretation of diagnostic studies, discussion with other healthcare providers and arrangement of admission Diagnosis: 1. Diabetic ketoacidosis, acute 2. Leukocytosis, acute, nonspecific 3. Noncompliance with medication regimen Disposition: Admission Georges Talavera DO Emergency Medicine Past Med/Surg History Problem List (Updated 05/13/24 @ 21:43 by Georges Talavera DO) DKA (diabetic ketoacidosis) (Acute) Social History Smoking Status: Unknown if ever smoked Feels Safe at Home: Yes Allergies Allergies Allergy/AdvReac Type Severity Reaction Status Date / Time No Known Allergies Allergy Verified 05/13/24 19:24 Home Meds Home Medications Medication Instructions Recorded Confirmed insulin aspart U-100 100 unit/mL 0 unit subcut TIDM 05/13/24 05/13/24 (3 mL) subcutaneous pen insulin degludec 100 unit/mL (3 26 unit subcut DAILY 05/13/24 05/13/24 mL) subcutaneous pen (Tresiba FlexTouch U-100 insulin) Results & Data (ED) Vital Signs Vital Signs - 24 hr 05/13/24 18:24 05/13/24 18:24 05/13/24 18:51 Temperature Temperature Source Pulse Rate 134 H 130 H Pulse Rate [Finger] Pulse Rhythm [Finger] Pulse Strength [Finger] Respiratory Rate 26 H Respiratory Effort / Characteristics Labored Respiratory Depth Deep Respiratory Pattern Blood Pressure 122/90 Blood Pressure [Right Arm] Blood Pressure Mean 100 Blood Pressure Mean [Right Arm] Blood Pressure Position [Right Arm] Pulse Oximetry 100 100 Oxygen Delivery Method Room Air Room Air Sepsis Recent Fever Within 48 Hours No Sepsis New/Unexplained Change in Mental Status N/A Sepsis Action Taken by Nursing Physician Notified 05/13/24 19:13 05/13/24 21:00 Temperature 36.0 C L Temperature Source Temporal Artery Scan Pulse Rate Pulse Rate [Finger] 132 H Pulse Rhythm [Finger] Regular Pulse Strength [Finger] Normal Respiratory Rate 20 Respiratory Effort / Characteristics Non-Labored Spontaneous Respiratory Depth Normal Respiratory Pattern Regular Blood Pressure Blood Pressure [Right Arm] 98/69 L Blood Pressure Mean Blood Pressure Mean [Right Arm] 78 Blood Pressure Position [Right Arm] Lying Pulse Oximetry 98 Oxygen Delivery Method Room Air Sepsis Recent Fever Within 48 Hours Sepsis New/Unexplained Change in Mental Status Sepsis Action Taken by Nursing Laboratory Data 05/13/24 19:48 05/13/24 20:48 Lab Results 05/13/24 05/13/24 05/13/24 Range/Units 18:21 18:31 19:48 WBC Cancelled 30.79 H* RBC Cancelled 4.77 Hgb Cancelled 15.0 POC Hgb (14.0-18.0) g/dl Hct Cancelled 42.9 POC Hct (42-52) % MCV Cancelled 89.9 MCH Cancelled 31.4 MCHC Cancelled 35.0 RDW Std Deviation Cancelled 46.1 RDW Coeff of Bennett Cancelled 13.9 Plt Count Cancelled 340 MPV Cancelled 9.0 L Immature Gran % (Auto) Cancelled 3.5 Neut % (Auto) Cancelled 69.0 Lymph % (Auto) Cancelled 14.9 [place] % (Auto) Cancelled 11.5 Eos % (Auto) Cancelled 0.4 Baso % (Auto) Cancelled 0.7 Neut # (Auto) Cancelled 21.25 H Lymph # (Auto) Cancelled 4.58 H [place] # (Auto) Cancelled 3.55 H Eos # (Auto) Cancelled 0.13 Baso # (Auto) Cancelled 0.21 H Immature Gran # (Auto) Cancelled 1.07 H Absolute Nucleated RBC Cancelled Nucleated RBC % (auto) Cancelled Neutrophils % (Manual) Cancelled Band Neutrophils % Cancelled Lymphocytes % (Manual) Cancelled Prolymphocyte % Cancelled Reactive Lymphs % (Man) Cancelled Monocytes % (Manual) Cancelled Eosinophils % (Manual) Cancelled Basophils % (Manual) Cancelled Metamyelocytes % (Man) Cancelled Myelocytes % (Man) Cancelled Promyelocytes % (Man) Cancelled Blast Cells % (Manual) Cancelled Plasma Cell % (Manual) Cancelled Other Cells % Cancelled Nucleated RBC % Cancelled Neutrophils # (Manual) Cancelled Band Neutrophils # Cancelled Total Absolute Neuts Cancelled Lymphocytes # (Manual) Cancelled Prolymphocyte # Cancelled Reactive Lymphs # Cancelled Total Abs Lymphocytes Cancelled Monocytes # (Manual) Cancelled Eosinophils # (Manual) Cancelled Basophils # (Manual) Cancelled Metamyelocytes # (Man) Cancelled Myelocytes # (Manual) Cancelled Promyelocytes # (Man) Cancelled Blast Cells # (Man) Cancelled Plasma Cell # (Manual) Cancelled Other Cells # Cancelled Nucleated RBCs # (Man) Cancelled Hypersegmented Neuts Cancelled Hyposegmented Neuts Cancelled Hypogranular Neuts Cancelled Large Granular Lymphs Cancelled # Lrg Granular Lymphs Cancelled Hairy Cells Cancelled Smudge Cells Cancelled Toxic Granulation Cancelled Toxic Vacuolation Cancelled Dohle Bodies Cancelled Tevin Rods Cancelled Platelet Estimate Cancelled Hypogranular Platelets Cancelled Giant Platelets Cancelled Platelet Satelliting Cancelled RBC Morphology Cancelled Polychromasia Cancelled Hypochromasia Cancelled Poikilocytosis Cancelled Basophilic Stippling Cancelled Anisocytosis Cancelled Microcytosis Cancelled Macrocytosis Cancelled Spherocytes Cancelled Pappenheimer Bodies Cancelled Sickle Cells Cancelled Target Cells Cancelled Tear Drop Cells Cancelled Ovalocytes Cancelled Stomatocytes Cancelled [place] Bodies Cancelled Echinocytes Cancelled 1+ Acanthocytes (Spur) Cancelled Rouleaux Cancelled RBC Agglutinates Cancelled Schistocytes Cancelled Sezary Cell Cancelled PT Cancelled 11.0 INR Cancelled 1.0 VBG pH (7.36-7.41) VBG pCO2 (38-50) mmHg VBG pO2 mmHg VBG HCO3 TNP VBG O2 Saturation % VBG Base Excess TNP 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 POC Sodium (135-144) mmol/L Sodium Cancelled 136 POC Potassium (3.3-5.0) mmol/L Potassium Cancelled 4.5 POC Chloride (101-112) mmol/L Chloride Cancelled 105 Carbon Dioxide Cancelled 4 L* POC Total CO2 (24-31) mmol/L Anion Gap Cancelled 27 H POC Anion Gap (16-25) mmol/L POC BUN (7-18) mg/dl BUN Cancelled 18 Creatinine Cancelled 1.07 POC Creatinine (0.6-1.3) mg/dl Est Cr Clr Drug Dosing Cancelled 85.9 Est GFR ( Amer) Cancelled 106.6 Est GFR (Non-Af Amer) Cancelled 92.0 BUN/Creatinine Ratio Cancelled 16.8 Glucose Cancelled 512 H* POC Glucose > 600 H* (70-99) mg/dl POC Glucose (other) (70-99) mg/dl Lactate (0.4-2.0) mmol/L Calcium Cancelled 7.9 L POC Ioniz Calcium Franca (1.12-1.32) mmol/l Phosphorus (2.5-4.9) mg/dl Magnesium (1.7-2.4) mg/dl Total Bilirubin Cancelled 0.3 AST Cancelled 15 ALT Cancelled 18 Alkaline Phosphatase Cancelled 116 H Total Protein Cancelled 6.6 Albumin Cancelled 4.3 Globulin Cancelled 2.3 L Albumin/Globulin Ratio Cancelled 1.9 Lipase Cancelled 251 H Procalcitonin 0.24 (0-0.5) ng/ml Blood Parasites ID Cancelled 05/13/24 05/13/24 05/13/24 Range/Units 19:51 19:53 20:48 WBC RBC Hgb POC Hgb 14.6 (14.0-18.0) g/dl Hct POC Hct 43 (42-52) % MCV MCH MCHC RDW Std Deviation RDW Coeff of Bennett Plt Count MPV Immature Gran % (Auto) Neut % (Auto) Lymph % (Auto) [place] % (Auto) Eos % (Auto) Baso % (Auto) Neut # (Auto) Lymph # (Auto) [place] # (Auto) Eos # (Auto) Baso # (Auto) Immature Gran # (Auto) Absolute Nucleated RBC Nucleated RBC % (auto) Neutrophils % (Manual) Band Neutrophils % Lymphocytes % (Manual) Prolymphocyte % Reactive Lymphs % (Man) Monocytes % (Manual) Eosinophils % (Manual) Basophils % (Manual) Metamyelocytes % (Man) Myelocytes % (Man) Promyelocytes % (Man) Blast Cells % (Manual) Plasma Cell % (Manual) Other Cells % Nucleated RBC % Neutrophils # (Manual) Band Neutrophils # Total Absolute Neuts Lymphocytes # (Manual) Prolymphocyte # Reactive Lymphs # Total Abs Lymphocytes Monocytes # (Manual) Eosinophils # (Manual) Basophils # (Manual) Metamyelocytes # (Man) Myelocytes # (Manual) Promyelocytes # (Man) Blast Cells # (Man) Plasma Cell # (Manual) Other Cells # Nucleated RBCs # (Man) Hypersegmented Neuts Hyposegmented Neuts Hypogranular Neuts Large Granular Lymphs # Lrg Granular Lymphs Hairy Cells Smudge Cells Toxic Granulation Toxic Vacuolation Dohle Bodies Tevin Rods Platelet Estimate Hypogranular Platelets Giant Platelets Platelet Satelliting RBC Morphology Polychromasia Hypochromasia Poikilocytosis Basophilic Stippling Anisocytosis Microcytosis Macrocytosis Spherocytes Pappenheimer Bodies Sickle Cells Target Cells Tear Drop Cells Ovalocytes Stomatocytes [place] Bodies Echinocytes Acanthocytes (Spur) Rouleaux RBC Agglutinates Schistocytes Sezary Cell PT INR VBG pH < 7.00 L < 7.00 L (7.36-7.41) VBG pCO2 25 L (38-50) mmHg VBG pO2 65 mmHg VBG HCO3 TNP VBG O2 Saturation 92.1 % VBG Base Excess TNP Barometric Pressure POC Sodium 138 (135-144) mmol/L Sodium 137 POC Potassium 4.5 (3.3-5.0) mmol/L Potassium 4.5 POC Chloride 113 H (101-112) mmol/L Chloride 103 Carbon Dioxide 5 L* POC Total CO2 6 L* (24-31) mmol/L Anion Gap 29 H POC Anion Gap 24.0 (16-25) mmol/L POC BUN 16 (7-18) mg/dl BUN 18 Creatinine 1.06 POC Creatinine 0.8 (0.6-1.3) mg/dl Est Cr Clr Drug Dosing 86.7 Est GFR ( Amer) 107.9 Est GFR (Non-Af Amer) 93.1 BUN/Creatinine Ratio 17.0 Glucose 516 H* POC Glucose (70-99) mg/dl POC Glucose (other) 517 H* (70-99) mg/dl Lactate (0.4-2.0) mmol/L Calcium 8.3 L POC Ioniz Calcium Franca 1.14 (1.12-1.32) mmol/l Phosphorus 5.3 H (2.5-4.9) mg/dl Magnesium 2.0 (1.7-2.4) mg/dl Total Bilirubin AST ALT Alkaline Phosphatase Total Protein Albumin Globulin Albumin/Globulin Ratio Lipase Procalcitonin (0-0.5) ng/ml Blood Parasites ID 05/13/24 Range/Units 20:50 WBC RBC Hgb POC Hgb (14.0-18.0) g/dl Hct POC Hct (42-52) % MCV MCH MCHC RDW Std Deviation RDW Coeff of Bennett Plt Count MPV Immature Gran % (Auto) Neut % (Auto) Lymph % (Auto) [place] % (Auto) Eos % (Auto) Baso % (Auto) Neut # (Auto) Lymph # (Auto) [place] # (Auto) Eos # (Auto) Baso # (Auto) Immature Gran # (Auto) Absolute Nucleated RBC Nucleated RBC % (auto) Neutrophils % (Manual) Band Neutrophils % Lymphocytes % (Manual) Prolymphocyte % Reactive Lymphs % (Man) Monocytes % (Manual) Eosinophils % (Manual) Basophils % (Manual) Metamyelocytes % (Man) Myelocytes % (Man) Promyelocytes % (Man) Blast Cells % (Manual) Plasma Cell % (Manual) Other Cells % Nucleated RBC % Neutrophils # (Manual) Band Neutrophils # Total Absolute Neuts Lymphocytes # (Manual) Prolymphocyte # Reactive Lymphs # Total Abs Lymphocytes Monocytes # (Manual) Eosinophils # (Manual) Basophils # (Manual) Metamyelocytes # (Man) Myelocytes # (Manual) Promyelocytes # (Man) Blast Cells # (Man) Plasma Cell # (Manual) Other Cells # Nucleated RBCs # (Man) Hypersegmented Neuts Hyposegmented Neuts Hypogranular Neuts Large Granular Lymphs # Lrg Granular Lymphs Hairy Cells Smudge Cells Toxic Granulation Toxic Vacuolation Dohle Bodies Tevin Rods Platelet Estimate Hypogranular Platelets Giant Platelets Platelet Satelliting RBC Morphology Polychromasia Hypochromasia Poikilocytosis Basophilic Stippling Anisocytosis Microcytosis Macrocytosis Spherocytes Pappenheimer Bodies Sickle Cells Target Cells Tear Drop Cells Ovalocytes Stomatocytes [place] Bodies Echinocytes Acanthocytes (Spur) Rouleaux RBC Agglutinates Schistocytes Sezary Cell PT INR VBG pH (7.36-7.41) VBG pCO2 (38-50) mmHg VBG pO2 mmHg VBG HCO3 VBG O2 Saturation % VBG Base Excess Barometric Pressure POC Sodium (135-144) mmol/L Sodium POC Potassium (3.3-5.0) mmol/L Potassium POC Chloride (101-112) mmol/L Chloride Carbon Dioxide POC Total CO2 (24-31) mmol/L Anion Gap POC Anion Gap (16-25) mmol/L POC BUN (7-18) mg/dl BUN Creatinine POC Creatinine (0.6-1.3) mg/dl Est Cr Clr Drug Dosing Est GFR ( Amer) Est GFR (Non-Af Amer) BUN/Creatinine Ratio Glucose POC Glucose (70-99) mg/dl POC Glucose (other) (70-99) mg/dl Lactate 4.2 H* (0.4-2.0) mmol/L Calcium POC Ioniz Calcium Franca (1.12-1.32) mmol/l Phosphorus (2.5-4.9) mg/dl Magnesium (1.7-2.4) mg/dl Total Bilirubin AST ALT Alkaline Phosphatase Total Protein Albumin Globulin Albumin/Globulin Ratio Lipase Procalcitonin (0-0.5) ng/ml Blood Parasites ID Administered Medications Insulin Human Regular 250 (units/ Sodium Chloride) 250 mls @ 6 mls/hr IV .Q24H RENETTA; Protocol Stop: 06/12/24 20:29 Last Admin: 05/13/24 20:59 Dose: 6 units/hr, 6 mls/hr Documented By: KT Co-signed By: IDD Sodium Bicarbonate 150 meq/ (Dextrose) 1,150 mls @ 200 mls/hr IV .Q5H45M RENETTA Stop: 06/12/24 20:29 Last Admin: 05/13/24 20:59 Dose: 200 mls/hr Documented By: PEDRO Parenteral Electrolytes (Plasma-Lyte A Ph 7.4) 2,000 mls @ 999 mls/hr IV .Q2H1M ONE Stop: 05/13/24 23:00 Last Admin: 05/13/24 21:05 Dose: 999 mls/hr Documented By: PEDRO Discontinued Medications Sodium Chloride (Nss) 1,000 mls @ 999 mls/hr IV .Q1H1M STA Stop: 05/13/24 19:24 Last Infusion: 05/13/24 19:26 Dose: Infused Documented By: Admin: 05/13/24 18:47 Dose: 999 mls/hr Documented By: JOCELYNN Sodium Chloride (Nss) 1,000 mls @ 999 mls/hr IV .Q1H1M ONE Stop: 05/13/24 19:24 Last Infusion: 05/13/24 20:42 Dose: Infused Documented By: Admin: 05/13/24 18:47 Dose: 999 mls/hr Documented By: JOCELYNN Sodium Chloride (Nss) 1,000 mls @ 999 mls/hr IV .Q1H1M ONE Stop: 05/13/24 20:00 Last Infusion: 05/13/24 20:42 Dose: Infused Documented By: Admin: 05/13/24 19:27 Dose: 999 mls/hr Documented By: JOCELYNN Bellamy (Stat Iv Infusion Titration Per Protocol) 1 each N/A NOW STA Stop: 05/13/24 20:28 Last Admin: 05/13/24 20:59 Dose: 1 each Documented By: PEDRO Pelletieraneous (Stat Iv/Im) 1 each N/A NOW STA Stop: 05/13/24 20:29 Last Admin: 05/13/24 20:59 Dose: 1 each Documented By: PEDRO Ondansetron HCl (Ondansetron Inj 2 Mg/Ml 2 Ml Vial) 4 mg IV NOW STA Stop: 05/13/24 18:25 Last Admin: 05/13/24 18:47 Dose: 4 mg Documented By: JOCELYNN Sodium Bicarbonate (Sodium Bicarb 8.4% Inj 50 Meq/50 Ml Syr) 50 meq IV NOW STA Stop: 05/13/24 19:09 Last Admin: 05/13/24 19:23 Dose: 50 meq Documented By: LKD Sodium Bicarbonate (Sodium Bicarb 8.4% Inj 50 Meq/50 Ml Syr) 50 meq IV NOW STA Stop: 05/13/24 20:30 Last Admin: 05/13/24 21:00 Dose: 50 meq Documented By: PEDRO Discharge Plan Visit Data Chief Complaint: Hyperglycemia Stated Complaint: BLOOD SUGAR ED Provider: Georges Talavera Discharge Problem: DKA (diabetic ketoacidosis) Forms Stand Alone Forms: [facility] Price Interactive Prescriptions Prescriptions: No Action insulin aspart U-100 100 unit/mL (3 mL) insulin pen 0 unit SUBCUT TIDM MDD 70 UNITS/DAILY insulin degludec [Tresiba FlexTouch U-100] 100 unit/mL (3 mL) insulin pen 26 unit SUBCUT DAILY Referrals Referrals: PCP,NO [Primary Care Provider] - Discharge Problem: DKA (diabetic ketoacidosis) Qualifiers: Diabetes mellitus type: other specified (including NINA) Diabetes mellitus complication detail: without coma Qualified Code(s): E13.10 - Other specified diabetes mellitus with ketoacidosis without coma
[2024-05-13] MEDS: SODIUM CHLORIDE 0.9% 1,000 ML IV ONE ×2 (18:47→19:27)
[2024-05-13] MEDS: ONDANSETRON INJ 2 MG/ML 2 ML VIAL IV STA ×2 (18:47→21:56)
[2024-05-13] MEDS: SODIUM CHLORIDE 0.9% 1,000 ML IV STA (18:47)
[2024-05-13] MEDS: SODIUM BICARB 8.4% INJ 50 MEQ/50 ML SYR IV STA ×2 (19:23→21:00)
[2024-05-13 20:03] LABS: iSTAT Creatinine 0.8 mg/dl (0.6-1.3); iSTAT Hemoglobin 14.6 g/dl (14.0-18.0); iSTAT Ionized Calcium 1.14 mmol/l (1.12-1.32); iSTAT Potassium 4.5 mmol/L (3.3-5.0)
[2024-05-13 20:04] LABS: Oxygen Saturation VBG 92.1 %; PCO2 VBG 25 mmHg (38-50); PO2 VBG 65 mmHg; pH VBG < 7.00 (7.36-7.41)
[2024-05-13 20:08] LABS: Hematocrit (blood only) 42.9 % (42.0-52.0); Mean Corpuscular Hemoglobin 31.4 pg (25.0-34.0); Mean Corpuscular Volume 89.9 fL (80.0-100.0); Platelet Count 340 K/uL (130-400); RDW Coefficient of Variation 13.9 % (11.5-14.5); RDW Standard Deviation 46.1 fL (36.4-46.3); Red Blood Count 4.77 M/uL (4.70-6.10); White Blood Count 30.79 K/ul (4.8-10.8)
[2024-05-13 20:26] LABS: Albumin Globulin Ratio 1.9 (0.9-2); Albumin Level 4.3 gm/dl (3.4-5.0); BUN Creatinine Ratio 16.8 (10-20); Bilirubin,Total 0.3 mg/dl (0.2-1.0); Calcium 7.9 mg/dl (8.6-10.3); Creatinine Clr Calc Pharmacy 85.9 ml/min; Est GFR (African American) 106.6 ml/min; Globulin 2.3 gm/dl (2.5-4.0); Potassium 4.5 mmol/L (3.5-5.1); Total Protein 6.6 gm/dl (6.0-8.3)
[2024-05-13] MEDS ORDERED: PHARMACY GLYCEMIC MGMT CONSULT PRN ×2 (20:27→22:50)
[2024-05-13 20:46] LABS: Basophils # (auto) 0.21 K/uL (0.00-0.20); Basophils % (auto) 0.7 %; Echinocytes 1+; Eosinophils # (auto) 0.13 K/uL (0.00-0.50); Eosinophils % (auto) 0.4 %; Immature Granulocytes # (auto) 1.07 K/uL (0.01-0.20); Immature Granulocytes % (auto) 3.5 %; Lymphocytes # (auto) 4.58 K/uL (1.20-3.40); Lymphocytes % (auto) 14.9 %; Monocytes # (auto) 3.55 K/uL (0.11-0.59); Monocytes % (auto) 11.5 %; Neutrophils # (auto) 21.25 K/uL (1.40-6.50)
[2024-05-13] MEDS: SODIUM BICARBONATE 8.4% 150 MEQ in DEXTROSE 5% 1,000 ML IV SCH (20:59)
[2024-05-13] MEDS: INSULIN REGULAR 250 UNITS in SODIUM CHLORIDE 0.9% 247.5 ML IV SCH (20:59)
[2024-05-13] MEDS: STAT IV/IM STA (20:59)
[2024-05-13] MEDS: STAT IV Infusion **Titration per Protocol STA (20:59)
[2024-05-13] MEDS ORDERED: INSULIN ASPART PER UNIT CHARGE SC SCH (21:00)
--- NOTE | 2024-05-13 21:02 | History & Physical Report ---
Date of Service May 13, 2024 Assessment & Plan (1) DKA (diabetic ketoacidosis): Plan: 33yo male with history of Type I DM presenting with DKA. Patient reports feeling ill for the last 2-3 days with diarrhea and abdominal pain. He has not been taking his insulin as prescribed due to insurance issues. Initial blood work with pH < 7, HCO3 =4 , AG=27 and BYD=353 Patient has been given 3L NSS and 2 additional liters of Plasmalyte ordered Insulin gtt and HCO3 gtt have been started in the ER -Admit to MICU -Continue IVF resuscitation -Continue Insulin gtt per DKA protocol -Continue HCO3 gtt for now - may DC pending next set of labs -Glycemic management consultation appreciated -Monitor BMP, VBG, Mg and PO4 q 4 hours -Check EtOH and serum osmolality -Zofran PRN -Case management consultation re: insurance and medication issues (2) Diarrhea: Plan: Patient reports 2-3 days of diarrhea and abdominal pain preceding DKA. Concerning leukocytosis with WBC=30.79 with neutrophil predominance and bands present. Lipase is mildly elevated at 251 -Check stool for c. diff -Check CT Abdomen -Will hold off on antibiotics for now (3) Leukocytosis: Plan: Patient with neutrophil predominant leukocytosis with bands. -Check UA with culture -Blood cultures x 2 sets -CT abdomen -Will hold antibiotics for now F/E/N - IVF per DKA protocol - Plasmalyte at 150mL/hr with pending KCl and dextrose, monitor BMP/Mg q 4 hours, NPO for now PPx - Lovenox for DVT prophylaxis Code - Full Code Dispo - Admit to MICU History of Present Illness Chief Complaint: DKA Primary Care Provider: NO PCP Wesley Perez is a 33yo male with Type-I DM x 3 years presenting with DKA. Aunt and Cousin are at bedside and provide some history as well. Patient lives with his brother. Patient reports 2-3 days of abdominal pain and diarrhea. No reported fever, chills, chest pain. His brother called his Aunt and Cousin today and they came to pick the patient up because he was doing poorly. Patient recently lost his insurance and has not been taking his insulin as directed. ER Course: NSS x 3L NaHCO3 50mEq x 2 NaHCO3 gtt Insulin gtt Zofran 4mg IV Plasmalyte 2L bolus ordered Allergies Allergy/AdvReac Type Severity Reaction Status Date / Time No Known Allergies Allergy Verified 05/13/24 19:24 Home Medications Medication Instructions Recorded Confirmed Type insulin aspart U-100 100 unit/mL 0 unit subcut TIDM 05/13/24 05/13/24 History (3 mL) subcutaneous pen insulin degludec 100 unit/mL (3 26 unit subcut DAILY 05/13/24 05/13/24 History mL) subcutaneous pen (Tresiba FlexTouch U-100 insulin) Past Med/Surg History Problem List (Updated 05/13/24 @ 22:39 by Basilia Adkins DO) Leukocytosis Diarrhea SIRS (systemic inflammatory response syndrome) High anion gap metabolic acidosis DKA (diabetic ketoacidosis) (Acute) Medical History Insulin dependent type 1 diabetes mellitus Family History Other Family history non-contributory Social History Smoking Status: Unknown if ever smoked Feels Safe at Home: Yes Review of Systems Review of Systems: All systems reviewed & are unremarkable except as noted in HPI & below Physical Exam Physical Exam: General: patient ill in appearance, able to answer questions Skin: psoriasis patches noted on left hip and gluteal cleft HEENT: NC/AT, PERRL, EOMI, anicteric sclera, conjunctiva without injection, external ear normal to inspection and nontender, nares patent, DRY mucus membranes, dentition intact, no oropharyngeal lesions, neck supple, trachea midline, no LAD, no thyromegaly, no JVD Heart: +S1/S2, regular, tachycardic, no m/r/g Lungs: +[place] Breathing, equal air entry bilaterally, no rales/rhonchi/wheezes Abd: +BS, soft, NT/ND, no masses/organomegaly/ascites Ext: warm, 2+ pulses in UE/LE bilaterally, no clubbing/cyanosis or edema Neuro: patient somnolent, able to answer questions, moving all extremities with equal strength Results & Data Results & Data Vital Signs (Past 12 Hours) Vital Signs Temp Pulse Resp BP Pulse Ox O2 Del Method 05/13/24 19:13 36.0 C L 05/13/24 18:51 130 H 05/13/24 18:24 100 Room Air 05/13/24 18:24 134 H 26 H 122/90 100 Room Air Laboratory Results Laboratory Results WBC 30.79 K/ul (4.8-10.8) H* 05/13/24 19:48 RBC 4.77 M/uL (4.70-6.10) 05/13/24 19:48 Hgb 15.0 g/dl (14.0-18.0) 05/13/24 19:48 POC Hgb 14.6 g/dl (14.0-18.0) 05/13/24 19:51 Hct 42.9 % (42.0-52.0) 05/13/24 19:48 POC Hct 43 % (42-52) 05/13/24 19:51 MCV 89.9 fL (80.0-100.0) 05/13/24 19:48 MCH 31.4 pg (25.0-34.0) 05/13/24 19:48 MCHC 35.0 g/dL (32.0-36.0) 05/13/24 19:48 RDW Std Deviation 46.1 fL (36.4-46.3) 05/13/24 19:48 RDW Coeff of Bennett 13.9 % (11.5-14.5) 05/13/24 19:48 Plt Count 340 K/uL (130-400) 05/13/24 19:48 MPV 9.0 fL (9.4-12.4) L 05/13/24 19:48 Immature Gran % (Auto) 3.5 % 05/13/24 19:48 Neut % (Auto) 69.0 % 05/13/24 19:48 Lymph % (Auto) 14.9 % 05/13/24 19:48 [place] % (Auto) 11.5 % 05/13/24 19:48 Eos % (Auto) 0.4 % 05/13/24 19:48 Baso % (Auto) 0.7 % 05/13/24 19:48 Neut # (Auto) 21.25 K/uL (1.40-6.50) H 05/13/24 19:48 Lymph # (Auto) 4.58 K/uL (1.20-3.40) H 05/13/24 19:48 [place] # (Auto) 3.55 K/uL (0.11-0.59) H 05/13/24 19:48 Eos # (Auto) 0.13 K/uL (0.00-0.50) 05/13/24 19:48 Baso # (Auto) 0.21 K/uL (0.00-0.20) H 05/13/24 19:48 Immature Gran # (Auto) 1.07 K/uL (0.01-0.20) H 05/13/24 19:48 Absolute Nucleated RBC Cancelled 05/13/24 18:31 Nucleated RBC % (auto) Cancelled 05/13/24 18:31 Neutrophils % (Manual) Cancelled 05/13/24 18:31 Band Neutrophils % Cancelled 05/13/24 18:31 Lymphocytes % (Manual) Cancelled 05/13/24 18:31 Prolymphocyte % Cancelled 05/13/24 18:31 Reactive Lymphs % (Man) Cancelled 05/13/24 18:31 Monocytes % (Manual) Cancelled 05/13/24 18:31 Eosinophils % (Manual) Cancelled 05/13/24 18:31 Basophils % (Manual) Cancelled 05/13/24 18:31 Metamyelocytes % (Man) Cancelled 05/13/24 18:31 Myelocytes % (Man) Cancelled 05/13/24 18:31 Promyelocytes % (Man) Cancelled 05/13/24 18:31 Blast Cells % (Manual) Cancelled 05/13/24 18:31 Plasma Cell % (Manual) Cancelled 05/13/24 18:31 Other Cells % Cancelled 05/13/24 18:31 Nucleated RBC % Cancelled 05/13/24 18:31 Neutrophils # (Manual) Cancelled 05/13/24 18:31 Band Neutrophils # Cancelled 05/13/24 18:31 Total Absolute Neuts Cancelled 05/13/24 18:31 Lymphocytes # (Manual) Cancelled 05/13/24 18:31 Prolymphocyte # Cancelled 05/13/24 18:31 Reactive Lymphs # Cancelled 05/13/24 18:31 Total Abs Lymphocytes Cancelled 05/13/24 18:31 Monocytes # (Manual) Cancelled 05/13/24 18:31 Eosinophils # (Manual) Cancelled 05/13/24 18:31 Basophils # (Manual) Cancelled 05/13/24 18:31 Metamyelocytes # (Man) Cancelled 05/13/24 18:31 Myelocytes # (Manual) Cancelled 05/13/24 18:31 Promyelocytes # (Man) Cancelled 05/13/24 18:31 Blast Cells # (Man) Cancelled 05/13/24 18:31 Plasma Cell # (Manual) Cancelled 05/13/24 18:31 Other Cells # Cancelled 05/13/24 18:31 Nucleated RBCs # (Man) Cancelled 05/13/24 18:31 Hypersegmented Neuts Cancelled 05/13/24 18:31 Hyposegmented Neuts Cancelled 05/13/24 18:31 Hypogranular Neuts Cancelled 05/13/24 18:31 Large Granular Lymphs Cancelled 05/13/24 18:31 # Lrg Granular Lymphs Cancelled 05/13/24 18:31 Hairy Cells Cancelled 05/13/24 18:31 Smudge Cells Cancelled 05/13/24 18:31 Toxic Granulation Cancelled 05/13/24 18:31 Toxic Vacuolation Cancelled 05/13/24 18:31 Dohle Bodies Cancelled 05/13/24 18:31 Tevin Rods Cancelled 05/13/24 18:31 Platelet Estimate Cancelled 05/13/24 18:31 Hypogranular Platelets Cancelled 05/13/24 18:31 Giant Platelets Cancelled 05/13/24 18:31 Platelet Satelliting Cancelled 05/13/24 18:31 RBC Morphology Cancelled 05/13/24 18:31 Polychromasia Cancelled 05/13/24 18:31 Hypochromasia Cancelled 05/13/24 18:31 Poikilocytosis Cancelled 05/13/24 18:31 Basophilic Stippling Cancelled 05/13/24 18:31 Anisocytosis Cancelled 05/13/24 18:31 Microcytosis Cancelled 05/13/24 18:31 Macrocytosis Cancelled 05/13/24 18:31 Spherocytes Cancelled 05/13/24 18:31 Pappenheimer Bodies Cancelled 05/13/24 18:31 Sickle Cells Cancelled 05/13/24 18:31 Target Cells Cancelled 05/13/24 18:31 Tear Drop Cells Cancelled 05/13/24 18:31 Ovalocytes Cancelled 05/13/24 18:31 Stomatocytes Cancelled 05/13/24 18:31 [place] Bodies Cancelled 05/13/24 18:31 Echinocytes 1+ 05/13/24 19:48 Acanthocytes (Spur) Cancelled 05/13/24 18:31 Rouleaux Cancelled 05/13/24 18:31 RBC Agglutinates Cancelled 05/13/24 18:31 Schistocytes Cancelled 05/13/24 18:31 Sezary Cell Cancelled 05/13/24 18:31 PT 11.0 Seconds (9.0-12.0) 05/13/24 19:48 INR 1.0 (0.9-1.1) 05/13/24 19:48 VBG pH < 7.00 (7.36-7.41) L 05/13/24 20:48 VBG pCO2 25 mmHg (38-50) L 05/13/24 19:53 VBG pO2 65 mmHg 05/13/24 19:53 VBG HCO3 TNP 05/13/24 19:53 VBG O2 Saturation 92.1 % 05/13/24 19:53 VBG Base Excess TNP 05/13/24 19:53 Barometric Pressure OPTOMETRIC TECHNICIAN 05/13/24 18:31 POC Sodium 138 mmol/L (135-144) 05/13/24 19:51 Sodium 137 mmol/L (136-145) 05/13/24 20:48 POC Potassium 4.5 mmol/L (3.3-5.0) 05/13/24 19:51 Potassium 4.5 mmol/L (3.5-5.1) 05/13/24 20:48 POC Chloride 113 mmol/L (101-112) H 05/13/24 19:51 Chloride 103 mmol/L (98-107) 05/13/24 20:48 Carbon Dioxide 5 mmol/L (21-32) L* 05/13/24 20:48 POC Total CO2 6 mmol/L (24-31) L* 05/13/24 19:51 Anion Gap 29 (3-11) H 05/13/24 20:48 POC Anion Gap 24.0 mmol/L (16-25) 05/13/24 19:51 POC BUN 16 mg/dl (7-18) 05/13/24 19:51 BUN 18 mg/dl (6-23) 05/13/24 20:48 Creatinine 1.06 mg/dl (0.6-1.4) 05/13/24 20:48 POC Creatinine 0.8 mg/dl (0.6-1.3) 05/13/24 19:51 Est Cr Clr Drug Dosing 86.7 ml/min 05/13/24 20:48 Est GFR ( Amer) 107.9 ml/min 05/13/24 20:48 Est GFR (Non-Af Amer) 93.1 ml/min 05/13/24 20:48 BUN/Creatinine Ratio 17.0 (10-20) 05/13/24 20:48 Glucose 516 mg/dl (70-99(Fasting)) H* 05/13/24 20:48 POC Glucose 507 mg/dl (70-99) H* 05/13/24 21:56 POC Glucose (other) 517 mg/dl (70-99) H* 05/13/24 19:51 Osmolality 331 mOsm/kg (280-300) H 05/13/24 19:48 Lactate 4.2 mmol/L (0.4-2.0) H* 05/13/24 20:50 Calcium 8.3 mg/dl (8.6-10.3) L 05/13/24 20:48 POC Ioniz Calcium Franca 1.14 mmol/l (1.12-1.32) 05/13/24 19:51 Phosphorus 5.3 mg/dl (2.5-4.9) H 05/13/24 20:48 Magnesium 2.0 mg/dl (1.7-2.4) 05/13/24 20:48 Total Bilirubin 0.3 mg/dl (0.2-1.0) 05/13/24 19:48 AST 15 U/L (13-39) 05/13/24 19:48 ALT 18 U/L (7-52) 05/13/24 19:48 Alkaline Phosphatase 116 U/L (34-104) H 05/13/24 19:48 Total Protein 6.6 gm/dl (6.0-8.3) 05/13/24 19:48 Albumin 4.3 gm/dl (3.4-5.0) 05/13/24 19:48 Globulin 2.3 gm/dl (2.5-4.0) L 05/13/24 19:48 Albumin/Globulin Ratio 1.9 (0.9-2) 05/13/24 19:48 Lipase 251 U/L (11-82) H 05/13/24 19:48 Procalcitonin 0.24 ng/ml (0-0.5) 05/13/24 19:48 Blood Parasites ID Cancelled 05/13/24 18:31 Diagnostic Findings CXR - per my interpretation, trachea midline, normal appearing cardiac shadow, normal lungs with no obvious edema, infiltrate or PTX ECG Additional Comments: EKG with ST at 131bpm, normal axis, BU=434, QRS=90, WOd=494, non-specific changes, no acute ischemia PG Care Time/CCT Total # of Minutes Spent Total Time Spent with Patient: Total time spent is greater than 50% in coordination of care (as documented) at patient's floor/unit and/or counseling patient: Coding Level of Care Code 54684 INT INP/OBS CARE 375MIN Diagnoses DKA (diabetic ketoacidosis) E13.10 Diabetes mellitus complication detail: without coma Diabetes mellitus type: other specified (including NINA) Diarrhea R19.7 Leukocytosis D72.829 (1) DKA (diabetic ketoacidosis) Diabetes mellitus complication detail: without coma Diabetes mellitus type: other specified (including NINA) Qualified Code(s): E13.10 - Other specified diabetes mellitus with ketoacidosis without coma
[2024-05-13] MEDS: PLASMA-LYTE A 2,000 ML IV ONE (21:05)
[2024-05-13 21:25] LABS: Calcium 8.3 mg/dl (8.6-10.3); Creatinine Clr Calc Pharmacy 86.7 ml/min; Est GFR (African American) 107.9 ml/min; Est GFR (Non-African American) 93.1 ml/min; Phosphorus 5.3 mg/dl (2.5-4.9); Potassium 4.5 mmol/L (3.5-5.1)
--- NOTE | 2024-05-13 22:10 | Critical Care Consultation ---
Date of Consultation May 13, 2024 Assessment & Plan (1) DKA (diabetic ketoacidosis): (2) Leukocytosis: Plan Reason Critically Ill: 33 YOM presents to the EMD meeting SIRS criteria with possible GI illness, however is found with severe acidosis and elevated glucose consistent with DKA- which at this time may be multifactorial to include non compliance secondary to financial reasons as well as possible infective source. Neuro - Metabolic encephalopathy CAM ICU: Negative - non focal exam, this should improve with correction of fluid volume status as well as acid base disturbance Cardiac - SIRS, Hypovolemia secondary to DKA - SIRS- see ID section below - Received 2 Liters crystalloid in EMD- arrived with 2 liters of plasmalyte ready to be infused, but not running- provide these 2 liters and re-evaluate- will likely need another 1-2 liters bolus Respiratory - No acute needs - CXR per my interpretation is without opacities, pulmonary edema, no pneumomediastinum or pneumothorax noted GI - Abdominal pain with diarrhea and constipation - 2-3 days leading up to hospitalization today- associated with fevers and chills at home- noted with Leukocytosis and bands - C. Diff sent by primary service- pending - Reports constipation leading up to diarrhea as well- likely related to gastropareses and volume status - CT abd/pelvis pending - Lipase 251- however this is likely related to his hypovolemic state vs. actual pancreatitis RENAL/LYTES - FABI, HGAP Metabolic Acidosis, Respiratory Acidosis, Lactic Acidosis - Possibly with FABI secondary to pre-renal hypovolemia however is without baseline [employer] in system- may also be complication from poorly managed diabetes - Trend renal function - HGAP metabolic acidosis, with secondary respiratory acidosis, and lactic acidosis- likely secondary to DKA at this time - Osmolality 331- osmolar gap 15 - patient history would not suggest ingestion gap likely related to lactate - Continue supportive care- continue isotonic bicarb for 1 liter at this time and then change to LR with KCL - No acute needs ENDO - DKA, DMI - DKA multifactorial at this time - however financial burden will play role moving forward - case management consultation appreciated for assistance navigating costs for patient. - DKA insulin drip per protocol - goal not to decrease BG > 150 per hour- likely need 0.05-0.1 units/kg/hour - Electrolyte replace aggressively HEME - Leukocytosis with left shift - As above per GI section - CT A/P - Consider adding empiric GI coverage - ID - SIRS - concern for some GI involvement viral vs. bacterial vs. stercoral colitis with elevated leukocytosis with bands - CXR clear - CT A/P - Blood cultures pending - C Diff pending - urine pending - abx- Zosyn 4.5 GM IV q8 - empiric LINES/IV ACCESS - PIV Continue use of thes lines DVT PROPHYLAXIS - SCDS, Lovenox 40mg daily DISPO: ICU until acid base is with HCO3 18 or > and PH >7.28 and blood glucose better controlled I have personally spent 50 minutes of critical care time in the direct manageme nt of this patient. This is a life/limb threatening event. This includes time spent evaluating patient, direct bedside care, chart review, placing orders, interpretation of diagnostic studies, discussion with consultants, patient, and family members, as well as other required patient management activities. This time is exclusive of all separately billable procedures, and teaching time and separate from and in addition to any other critical care service time. Thank you for allowing us to participate in the care of this patient. Please refer to my attending physician's documentation for any further recommendations. Supervising Physician Co-Signing Physician Notes Patient seen and examined. EMR reviewed. Discussed with critical care GEORGE and agree with assessment plan as noted. Please refer to my progress note from 05/14/2024 for full details History of Present Illness Reason for Consultation: HAGAP Metabolic Acidosis- DKA Requesting Physician: Basilia Adkins D.O. Attending Physician: Basilia Adkins D.O. History of Present Illness 33 YOM with no previous medical records in our system available for review. Medical history of DM I currently endorses no other medications. Patient reports that for the past 2-3 days he has been having diarrhea, fevers, chills, and today started with nausea and vomiting, this is associated with generalized abdominal pain and appears to have been preceded by constipation. He also endorses that he stopped taking his insulin regularly and has been rationing it, secondary to not being able to afford it. 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 Overall the patient is sick appearing, encephalopathic, covered with multiple blankets and still feeling cold. He arrived to the EMD via EMS, he was noted to be tachycardic and reported BG >600 by EMS. In the EMD the patient had routine labs drawn, to include lipase and LFTS, he was noted with Leukocytosis with neutrophil predominance and immature bands He was given 2L of crystalloid, had blood cultures obtained, and initiated on insulin infusion. His PH was <7.0 and was given amp of HCO3- 8.4% as well as started on an isotonic bicarb infusion. He was evaluated by hospitalist for admission- PCT was added as well as pending CXR and CT abdomen and pelvis for evaluation of infective source. Asked to provide 2 more liters of crystalloid boluses in the form of plasmalyte. Patient will be admitted to the ICU for continued care of his DKA, following of his metabolic acidosis, hemodynamics and continue evaluation for possible infective source. CODE: FULL Allergies Allergy/AdvReac Type Severity Reaction Status Date / Time bee venom protein (honey bee) Allergy Severe Difficulty Verified 05/14/24 07:33 Breathing Home Medications Medication Instructions Recorded Confirmed Type blood sugar diagnostic (OneTouch #200 ea 02/10/23 08/21/23 Rx Ultra Test strips) lancets 33 gauge (OneTouch Delica #200 ea 02/10/23 08/21/23 Rx Plus Lancet) blood sugar diagnostic (OneTouch #100 ea 02/18/23 08/21/23 Rx Ultra Test strips) blood-glucose meter (OneTouch #1 ea 02/18/23 08/21/23 Rx Ultra2 Meter) blood-glucose meter,continuous #1 ea 02/18/23 08/21/23 Rx (Dexcom G7 Booster Station Operator) lancets 33 gauge (OneTouch Delica #100 ea 02/18/23 08/21/23 Rx Lancets) insulin syringes (disposable) 1 mL #100 ea 08/19/23 08/21/23 Rx pen needle, diabetic 32 gauge x #450 ea 03/22/24 Rx 5/32" (BD Akiko 2nd Gen Pen Needle) Zofran 1 tab PO UD PRN n/v 04/06/24 04/06/24 History ibuprofen 200 mg tablet 200 mg PO UD PRN Pain 04/06/24 04/06/24 History acetone (urine) test (Ketostix #25 ea 04/07/24 04/07/24 Rx strips) blood-glucose sensor (Dexcom G7 #9 ea 04/07/24 04/07/24 Rx Sensor device) insulin aspart U-100 100 unit/mL See Rx Instructions subcut 04/07/24 04/07/24 Rx (3 mL) subcutaneous pen (Novolog USEASDIRECTD #15 mL FlexPen U-100 Insulin aspart) insulin aspart U-100 100 unit/mL 100 unit continuous subcutaneous 04/07/24 Rx subcutaneous solution (Novolog infusion DAILY #90 mL U-100 Insulin aspart) insulin degludec 100 unit/mL (3 26 unit (0.26 mL) subcut DAILY PRN 04/07/24 04/07/24 Rx mL) subcutaneous pen (Tresiba pump failure #15 mL FlexTouch U-100 insulin) insulin aspart U-100 100 unit/mL 0 unit subcut TIDM 05/13/24 05/13/24 History (3 mL) subcutaneous pen insulin degludec 100 unit/mL (3 26 unit subcut DAILY 05/13/24 05/13/24 History mL) subcutaneous pen (Tresiba FlexTouch U-100 insulin) Patient History Medical History (Updated 05/14/24 @ 07:33 by Makayla Farley) Insulin dependent type 1 diabetes mellitus Tobacco use disorder GERD (gastroesophageal reflux disease) Vomiting DKA (diabetic ketoacidosis) Surgical History (System 05/14/24 @ 07:33 by Makayla Farley) History of oral surgery History of esophagogastroduodenoscopy (EGD) [id number]? H/O inguinal hernia repair Family History (System 05/14/24 @ 07:33 by Makayla Farley) Grandfather (Maternal) Diabetes Alzheimer disease Grandfather (Paternal) Alzheimer disease Grandmother (Maternal) Alzheimer disease Dementia Grandfather (Maternal) Heart disease Myocardial infarction Stroke Other Family history non-contributory Denies family history of Ovarian cancer Prostate cancer Bipolar disorder Depression Kidney disease Breast cancer Lung cancer COPD (chronic obstructive pulmonary disease) Colorectal cancer Hypertension Colonic polyp Asthma Social History (System 05/14/24 @ 07:33 by Makayla Farley) Smoking Status: Never smoker Tobacco Type: Cigarettes Age Started Using Tobacco: 16; packs per day: 0.5; Cigarettes Per Day: 1-2 cigarette per day; Second Hand Exposure: No; Do You Dip or Chew Tobacco: No; Tobacco Cessation Education Requested by Patient: No Hx Alcohol Use: No Hx Substance Use: No Preferred Language: Czech Communication Ability: Effective Visual Impairment: No Limitations Hearing Ability: Normal Retort Furnace Helper Required: No Beliefs That Will Affect Care: None marital status: Single Current Living Situation: Family current occupational status: employed 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 How many Children do You have: 1 Other Information That Helps Us Care for You: No Feels Safe at Home: Yes Safety Concerns: Feels Safe At This Time Childhood Exposure to Second-Hand Smoke: Yes Dental Care, Regularly: No Seatbelt Use: sometimes Sunscreen Use: No Assistive Devices: None Review of Systems Review of Systems: REVIEW OF SYSTEMS: Constitutional: (+) subjective fever, sweats or chills Eyes: No diplopia, no worsening or blurred vision ENT: normal hearing, no trouble swallowing Respiratory: No cough, sputum, dyspnea at rest or on exertion Cardiovascular: No chest pain, tightness or palpitations Abdomen: (+) pain, nausea, vomiting, diarrhea, NO constipation Musculoskeletal: (+) mylagias, Neurologic: No focal weakness, numbness/tingling, or balance problems Psychiatric: No anxiety or depression Skin: No rash or itch Physical Exam Physical Exam: PHYSICAL EXAM: General: encephalopathic, fatigued appearing Head: Normocephalic, atraumatic ENT: PERRL, EOMI, no pharyngeal exudate, mucous membranes dry Neuro: AAO x 3, speech clear and appropriate, strength intact bilaterally 5/5, sensation intact and equal all extremities and dermatomes, no pronator drift Chest: equal rise and fall of the chest, no accessory muscle use, no heaves or thrills, tachypnea, Clear to auscultation, on room air, Cardiac: Regular rate and rhythm, telemetry reviewed- sinus tachycardia, skin warm dry, cap refill <3 seconds, peripheral pulses +2 no JVD, no murmur, no edema GI: NABS x 4 quadrants, soft, generalized tenderness, no rebound, guarding or tenderness : awaiting urine sample Skin: no rash or erythema Results & Data Results & Data Vital Signs (Past 12 Hours) Vital Signs Temp Pulse Pulse Resp BP BP Pulse Ox 05/13/24 21:00 132 H 20 98/69 L 98 05/13/24 19:13 36.0 C L 05/13/24 18:51 130 H 05/13/24 18:24 100 05/13/24 18:24 134 H 26 H 122/90 100 O2 Del Method 05/13/24 21:00 Room Air 05/13/24 19:13 05/13/24 18:51 05/13/24 18:24 Room Air 05/13/24 18:24 Room Air Laboratory Results Abnormal lab results 05/13/24 05/13/24 05/13/24 Range/Units 18:21 19:48 19:51 WBC 30.79 H* (4.8-10.8) K/ul MPV 9.0 L (9.4-12.4) fL Neut # (Auto) 21.25 H (1.40-6.50) K/uL Lymph # (Auto) 4.58 H (1.20-3.40) K/uL Ellis # (Auto) 3.55 H (0.11-0.59) K/uL Baso # (Auto) 0.21 H (0.00-0.20) K/uL Immature Gran # (Auto) 1.07 H (0.01-0.20) K/uL VBG pH (7.36-7.41) VBG pCO2 (38-50) mmHg POC Chloride 113 H (101-112) mmol/L Carbon Dioxide 4 L* (21-32) mmol/L POC Total CO2 6 L* (24-31) mmol/L Anion Gap 27 H (3-11) Glucose 512 H* (70-99(Fasting)) mg/dl POC Glucose > 600 H* (70-99) mg/dl POC Glucose (other) 517 H* (70-99) mg/dl Lactate (0.4-2.0) mmol/L Calcium 7.9 L (8.6-10.3) mg/dl Phosphorus (2.5-4.9) mg/dl Alkaline Phosphatase 116 H (34-104) U/L Globulin 2.3 L (2.5-4.0) gm/dl Lipase 251 H (11-82) U/L 05/13/24 05/13/24 05/13/24 Range/Units 19:53 20:48 20:50 WBC (4.8-10.8) K/ul MPV (9.4-12.4) fL Neut # (Auto) (1.40-6.50) K/uL Lymph # (Auto) (1.20-3.40) K/uL Ellis # (Auto) (0.11-0.59) K/uL Baso # (Auto) (0.00-0.20) K/uL Immature Gran # (Auto) (0.01-0.20) K/uL VBG pH < 7.00 L < 7.00 L (7.36-7.41) VBG pCO2 25 L (38-50) mmHg POC Chloride (101-112) mmol/L Carbon Dioxide 5 L* (21-32) mmol/L POC Total CO2 (24-31) mmol/L Anion Gap 29 H (3-11) Glucose 516 H* (70-99(Fasting)) mg/dl POC Glucose (70-99) mg/dl POC Glucose (other) (70-99) mg/dl Lactate 4.2 H* (0.4-2.0) mmol/L Calcium 8.3 L (8.6-10.3) mg/dl Phosphorus 5.3 H (2.5-4.9) mg/dl Alkaline Phosphatase (34-104) U/L Globulin (2.5-4.0) gm/dl Lipase (11-82) U/L 05/13/24 Range/Units 21:56 WBC (4.8-10.8) K/ul MPV (9.4-12.4) fL Neut # (Auto) (1.40-6.50) K/uL Lymph # (Auto) (1.20-3.40) K/uL Ellis # (Auto) (0.11-0.59) K/uL Baso # (Auto) (0.00-0.20) K/uL Immature Gran # (Auto) (0.01-0.20) K/uL VBG pH (7.36-7.41) VBG pCO2 (38-50) mmHg POC Chloride (101-112) mmol/L Carbon Dioxide (21-32) mmol/L POC Total CO2 (24-31) mmol/L Anion Gap (3-11) Glucose (70-99(Fasting)) mg/dl POC Glucose 507 H* (70-99) mg/dl POC Glucose (other) (70-99) mg/dl Lactate (0.4-2.0) mmol/L Calcium (8.6-10.3) mg/dl Phosphorus (2.5-4.9) mg/dl Alkaline Phosphatase (34-104) U/L Globulin (2.5-4.0) gm/dl Lipase (11-82) U/L Diagnostic Findings Abdomen/Pelvis CT 05/13/24 21:00 Exam(s): CT ABDOMEN + PELVIS Without Contrast EXAM: CT Abdomen and Pelvis Without Intravenous Contrast CLINICAL HISTORY: DKA and leukocytosis. TECHNIQUE: Axial computed tomography images of the abdomen and pelvis without intravenous contrast. CTDI is 11.86 mGy and DLP is 633.7 mGy-cm. Automated exposure control was utilized for the study. A dose lowering technique was utilized adhering to the principles of ALARA. COMPARISON: No relevant prior studies available. FINDINGS: Lung bases: Unremarkable. No mass. No consolidation. ABDOMEN: Liver: Unremarkable. Gallbladder and bile ducts: The gallbladder is unremarkable. No calcified stones. No ductal dilation. Pancreas: Unremarkable. No ductal dilation. Spleen: Unremarkable. No splenomegaly. Adrenals: Unremarkable. No mass. Kidneys and ureters: Unremarkable. No obstructing stones. No hydronephrosis. Stomach and bowel: Significant stool in the rectal vault is concerning for impaction. No obstruction. No mucosal thickening. PELVIS: Appendix: No findings to suggest acute appendicitis. Bladder: Unremarkable. No stones. Reproductive: Distended urinary bladder. ABDOMEN and PELVIS: Intraperitoneal space: Unremarkable. No free air. No significant fluid collection. Bones/joints: No acute fracture. No dislocation. Soft tissues: Unremarkable. Vasculature: Unremarkable. No abdominal aortic aneurysm. Lymph nodes: Unremarkable. No enlarged lymph nodes. IMPRESSION: 1. Significant stool in the rectal vault is concerning for impaction. 2. Distended urinary bladder is nonspecific. Cannot exclude outlet obstruction. Electronically signed by: Tianna Eugene MD 05/14/24 01:25 AM Medications Administered Insulin Human Regular 250 (units/ Sodium Chloride) 250 mls @ 6 mls/hr IV .Q24H [facility]; Protocol Stop: 06/12/24 20:29 Last Titration: 05/13/24 21:59 Dose: 7.2 units/hr, 7.2 mls/hr Documented By: KT Co-signed By: YRIS Admin: 05/13/24 20:59 Dose: 6 units/hr, 6 mls/hr Documented By: PEDRO Co-signed By: IDRosalie Sodium Bicarbonate 150 meq/ (Dextrose) 1,150 mls @ 200 mls/hr IV .Q5H45M RENETTA Stop: 06/12/24 20:29 Last Admin: 05/13/24 20:59 Dose: 200 mls/hr Documented By: PEDRO Parenteral Electrolytes (Plasma-Lyte A Ph 7.4) 2,000 mls @ 999 mls/hr IV .Q2H1M ONE Stop: 05/13/24 23:00 Last Admin: 05/13/24 21:05 Dose: 999 mls/hr Documented By: PEDRO Discontinued Medications Sodium Chloride (Nss) 1,000 mls @ 999 mls/hr IV .Q1H1M STA Stop: 05/13/24 19:24 Last Infusion: 05/13/24 19:26 Dose: Infused Documented By: Admin: 05/13/24 18:47 Dose: 999 mls/hr Documented By: JOCELYNN Sodium Chloride (Nss) 1,000 mls @ 999 mls/hr IV .Q1H1M ONE Stop: 05/13/24 19:24 Last Infusion: 05/13/24 20:42 Dose: Infused Documented By: Admin: 05/13/24 18:47 Dose: 999 mls/hr Documented By: JOCELYNN Sodium Chloride (Nss) 1,000 mls @ 999 mls/hr IV .Q1H1M ONE Stop: 05/13/24 20:00 Last Infusion: 05/13/24 20:42 Dose: Infused Documented By: Admin: 05/13/24 19:27 Dose: 999 mls/hr Documented By: JOCELYNN Bellamy (Stat Iv Infusion Titration Per Protocol) 1 each N/A NOW STA Stop: 05/13/24 20:28 Last Admin: 05/13/24 20:59 Dose: 1 each Documented By: PEDRO Pelletieraneous (Stat Iv/Im) 1 each N/A NOW STA Stop: 05/13/24 20:29 Last Admin: 05/13/24 20:59 Dose: 1 each Documented By: PEDRO Ondansetron HCl (Ondansetron Inj 2 Mg/Ml 2 Ml Vial) 4 mg IV NOW STA Stop: 05/13/24 18:25 Last Admin: 05/13/24 18:47 Dose: 4 mg Documented By: JOCELYNN Ondansetron HCl (Ondansetron Inj 2 Mg/Ml 2 Ml Vial) 4 mg IV NOW STA Stop: 05/13/24 19:41 Last Admin: 05/13/24 21:56 Dose: 4 mg Documented By: PEDRO Sodium Bicarbonate (Sodium Bicarb 8.4% Inj 50 Meq/50 Ml Syr) 50 meq IV NOW STA Stop: 05/13/24 19:09 Last Admin: 05/13/24 19:23 Dose: 50 meq Documented By: JOCELYNN Sodium Bicarbonate (Sodium Bicarb 8.4% Inj 50 Meq/50 Ml Syr) 50 meq IV NOW STA Stop: 05/13/24 20:30 Last Admin: 05/13/24 21:00 Dose: 50 meq Documented By: PEDRO ECG Additional Comments: Sinus tachycardia Rightward axis Nonspecific ST and T wave abnormality Abnormal ECG No previous ECGs available Coding Level of Care Code 77700 CRITICAL CARE 1ST 30-74M Diagnoses DKA (diabetic ketoacidosis) E10.10 Diabetes mellitus complication detail: without coma Diabetes mellitus type: type 1 Leukocytosis D72.829 (1) DKA (diabetic ketoacidosis) Diabetes mellitus complication detail: without coma Diabetes mellitus type: type 1 Qualified Code(s): E10.10 - Type 1 diabetes mellitus with ketoacidosis without coma
[2024-05-13] MEDS ORDERED: STAT IV Infusion **Titration per Protocol STA (22:50)
[2024-05-13] MEDS ORDERED: DKA GOAL RANGE 150-250 mg/dl ONE (22:50)
[2024-05-13] MEDS ORDERED: INSULIN REGULAR 250 UNITS in SODIUM CHLORIDE 0.9% 247.5 ML IV SCH (22:50)
[2024-05-13] MEDS ORDERED: GLUCOSE 40% GEL 15 GM TUBE PO PRN (23:15)
[2024-05-13] MEDS ORDERED: GLUCOSE 10 TAB/TUBE PO PRN (23:15)
[2024-05-13] MEDS ORDERED: DEXTROSE 50% 50 ML SYRINGE IV PRN (23:15)
[2024-05-13] MEDS ORDERED: GLUCAGON FOR INJ 1 MG VIAL IM PRN (23:15)
[2024-05-13] MEDS ORDERED: CARBOHYDRATES FOR HYPOGLYCEMIA PO PRN (23:15)
[2024-05-13 23:33] LABS: Appearance Urine Clear (Clear); Bacteria Urine Automated None Seen (None Seen); Bilirubin Urine Negative (Negative); Blood Urine 1+ (Negative); Color Urine Yellow; Epithelial Cell Urine Auto 0-2 /hpf (0-2); Glucose Urine UA 3+ (Negative); Ketones Urine 4+ (Negative); Leukocyte Esterase Urine Negative (Negative); Nitrite Urine Negative (Negative); Protein Urine 1+ (Negative); RBC Urine Automated 0-2 /hpf (0-2); Specific Gravity Urine 1.022 (1.000-1.030); Urobilinogen Urine Negative (Negative); WBC Urine Automated 0-5 /hpf (0-5)
[2024-05-13 23:45] LABS: Granular Casts Urine Present /lpf (None Prsent)
[2024-05-14 00:11] LABS: BUN Creatinine Ratio 15.4 (10-20); Calcium 7.7 mg/dl (8.6-10.3); Creatinine Clr Calc Pharmacy 78.5 ml/min; Est GFR (African American) 95.7 ml/min; Est GFR (Non-African American) 82.6 ml/min; Phosphorus 3.7 mg/dl (2.5-4.9); Potassium 4.2 mmol/L (3.5-5.1)
[2024-05-14] MEDS: ONDANSETRON INJ 2 MG/ML 2 ML VIAL ONE (00:29)
[2024-05-14] MEDS: PENDING D5 1/2NS+40mEq KCL IVF SCH (00:29)
[2024-05-14] MEDS: POTASSIUM CHLORIDE 40 MEQ in SODIUM CHLORIDE 0.45 % 1,000 ML IV SCH (00:30)
[2024-05-14] MEDS: INSULIN ASPART PER UNIT CHARGE SC SCH ×3 (00:33→23:30)
[2024-05-14] MEDS: POTASSIUM CHLORIDE 20 MEQ/15 ML UDC PO STA (01:06)
[2024-05-14] MEDS: PIPER/TAZO 4.5g in D5W MINI-B 100 ML IV ONE (01:07)
--- NOTE | 2024-05-14 01:26 | CT Scan Report ---
Exam(s): CT ABDOMEN + PELVIS Without Contrast EXAM: CT Abdomen and Pelvis Without Intravenous Contrast CLINICAL HISTORY: DKA and leukocytosis. TECHNIQUE: Axial computed tomography images of the abdomen and pelvis without intravenous contrast. CTDI is 11.86 mGy and DLP is 633.7 mGy-cm. Automated exposure control was utilized for the study. A dose lowering technique was utilized adhering to the principles of ALARA. COMPARISON: No relevant prior studies available. FINDINGS: Lung bases: Unremarkable. No mass. No consolidation. ABDOMEN: Liver: Unremarkable. Gallbladder and bile ducts: The gallbladder is unremarkable. No calcified stones. No ductal dilation. Pancreas: Unremarkable. No ductal dilation. Spleen: Unremarkable. No splenomegaly. Adrenals: Unremarkable. No mass. Kidneys and ureters: Unremarkable. No obstructing stones. No hydronephrosis. Stomach and bowel: Significant stool in the rectal vault is concerning for impaction. No obstruction. No mucosal thickening. PELVIS: Appendix: No findings to suggest acute appendicitis. Bladder: Unremarkable. No stones. Reproductive: Distended urinary bladder. ABDOMEN and PELVIS: Intraperitoneal space: Unremarkable. No free air. No significant fluid collection. Bones/joints: No acute fracture. No dislocation. Soft tissues: Unremarkable. Vasculature: Unremarkable. No abdominal aortic aneurysm. Lymph nodes: Unremarkable. No enlarged lymph nodes. IMPRESSION: 1. Significant stool in the rectal vault is concerning for impaction. 2. Distended urinary bladder is nonspecific. Cannot exclude outlet obstruction. Electronically signed by: Tianna Eugene MD 05/14/24 01:25 AM
[2024-05-14 03:45] LABS: Anion Gap 18 (3-11); BUN Creatinine Ratio 13.5 (10-20); Blood Urea Nitrogen 14 mg/dl (6-23); Calcium 7.4 mg/dl (8.6-10.3); Carbon Dioxide 9 mmol/L (21-32); Chloride 110 mmol/L (98-107); Creatinine Clr Calc Pharmacy 88.4 ml/min; Est GFR (African American) 110.4 ml/min; Est GFR (Non-African American) 95.2 ml/min; Glucose 230 mg/dl (70-99(Fasting)); Magnesium 1.8 mg/dl (1.7-2.4); Phosphorus < 1.0 mg/dl (2.5-4.9); Potassium 4.2 mmol/L (3.5-5.1); Sodium 137 mmol/L (136-145)
[2024-05-14] MEDS: PLASMA-LYTE A 1,000 ML IV SCH (03:54)
[2024-05-14] MEDS: PENDING 1/2NSS+40mEq KCL IVF SCH (03:54)
[2024-05-14 04:02] LABS: Hematocrit (blood only) 37.7 % (42.0-52.0); Mean Corpuscular Hemoglobin 31.6 pg (25.0-34.0); Mean Corpuscular Hgb Conc 37.1 g/dL (32.0-36.0); Mean Corpuscular Volume 85.1 fL (80.0-100.0); Mean Platelet Volume 9.1 fL (9.4-12.4); Platelet Count 220 K/uL (130-400); RDW Coefficient of Variation 13.6 % (11.5-14.5); RDW Standard Deviation 42.4 fL (36.4-46.3); Red Blood Count 4.43 M/uL (4.70-6.10); White Blood Count 18.38 K/ul (4.8-10.8)
[2024-05-14 04:03] LABS: Basophils # (auto) 0.03 K/uL (0.00-0.20); Basophils % (auto) 0.2 %; Eosinophils # (auto) 0.01 K/uL (0.00-0.50); Eosinophils % (auto) 0.1 %; Immature Granulocytes # (auto) 0.28 K/uL (0.01-0.20); Immature Granulocytes % (auto) 1.5 %; Lymphocytes # (auto) 1.97 K/uL (1.20-3.40); Lymphocytes % (auto) 10.7 %; Monocytes # (auto) 1.41 K/uL (0.11-0.59); Monocytes % (auto) 7.7 %; Neutrophils # (auto) 14.68 K/uL (1.40-6.50); Neutrophils % (auto) 79.8 %
[2024-05-14] MEDS ORDERED: POTASSIUM PHOS 3 MMOL/1 ML INFUSION IV STA (05:47)
[2024-05-14] MEDS: MAGNESIUM SULFATE / D5W 1 GM/100 ML BAG IV SCH (05:58)
[2024-05-14] MEDS: PIPERACILLIN/TAZOBACTAM 4.5 GM in DEXTROSE 5% MINI-B 100 ML IV SCH (05:59)
[2024-05-14] MEDS: POTASSIUM CHLORIDE 40 MEQ in D5W AND 1/2NSS 1,000 ML IV SCH (05:59)
[2024-05-14] MEDS ORDERED: D5W AND 1/2NSS + 20MEQ KCL 20 MEQ/1,000 ML BAG IV SCH (06:00)
[2024-05-14] MEDS: SODIUM CHLORIDE 0.9% IV ONE (06:20)
[2024-05-14] MEDS: SODIUM PHOSPHATE IV ONE (06:20)
[2024-05-14 06:43] LABS: Estimated Average Glucose 358 mg/dl; Hemoglobin A1C 14.1 % (4.5-5.6)
--- NOTE | 2024-05-14 07:10 | Electrocardiogram Report ---
Test Reason : Blood Pressure : / mmHG Vent. Rate : 131 BPM Atrial Rate : 131 BPM P-R Int : 122 ms QRS Dur : 090 ms QT Int : 328 ms P-R-T Axes : 072 092 050 degrees QTc Int : 484 ms Poor data quality, interpretation may be adversely affected Sinus tachycardia Rightward axis Nonspecific ST and T wave abnormality Abnormal ECG No previous ECGs available Confirmed by Ryan Duncan ([id number]) on 05/14/2024 7:09:48 AM Referred By: NO PCP Confirmed By:Ryan Duncan
[2024-05-14 07:25] LABS: Anion Gap 11 (3-11); BUN Creatinine Ratio 13.7 (10-20); Blood Urea Nitrogen 13 mg/dl (6-23); Calcium 7.4 mg/dl (8.6-10.3); Carbon Dioxide 14 mmol/L (21-32); Chloride 109 mmol/L (98-107); Creatinine Clr Calc Pharmacy 95.5 ml/min; Est GFR (African American) 123.1 ml/min; Est GFR (Non-African American) 106.2 ml/min; Glucose 171 mg/dl (70-99(Fasting)); Potassium 3.6 mmol/L (3.5-5.1); Sodium 134 mmol/L (136-145)
[2024-05-14] MEDS ORDERED: ICU Protocol for HYPERglycemia SCH (07:30)
--- NOTE | 2024-05-14 07:38 | Hospitalist Progress Note ---
Date of Service May 14, 2024 Assessment & Plan (1) DKA (diabetic ketoacidosis): (2) Leukocytosis: (3) Diarrhea: (4) High anion gap metabolic acidosis: (5) Poorly controlled type 1 diabetes mellitus: (6) Hypophosphatemia: Plan #DKA #High anion gap metabolic acidosis - initially admitted to ICU on 05/13/24, [facility] - Hgb A1c: 14.1 (05/13/24) - Glycemic management consultation appreciated - monitor labs, AG closed - ethanol neg, sr osm elevated - discussed with CM, recs clinical document improvement educator consult for medication coverage #Diarrhea - Patient reports 2-3 days of diarrhea and abdominal pain preceding DKA - leukocytosis improving with hydration - stool c. diff ordered, but no stool output - CT abd / pelvis shows stool in rectal vault #Leukocytosis - improving - suspect reactive / hemoconcentration - BCx pending - UA neg UCx pending - started on zosyn in the ICU, transitioned to augmentin given poor dentition #Elevated lipase - UA neg, CT abd / pelvis w/o evidence of pancreatitis #Hypophosphatemia - replete and monitor #Nausea - prn zofran #Tachycardia - improving - monitor at this time #DVT ppx: lovenox #Dispo: pending clinical improvement, pending clinical document improvement educator eval Admission and Anticipated Discharge Date Admission Date: May 13, 2024 Subjective Admitted yesterday No acute events overnight Currently pt not offering any complaints Review of Systems Review of Systems: Comprehensive ROS completed. Physical Exam Physical Exam: Gen: lying in bed comfortable HEENT: normocephalic / atraumatic, poor dentition CVS: s1s2 nl, RRR, no murmurs/ rubs / gallops Lungs: CTAB Abd: soft, nontender, normal bowel sounds, no rigidity / guarding / rebound : no white Extremities: no edema Neuro: sleeping but arousable Psych: flat affect, cooperative Results & Data Results & Data Vital Signs (Past 12 Hours) Vital Signs Temp Pulse Pulse Resp BP BP Pulse Ox 05/14/24 06:00 117/73 05/14/24 05:42 113 H 22 97 05/14/24 05:03 112 H 16 97 05/14/24 05:00 110/73 05/14/24 04:57 110 H 17 97 05/14/24 04:09 112 H 17 97 05/14/24 04:00 112/74 05/14/24 03:54 113 H 22 05/14/24 03:04 104/62 05/14/24 03:04 104/62 05/14/24 03:04 104/62 05/14/24 03:03 122 H 20 97 05/14/24 03:00 119 H 17 97 05/14/24 02:06 121 H 16 98 05/14/24 01:09 119 H 15 97 05/14/24 01:00 118/79 05/14/24 01:00 118/79 05/14/24 00:45 123 H 17 98 05/14/24 00:43 36.8 C 145 H 20 97 05/14/24 00:00 143 H 28 H 05/14/24 00:00 97/77 L 05/14/24 00:00 97/77 L 05/13/24 23:59 107/76 05/13/24 23:51 141 H 21 99 05/13/24 23:24 135 H 22 99 05/13/24 23:01 118/86 05/13/24 23:01 118/86 05/13/24 22:23 05/13/24 22:18 145 H 25 H 99 05/13/24 22:12 143 H 25 H 99 05/13/24 21:00 132 H 20 98/69 L 98 O2 Del Method 05/14/24 06:00 05/14/24 05:42 05/14/24 05:03 05/14/24 05:00 05/14/24 04:57 05/14/24 04:09 05/14/24 04:00 05/14/24 03:54 05/14/24 03:04 05/14/24 03:04 05/14/24 03:04 05/14/24 03:03 05/14/24 03:00 05/14/24 02:06 05/14/24 01:09 05/14/24 01:00 05/14/24 01:00 05/14/24 00:45 05/14/24 00:43 Room Air 05/14/24 00:00 05/14/24 00:00 05/14/24 00:00 05/13/24 23:59 05/13/24 23:51 05/13/24 23:24 05/13/24 23:01 05/13/24 23:01 05/13/24 22:23 Room Air 05/13/24 22:18 05/13/24 22:12 05/13/24 21:00 Room Air Laboratory Results WBC improving pH improving Na is trending down bicarb improving AG resolved BG improving Lactate improved to normal Lipase elevated Diagnostic Findings Abdomen/Pelvis CT 05/13/24 21:00 Exam(s): CT ABDOMEN + PELVIS Without Contrast EXAM: CT Abdomen and Pelvis Without Intravenous Contrast CLINICAL HISTORY: DKA and leukocytosis. TECHNIQUE: Axial computed tomography images of the abdomen and pelvis without intravenous contrast. CTDI is 11.86 mGy and DLP is 633.7 mGy-cm. Automated exposure control was utilized for the study. A dose lowering technique was utilized adhering to the principles of ALARA. COMPARISON: No relevant prior studies available. FINDINGS: Lung bases: Unremarkable. No mass. No consolidation. ABDOMEN: Liver: Unremarkable. Gallbladder and bile ducts: The gallbladder is unremarkable. No calcified stones. No ductal dilation. Pancreas: Unremarkable. No ductal dilation. Spleen: Unremarkable. No splenomegaly. Adrenals: Unremarkable. No mass. Kidneys and ureters: Unremarkable. No obstructing stones. No hydronephrosis. Stomach and bowel: Significant stool in the rectal vault is concerning for impaction. No obstruction. No mucosal thickening. PELVIS: Appendix: No findings to suggest acute appendicitis. Bladder: Unremarkable. No stones. Reproductive: Distended urinary bladder. ABDOMEN and PELVIS: Intraperitoneal space: Unremarkable. No free air. No significant fluid collection. Bones/joints: No acute fracture. No dislocation. Soft tissues: Unremarkable. Vasculature: Unremarkable. No abdominal aortic aneurysm. Lymph nodes: Unremarkable. No enlarged lymph nodes. IMPRESSION: 1. Significant stool in the rectal vault is concerning for impaction. 2. Distended urinary bladder is nonspecific. Cannot exclude outlet obstruction. Electronically signed by: Tianna Eugene MD 05/14/24 01:25 AM PG Care Time/CCT Total # of Minutes Spent Total Time Spent with Patient: Total time spent is greater than 50% in coordination of care (as documented) at patient's floor/unit and/or counseling patient: Coding Level of Care Code 58851 SUB INP/OBS CARE 3/50MIN Diagnoses DKA (diabetic ketoacidosis) E10.10 Diabetes mellitus complication detail: without coma Diabetes mellitus type: type 1 Leukocytosis D72.829 Diarrhea R19.7 High anion gap metabolic acidosis E87.29 Poorly controlled type 1 diabetes mellitus E10.65 Hypophosphatemia E83.39 (1) DKA (diabetic ketoacidosis) Diabetes mellitus complication detail: without coma Diabetes mellitus type: type 1 Qualified Code(s): E10.10 - Type 1 diabetes mellitus with ketoacidosis without coma
--- NOTE | 2024-05-14 07:54 | Critical Care Progress Note ---
Date of Service May 14, 2024 Assessment & Plan (1) DKA (diabetic ketoacidosis): (2) Leukocytosis: Plan Reason Critically Ill: 33 YOM with severe DKA, which at this time may be multifactorial to include non compliance secondary to financial reasons as well as possible infective source. 24-hour events: Patient was admitted to the ICU. He received about 7 L of crystalloid. He has been on insulin. He was placed on antibiotics due to elevated white blood cell count. He has very poor dentition with multiple caries. He has been hemodynamically stable but remains slightly tachycardic Recommendations Neuro - Metabolic encephalopathy resolving with correction of metabolic abnormalities. No indication for advanced imaging or additional diagnostics at this point in time. Cardiac -remains tachycardic and is likely still volume depleted. Will give an additional 2 L of LR now and reassess. Lactate is cleared. Respiratory -no current issues GI - Abdominal pain with diarrhea and constipation. Significant stool burden which appears to have been alleviated with bowel movement. No clinical findings to suggest significant pancreatitis currently. Continue bowel protocol. See antibiotics below RENAL/LYTES -kidney function normal. Continue electrolyte replacement. - No acute needs ENDO - severe DKA: Labs this morning show that anion gap is significantly improved. Will check follow-up BMP in about 4 hours and if that remains good we will transition then to subcutaneous insulin and the patient can likely be downgraded out of the intensive care unit. Case management's been involved to assist in getting the patient insulin to go home with to prevent this happening again. HEME -elevated white blood cell count likely stress response but cannot rule out underlying infection. See comments below ID -patient with very poor dentition which may have precipitated his DKA in conjunction with poor insulin compliance. Cannot rule out GI source. No indication for antipseudomonal coverage show will de-escalate antibiotics to oral Augmentin and anticipate 5 to 7-day course based on clinical response. Would recommend dental evaluation in the outpatient setting. LINES/IV ACCESS - PIV Continue use of thes lines DVT PROPHYLAXIS - SCDS, Lovenox 40mg daily DISPO: Will await follow-up BMP in 4 hours and if that stable he can likely go to the floor at which point time critical care services will sign off. Above recommendations and plan were discussed with the patient as well as with bedside critical care nurse and on multidisciplinary rounds Admission and Anticipated Discharge Date Admission Date: May 13, 2024 Subjective Patient seen and examined. EMR reviewed. Discussed with bedside critical care nurse and on multidisciplinary rounds as well as with overnight critical care GEORGE. Patient is improving somewhat this morning. He continues to feel generally poorly. Review of Systems Review of Systems: All systems reviewed & are unremarkable except as noted in Subjective Physical Exam Constitutional: + ill appearing and + thin; no acute dis tress ENMT: Poor dentition Neck: trachea midline, no thyromegaly Respiratory: normal respiratory effort, lungs clear to auscultation Cardiovascular: RRR, no murmur, no edema Gastrointestinal (Abdomen): normal bowel sounds, soft, nontender, no hepatosplenomegaly Musculoskeletal: Extremities: extremities normal to inspection Skin: no rashes, warm and dry Neurologic: Nonfocal exam Lymphatic: no cervical lymphadenopathy Results & Data Results & Data Vital Signs (Past 12 Hours) Vital Signs Temp Pulse Pulse Resp BP BP Pulse Ox 05/14/24 07:34 117 H 05/14/24 06:00 117/73 05/14/24 05:42 113 H 22 97 05/14/24 05:03 112 H 16 97 05/14/24 05:00 110/73 05/14/24 04:57 110 H 17 97 05/14/24 04:09 112 H 17 97 05/14/24 04:00 112/74 05/14/24 03:54 113 H 22 05/14/24 03:04 104/62 05/14/24 03:04 104/62 05/14/24 03:04 104/62 05/14/24 03:03 122 H 20 97 05/14/24 03:00 119 H 17 97 05/14/24 02:06 121 H 16 98 05/14/24 01:09 119 H 15 97 05/14/24 01:00 118/79 05/14/24 01:00 118/79 05/14/24 00:45 123 H 17 98 05/14/24 00:43 36.8 C 145 H 20 97 05/14/24 00:00 143 H 28 H 05/14/24 00:00 97/77 L 05/14/24 00:00 97/77 L 05/13/24 23:59 107/76 05/13/24 23:51 141 H 21 99 05/13/24 23:24 135 H 22 99 05/13/24 23:01 118/86 05/13/24 23:01 118/86 05/13/24 22:23 05/13/24 22:18 145 H 25 H 99 05/13/24 22:12 143 H 25 H 99 05/13/24 21:00 132 H 20 98/69 L 98 O2 Del Method 05/14/24 07:34 05/14/24 06:00 05/14/24 05:42 05/14/24 05:03 05/14/24 05:00 05/14/24 04:57 05/14/24 04:09 05/14/24 04:00 05/14/24 03:54 05/14/24 03:04 05/14/24 03:04 05/14/24 03:04 05/14/24 03:03 05/14/24 03:00 05/14/24 02:06 05/14/24 01:09 05/14/24 01:00 05/14/24 01:00 05/14/24 00:45 05/14/24 00:43 Room Air 05/14/24 00:00 05/14/24 00:00 05/14/24 00:00 05/13/24 23:59 05/13/24 23:51 05/13/24 23:24 05/13/24 23:01 05/13/24 23:01 05/13/24 22:23 Room Air 05/13/24 22:18 05/13/24 22:12 05/13/24 21:00 Room Air Critical Care Results & Data Vital Signs (Past 12 Hours) Vital Signs Temp Pulse Pulse Resp BP BP Pulse Ox 05/14/24 07:34 117 H 05/14/24 06:00 117/73 05/14/24 05:42 113 H 22 97 05/14/24 05:03 112 H 16 97 05/14/24 05:00 110/73 05/14/24 04:57 110 H 17 97 05/14/24 04:09 112 H 17 97 05/14/24 04:00 112/74 05/14/24 03:54 113 H 22 05/14/24 03:04 104/62 05/14/24 03:04 104/62 05/14/24 03:04 104/62 05/14/24 03:03 122 H 20 97 05/14/24 03:00 119 H 17 97 05/14/24 02:06 121 H 16 98 05/14/24 01:09 119 H 15 97 05/14/24 01:00 118/79 05/14/24 01:00 118/79 05/14/24 00:45 123 H 17 98 05/14/24 00:43 36.8 C 145 H 20 97 05/14/24 00:00 143 H 28 H 05/14/24 00:00 97/77 L 05/14/24 00:00 97/77 L 05/13/24 23:59 107/76 05/13/24 23:51 141 H 21 99 05/13/24 23:24 135 H 22 99 05/13/24 23:01 118/86 05/13/24 23:01 118/86 05/13/24 22:23 05/13/24 22:18 145 H 25 H 99 05/13/24 22:12 143 H 25 H 99 05/13/24 21:00 132 H 20 98/69 L 98 O2 Del Method 05/14/24 07:34 05/14/24 06:00 05/14/24 05:42 05/14/24 05:03 05/14/24 05:00 05/14/24 04:57 05/14/24 04:09 05/14/24 04:00 05/14/24 03:54 05/14/24 03:04 05/14/24 03:04 05/14/24 03:04 05/14/24 03:03 05/14/24 03:00 05/14/24 02:06 05/14/24 01:09 05/14/24 01:00 05/14/24 01:00 05/14/24 00:45 05/14/24 00:43 Room Air 05/14/24 00:00 05/14/24 00:00 05/14/24 00:00 05/13/24 23:59 05/13/24 23:51 05/13/24 23:24 05/13/24 23:01 05/13/24 23:01 05/13/24 22:23 Room Air 05/13/24 22:18 05/13/24 22:12 05/13/24 21:00 Room Air Lab & Micro Results (Past 24 Hours) RBC 4.43 M/uL (4.70-6.10) L 05/14/24 WBC 18.38 K/ul (4.8-10.8) H 05/14/24 Hgb 14.0 g/dl (14.0-18.0) 05/14/24 Hct 37.7 % (42.0-52.0) L 05/14/24 MCV 85.1 fL (80.0-100.0) 05/14/24 MCH 31.6 pg (25.0-34.0) 05/14/24 MCHC 37.1 g/dL (32.0-36.0) H 05/14/24 RDW Standard Deviation 42.4 fL (36.4-46.3) 05/14/24 RDW Coefficient of Variation 13.6 % (11.5-14.5) 05/14/24 Plt Count 220 K/uL (130-400) 05/14/24 MPV 9.1 fL (9.4-12.4) L 05/14/24 Neutrophils (%) (Auto) 79.8 % 05/14/24 Lymphocytes (%) (Auto) 10.7 % 05/14/24 Monocytes # (Auto) 1.41 K/uL (0.11-0.59) H 05/14/24 Eosinophils # (Auto) 0.01 K/uL (0.00-0.50) 05/14/24 Immature Granulocyte % (Auto) 1.5 % 05/14/24 Neutrophils # (Auto) 14.68 K/uL (1.40-6.50) H 05/14/24 Lymphocytes # (Auto) 1.97 K/uL (1.20-3.40) 05/14/24 Monocytes # (Auto) 1.41 K/uL (0.11-0.59) H 05/14/24 Eosinophils # (Auto) 0.01 K/uL (0.00-0.50) 05/14/24 Basophils # (Auto) 0.03 K/uL (0.00-0.20) 05/14/24 Immature Granulocyte # (Auto) 0.28 K/uL (0.01-0.20) H 05/14 Echinocytes 1+ 05/13/24 Na 134 mmol/L (136-145) L 05/14/24 K 3.6 mmol/L (3.5-5.1) 05/14/24 Cl 109 mmol/L (98-107) H 05/14/24 CO2 14 mmol/L (21-32) L 05/14/24 Anion Gap 11 (3-11) 05/14/24 BUN 13 mg/dl (6-23) 05/14/24 Creatinine 0.95 mg/dl (0.6-1.4) 05/14/24 Estimated GFR ( Amer) 123.1 ml/min 05/14/24 Estimated GFR (Non-Af Amer) 106.2 ml/min 05/14/24 BUN/Creatinine Ratio 13.7 (10-20) 05/14/24 Glu 171 mg/dl (70-99(Fasting)) H 05/14/24 Ca 7.4 mg/dl (8.6-10.3) L 05/14/24 Phosphorus Level < 1.0 mg/dl (2.5-4.9) L* 05/14/24 Total Bilirubin 0.3 mg/dl (0.2-1.0) 05/13/24 AST 15 U/L (13-39) 05/13/24 ALT 18 U/L (7-52) 05/13/24 Alkaline Phosphatase 116 U/L (34-104) H 05/13/24 TP 6.6 gm/dl (6.0-8.3) 05/13/24 Albumin 4.3 gm/dl (3.4-5.0) 05/13/24 Globulin 2.3 gm/dl (2.5-4.0) L 05/13/24 Albumin/Globulin Ratio 1.9 (0.9-2) 05/13/24 Mg 1.8 mg/dl (1.7-2.4) 05/14/24 02:59 Calcium Level 7.4 mg/dl (8.6-10.3) L 05/14/24 06:55 Prothromb Time International Ratio 1.0 (0.9-1.1) 05/13/24 19:4 8 Venous Blood pH 7.27 (7.36-7.41) L 05/14/24 02:59 Venous Blood Partial Pressure CO2 25 mmHg (38-50) L 05/13/24 19 :53 Venous Blood Partial Pressure O2 65 mmHg 05/13/24 19:53 Venous Blood HCO3 TNP 05/13/24 19:53 Venous Blood Base Excess TNP 05/13/24 19:53 Venous Blood Oxygen Saturation 92.1 % 05/13/24 19:53 Blood Gas Barometric Pressure DIRECTOR OF VOCATIONAL GUIDANCE 05/13/24 18:31 Blood Gas Barometric Pressure DIRECTOR OF VOCATIONAL GUIDANCE 05/13/24 18:31 Diagnostic Findings (Past 24 Hours) Abdomen/Pelvis CT 05/13/24 21:00 Exam(s): CT ABDOMEN + PELVIS Without Contrast EXAM: CT Abdomen and Pelvis Without Intravenous Contrast CLINICAL HISTORY: DKA and leukocytosis. TECHNIQUE: Axial computed tomography images of the abdomen and pelvis without intravenous contrast. CTDI is 11.86 mGy and DLP is 633.7 mGy-cm. Automated exposure control was utilized for the study. A dose lowering technique was utilized adhering to the principles of ALARA. COMPARISON: No relevant prior studies available. FINDINGS: Lung bases: Unremarkable. No mass. No consolidation. ABDOMEN: Liver: Unremarkable. Gallbladder and bile ducts: The gallbladder is unremarkable. No calcified stones. No ductal dilation. Pancreas: Unremarkable. No ductal dilation. Spleen: Unremarkable. No splenomegaly. Adrenals: Unremarkable. No mass. Kidneys and ureters: Unremarkable. No obstructing stones. No hydronephrosis. Stomach and bowel: Significant stool in the rectal vault is concerning for impaction. No obstruction. No mucosal thickening. PELVIS: Appendix: No findings to suggest acute appendicitis. Bladder: Unremarkable. No stones. Reproductive: Distended urinary bladder. ABDOMEN and PELVIS: Intraperitoneal space: Unremarkable. No free air. No significant fluid collection. Bones/joints: No acute fracture. No dislocation. Soft tissues: Unremarkable. Vasculature: Unremarkable. No abdominal aortic aneurysm. Lymph nodes: Unremarkable. No enlarged lymph nodes. IMPRESSION: 1. Significant stool in the rectal vault is concerning for impaction. 2. Distended urinary bladder is nonspecific. Cannot exclude outlet obstruction. Electronically signed by: Tianna Eugene MD 05/14/24 01:25 AM Chest X-Ray 05/13/24 21:00 XR chest 1V portable CLINICAL HISTORY: leukocytosis, DKA TECHNIQUE: Single frontal radiograph of the chest was obtained. Comparison: Comparison is made to chest radiograph 04/06/2024 FINDINGS: No lines and tubes are seen. The cardiomediastinal silhouette is normal. The lungs are clear. No evidence of pleural effusion or pneumothorax. IMPRESSION: No acute abnormalities and in particular no radiographic evidence of pneumonia. ACT 112: Negative or not required by law. Electronically signed by: Joe Smith M.D. 05/14/2024 7:51 AM I & O Totals 24 Hours 05/13/24 05/14/24 05/15/24 06:59 06:59 06:59 Intake Total 7379.350 / 7379.350 104.184 / 104.184 Balance 7379.350 / 7379.350 104.184 / 104.184 Cumulative 05/13/24 18:07 thru 05/14/24 07:57 Intake Total 7483.534 Balance 7483.534 RT Ventilator Mngmt (Last Documented) Ventilator Ordered Settings Respiratory Rate 22 05/14/24 05:42 Ventilator - PT Measurements Respiratory Rate 22 Coding Level of Care Code 47995 SUB INP/OBS CARE 3/50MIN Diagnoses DKA (diabetic ketoacidosis) E10.10 Diabetes mellitus complication detail: without coma Diabetes mellitus type: type 1 Leukocytosis D72.829 (1) DKA (diabetic ketoacidosis) Diabetes mellitus complication detail: without coma Diabetes mellitus type: type 1 Qualified Code(s): E10.10 - Type 1 diabetes mellitus with ketoacidosis without coma
[2024-05-14 08:03] LABS: Magnesium 1.8 mg/dl (1.7-2.4); Phosphorus < 1.0 mg/dl (2.5-4.9)
[2024-05-14] MEDS ORDERED: SODIUM PHOSPHATE 3 MMOL/1 ML INFUSION IV STA (08:04)
[2024-05-14] MEDS: CALCIUM GLUCONATE 1,000 MG/60 ML BAG IV SCH (08:22)
[2024-05-14] MEDS: LACTATED RINGER'S 2,000 ML IV ONE (08:22)
[2024-05-14] MEDS: ENOXAPARIN INJ 40 MG/0.4 ML SYR SQ SCH (08:23)
[2024-05-14] MEDS: AMOXICILLIN/CLAVULANATE 875 MG TAB PO SCH (09:29)
[2024-05-14] MEDS: SODIUM PHOSPHATE 21 MMOL in SODIUM CHLORIDE 0.9% 500 ML IV ONE (11:04)
[2024-05-14 11:28] LABS: BUN Creatinine Ratio 11.4 (10-20); Calcium 7.6 mg/dl (8.6-10.3); Est GFR (African American) 132.7 ml/min; Est GFR (Non-African American) 114.5 ml/min; Magnesium 1.9 mg/dl (1.7-2.4); Phosphorus 1.9 mg/dl (2.5-4.9); Potassium 3.3 mmol/L (3.5-5.1)
[2024-05-14] MEDS: LANTUS PER UNIT CHARGE SC ONE (12:14)
--- NOTE | 2024-05-14 13:23 | Pharmacy Report ---
Pharmacy Glycemic Short Note 2 - Date of Service May 14, 2024 - Glycemic Short BSG Results (Last 24 hours): 05/13/24 05/13/24 05/13/24 18:21 18:31 19:48 Glucose Cancelled 512 H* POC Glucose > 600 H* POC Glucose (other) 05/13/24 05/13/24 05/13/24 19:51 20:48 21:56 Glucose 516 H* POC Glucose 507 H* POC Glucose (other) 517 H* 05/13/24 05/13/24 05/13/24 22:58 23:15 23:49 Glucose 374 H* POC Glucose 360 H* 243 H POC Glucose (other) 05/14/24 05/14/24 05/14/24 01:11 02:00 02:59 Glucose 230 H POC Glucose 228 H 223 H POC Glucose (other) 05/14/24 05/14/24 05/14/24 03:04 04:00 06:55 Glucose 171 H POC Glucose 230 H 212 H POC Glucose (other) 05/14/24 05/14/24 05/14/24 07:22 08:26 09:29 Glucose POC Glucose 176 H 225 H 231 H POC Glucose (other) 05/14/24 05/14/24 05/14/24 10:39 10:58 11:34 Glucose 209 H POC Glucose 217 H 203 H POC Glucose (other) 05/14/24 12:43 Glucose POC Glucose 194 H POC Glucose (other) OUTPATIENT ANTIDIABETIC REGIMEN: * Tresiba 26 units SQ daily * Novolog SQ TIDM HbA1C: 14.1% ASSESSMENT: * Pt is a 33 year old male with a history of DM1 and non-compliance. Admitted in DKA. Pharmacy consulted to assist with inpatient glycemic management and insulin drip transition. * Initial labs: pH-<7, AG-27, bicarb-4, BSG-512. Initiated on insulin drip per DKA protocol which ran overnight at ~ 3.5unit/hr. * This AM ordered clear liq diet. D51/2NS w/ 40mEq KCl running at 175ml/hr. AG closed and bicarb >15 around lunch. Discussed at rounds -meets criteria for transition to SQ. * Lantus 20 units SQ X 1 given still with minimal PO intake. Will add a Lantus HS scale. Overlap with drip for at least 2h before discontinuing. Novolog moderate stress scale ACHS with overnight checks for tonight. PLAN FOR INPATIENT GLYCEMIC CONTROL: * Hold outpatient oral diabetes medications * Basal insulin * Lantus 20 units SQ X 1 + HS scale depending on BSG * Bolus insulin * NovoLog per scale ACHS or Q6hrs while NPO * Goal Range: Low 110 mg/dL - High 140 mg/dL (150-250mg/dl on insulin infusion) * Correction Factor: 30 mg/dL/unit * Nutritional / Prandial insulin per carb ratio of 1 unit per 8 grams CHO consumed
[2024-05-14] MEDS ORDERED: ONDANSETRON INJ 2 MG/ML 2 ML VIAL IV PRN (13:36)
[2024-05-14 15:42] LABS: BUN Creatinine Ratio 10.4 (10-20); Calcium 7.7 mg/dl (8.6-10.3); Creatinine Clr Calc Pharmacy 117.8 ml/min; Est GFR (African American) 140.1 ml/min; Est GFR (Non-African American) 120.9 ml/min; Magnesium 1.9 mg/dl (1.7-2.4); Phosphorus 2.3 mg/dl (2.5-4.9); Potassium 2.8 mmol/L (3.5-5.1)
[2024-05-14] MEDS: POTASSIUM CHLORIDE / WTR 10 MEQ/100 ML PLCT IV SCH (16:49)
[2024-05-14] MEDS: POTASSIUM CHLORIDE CRTAB 20 MEQ TABCR PO STA (16:49)
[2024-05-14] MEDS: LANTUS PER UNIT CHARGE SC SCH (20:37)
[2024-05-14 21:42] LABS: Calcium 7.8 mg/dl (8.6-10.3); Creatinine Clr Calc Pharmacy 120.9 ml/min; Est GFR (African American) 141.7 ml/min; Est GFR (Non-African American) 122.2 ml/min; Magnesium 1.9 mg/dl (1.7-2.4); Phosphorus 2.3 mg/dl (2.5-4.9); Potassium 3.8 mmol/L (3.5-5.1)
[2024-05-15 01:51] LABS: Calcium 8.1 mg/dl (8.6-10.3); Creatinine Clr Calc Pharmacy 127.7 ml/min; Est GFR (African American) 144.9 ml/min; Potassium 3.2 mmol/L (3.5-5.1)
[2024-05-15] MEDS: POTASSIUM CHLORIDE CRTAB 20 MEQ TABCR PO STA (02:49)
[2024-05-15 08:02] LABS: BUN Creatinine Ratio 5.3 (10-20); Calcium 7.9 mg/dl (8.6-10.3); Creatinine Clr Calc Pharmacy 120.1 ml/min; Est GFR (African American) 140.9 ml/min; Est GFR (Non-African American) 121.6 ml/min; Phosphorus 1.8 mg/dl (2.5-4.9); Potassium 3.6 mmol/L (3.5-5.1)
--- NOTE | 2024-05-15 08:03 | Hospitalist Progress Note ---
Date of Service May 15, 2024 Assessment & Plan (1) DKA (diabetic ketoacidosis): (2) Leukocytosis: (3) Diarrhea: (4) High anion gap metabolic acidosis: (5) Poorly controlled type 1 diabetes mellitus: (6) Hypophosphatemia: Plan #DKA #High anion gap metabolic acidosis - [facility] to [facility] on 05/13/24[facility] - Hgb A1c: 14.1 (05/13/24) - Glycemic management consultation appreciated - monitor labs, AG closed - ethanol neg, sr osm elevated - discussed with CM, recs rn diabetes educator consult for medication coverage #Diarrhea - Patient reports 2-3 days of diarrhea and abdominal pain preceding DKA - leukocytosis improving with hydration - stool c. diff ordered, but no stool output - CT abd / pelvis shows stool in rectal vault #Leukocytosis - resolved - suspect reactive / hemoconcentration - BCx pending - UA neg UCx pending - started on zosyn in the ICU, transitioned to augmentin given poor dentition , last dose 05/20 #Elevated lipase - UA neg, CT abd / pelvis w/o evidence of pancreatitis #Hypophosphatemia #Hypokalemia - replete and monitor #Hypocalcemia - check vitamin D level #Nausea - prn zofran #Tachycardia - improving - monitor at this time #DVT ppx: lovenox #Dispo: pending clinical improvement, pending rn diabetes educator eval Admission and Anticipated Discharge Date Admission Date: May 13, 2024 Subjective Admitted yesterday No acute events overnight Currently pt not offering any complaints Review of Systems Review of Systems: Comprehensive ROS completed. Physical Exam Physical Exam: Gen: lying in bed comfortable HEENT: normocephalic / atraumatic, poor dentition CVS: s1s2 nl, RRR, no murmurs/ rubs / gallops Lungs: CTAB Abd: soft, nontender, normal bowel sounds, no rigidity / guarding / rebound : no white Extremities: no edema Neuro: sleeping but arousable Psych: flat affect, cooperative Results & Data Results & Data Vital Signs (Past 12 Hours) Vital Signs Temp Pulse Pulse Resp BP Pulse Ox O2 Del Method 05/15/24 07:34 81 05/15/24 07:23 36.7 C 86 18 110/77 98 Room Air 05/15/24 03:51 36.7 C 86 16 100/67 95 Room Air 05/14/24 23:11 36.8 C 88 16 105/70 95 Room Air 05/14/24 22:04 94 H Laboratory Results Abnormal lab results 05/14/24 05/14/24 05/14/24 Range/Units 14:19 14:51 16:12 RBC (4.70-6.10) M/uL Hgb (14.0-18.0) g/dl Hct (42.0-52.0) % MCHC (32.0-36.0) g/dL MPV (9.4-12.4) fL Neut # (Auto) (1.40-6.50) K/uL Hubbard # (Auto) (0.11-0.59) K/uL VBG pH 7.33 L (7.36-7.41) Sodium 133 L (136-145) mmol/L Potassium 2.8 L (3.5-5.1) mmol/L Carbon Dioxide 18 L (21-32) mmol/L BUN (6-23) mg/dl BUN/Creatinine Ratio (10-20) Glucose 146 H (70-99(Fasting)) mg/dl POC Glucose 160 H 170 H (70-99) mg/dl Calcium 7.7 L (8.6-10.3) mg/dl Phosphorus 2.3 L (2.5-4.9) mg/dl 05/14/24 05/14/24 05/14/24 Range/Units 20:24 21:00 23:25 RBC (4.70-6.10) M/uL Hgb (14.0-18.0) g/dl Hct (42.0-52.0) % MCHC (32.0-36.0) g/dL MPV (9.4-12.4) fL Neut # (Auto) (1.40-6.50) K/uL Hubbard # (Auto) (0.11-0.59) K/uL VBG pH 7.32 L (7.36-7.41) Sodium 131 L (136-145) mmol/L Potassium (3.5-5.1) mmol/L Carbon Dioxide 16 L (21-32) mmol/L BUN (6-23) mg/dl BUN/Creatinine Ratio 8.0 L (10-20) Glucose 212 H (70-99(Fasting)) mg/dl POC Glucose 210 H 176 H (70-99) mg/dl Calcium 7.8 L (8.6-10.3) mg/dl Phosphorus 2.3 L (2.5-4.9) mg/dl 05/15/24 05/15/24 05/15/24 Range/Units 01:16 03:47 07:12 RBC 4.42 L (4.70-6.10) M/uL Hgb 13.9 L (14.0-18.0) g/dl Hct 37.3 L (42.0-52.0) % MCHC 37.3 H (32.0-36.0) g/dL MPV 9.1 L (9.4-12.4) fL Neut # (Auto) 6.86 H (1.40-6.50) K/uL Hubbard # (Auto) 0.85 H (0.11-0.59) K/uL VBG pH (7.36-7.41) Sodium 132 L 134 L (136-145) mmol/L Potassium 3.2 L (3.5-5.1) mmol/L Carbon Dioxide 19 L (21-32) mmol/L BUN 5 L 4 L (6-23) mg/dl BUN/Creatinine Ratio 7.0 L 5.3 L (10-20) Glucose 177 H 205 H (70-99(Fasting)) mg/dl POC Glucose 172 H (70-99) mg/dl Calcium 8.1 L 7.9 L (8.6-10.3) mg/dl Phosphorus 1.8 L (2.5-4.9) mg/dl 05/15/24 05/15/24 Range/Units 08:21 12:16 RBC (4.70-6.10) M/uL Hgb (14.0-18.0) g/dl Hct (42.0-52.0) % MCHC (32.0-36.0) g/dL MPV (9.4-12.4) fL Neut # (Auto) (1.40-6.50) K/uL Hubbard # (Auto) (0.11-0.59) K/uL VBG pH (7.36-7.41) Sodium (136-145) mmol/L Potassium (3.5-5.1) mmol/L Carbon Dioxide (21-32) mmol/L BUN (6-23) mg/dl BUN/Creatinine Ratio (10-20) Glucose (70-99(Fasting)) mg/dl POC Glucose 224 H 144 H (70-99) mg/dl Calcium (8.6-10.3) mg/dl Phosphorus (2.5-4.9) mg/dl PG Care Time/CCT Total # of Minutes Spent Total Time Spent with Patient: Total time spent is greater than 50% in coordination of care (as documented) at patient's floor/unit and/or counseling patient: Coding Level of Care Code 73514 SUB INP/OBS CARE 3/50MIN Diagnoses DKA (diabetic ketoacidosis) E10.10 Diabetes mellitus complication detail: without coma Diabetes mellitus type: type 1 Leukocytosis D72.829 Diarrhea R19.7 High anion gap metabolic acidosis E87.29 Poorly controlled type 1 diabetes mellitus E10.65 Hypophosphatemia E83.39 (1) DKA (diabetic ketoacidosis) Diabetes mellitus complication detail: without coma Diabetes mellitus type: type 1 Qualified Code(s): E10.10 - Type 1 diabetes mellitus with ketoacidosis without coma
[2024-05-15 08:50] LABS: Basophils # (auto) 0.02 K/uL (0.00-0.20); Basophils % (auto) 0.2 %; Eosinophils # (auto) 0.13 K/uL (0.00-0.50); Eosinophils % (auto) 1.3 %; Hematocrit (blood only) 37.3 % (42.0-52.0); Hemoglobin 13.9 g/dl (14.0-18.0); Immature Granulocytes # (auto) 0.05 K/uL (0.01-0.20); Immature Granulocytes % (auto) 0.5 %; Lymphocytes # (auto) 1.74 K/uL (1.20-3.40); Mean Corpuscular Hemoglobin 31.4 pg (25.0-34.0); Mean Corpuscular Hgb Conc 37.3 g/dL (32.0-36.0); Mean Corpuscular Volume 84.4 fL (80.0-100.0); Mean Platelet Volume 9.1 fL (9.4-12.4); Monocytes # (auto) 0.85 K/uL (0.11-0.59); Monocytes % (auto) 8.8 %; Neutrophils # (auto) 6.86 K/uL (1.40-6.50); Neutrophils % (auto) 71.2 %; Platelet Count 177 K/uL (130-400); RDW Coefficient of Variation 14.3 % (11.5-14.5); RDW Standard Deviation 43.9 fL (36.4-46.3); Red Blood Count 4.42 M/uL (4.70-6.10); White Blood Count 9.65 K/ul (4.8-10.8)
[2024-05-15] MEDS: LANTUS PER UNIT CHARGE SC SCH (09:24)
[2024-05-15] MEDS ORDERED: POTASSIUM PHOS 3 MMOL/1 ML INFUSION IV STA (13:13)
[2024-05-15] MEDS: POTASSIUM PHOSPHATE 21 MMOL in SODIUM CHLORIDE 0.9% 500 ML IV ONE (13:51)
--- NOTE | 2024-05-15 13:54 | Pharmacy Report ---
Pharmacy Glycemic Short Note 2 - Date of Service May 15, 2024 - Glycemic Short BSG Results (Last 24 hours): 05/14/24 05/14/24 05/14/24 14:19 14:51 16:12 Glucose 146 H POC Glucose 160 H 170 H 05/14/24 05/14/24 05/14/24 20:24 21:00 23:25 Glucose 212 H POC Glucose 210 H 176 H 05/15/24 05/15/24 05/15/24 01:16 03:47 07:12 Glucose 177 H 205 H POC Glucose 172 H 05/15/24 05/15/24 08:21 12:16 Glucose POC Glucose 224 H 144 H OUTPATIENT ANTIDIABETIC REGIMEN: * Tresiba 26 units SQ daily * Novolog SQ TIDM HbA1C: 14.1% (04/07/24) ASSESSMENT: 05/15/24: * Blood sugars reasonably controlled following insulin gtt transition * Trending up this morning (224 mg/dL), patient now eating so dextrose- containing fluids were discontinued * Will plan on once daily basal insulin w/ no changes to Novolog today 05/14/24: * Pt is a 33 year old male with a history of DM1 and non-compliance. Admitted in DKA. Pharmacy consulted to assist with inpatient glycemic management and insulin drip transition. * Initial labs: pH-<7, AG-27, bicarb-4, BSG-512. Initiated on insulin drip per DKA protocol which ran overnight at ~ 3.5unit/hr. * This AM ordered clear liq diet. D51/2NS w/ 40mEq KCl running at 175ml/hr. AG closed and bicarb >15 around lunch. Discussed at rounds -meets criteria for transition to SQ. * Lantus 20 units SQ X 1 given still with minimal PO intake. Will add a Lantus HS scale. Overlap with drip for at least 2h before discontinuing. Novolog moderate stress scale ACHS with overnight checks for tonight. PLAN FOR INPATIENT GLYCEMIC CONTROL: * Basal insulin * Lantus 25 units SC daily * Bolus insulin * NovoLog per scale ACHS or Q6hrs while NPO * Goal Range: Low 110 mg/dL - High 140 mg/dL * Correction Factor: 30 mg/dL/unit * Nutritional / Prandial insulin per carb ratio of 1 unit per 8 grams CHO consumed
[2024-05-16 07:33] LABS: Basophils # (auto) 0.03 K/uL (0.00-0.20); Basophils % (auto) 0.5 %; Eosinophils # (auto) 0.07 K/uL (0.00-0.50); Eosinophils % (auto) 1.2 %; Hematocrit (blood only) 38.2 % (42.0-52.0); Immature Granulocytes # (auto) 0.01 K/uL (0.01-0.20); Immature Granulocytes % (auto) 0.2 %; Lymphocytes # (auto) 1.34 K/uL (1.20-3.40); Lymphocytes % (auto) 23.8 %; Mean Corpuscular Hemoglobin 31.5 pg (25.0-34.0); Mean Corpuscular Hgb Conc 36.6 g/dL (32.0-36.0); Mean Platelet Volume 8.9 fL (9.4-12.4); Monocytes # (auto) 0.67 K/uL (0.11-0.59); Monocytes % (auto) 11.9 %; Neutrophils # (auto) 3.52 K/uL (1.40-6.50); Neutrophils % (auto) 62.4 %; Platelet Count 155 K/uL (130-400); RDW Coefficient of Variation 13.9 % (11.5-14.5); RDW Standard Deviation 43.9 fL (36.4-46.3); Red Blood Count 4.44 M/uL (4.70-6.10); White Blood Count 5.64 K/ul (4.8-10.8)
[2024-05-16 08:02] LABS: BUN Creatinine Ratio 10.4 (10-20); Calcium 9.3 mg/dl (8.6-10.3); Creatinine Clr Calc Pharmacy 134.7 ml/min; Est GFR (African American) 148.4 ml/min; Magnesium 2.1 mg/dl (1.7-2.4); Potassium 3.5 mmol/L (3.5-5.1)
--- NOTE | 2024-05-16 08:07 | Hospitalist Progress Note ---
Date of Service May 16, 2024 Assessment & Plan (1) DKA (diabetic ketoacidosis): (2) Leukocytosis: (3) Diarrhea: (4) High anion gap metabolic acidosis: (5) Poorly controlled type 1 diabetes mellitus: (6) Hypophosphatemia: Plan #DKA #High anion gap metabolic acidosis - [facility]13/24[facility] - Hgb A1c: 14.1 (05/13/24) - Glycemic management consultation appreciated - monitor labs, AG closed - ethanol neg, sr osm elevated - discussed with CM, recs educator senior clinical consult for medication coverage #Diarrhea - Patient reports 2-3 days of diarrhea and abdominal pain preceding DKA - leukocytosis improving with hydration - stool c. diff ordered, but no stool output - CT abd / pelvis shows stool in rectal vault #Leukocytosis - resolved - suspect reactive / hemoconcentration - BCx pending - UA neg UCx pending - started on zosyn in the ICU, transitioned to augmentin given poor dentition , last dose 05/20 #Elevated lipase - UA neg, CT abd / pelvis w/o evidence of pancreatitis #Hypophosphatemia #Hypokalemia - replete and monitor #Hypocalcemia - check vitamin D level #Nausea - prn zofran #Tachycardia - improving - monitor at this time #DVT ppx: lovenox #Dispo: pending clinical improvement, pending educator senior clinical eval Admission and Anticipated Discharge Date Admission Date: May 13, 2024 Subjective Admitted yesterday No acute events overnight Currently pt not offering any complaints Physical Exam Physical Exam: Gen: lying in bed comfortable HEENT: normocephalic / atraumatic, poor dentition CVS: s1s2 nl, RRR, no murmurs/ rubs / gallops Lungs: CTAB Abd: soft, nontender, normal bowel sounds, no rigidity / guarding / rebound : no white Extremities: no edema Neuro: sleeping but arousable Psych: flat affect, cooperative Results & Data Results & Data Vital Signs (Past 12 Hours) Vital Signs Temp Pulse Pulse Resp BP Pulse Ox O2 Del Method 05/16/24 07:16 85 05/16/24 03:40 37 C 112 H 18 107/79 96 Room Air 05/15/24 23:27 37 C 90 16 119/77 97 Room Air 05/15/24 21:55 78 PG Care Time/CCT Total # of Minutes Spent Total Time Spent with Patient: Total time spent is greater than 50% in coordination of care (as documented) at patient's floor/unit and/or counseling patient: Coding Diagnoses DKA (diabetic ketoacidosis) E10.10 Diabetes mellitus complication detail: without coma Diabetes mellitus type: type 1 Leukocytosis D72.829 Diarrhea R19.7 High anion gap metabolic acidosis E87.29 Poorly controlled type 1 diabetes mellitus E10.65 Hypophosphatemia E83.39 (1) DKA (diabetic ketoacidosis) Diabetes mellitus complication detail: without coma Diabetes mellitus type: type 1 Qualified Code(s): E10.10 - Type 1 diabetes mellitus with ketoacidosis without coma
[2024-05-16] MEDS: LANTUS PER UNIT CHARGE SC SCH (08:51)
--- NOTE | 2024-05-16 12:09 | Discharge Summary ---
Discharge Summary Date of Service May 16, 2024 Principal Dx & Hospital Course #1 = Principal Diagnosis (1) DKA (diabetic ketoacidosis): (2) Leukocytosis: (3) Diarrhea: (4) High anion gap metabolic acidosis: (5) Poorly controlled type 1 diabetes mellitus: (6) Hypophosphatemia: Plan #DKA - resolved #High anion gap metabolic acidosis - resolved #DM I - [facility] 05[facility]13/24[facility] - Hgb A1c: 14.1 (05/13/24) - Glycemic management consultation appreciated - monitor labs, AG closed - ethanol neg, sr osm elevated - personal development educator recs appreciated - discharge medications discussed with inpt pharmacist - CM confirmed with outpatient pharmacy all the diabetic medications and supplies have been received and filled. #Diarrhea - resolved - Patient reports 2-3 days of diarrhea and abdominal pain preceding DKA - leukocytosis improving with hydration - stool c. diff ordered, but no further diarrhea - CT abd / pelvis shows stool in rectal vault #Leukocytosis - resolved #Poor dentition - suspect reactive / hemoconcentration - BCx neg - UA neg UCx neg - started on zosyn in the ICU, transitioned to augmentin given poor dentition , last dose 05/20 #Elevated lipase - UA neg, CT abd / pelvis w/o evidence of pancreatitis #Hypophosphatemia #Hypokalemia - replete and monitor #Hypocalcemia - vitamin D level low - discharged on vitamin d supplements #Nausea - resolved - prn zofran #Tachycardia - resolved - monitor at this time Admission HPI Per Admitting Provider Wesley Perez is a 33yo male with Type-I DM x 3 years presenting with DKA. Aunt and Cousin are at bedside and provide some history as well. Patient lives with his brother. Patient reports 2-3 days of abdominal pain and diarrhea. No reported fever, chills, chest pain. His brother called his Aunt and Cousin today and they came to pick the patient up because he was doing poorly. Patient recently lost his insurance and has not been taking his insulin as directed. ER Course: NSS x 3L NaHCO3 50mEq x 2 NaHCO3 gtt Insulin gtt Zofran 4mg IV Plasmalyte 2L bolus ordered Discharge Exam Gen: lying in bed comfortable HEENT: normocephalic / atraumatic, poor dentition CVS: s1s2 nl, RRR, no murmurs/ rubs / gallops Lungs: CTAB Abd: soft, nontender, normal bowel sounds, no rigidity / guarding / rebound : no white Extremities: no edema Neuro: sleeping but arousable Psych: flat affect, cooperative Updated Medication List Medication Instructions Recorded Confirmed Type blood sugar diagnostic (OneTouch #200 ea 02/10/23 08/21/23 Rx Ultra Test strips) lancets 33 gauge (PersonallyTouch Delica #200 ea 02/10/23 08/21/23 Rx Plus Lancet) blood sugar diagnostic (OneTouch #100 ea 02/18/23 08/21/23 Rx Ultra Test strips) blood-glucose meter (OneTouch #1 ea 02/18/23 08/21/23 Rx Ultra2 Meter) blood-glucose meter,continuous #1 ea 02/18/23 08/21/23 Rx (Dexcom G7 Anatomic Pathologist) lancets 33 gauge (PersonallyTouch Delica #100 ea 02/18/23 08/21/23 Rx Lancets) insulin syringes (disposable) 1 mL #100 ea 08/19/23 08/21/23 Rx pen needle, diabetic 32 gauge x #450 ea 03/22/24 Rx 5/32" (BD Akiko 2nd Gen Pen Needle) Zofran 1 tab PO UD PRN n/v 04/06/24 04/06/24 History ibuprofen 200 mg tablet 200 mg PO UD PRN Pain 04/06/24 04/06/24 History acetone (urine) test (Ketostix #25 ea 04/07/24 04/07/24 Rx strips) blood-glucose sensor (Dexcom G7 #9 ea 04/07/24 04/07/24 Rx Sensor device) insulin aspart U-100 100 unit/mL See Rx Instructions subcut 04/07/24 04/07/24 Rx (3 mL) subcutaneous pen (Novolog USEASDIRECTD #15 mL FlexPen U-100 Insulin aspart) insulin aspart U-100 100 unit/mL 100 unit continuous subcutaneous 04/07/24 Rx subcutaneous solution (Novolog infusion DAILY #90 mL U-100 Insulin aspart) insulin degludec 100 unit/mL (3 26 unit (0.26 mL) subcut DAILY PRN 04/07/24 04/07/24 Rx mL) subcutaneous pen (Tresiba pump failure #15 mL FlexTouch U-100 insulin) insulin aspart U-100 100 unit/mL 0 unit subcut TIDM 05/13/24 05/13/24 History (3 mL) subcutaneous pen insulin glargine 100 unit/mL (3 26 unit (0.26 mL) subcut DAILY #15 05/14/24 Rx mL) subcutaneous pen (Lantus mL Solostar U-100 Insulin) amoxicillin 875 mg-potassium 1 tab PO BIDM 5 days #9 tabs 05/16/24 Rx clavulanate 125 mg tablet blood sugar diagnostic (OneTouch #2 Boxes 05/16/24 Rx Verio test strips) blood-glucose meter (OneTouch #1 ea 05/16/24 Rx Verio Flex Meter) cholecalciferol (vitamin D3) 25 25 mcg PO DAILY #30 caps 05/16/24 Rx mcg (1,000 unit) capsule lancets 33 gauge (OneTouch Delica #2 Boxes 05/16/24 Rx Plus Lancet) pen needle, diabetic 32 gauge x #100 ea 05/16/24 Rx 5/32" (Pen Needle) Hospital Stay Data Consultations 05/13/24 20:34 ED Decision to Admit Stat 05/13/24 22:50 Consult Fisher Eel Routine Diagnostic Imagining Performed 05/13/24 21:00 CT Abdomen and Pelvis [CT abd pelvis wo con] Urgent Pending Results Patient Have Any Pending Studies at Discharge: No Discharge Instructions Given to Patient (Per Discharging Provider) You were admitted to the hospital for the management of DKA. Your blood glucose has been controlled with insulin. New insulin script has been sent to your preferred location [facility] pharmacy in [place], [place]. Please cotton picker your medications today. Please note that your Lantus dose has been adjusted to 30 units daily. Your blood glucose goal is 110 - 140. Your correctional factor for aspart is 30. Meaning, every 30 points of blood glucose above 140 (your goal blood glucose), give yourself 1 unit. Your carb count is 8, so 1 unit for every 8 grams of carb you eat each meal. Please call your pyrotechnic mixer on Friday for follow up. Please note that you are also started on antibiotic for your poor dentition. You will need to take this until the end of 05/20/24. Medication has been sent to your pharmacy. Please do not skip the medication. You are now medically stable for discharge. It was a pleasure being a part of your medical care team during your stay at [facility]. Total Time Total Time Spent Total Time Spent (In Minutes): 45 mins Coding Level of Care Code 25076 INP/OBS DISCH >30 MIN Diagnoses DKA (diabetic ketoacidosis) E10.10 Diabetes mellitus complication detail: without coma Diabetes mellitus type: type 1 Leukocytosis D72.829 Diarrhea R19.7 High anion gap metabolic acidosis E87.29 Poorly controlled type 1 diabetes mellitus E10.65 Hypophosphatemia E83.39
== END 2024-05-16 13:56 | disposition home or self-care (01) | DRG 637 ==
LOC: EDBD → ED 18:17 → SUATTDRO 21:37 → 1E 21:37 → MERGE 21:37 → 1E 22:23 → 2W 05-14 18:06
DX: G93.41 Metabolic encephalopathy; K21.9 Gastro-esophageal reflux disease without esophagitis; E83.39 Other disorders of phosphorus metabolism; Z91.120 Patient's intentional underdosing of medication regimen due to financial hardship; E10.10 Type 1 diabetes mellitus with ketoacidosis without coma; E87.6 Hypokalemia; T38.3X6A Underdosing of insulin and oral hypoglycemic [antidiabetic] drugs, initial encounter; R74.8 Abnormal levels of other serum enzymes; R00.0 Tachycardia, unspecified; K08.9 Disorder of teeth and supporting structures, unspecified; F17.210 Nicotine dependence, cigarettes, uncomplicated; E83.51 Hypocalcemia; R19.7 Diarrhea, unspecified